=== PATIENT | male | born 1990 | race Caucasian/White ===

== ENCOUNTER 2020-12-26 14:46 | Emergency (ER) | payer BC, SELFPAY ==
[2020-12-26 14:47] VITALS: BP 151/92; PULSE 90; RESP 18; TEMP 36.8; O2SAT 100; BMI 34.8
[2020-12-26 15:12] VITALS: BP 151/92; PULSE 90; RESP 18; TEMP 36.8; O2SAT 100
--- NOTE | 2020-12-26 15:24 | EX.ED.DYSGE1 ---
HPI History of Present Illness Chief Complaint: Wound Informant: patient Narrative Narrative: Patient is a 30-year-old previously healthy male who presents to the emergency department for cellulitis of his foot. Patient states that initially noticed this hurting on Saturday. He was out of town and went to an outside emergency department who prescribed him Keflex. He has been taking this and it has helped with swelling but he states that there is significant redness, tenderness still present. He did try to cut open the foot initially on his own and got out about a dime size amount of purulent drainage. He has had cellulitis of his left leg before in the past but never at this location on his toes. He feels like his toes keep rubbing together which makes it worse. He denies any fevers or chills. No abdominal pain or nausea/vomiting. He denies rashes elsewhere. PFSH PFSH Home Medications sulfamethoxazole-trimethoprim [Bactrim DS] 2 tab PO BID 7 Days #28 tab 12/26/20 [Rx Last Taken Unknown] Allergy/AdvReac Type Severity Reaction Status Date / Time No Known Allergies Allergy Verified 12/26/20 14:51 Social History Smoking Status: Current every day smoker tobacco type: cigarettes ROS ROS ED Constitutional Constitutional ED: Denies chills or fever(s) ENT ENT ED: Denies rhinorrhea Cardiovascular Cardiovascular: Denies chest pain Respiratory/Chest Respiratory/Chest: Denies cough or dyspnea Gastrointestinal Gastrointestinal: Denies abdominal pain, nausea or vomiting Musculoskeletal Musculoskeletal: Denies neck pain Integumentary Reports other Details: cellulitis Neurologic Neurologic: Denies headache(s) or weakness EXAM Physical Exam Const Vital Signs: 12/26/20 14:47 12/26/20 15:12 Temperature 98.2 F 98.2 F Temperature Source Temporal Temporal Pulse Rate 90 90 Respiratory Rate 18 18 Blood Pressure 151/92 H 151/92 H Blood Pressure Mean 111 111 Pulse Ox 100 100 Oxygen Delivery Method Room Air Room Air Positive well nourished and well developed General Appearance ED: well developed and NAD HEENT Reports normocephalic and head/scalp atraumatic Eyes PERRL and EOMs intact bilaterally Neck supple Chest Wall inspection of chest normal Resp normal respiratory effort and clear to auscultation bilaterally Auscultation: Negative for rales, rhonchi or wheezes Cardio regular rate, regular rhythm and no murmurs GI normal to inspection, nondistended, normoactive bowel sounds and non-tender Palpation: soft; Negative for guarding or rebound tenderness present Extremity General Extremety ED: Negative for edema General Extremity: Negative for edema Neuro no sensory deficits noted Sensorium / Orientation: alert Motor Exam: strength 5/5 throughout Psych mental status grossly normal Skin Skin Narrative: Cellulitis extending between the third and fourth toe up the dorsal aspect of the foot. This is erythematous and tender to touch. There is mild swelling present. There is a small ulceration between the toes with some granulation tissue/purulence. No fluctuating abscess appreciated. Bedside ultrasound did not show any fluid collections. There is cobblestoning present. He otherwise is neurovascular intact with full range of motion of all joints of foot. MDM MDM MDM Narrative Medical decision making narrative: Patient presents to the emerge department for cellulitis of the foot. He has been on Keflex since Saturday. He feels like he has not gotten significant improvement except for the swelling has gone down. On arrival to the ED vital signs within normal limits. No fluid collection that requires drainage on my examination. With a history of cellulitis in the past we will add Bactrim to the Keflex to continue to take. Otherwise this time do not feel any imaging/work-up is required. He is given a referral for a PCP at his request. He states he does have an appointment with his infectious disease doctor but this is not for another 9 days. Return precautions are reviewed with him including any streaking up the leg, difficulty moving joints of the foot, systemic symptoms. He understands and is agreeable this plan. Discharged home in stable condition. All questions were answered. Discharge Plan Triage Chief Complaint: Wound ED Provider: Pankaj Golden Dx/Rx/DC Orders Clinical Impression: Cellulitis of foot Instructions: ED Cellulitis Prescriptions: New sulfamethoxazole-trimethoprim [Bactrim DS] 800-160 mg tablet 2 tab PO BID 7 Days Qty: 28 RF: 0 Primary Care Provider: NOT,DEFINED Referrals: Desire Andrews MD [STAFF PHYSICIAN] - 3-5 Days NOT,DEFINED [Primary Care Provider] - Disposition Disposition: Home, Self Care
[2020-12-26 15:36] VITALS: RESP 16
== END 2020-12-26 15:36 | disposition home or self-care (01) ==
LOC: ED 15:33
PROVIDERS: Emergency Provider Emergency Medicine
DX: L03.039 Cellulitis of unspecified toe (principal); F17.210 Nicotine dependence, cigarettes, uncomplicated
CPT/HCPCS: 99282

== ENCOUNTER 2021-02-03 08:57 | Emergency (ER) | payer BC, SELFPAY ==
[2021-02-03 08:59] VITALS: BP 145/93; PULSE 88; RESP 14; TEMP 36.7; O2SAT 99; BMI 35.6
--- NOTE | 2021-02-03 09:48 | ED.VIS.DENTA ---
HPI History of Present Illness Chief Complaint: Dental Informant: patient Narrative Narrative: Patient is a 30-year-old male that denies any past medical history presenting with dental pain. Patient states 2 days ago he started having pain in his right lower jaw. He is concerned he has an abscess. This morning when he woke up his right face was more swollen so he came to the emergency room. He notes he had problem with the molar in that area but his dentist did not feel comfortable extracting the tooth and referred him to oral surgeon. Patient states is painful to swallow but he has no difficulty swallowing. He denies any shortness of breath. He denies any other complaints to me. He notes his currently is at home and has Covid. PFSH PFSH Medical History no medical history Home Medications ibuprofen 600 mg PO Q6H PRN PRN #20 tab 02/03/21 [Rx Last Taken Unknown] penicillin V potassium 500 mg PO 4X/DAY #40 tab 02/03/21 [Rx Last Taken Unknown] Allergy/AdvReac Type Severity Reaction Status Date / Time No Known Allergies Allergy Verified 02/03/21 08:58 Social History Smoking Status: Current every day smoker tobacco type: cigarettes ROS ROS ED Constitutional Constitutional ED: Denies chills, fever(s) or malaise Eyes Eyes: Denies blurry vision or loss of vision ENT ENT ED: Reports other Details: dental pain, jaw swelling ; Denies rhinorrhea or sore throat Cardiovascular Cardiovascular: Denies chest pain or dizziness Respiratory/Chest Respiratory/Chest: Denies cough or dyspnea Gastrointestinal Gastrointestinal: Denies nausea or vomiting Genitourinary Genitourinary ED: Denies dysuria or hematuria Musculoskeletal Musculoskeletal: Denies arthralgias or myalgias Integumentary Denies rash or wounds Neurologic Neurologic: Denies focal weakness or headache(s) Psychiatric Psychiatric: Denies anxiety or behavioral changes EXAM Physical Exam Const Vital Signs: 02/03/21 08:59 Temperature 98.1 F Temperature Source Temporal Pulse Rate 88 Respiratory Rate 14 Blood Pressure 145/93 H Blood Pressure Mean 110 Pulse Ox 99 Oxygen Delivery Method Room Air Positive well nourished and well developed General Appearance ED: well developed HEENT Reports normocephalic, TM's clear, TM's normal bilaterally and dry mucous membranes Nose: external nose normal Tympanic Membrane ED: Yes TM's clear Mouth ED: Yes dry mucous membranes, No muffled voice and No trismus Mouth: dry mucous membranes, No muffled voice and No trismus Teeth and Gingiva: gingiva abnormal Positive for gingival edema (right posterior mandibular ) and diffuse gingival erythema; Negative for purulent d/c from gingiva, poor dentition and teeth discoloration Throat: posterior oropharynx normal, uvula midline and other Other Details: Sublingual mucosa is soft . Normal phonation Eyes PERRL and EOMs intact bilaterally Neck no lymphadenopathy, supple and no JVD Neck Narrative: Swelling of the right submandibular area General: submandibular swelling Resp normal respiratory effort and clear to auscultation bilaterally Cardio regular rate, regular rhythm and no murmurs Neuro oriented x3 Sensorium / Orientation: alert Motor Exam: Negative for general weakness Psych mental status grossly normal Skin no rashes or lesions noted Image ED - URI/Dental Diagram: 1. area of pain MDM MDM MDM Narrative Medical decision making narrative: Patient evaluated for 2 days worsening dental pain with no associated facial swelling. Is otherwise well-appearing. No findings concerning for Lissa's angina. No obvious abscess amenable to I&D noted. Patient is offered a dental block for comfort but he declines. Is started on Motrin and penicillin in the ER. Will follow up with his dentist and has an appointment next Saturday. Counseled on return precautions. Patient verbalizes agreement understanding this plan. Discharged home in stable condition. Discharge Plan Triage Chief Complaint: Dental ED Provider: Lyn Lr Dx/Rx/DC Orders Clinical Impression: Infected dental caries, Mandibular swelling Instructions: ED Dental Abscess Prescriptions: New ibuprofen 600 mg tablet 600 mg PO Q6H PRN PRN (Reason: fever or pain) Qty: 20 RF: 0 penicillin V potassium 500 mg tablet 500 mg PO 4X/DAY Qty: 40 RF: 0 Primary Care Provider: Care Physician,No Primary Referrals: Care Physician,No Primary [Primary Care Provider] - Activity Restrictions/Additional Instructions: Please follow-up with your dentist as scheduled. Disposition Disposition: Home, Self Care
[2021-02-03] MEDS: Penicillin Vk 250 MG Tablet 500 MG PO (10:08)
[2021-02-03] MEDS: Ibuprofen 600 MG Tablet PO (10:08)
== END 2021-02-03 10:09 | disposition home or self-care (01) ==
PROVIDERS: Emergency Provider Emergency Medicine
DX: K04.7 Periapical abscess without sinus (principal); K02.9 Dental caries, unspecified; M26.69 Other specified disorders of temporomandibular joint; Z20.822 Contact with and (suspected) exposure to COVID-19; F17.210 Nicotine dependence, cigarettes, uncomplicated
CPT/HCPCS: 99283

== ENCOUNTER 2021-02-07 23:24 | Emergency (ER) | payer BC, SELFPAY ==
[2021-02-07 23:24] VITALS: BP 161/100; PULSE 91; RESP 18; TEMP 36.8; O2SAT 99; BMI 34.8
--- NOTE | 2021-02-07 23:54 | ED.VIS.DENTA ---
HPI History of Present Illness Chief Complaint: Dental Informant: patient Narrative Narrative: Patient presents with right-sided dental pain. He states is not getting better. He thinks it might be worsening but he is not sure. He is still eating and drinking. He is able to swallow although it slightly sore. No fevers. He states he has a problem with infections. He has had cellulitis off and on for 4 years of his left leg so he does not think he deals with infection as well. He is not having the symptoms now. He has no documented immunologic diseases. He was placed on penicillin here Saturday. On Saturday/yes he saw the dentist and was changed to cephalexin. He states they have not helped. He has an appointment on Saturday to actually have the tooth pulled. Nothing specifically makes symptoms better or worse. No change in voice. PFSH PFSH Home Medications clindamycin HCl [Cleocin HCl] 300 mg PO Q6H #40 cap 02/08/21 [Rx Last Taken Unknown] hydrocodone-acetaminophen 1 tab PO Q6H PRN 3 Days #10 tab 02/08/21 [Rx Last Taken Unknown] Allergy/AdvReac Type Severity Reaction Status Date / Time No Known Allergies Allergy Verified 02/07/21 23:27 Social History Smoking Status: Current every day smoker tobacco type: cigarettes ROS ROS ED Constitutional Constitutional ED: Denies chills or fever(s) Eyes Eyes: Denies blurry vision or change in vision ENT ENT ED: Reports other Details: See history of present illness. ; Denies ear pain or rhinorrhea Cardiovascular Cardiovascular: Denies chest pain Respiratory/Chest Respiratory/Chest: Denies cough, dyspnea or sputum Gastrointestinal Gastrointestinal: Denies nausea or vomiting Musculoskeletal Musculoskeletal: Reports neck pain Integumentary Denies rash Neurologic Neurologic: Denies headache(s) Endocrine Endocrinology: Denies polydipsia or polyuria Hematologic/Lymphatic Hematologic/Lymphatic: Denies easy bruising Allergic/Immunologic Allergic/Immunologic ED: Reports mouth swelling; Denies tongue swelling or urticaria EXAM Physical Exam Const Vital Signs: 02/07/21 23:24 02/08/21 00:05 Temperature 98.3 F Temperature Source Temporal Pulse Rate 91 Respiratory Rate 18 14 Blood Pressure 161/100 H Blood Pressure Mean 120 Pulse Ox 99 Oxygen Delivery Method Room Air Positive well nourished and well developed Constitutional Narrative: Patient is laying back calmly in bed. He carries on a normal conversation and has a normal voice. General Appearance ED: well developed and NAD HEENT HEENT Narrative: He does have some tenderness on the right lower molar. There is some swelling in the external aspect of the jaw almost lateral and just inferior to the mandible on the right. However I see no internal abscess. Posterior pharyngeal tissues do not look displaced or abnormal. Tongue is not displaced. He handles secretions well and has a normal voice. Eyes General Eye ED: Negative for pale conjunctiva or scleral icterus Neck no lymphadenopathy and supple Neck Narrative: Mild submandibular swelling. Lymph Lymphatic: no lymphadenopathy noted Chest Wall inspection of chest normal Resp normal respiratory effort Cardio regular rate and regular rhythm GI normal to inspection, nondistended, normoactive bowel sounds and non-tender Palpation: soft Extremity normal to inspection Extremity Narrative: No sign of cellulitis on extremities at this time. Neuro oriented x3 Sensorium / Orientation: alert Psych mental status grossly normal Skin no rashes or lesions noted MDM MDM MDM Narrative Medical decision making narrative: Patient's blood work did show an elevated white count. He states normally when he has cellulitis his white count is about 30,000. Electrolytes were unremarkable. Glucose was normal. CT scan showed some lymphadenopathy inflammation and edema but no drainable fluid collection or abscess. I will add clindamycin to this patient. I will give him a few pills for pain. His last and only narcotic prescription was 2 years ago. This was for a small number of hydrocodone. He will follow-up for extraction Saturday as scheduled. Lab Data Attestation: I reviewed the patient's lab results. Labs: Laboratory Results - last 24 hr 02/08/21 02/08/21 00:02 00:02 WBC 16.2 H RBC 5.47 Hgb 15.4 Hct 46.0 MCV 84.1 MCH 28.2 MCHC 33.5 RDW Std Deviation 39.5 RDW Coeff of [place] 12.8 Plt Count 310 MPV 10.3 Immature Gran % (Auto) 0.400 Neut % (Auto) 74.9 H Lymph % (Auto) 13.1 L [place] % (Auto) 10.1 H Eos % (Auto) 1.1 Baso % (Auto) 0.4 Absolute Neuts (auto) 12.2 H Absolute Lymphs (auto) 2.12 Nucleated RBC % 0 Differential Comment SCANNED Diff Path Review May foll Sodium 140 Potassium 3.6 Chloride 104 Carbon Dioxide 27.0 Anion Gap 9 BUN 14 Creatinine 0.97 Estim Creat Clear Calc 119.68 Est GFR (MDRD) Af Amer 118 Est GFR (MDRD) Non-Af 97 BUN/Creatinine Ratio 14.5 Glucose 105 Calcium 9.3 Radiography Diagnostic Testing: Radiology Impression Soft Tissue Neck CT 02/08/21 23:52 IMPRESSION: Cellulitis with inflammation and edema in the right submandibular gland as well as the soft tissues of the posterior right mandible. No drainable fluid collection or abscess. Reactive lymphadenopathy is noted. Electronically Signed: Lebron Pyle DO at 0:53 EDT Tel , Service support , Discharge Plan Triage Chief Complaint: Dental ED Provider: Luis Guajardo Dx/Rx/DC Orders Clinical Impression: Infected dental caries, Mandibular swelling Instructions: ED Dental Abscess Facial Cellulitis Prescriptions: New clindamycin HCl [Cleocin HCl] 300 MG capsule 300 mg PO Q6H Qty: 40 RF: 0 hydrocodone-acetaminophen 5-325 mg tablet 1 tab PO Q6H PRN (Reason: pain) 3 Days Qty: 10 RF: 0 Primary Care Provider: Care Physician,No Primary Referrals: Care Physician,No Primary [Primary Care Provider] - Activity Restrictions/Additional Instructions: Follow-up with your dentist on Saturday as scheduled for extraction of tooth. Disposition Disposition: Home, Self Care
[2021-02-08] MEDS: Morphine 4 MG/ML Syringe IV (00:04)
[2021-02-08 00:05] VITALS: RESP 14
[2021-02-08 00:08] LABS: Absolute Lymphocyte Count 2.12 X10^3/uL (0.83-4.51); Absolute Neutrophil Count 12.2 X10^3/uL (2.0-7.7); Basophil# 0.07 X10^3/uL; Basophil% 0.4 % (0-1); Eosinophil# 0.18 X10^3/uL; Eosinophils% 1.1 % (0-5); Hemoglobin 15.4 g/dL (13.0-16.5); Lymphocyte # 2.12 X10^3/ul (0.83-4.51); Lymphocyte % 13.1 % (19-41); Mean Corp Hgb Conc 33.5 g/dL (32-36); Mean Corpuscular Hgb 28.2 pg (27.0-32.0); Mean Corpuscular Volume 84.1 fL (80-94); Mean Platelet Vol. 10.3 fl (6.2-12.0); Monocyte# 1.63 X10^3/uL; Monocyte% 10.1 % (0-10); NRBC Flagged by Analyzer 0 % (0-5); Neutrophil # 12.15 X10^3/uL (2.7-7.7); Neutrophil % 74.9 % (47-70); POSITIVE DIFFERENTIAL YES; Platelet Count 310 K/mm3 (150-450); RBC Distribution Width CV 12.8 % (11.6-14.6); RBC Distribution Width SD 39.5 fl (35.1-43.9); Red Blood Count 5.47 M/mm3 (4.6-6.2); White Blood Count 16.2 K/mm3 (4.4-11.0)
[2021-02-08 00:24] LABS: Anion Gap 9 (5-15); BUN 14 mg/dL (7-18); BUN/Creat Ratio 14.5 RATIO (10-20); Calcium,Total 9.3 mg/dL (8.5-10.1); Chloride 104 mmol/L (98-107); Creatinine, Serum 0.97 mg/dL (0.70-1.30); EST Glomerular Filtration Rate 97 mL/min (>60); Est Glom Filt Rate - Afr Amer 118 mL/min (>60); Estimated Creatinine Clearance 119.68 ml/min; Glucose 105 mg/dL (74-106); Potassium 3.6 mmol/L (3.5-5.1); Sodium Level 140 mmol/L (136-145)
[2021-02-08 00:29] LABS: Differential Indicated SCAN CRITERIA MET
[2021-02-08 00:48] LABS: Differential Comment SCANNED
[2021-02-08 13:39] LABS: Pathologist Review Reviewed
--- NOTE | 2021-02-08 23:52 | CT_ITS ---
STUDY: CT SOFT TISSUE NECK WITH CONTRAST REASON FOR EXAM: Male, 30 years old. ? abscess RADIATION DOSAGE (If Supplied By Facility): CTDIvol = ( 16.94 ) mGy, DLP = ( 482.57 ) mGycm TECHNIQUE: The patient was scanned in a multi-detector CT scanner. High resolution transaxial imaging was performed following intravenous administration of IV 100mL Isovue-370. Sagittal and coronal images were reconstructed. Individualized dose optimization techniques were used for this CT. COMPARISON: None. FINDINGS: Significant inflammation or edema without discrete abscess noted in the region of the posterior right mandible adjacent to the inner and outer table. Prominent subjacent reactive lymphadenopathy. Great vessels appear within normal limits. No evidence of osseous involvement. No drainable fluid collection. There appears to be enlargement of the right submandibular gland. CT/Soft Tissue Neck WITH Contrast IMPRESSION: Cellulitis with inflammation and edema in the right submandibular gland as well as the soft tissues of the posterior right mandible. No drainable fluid collection or abscess. Reactive lymphadenopathy is noted. Electronically Signed: Lebron Pyle DO at 0:53 EDT Tel , Service support ,
== END 2021-02-08 01:52 | disposition home or self-care (01) ==
PROVIDERS: Emergency Provider Emergency Medicine
DX: K04.7 Periapical abscess without sinus (principal); K02.9 Dental caries, unspecified; R22.0 Localized swelling, mass and lump, head; R59.1 Generalized enlarged lymph nodes; F17.210 Nicotine dependence, cigarettes, uncomplicated
CPT/HCPCS: 70491; 80048; 85025; 96361; 96365; 96375; 99284; J7030; Q9967; A4216; J0295

== ENCOUNTER 2021-02-10 21:20 | Inpatient (IN) | payer BC, SELFPAY ==
[2021-02-10 21:20] VITALS: BP 138/86; PULSE 100; RESP 15; TEMP 37.6; O2SAT 97; BMI 34.8
--- NOTE | 2021-02-10 21:51 | EDS_ITS ---
HPI History of Present Illness Chief Complaint: Dental Informant: patient Onset/Context/Timing Onset: Days Context: Gradual Onset Timing: Continuous Current Severity: Moderate Maximum Severity: Moderate Associated Symptoms Assocated Symptom - Dental: jaw swelling, face swelling, cold sensitivity and hot sensitivity; Negative for fever Narrative Narrative: 22-year-old male states that for the last week he has had pain in his right lower jaw. He was seen by [facility] on Saturday. He was started on clindamycin which she is to begin taking on Saturday she is now been on it for days. She has been taken antibiotic and is progressively getting worse. There is no trouble moving his jaw. Prior similar symptoms: No Recent Illness/Hospitalization: No [facility] Medical History (Updated 02/10/21 @ 23:[address] Carlos Johnson MD) Cellulitis Dental abscess Home Medications clindamycin HCl [Cleocin HCl] 300 mg PO Q6H #40 cap 02/08/21 [Rx Last Taken Unknown] hydrocodone-acetaminophen 1 tab PO Q6H PRN 3 Days #10 tab 02/08/21 [Rx Last Taken Unknown] Allergy/AdvReac Type Severity Reaction Status Date / Time No Known Allergies Allergy Verified 02/10/21 21:20 Social History Smoking Status: Current every day smoker tobacco type: cigarettes ROS ROS ED ROS Narrative Denies. Review of Systems ROS Unobtainable: Denies due to encephalopathy Constitutional Constitutional ED: Denies fever(s) Eyes Eyes: Denies change in vision ENT ENT ED: Denies ear pain or sore throat Cardiovascular Cardiovascular: Denies chest pain Respiratory/Chest Respiratory/Chest: Denies dyspnea Gastrointestinal Gastrointestinal: Denies abdominal pain, diarrhea, nausea or vomiting Genitourinary Genitourinary ED: Denies dysuria Musculoskeletal Musculoskeletal: Denies myalgias Integumentary Denies rash Neurologic Neurologic: Denies headache(s) Psychiatric Psychiatric: Denies depression Endocrine Endocrinology: Denies polyuria Hematologic/Lymphatic Hematologic/Lymphatic: Denies easy bruising Allergic/Immunologic Allergic/Immunologic ED: Denies urticaria EXAM Physical Exam Narrative Exam Narrative: 30-year-old male no acute distress. Vital signs stable. Temperature 9.7. Does not look septic or toxic. HEENT exam is right-sided facial swelling beginning in the zygomatic arch primarily over the right lower jaw and the submental region on the right. He felt lymphadenopathy in his neck. Trachea midline. He does have trismus. He cannot completely open his mouth due to discomfort. He has moist mucous membranes. Currently he is having no trouble breathing or swallowing. No drooling. Lungs are clear. Heart regular rhythm rate about 95 no murmur. Otherwise exam unremarkable. Const Vital Signs: 02/10/21 21:20 Temperature 99.7 F H Temperature Source Temporal Pulse Rate 100 Respiratory Rate 15 Blood Pressure 138/86 H Blood Pressure Mean 103 Pulse Ox 97 Oxygen Delivery Method Room Air Positive well nourished and well developed; Negative for cachectic, contractures or unkempt General Appearance ED: well developed and NAD; Negative for unkempt, cachectic or contractures Nutritional Appearance: Negative for cachectic HEENT tenderness; Negative for trauma Mouth ED: Yes lips normal and Yes tongue normal Mouth: lips normal and tongue normal Teeth and Gingiva: abnormal tooth and associated gingiva, gingiva abnormal and poor dentition Eyes PERRL and EOMs intact bilaterally Neck no lymphadenopathy, supple and no JVD General: normal visual inspection, tenderness and submandibular swelling Lymph Lymphatic: lymphadenopathy; Negative for no lymphadenopathy noted Chest Wall inspection of chest normal and palpation of chest normal Resp normal respiratory effort, no retractions and clear to auscultation bilaterally Cardio regular rate, regular rhythm, S1 normal heart sound, S2 normal heart sound and no murmurs GI normal to inspection, nondistended, normoactive bowel sounds, non-tender, non- distended and no masses Palpation: soft Back/Spine no CVA tenderness Extremity normal to inspection Neuro oriented x3 and moves all extremities Sensorium / Orientation: alert, oriented to person, oriented to place and oriented to time; Negative for orientation impaired Psych mental status grossly normal Appearance: Negative for unkempt Skin no rashes or lesions noted MDM MDM MDM Narrative Medical decision making narrative: Patient with right-sided facial and jaw swelling most likely secondary to dental infection and possible dental abscess., CAT scan labs being obtained. Currently is failing outpatient therapy has been on clindamycin for 4 days and is getting worse. We started on IV Unasyn. Patient treated with morphine and Zofran for pain. On repeat exam no significant change. Patient is doing well. Awaiting admission. Of already spoken to the hospitalist. Patient is resting comfortably. There is no signs of Urban's angina. Currently there is no drainable abscess. There is no compromise of his airway and no trouble swallowing or breathing. Lab Data Attestation: I reviewed the patient's lab results. Lab results narrative: CBC shows a white count of 16.7. Hemoglobin 14. Electrolytes unremarkable gap 7 normal creatinine of 1. Glucose 111. CAT scans consistent with a dental infection. Labs: Laboratory Results - last 24 hr 02/10/21 02/10/21 21:55 21:55 WBC 16.7 H RBC 5.27 Hgb 14.5 Hct 43.7 MCV 82.9 MCH 27.5 MCHC 33.2 RDW Std Deviation 38.5 RDW Coeff of [place] 12.7 Plt Count 364 MPV 10.0 Immature Gran % (Auto) 0.400 Neut % (Auto) 79.2 H Lymph % (Auto) 10.0 L [place] % (Auto) 9.5 Eos % (Auto) 0.5 Baso % (Auto) 0.4 Absolute Neuts (auto) 13.2 H Absolute Lymphs (auto) 1.66 Nucleated RBC % 0 Sodium 137 Potassium 3.7 Chloride 103 Carbon Dioxide 27.0 Anion Gap 7 BUN 16 Creatinine 1.01 Estim Creat Clear Calc 114.94 Est GFR (MDRD) Af Amer 112 Est GFR (MDRD) Non-Af 92 BUN/Creatinine Ratio 15.8 Glucose 111 H Calcium 9.0 Radiography Diagnostic Testing: Radiology Impression Facial/Sinus 02/10/21 22:11 IMPRESSION: Tiny right mandibular molar abscess with cortical breakthrough. Soft tissue swelling detailed above with involvement of the right submandibular gland, platysma, and masseter muscle. No drainable fluid collection or finding of bone involvement. Electronically Signed: Olivier Campbell MD at 22:52 EDT Tel , Service support , Discharge Plan Dx/Rx/DC Orders Clinical Impression: Mandibular swelling, Abscess, dental Disposition Disposition: [facility]
[2021-02-10 22:09] LABS: Absolute Lymphocyte Count 1.66 X10^3/uL (0.83-4.51); Absolute Neutrophil Count 13.2 X10^3/uL (2.0-7.7); Basophil# 0.07 X10^3/uL; Basophil% 0.4 % (0-1); Eosinophil# 0.08 X10^3/uL; Eosinophils% 0.5 % (0-5); Hematocrit 43.7 % (40-54); Hemoglobin 14.5 g/dL (13.0-16.5); Lymphocyte # 1.66 X10^3/ul (0.83-4.51); Mean Corp Hgb Conc 33.2 g/dL (32-36); Mean Corpuscular Hgb 27.5 pg (27.0-32.0); Mean Corpuscular Volume 82.9 fL (80-94); Monocyte# 1.59 X10^3/uL; Monocyte% 9.5 % (0-10); NRBC Flagged by Analyzer 0 % (0-5); Neutrophil # 13.19 X10^3/uL (2.7-7.7); Neutrophil % 79.2 % (47-70); POSITIVE DIFFERENTIAL YES; Platelet Count 364 K/mm3 (150-450); RBC Distribution Width CV 12.7 % (11.6-14.6); RBC Distribution Width SD 38.5 fl (35.1-43.9); Red Blood Count 5.27 M/mm3 (4.6-6.2); White Blood Count 16.7 K/mm3 (4.4-11.0)
--- NOTE | 2021-02-10 22:11 | CT_ITS ---
STUDY: CT FACIAL BONES WITHOUT CONTRAST REASON FOR EXAM: Male, 30 years old. Right sided dental abscess RADIATION DOSAGE (If Supplied By Facility): CTDIvol = ( 29.38 ) mGy, DLP = ( 767.84 ) mGycm TECHNIQUE: The patient was scanned in a multi detector CT scanner. Sagittal and coronal images were reconstructed. Individualized dose optimization techniques were used for this CT. COMPARISON: 02/08/2021 CT of the neck FINDINGS: There is a tiny periapical lucency of the remaining right mandibular molar with cortical breakthrough. Moderate overlying soft tissue swelling with thickened platysma and enlarged submandibular gland, masseter muscle, and cervical lymph nodes, increased compared to 02/08/2021. This causes mass effect on the oropharynx and hypopharynx. No drainable fluid collection. No cortical erosion or periosteal reaction to suggest bony involvement. Normal orbital chaves and orbital contents. Normal nasal bones and anterior nasal spine. Normal facial bones. There is no demonstrated fracture. Normal visualized paranasal sinuses. CT/Sinus/Facial Bone IMPRESSION: Tiny right mandibular molar abscess with cortical breakthrough. Soft tissue swelling detailed above with involvement of the right submandibular gland, platysma, and masseter muscle. No drainable fluid collection or finding of bone involvement. Electronically Signed: Olivier Campbell MD at 22:52 EDT Tel , Service support ,
[2021-02-10 22:30] LABS: Anion Gap 7 (5-15); BUN 16 mg/dL (7-18); BUN/Creat Ratio 15.8 RATIO (10-20); Chloride 103 mmol/L (98-107); Creatinine, Serum 1.01 mg/dL (0.70-1.30); EST Glomerular Filtration Rate 92 mL/min (>60); Est Glom Filt Rate - Afr Amer 112 mL/min (>60); Estimated Creatinine Clearance 114.94 ml/min; Glucose 111 mg/dL (74-106); Potassium 3.7 mmol/L (3.5-5.1); Sodium Level 137 mmol/L (136-145)
[2021-02-10 22:34] LABS: Differential Indicated SCAN CRITERIA MET
--- NOTE | 2021-02-10 23:11 | PCM.HP.STD ---
HPI - General General Date of Admission: 02/10/21 HPI Narrative TERRELL SCHAEFER, is a 30 M with a significant history of wisdom teeth extraction who presents to the emergency department with 1 week history of progressively worsening swelling of his right cheek. Associated for symptom is pain at the right cheek. He went to his dentist and was told that because his tooth is infected it cannot be extracted. He was given antibiotics. Despite being on clindamycin Augmentin his swelling increased. He was told that he would need an oral surgeon. Patient came to emergency department for further evaluation and treatment. Patient is unable to eat because he cannot even open his mouth. Last time he ate was about 3 days ago very at mashed potatoes and broth. [facility] Medical History Cellulitis Dental abscess Home Medications clindamycin HCl [Cleocin HCl] 300 mg PO Q6H #40 cap 02/08/21 [Rx Last Taken Unknown] hydrocodone-acetaminophen 1 tab PO Q6H PRN 3 Days #10 tab 02/08/21 [Rx Last Taken Unknown] Allergy/AdvReac Type Severity Reaction Status Date / Time No Known Allergies Allergy Verified 02/10/21 21:20 Family History Other Hypertension Surgical History H/O wisdom tooth extraction Social History Smoking Status: Current every day smoker tobacco type: cigarettes ROS ROS Narrative Constitutional: Denies fever, chills, fatigue, anorexia and change in weight Eyes: Denies blurry vision, change in eye color, change in vision, discharge from eye(s), double vision, erythema, eye pain, loss of vision or other HEENT: Denies abnormal hearing, dysphagia, ear pain, epistaxis, headache(s), hearing loss, nasal congestion, nasal discharge, post nasal drip, sinus pressure, sore throat or other Cardiovascular: Denies chest pain or palpitations. Denies dyspnea on exertion, orthopnea and paroxysmal nocturnal dyspnea Respiratory/Chest: Denies cough, excessive phlegm production, shortness of breath with exertion and wheezing Gastrointestinal: Denies abdominal pain, coffee ground emesis, constipation, diarrhea, dyspepsia, hematemesis, hematochezia, loose stools, melena, nausea, vomiting or other Genitourinary: Denies burning urination, difficulty urinating, dysuria, hematuria, nocturia, urinary frequency, urinary hesitancy, urinary incontinence, urinary urgency or other Musculoskeletal: Denies arthralgias, back pain, joint pain, joint stiffness, joint swelling, myalgias, neck pain or other Neurologic: Denies abnormal gait, abnormal speech, confusion, disequilibrium, dizziness, focal weakness, headache(s), numbness, paresthesias, seizure-like activity, seizures, syncope, tingling, tremor(s) or other Psychiatric: Denies anxiety, depression, homicidal ideation, suicidal ideation or other Endocrinology: Denies change in body appearance, cold intolerance, excessive sweating, heat intolerance, polydipsia, polyuria or other Hematologic/Lymphatic: Denies anemia, easy bleeding, easy bruising, lymphadenopathy or other Integumentary: Denies rashes Allergic/Immunologic: Denies rhinitis, hives, eczema, asthma or other Vital Signs Vital Signs Vital Signs: 02/10/21 21:20 Temperature 99.7 F H Temperature Source Temporal Pulse Rate 100 Respiratory Rate 15 Blood Pressure 138/86 H Blood Pressure Mean 103 Pulse Ox 97 Oxygen Delivery Method Room Air Weight Weight: 113.398 kg Body Mass Index (BMI) 34.8 Physical Exam Narrative Physical exam: General: Well-nourished, well-developed. Head: Normocephalic, atraumatic, no tenderness Eyes: PERRLA, EOMI ENT: Patient with swelling of right jaw and necrotic tooth. Neck: Nontender, full range of motion, no spinal tenderness, deformities, step-off CVS: Regular rate and rhythm. S1-S2 present. No murmur, gallop or rub. Respiratory : clear to auscultation bilaterally, chest wall nontender, no wheezing Abdomen: Soft, nontender, nondistended, normal bowel sounds, no masses : Deferred Back: Nontender, no CVA tenderness, no midline spinal tenderness, deformities, step-offs Extremities: Nontender full range of motion, no trauma Skin: Normal color, no trauma, abrasions Neuro: Alert, oriented, cranial nerves II through XII grossly intact. Psychiatry: Normal mood. Normal affect. Not depressed. Not anxious. Results Lab / Micro Data Result Diagrams: 02/10/21 21:55 02/10/21 21:55 Labs: Laboratory Results - last 24 hr 02/10/21 21:55: WBC 16.7 H, RBC 5.27, Hgb 14.5, Hct 43.7, MCV 82.9, MCH 27.5, MCHC 33.2, RDW Std Deviation 38.5, RDW Coeff of [place] 12.7, Plt Count 364, MPV 10.0, Immature Gran % (Auto) 0.400, Neut % (Auto) 79.2 H, Lymph % (Auto) 10.0 L, [place] % (Auto) 9.5, Eos % (Auto) 0.5, Baso % (Auto) 0.4, Absolute Neuts (auto) 13.2 H, Absolute Lymphs (auto) 1.66, Nucleated RBC % 0 02/10/21 21:55: Sodium 137, Potassium 3.7, Chloride 103, Carbon Dioxide 27.0, Anion Gap 7, BUN 16, Creatinine 1.01, Estim Creat Clear Calc 114.94, Est GFR (MDRD) Af Amer 112, Est GFR (MDRD) Non-Af 92, BUN/Creatinine Ratio 15.8, Glucose 111 H, Calcium 9.0 Radiology Impression Facial/Sinus 02/10/21 22:11 IMPRESSION: Tiny right mandibular molar abscess with cortical breakthrough. Soft tissue swelling detailed above with involvement of the right submandibular gland, platysma, and masseter muscle. No drainable fluid collection or finding of bone involvement. Electronically Signed: Olivier Campbell MD at 22:52 EDT Tel , Service support , Assessment & Plan Assessment/Plan (1) Abscess, dental: PLAN: Dental abscess Radiologist impression of CT Sinus/Facial Bone is as above. Actual CT image was independently visualized. Soft tissue swelling noted. Radiologist impression of soft tissue neck CT on 02/07/2021: Cellulitis with inflammation and edema in the right submandibular gland as well as the soft tissues of the posterior right mandible. No drainable fluid collection or abscess. Reactive lymphadenopathy is noted. Actual CT image was independently visualized. Swelling of soft tissue of posterior right mandible noted. Started on Unasyn at the emergency department and continued. Would add vancomycin. We will keep patient n.p.o. IV fluids while n.p.o. Consult orofacial surgeon. Review of labs showed a white count of 16.7 with neutrophilic predominance and with lymphopenia. Trend CBC and BMP. Tobacco abuse Counseled Declined nicotine patch. DVT prophylaxis: SCD ordered. Charges/Coding Visit Charges Inpatient E&M: 68014 Init Hosp L3
[2021-02-10] MEDS: Ondansetron 4 MG/2 ML Vial IV (23:13)
[2021-02-10] MEDS: morphine 8 MG/ML Syringe IV (23:13)
[2021-02-10 23:18] LABS: Differential Comment SCANNED
[2021-02-10 23:20] VITALS: BP 127/69; PULSE 86; RESP 16; TEMP 37.7; O2SAT 96
[2021-02-10 23:46] VITALS: BMI 34.1
[2021-02-10 23:50] VITALS: BP 149/80; PULSE 79; RESP 18; TEMP 37.7; O2SAT 98
[2021-02-11 00:13] VITALS: O2SAT 98
[2021-02-11] MEDS: Dextrose 5%/0.9% NaCl 1,000 ML 75 ML IV ×2 (00:19→17:12)
[2021-02-11] MEDS: 0.9% Saline Lock 10 ML Syringe IV ×4 (00:19→10:23)
--- NOTE | 2021-02-11 00:47 | PCM.RX.CS ---
Consult Pharmacy has been consulted to manage selected antiobiotic: Vancomycin Type of Consult: New start Suspected Infection: Skin/Soft tissue Prior Doses of Antibiotics Received/Current Regimen: Medications Vancomycin HCl 1,500 mg/ (Sodium Chloride) 530 mls @ 250 mls/hr IV Q8H JADE Vancomycin HCl 1,750 mg/ (Sodium Chloride) 535 mls @ 250 mls/hr IV X1 ONE Stop: 02/11/21 01:38 Last Admin: 02/11/21 00:20 Dose: 250 mls/hr Labs: Sodium 137 mmol/L (136-145) 02/10/21 21:55 Potassium 3.7 mmol/L (3.5-5.1) 02/10/21 21:55 Chloride 103 mmol/L (98-107) 02/10/21 21:55 Carbon Dioxide 27.0 mmol/L (21.0-32.0) 02/10/21 21:55 Anion Gap 7 (5-15) 02/10/21 21:55 BUN 16 mg/dL (7-18) 02/10/21 21:55 Creatinine 1.01 mg/dL (0.70-1.30) 02/10/21 21:55 Est GFR (MDRD) Af Amer 112 mL/min (>60) 02/10/21 21:55 Est GFR (MDRD) Non-Af 92 mL/min (>60) 02/10/21 21:55 BUN/Creatinine Ratio 15.8 RATIO (10-20) 02/10/21 21:55 Glucose 111 mg/dL (74-106) H 02/10/21 21:55 Weight used for dosin.4 kg Estimated Creatinine Clearance: 115 Goal Trough: 15-20 mcg/mL Pharmacy Plan for Drug Dosing: Pharmacy Service will continue to monitor and adjust dosing as required. Follow-Up Labs: Trough Vancomycin Labs to be done on [date and time ordered]: 02/12/21 @0000
--- NOTE | 2021-02-11 00:54 | PCS.PANDOC ---
PANDEMIC DOCUMENTATION INITIATED: Date: 12/26/2020 Time: 190
[2021-02-11] MEDS: Morphine 4 MG/ML Syringe IV ×4 (02:13→19:57)
[2021-02-11 04:36] VITALS: BP 140/65; PULSE 80; RESP 18; TEMP 37.1; O2SAT 97
[2021-02-11 06:33] LABS: Absolute Lymphocyte Count 1.98 X10^3/uL (0.83-4.51); Absolute Neutrophil Count 14.5 X10^3/uL (2.0-7.7); Basophil# 0.09 X10^3/uL; Basophil% 0.5 % (0-1); Eosinophil# 0.06 X10^3/uL; Eosinophils% 0.3 % (0-5); Hemoglobin 13.7 g/dL (13.0-16.5); Lymphocyte # 1.98 X10^3/ul (0.83-4.51); Lymphocyte % 10.4 % (19-41); Mean Corp Hgb Conc 32.6 g/dL (32-36); Mean Corpuscular Hgb 27.8 pg (27.0-32.0); Mean Corpuscular Volume 85.2 fL (80-94); Mean Platelet Vol. 10.1 fl (6.2-12.0); Monocyte# 2.31 X10^3/uL; Monocyte% 12.1 % (0-10); NRBC Flagged by Analyzer 0 % (0-5); Neutrophil # 14.53 X10^3/uL (2.7-7.7); Neutrophil % 76.2 % (47-70); POSITIVE DIFFERENTIAL YES; Platelet Count 354 K/mm3 (150-450); RBC Distribution Width CV 12.8 % (11.6-14.6); RBC Distribution Width SD 39.8 fl (35.1-43.9); Red Blood Count 4.93 M/mm3 (4.6-6.2); White Blood Count 19.1 K/mm3 (4.4-11.0)
[2021-02-11 06:39] LABS: Differential Indicated SCAN CRITERIA MET
[2021-02-11 06:56] LABS: Differential Comment SCANNED
[2021-02-11 07:02] LABS: Anion Gap 8 (5-15); BUN 16 mg/dL (7-18); BUN/Creat Ratio 17.3 RATIO (10-20); Calcium,Total 8.8 mg/dL (8.5-10.1); Chloride 101 mmol/L (98-107); Creatinine, Serum 0.93 mg/dL (0.70-1.30); EST Glomerular Filtration Rate 102 mL/min (>60); Est Glom Filt Rate - Afr Amer 123 mL/min (>60); Estimated Creatinine Clearance 124.83 ml/min; Glucose 99 mg/dL (74-106); Potassium 3.7 mmol/L (3.5-5.1); Sodium Level 136 mmol/L (136-145)
[2021-02-11 08:55] VITALS: BP 144/89; PULSE 88; RESP 20; TEMP 37.7; O2SAT 92
--- NOTE | 2021-02-11 12:15 | CASEMGMT ---
ANKIT PAGE DOG BOARDER CM to room to meet with patient for initial transition planning/care coordination assessment. ANKIT PAGE introduced self and role at [facility]. Pt voices understanding and consents to assessment at this time. Pt resting in bed in no distress at this time. Pt is A/O at this time and answers all questions appropriately. Care providers, pharmacy, and demographics verified/updated at this time. PCP: No PCP. Pt provided w/list of local PCP's. Specialists: Dentist @ [facility] in [place]. ID: Mahdavi Arellano NP, @ [facility] Preferred Pharmacy: [facility] Insurance: [place] Prescription Benefit: Pt states, I believe so. Living Will/HPOA: Pt does not currently have LW/HCPOA and declines info at this time. Pt made aware that he can contact as an out-pt and make appt in the future if he decides he would like to talk with someone about this or would like to utilize [facility] social work for advanced directive completion. LNOK: , Jennifer. Living Arrangements: Lives w/ and 2 yr-old son in 3-story home. Independent. Works full-time. Transportation: Pt states drives self and states no transportation concerns at this time. also drives. DME: Denies using any DME and denies needs. HHC/SNF: No hx of either. No needs identified. Pt wishes to return home and states has no concerns with going home at time of discharge. CM to follow for home oxygen needs and any discharge planning/needs. Pt voices no concerns/needs at this time. Advised pt to ask for CM if any questions/concerns/needs arise. Voices understanding. PLAN: Home w/spousal support and discharge plans in place. Brian BROOKS RN, CM
--- NOTE | 2021-02-11 12:24 | PCM.PN.HOSP ---
Subjective Subjective Doing well, swelling is improved. Still has difficulty opening his mouth but would like to try to eat something. Objective Data Objective Data Vital Signs: Vital Signs Temp Pulse Resp BP Pulse Ox 99.9 F H 88 20 H 144/89 H 92 02/11/21 08:55 02/11/21 08:55 02/11/21 08:55 02/11/21 08:55 02/11/21 08:55 Oxygen Delivery Method Room Air Weight: 244 lb 11.41 oz Body Mass Index (BMI) 34.1 Intake & Output: Intake and Output for Last 24 Hours 02/10/21 02/11/21 02/12/21 03:59 03:59 03:59 Intake Total 414.5 / 414.5 767 / 767 Balance 414.5 / 414.5 767 / 767 Lab / Micro Data Result Diagrams: 02/11/21 06:22 02/11/21 06:22 Labs: Laboratory Results - last 24 hr 02/10/21 21:55: WBC 16.7 H, RBC 5.27, Hgb 14.5, Hct 43.7, MCV 82.9, MCH 27.5, MCHC 33.2, RDW Std Deviation 38.5, RDW Coeff of [place] 12.7, Plt Count 364, MPV 10.0, Immature Gran % (Auto) 0.400, Neut % (Auto) 79.2 H, Lymph % (Auto) 10.0 L, [place] % (Auto) 9.5, Eos % (Auto) 0.5, Baso % (Auto) 0.4, Absolute Neuts (auto) 13.2 H, Absolute Lymphs (auto) 1.66, Nucleated RBC % 0, Differential Comment SCANNED, Diff Path Review September02/10/21 21:55: Sodium 137, Potassium 3.7, Chloride 103, Carbon Dioxide 27.0, Anion Gap 7, BUN 16, Creatinine 1.01, Estim Creat Clear Calc 114.94, Est GFR (MDRD) Af Amer 112, Est GFR (MDRD) Non-Af 92, BUN/Creatinine Ratio 15.8, Glucose 111 H, Calcium 9.0 02/11/21 06:22: WBC 19.1 H, RBC 4.93, Hgb 13.7, Hct 42.0, MCV 85.2, MCH 27.8, MCHC 32.6, RDW Std Deviation 39.8, RDW Coeff of [place] 12.8, Plt Count 354, MPV 10.1, Immature Gran % (Auto) 0.500, Neut % (Auto) 76.2 H, Lymph % (Auto) 10.4 L, [place] % (Auto) 12.1 H, Eos % (Auto) 0.3, Baso % (Auto) 0.5, Absolute Neuts (auto) 14.5 H, Absolute Lymphs (auto) 1.98, Nucleated RBC % 0, Differential Comment SCANNED, Diff Path Review September02/11/21 06:22: Sodium 136, Potassium 3.7, Chloride 101, Carbon Dioxide 27.0, Anion Gap 8, BUN 16, Creatinine 0.93, Estim Creat Clear Calc 124.83, Est GFR (MDRD) Af Amer 123, Est GFR (MDRD) Non-Af 102, BUN/Creatinine Ratio 17.3, Glucose 99, Calcium 8.8 Radiography Diagnostic Testing: Radiology Impression Facial/Sinus 02/10/21 22:11 IMPRESSION: Tiny right mandibular molar abscess with cortical breakthrough. Soft tissue swelling detailed above with involvement of the right submandibular gland, platysma, and masseter muscle. No drainable fluid collection or finding of bone involvement. Electronically Signed: Olivier Campbell MD at 22:52 EDT Tel , Service support , Physical Exam Const alert, oriented x3 and no apparent distress General Appearance: cooperative HEENT normocephalic and moist oral mucous membranes Face and Sinus: facial edema Eyes PERRL, EOMs intact bilaterally and conjunctivae normal Neck supple and no JVD Resp normal respiratory effort, no retractions, no use of accessory muscles and clear to auscultation bilaterally Auscultation: Negative for crackles, rales, rhonchi or wheezes Cardio regular rate, regular rhythm, S1 normal heart sound, S2 normal heart sound and no murmurs GI soft to palpation, non-tender and non-distended; Negative for hepatosplenomegaly Extremity no clubbing, cyanosis or edema Skin no rashes or lesions noted Neuro no focal motor deficits and no sensory deficits noted Psych affect normal Appearance: appropriate Assessment & Plan Assessment/Plan (1) Abscess, dental: PLAN: 1. Tiny dental abscess on the right per CT of the face. -Significant swelling with difficulty opening his mouth -Was taking clindamycin p.o. however swelling worsened and p.o. intake declined -We will continue with IV antibiotics, if he still here on Saturday can see OMFS -Continue to monitor leukocytosis -He can have a diet secondary to no immediate plans for OR 2. Tobacco abuse ?Counseled ?Declined nicotine patch. DVT: SCDs Charges/Coding Visit Charges Inpatient E&M: 60342 Subs Hosp L2
[2021-02-11 14:36] VITALS: BP 140/88; PULSE 80; RESP 16; TEMP 37; O2SAT 97
[2021-02-11 19:37] VITALS: BP 140/82; PULSE 82; RESP 18; TEMP 37.4; O2SAT 97
[2021-02-11] MEDS: Senna/Docusate Sodium 1 Tablet 2 TABLET PO (19:57)
[2021-02-12 00:55] LABS: Vancomycin, Trough Level 12.3 ug/mL (5.0-15.0)
[2021-02-12] MEDS: Morphine 4 MG/ML Syringe IV (01:37)
--- NOTE | 2021-02-12 02:06 | PCM.RX.CS ---
Consult Pharmacy has been consulted to manage selected antiobiotic: Vancomycin Type of Consult: Follow-up Suspected Infection: Skin/Soft tissue Prior Doses of Antibiotics Received/Current Regimen: Medications Vancomycin HCl 1,750 mg/ (Sodium Chloride) 535 mls @ 250 mls/hr IV Q8H JADE Vancomycin HCl 1,500 mg/ (Sodium Chloride) 530 mls @ 250 mls/hr IV Q8H JADE Stop: 02/12/21 04:00 Last Admin: 02/12/21 01:38 Dose: 250 mls/hr Labs: Sodium 136 mmol/L (136-145) 02/11/21 06:22 Potassium 3.7 mmol/L (3.5-5.1) 02/11/21 06:22 Chloride 101 mmol/L (98-107) 02/11/21 06:22 Carbon Dioxide 27.0 mmol/L (21.0-32.0) 02/11/21 06:22 Anion Gap 8 (5-15) 02/11/21 06:22 BUN 16 mg/dL (7-18) 02/11/21 06:22 Creatinine 0.93 mg/dL (0.70-1.30) 02/11/21 06:22 Est GFR (MDRD) Af Amer 123 mL/min (>60) 02/11/21 06:22 Est GFR (MDRD) Non-Af 102 mL/min (>60) 02/11/21 06:22 BUN/Creatinine Ratio 17.3 RATIO (10-20) 02/11/21 06:22 Glucose 99 mg/dL (74-106) 02/11/21 06:22 Vancomycin Trough 12.3 ug/mL (5.0-15.0) 02/11/21 23:45 Weight used for dosin kg Estimated Creatinine Clearance: 125 Goal Trough: 15-20 mcg/mL Pharmacy Plan for Drug Dosing: Vancomycin trough level of 12.3 was below the target range of 15-20. Will increase dose to 1750mg q8h and re-draw a trough prior to 4th dose of new regimen. Pharmacy Service will continue to monitor and adjust dosing as required. Follow-Up Labs: Trough Vancomycin Labs to be done on [date and time ordered]: 02/13/21 @0900
[2021-02-12 02:26] VITALS: BP 131/76; PULSE 82; RESP 16; TEMP 36.9; O2SAT 98
[2021-02-12 07:33] LABS: Absolute Lymphocyte Count 2.82 X10^3/uL (0.83-4.51); Absolute Neutrophil Count 11.1 X10^3/uL (2.0-7.7); Basophil# 0.09 X10^3/uL; Basophil% 0.6 % (0-1); Eosinophil# 0.13 X10^3/uL; Eosinophils% 0.8 % (0-5); Hematocrit 39.7 % (40-54); Hemoglobin 13.1 g/dL (13.0-16.5); Lymphocyte # 2.82 X10^3/ul (0.83-4.51); Lymphocyte % 17.3 % (19-41); Mean Corpuscular Hgb 27.9 pg (27.0-32.0); Mean Corpuscular Volume 84.6 fL (80-94); Mean Platelet Vol. 10.2 fl (6.2-12.0); Monocyte# 2.03 X10^3/uL; Monocyte% 12.5 % (0-10); NRBC Flagged by Analyzer 0 % (0-5); Neutrophil # 11.14 X10^3/uL (2.7-7.7); Neutrophil % 68.4 % (47-70); POSITIVE DIFFERENTIAL YES; Platelet Count 346 K/mm3 (150-450); RBC Distribution Width CV 12.8 % (11.6-14.6); Red Blood Count 4.69 M/mm3 (4.6-6.2); White Blood Count 16.3 K/mm3 (4.4-11.0)
[2021-02-12 07:44] LABS: Differential Indicated SCAN CRITERIA MET
[2021-02-12 07:53] LABS: Anion Gap 6 (5-15); BUN 13 mg/dL (7-18); BUN/Creat Ratio 13.8 RATIO (10-20); Calcium,Total 8.8 mg/dL (8.5-10.1); Chloride 102 mmol/L (98-107); Creatinine, Serum 0.94 mg/dL (0.70-1.30); EST Glomerular Filtration Rate 100 mL/min (>60); Est Glom Filt Rate - Afr Amer 122 mL/min (>60); Glucose 90 mg/dL (74-106); Potassium 3.3 mmol/L (3.5-5.1); Sodium Level 137 mmol/L (136-145)
[2021-02-12 08:57] VITALS: BP 138/89; PULSE 83; RESP 14; TEMP 37.1; O2SAT 97
[2021-02-12 08:58] LABS: Differential Comment SCANNED
--- NOTE | 2021-02-12 08:59 | PCM.PN.HOSP ---
Subjective Subjective Feels that the swelling in his throat is a little bit improved and thinks that the swelling in his jaw is stable. No shortness of breath. No difficulty swallowing. Objective Data Objective Data Vital Signs: Vital Signs Temp Pulse Resp BP Pulse Ox 98.7 F 83 14 138/89 H 97 02/12/21 08:57 02/12/21 08:57 02/12/21 08:57 02/12/21 08:57 02/12/21 08:57 Oxygen Delivery Method Room Air Weight: 244 lb 11.41 oz Body Mass Index (BMI) 34.1 Intake & Output: Intake and Output for Last 24 Hours 02/11/21 02/12/21 02/13/21 03:59 03:59 03:59 Intake Total 414.5 / 414.5 4611.75 / 4611.75 942 / 942 Balance 414.5 / 414.5 4611.75 / 4611.75 942 / 942 Medical Nutrition Assessment Dietitian: Malnutrition Criteria Met Start: 02/11/21 15:46 Freq: Status: Active Protocol: Document 02/11/21 15:46 RMA (Rec: 02/11/21 15:46 RMA [id number]) Nutrition Malnutrition Evidence of Malnutrition Exists Yes Malnutrition (severe): Acute Illness/Injury Evidenced By Suboptimal Energy Intake ( Severe),Weight Loss (Severe) Clinical Problem Acute Disease or Injury Related Malnutrition Etiology Severe protein/calorie malnutrition in the context of acute illness related to dental abscess/infection and difficulty chewing Signs/Symptoms as evidenced by ~2% wt loss x past 1-2 weeks which is significant for malnutrition especially given PO meeting less than 50% estimated needs and inability to chew effectively x past 7 days. Status Active Problem Recommendation Dietitian Recommendations/Changes Continue regular diet with [id number] food as tolerated . Will add hope milkshake w/ 1 scoop bene-protein TID with meals. Adjust ONS as needed to optimize intake and prevent further wt loss. Lab / Micro Data Result Diagrams: 02/12/21 05:52 02/12/21 05:52 Labs: Laboratory Results - last 24 hr 02/11/21 23:45: Vancomycin Trough 12.3 02/12/21 05:52: WBC 16.3 H, RBC 4.69, Hgb 13.1, Hct 39.7 L, MCV 84.6, MCH 27.9, MCHC 33.0, RDW Std Deviation 39.0, RDW Coeff of [place] 12.8, Plt Count 346, MPV 10.2, Immature Gran % (Auto) 0.400, Neut % (Auto) 68.4, Lymph % (Auto) 17.3 L, [place] % (Auto) 12.5 H, Eos % (Auto) 0.8, Baso % (Auto) 0.6, Absolute Neuts (auto) 11.1 H, Absolute Lymphs (auto) 2.82, Nucleated RBC % 0, Differential Comment SCANNED, Diff Path Review September02/12/21 05:52: Sodium 137, Potassium 3.3 L, Chloride 102, Carbon Dioxide 29.0, Anion Gap 6, BUN 13, Creatinine 0.94, Estim Creat Clear Calc 123.50, Est GFR (MDRD) Af Amer 122, Est GFR (MDRD) Non-Af 100, BUN/Creatinine Ratio 13.8, Glucose 90, Calcium 8.8 Physical Exam Narrative Const alert, oriented x3 and no apparent distress General Appearance: cooperative HEENT normocephalic and moist oral mucous membranes HEENT Narrative: Left jaw swelling Eyes PERRL, EOMs intact bilaterally and conjunctivae normal Neck supple and no JVD Resp normal respiratory effort, no retractions, no use of accessory muscles and clear to auscultation bilaterally Auscultation: Negative for crackles, rales, rhonchi or wheezes Cardio regular rate, regular rhythm, S1 normal heart sound, S2 normal heart sound and no murmurs GI soft to palpation, non-tender and non-distended; Negative for hepatosplenomegaly Extremity no clubbing, cyanosis or edema Skin no rashes or lesions noted Neuro no focal motor deficits and no sensory deficits noted Psych affect normal Appearance: appropriate Assessment & Plan Assessment/Plan (1) Abscess, dental: PLAN: 1. Tiny dental abscess on the right per CT of the face. -Significant swelling with difficulty opening his mouth -Was taking clindamycin p.o. however swelling worsened and p.o. intake declined -We will continue with IV antibiotics, if he still here on Saturday can see OMFS -Continue to monitor leukocytosis, improving -He can have a diet secondary to no immediate plans for OR 2. Tobacco abuse ?Counseled ?Declined nicotine patch. DVT: SCDs Charges/Coding Visit Charges Inpatient E&M: 48770 Subs Hosp L2
[2021-02-12] MEDS: 0.9% Saline Lock 10 ML Syringe IV ×3 (09:00→17:58)
[2021-02-12 14:42] VITALS: BP 131/73; PULSE 99; RESP 16; TEMP 37.2; O2SAT 97
[2021-02-12] MEDS: Potassium Chloride Oral Tablet 20 MEQ 40 MEQ PO (14:43)
[2021-02-12 20:40] VITALS: BP 127/78; PULSE 76; RESP 16; TEMP 36.9; O2SAT 99
[2021-02-13] MEDS: 0.9% Saline Lock 10 ML Syringe IV ×4 (00:31→13:01)
[2021-02-13 02:40] VITALS: BP 138/65; PULSE 83; RESP 16; TEMP 36.9; O2SAT 99
[2021-02-13 04:40] VITALS: BP 155/85; PULSE 81; RESP 16; TEMP 36.9; O2SAT 96
[2021-02-13] MEDS: Morphine 4 MG/ML Syringe IV (04:51)
[2021-02-13 08:42] LABS: Absolute Lymphocyte Count 2.54 X10^3/uL (0.83-4.51); Basophil# 0.08 X10^3/uL; Basophil% 0.6 % (0-1); Eosinophil# 0.27 X10^3/uL; Eosinophils% 1.9 % (0-5); Hematocrit 40.7 % (40-54); Hemoglobin 13.8 g/dL (13.0-16.5); Lymphocyte # 2.54 X10^3/ul (0.83-4.51); Lymphocyte % 17.8 % (19-41); Mean Corp Hgb Conc 33.9 g/dL (32-36); Mean Corpuscular Hgb 28.2 pg (27.0-32.0); Mean Corpuscular Volume 83.2 fL (80-94); Mean Platelet Vol. 9.7 fl (6.2-12.0); Monocyte% 9.1 % (0-10); NRBC Flagged by Analyzer 0 % (0-5); Neutrophil # 9.99 X10^3/uL (2.7-7.7); Neutrophil % 70.1 % (47-70); Platelet Count 365 K/mm3 (150-450); RBC Distribution Width CV 12.7 % (11.6-14.6); RBC Distribution Width SD 38.7 fl (35.1-43.9); Red Blood Count 4.89 M/mm3 (4.6-6.2); White Blood Count 14.3 K/mm3 (4.4-11.0)
[2021-02-13 09:20] LABS: Vancomycin, Trough Level 20.7 ug/mL (5.0-15.0)
[2021-02-13 10:31] VITALS: BP 119/79; PULSE 61; RESP 14; TEMP 36.6; O2SAT 100
[2021-02-13 10:33] VITALS: BP 119/79; PULSE 61; RESP 14; TEMP 36.6; O2SAT 100
--- NOTE | 2021-02-13 10:33 | PCM.RX.CS ---
Consult Pharmacy has been consulted to manage selected antiobiotic: Vancomycin Type of Consult: Follow-up Suspected Infection: Skin/Soft tissue, Other - DENTAL ABSCESS Labs: Sodium 137 mmol/L (136-145) 02/12/21 05:52 Potassium 3.3 mmol/L (3.5-5.1) L 02/12/21 05:52 Chloride 102 mmol/L (98-107) 02/12/21 05:52 Carbon Dioxide 29.0 mmol/L (21.0-32.0) 02/12/21 05:52 Anion Gap 6 (5-15) 02/12/21 05:52 BUN 13 mg/dL (7-18) 02/12/21 05:52 Creatinine 0.94 mg/dL (0.70-1.30) 02/12/21 05:52 Est GFR (MDRD) Af Amer 122 mL/min (>60) 02/12/21 05:52 Est GFR (MDRD) Non-Af 100 mL/min (>60) 02/12/21 05:52 BUN/Creatinine Ratio 13.8 RATIO (10-20) 02/12/21 05:52 Glucose 90 mg/dL (74-106) 02/12/21 05:52 Vancomycin Trough 20.7 ug/mL (5.0-15.0) H 02/13/21 08:30 Goal Trough: 15-20 mcg/mL Pharmacy Plan for Drug Dosing: VANCOMYCIN LEVEL RECEIVED Current Vancomycin Dose: 1750MG Q8H Number of Doses Received: 6 Vancomycin Level: 20.7 MG/DL Hours Since Last Dose: 6.5 HOURS Renal Function: SCR 0.94, CRCL 123 ML/MIN Renal Function Trend: STABLE Lab/Micro: NONE Vancomycin Plan/Comments: 6.5 HOUR TROUGH IS SLIGHTLY ABOVE RANGE OF 15-20MG/DL AT 20.7 MG/DL. HOWEVER, A TROUGH OF 7.5 HOURS WOULD BE MORE APPROPRIATE AND THE TROUGH WOULD LIKELY BE WITHIN THERAPEUTIC RANGE AT THAT TIME. RENAL FUNCTION IS STABLE. WILL CONTINUE CURRENT DOSING SINCE LEVEL WAS DRAWN AT 6.5 HOURS FOR Q8H DOSING. WILL REPEAT A LEVEL IN 24 HOURS TO MAKE SURE IT IS NOT FURTHER ABOVE THERAPEUTIC RANGE. Pending Level: 02/14/21 @ 0900 Pharmacy Service will continue to monitor and adjust dosing as required.
[2021-02-13 14:11] VITALS: BP 119/82; PULSE 61; RESP 14; TEMP 36.7; O2SAT 100
--- NOTE | 2021-02-13 14:14 | PN.HOSP_ITS ---
Subjective Subjective Patient seen and examined. He still complains of right jaw swelling and pain. He says he is able to swallow and drink fluids. Review of systems is otherwise negative. Objective Data Objective Data Vital Signs: Vital Signs Temp Pulse Resp BP Pulse Ox 98.1 F 61 14 119/82 H 100 02/13/21 14:11 02/13/21 14:11 02/13/21 14:11 02/13/21 14:11 02/13/21 14:11 Oxygen Delivery Method Room Air Weight: 244 lb 11.41 oz Body Mass Index (BMI) 34.1 Intake & Output: Intake and Output for Last 24 Hours 02/11/21 02/12/21 02/13/21 23:59 23:59 23:59 Intake Total 4122. / 4121.3827 / 4127 Balance 4121. / 3827 / 4127 Medical Nutrition Assessment Dietitian: Malnutrition Criteria Met Start: 02/11/21 15:46 Freq: Status: Active Protocol: Document 02/11/21 15:46 RMA (Rec: 02/11/21 15:46 RMA [id number]) Nutrition Malnutrition Evidence of Malnutrition Exists Yes Malnutrition (severe): Acute Illness/Injury Evidenced By Suboptimal Energy Intake ( Severe),Weight Loss (Severe) Clinical Problem Acute Disease or Injury Related Malnutrition Etiology Severe protein/calorie malnutrition in the context of acute illness related to dental abscess/infection and difficulty chewing Signs/Symptoms as evidenced by ~2% wt loss x past 1-2 weeks which is significant for malnutrition especially given PO meeting less than 50% estimated needs and inability to chew effectively x past 7 days. Status Active Problem Recommendation Dietitian Recommendations/Changes Continue regular diet with digd-hp-peya food as tolerated . Will add hope milkshake w/ 1 scoop bene-protein TID with meals. Adjust ONS as needed to optimize intake and prevent further wt loss. Lab / Micro Data Result Diagrams: 02/13/21 08:30 02/12/21 05:52 Labs: Laboratory Results - last 24 hr 02/13/21 08:30: Vancomycin Trough 20.7 H 02/13/21 08:30: WBC 14.3 H, RBC 4.89, Hgb 13.8, Hct 40.7, MCV 83.2, MCH 28.2, MCHC 33.9, RDW Std Deviation 38.7, RDW Coeff of [place] 12.7, Plt Count 365, MPV 9.7, Immature Gran % (Auto) 0.500, Neut % (Auto) 70.1 H, Lymph % (Auto) 17.8 L, [place] % (Auto) 9.1, Eos % (Auto) 1.9, Baso % (Auto) 0.6, Absolute Neuts (auto) 10.0 H, Absolute Lymphs (auto) 2.54, Nucleated RBC % 0 Physical Exam Const alert, oriented x3 and no apparent distress Exam Limitations: no limitations HEENT head/scalp atraumatic and moist oral mucous membranes HEENT Narrative: right jaw swollen, fluctuant, moderate tenderness, no erythema Head and Scalp: normocephalic Eyes PERRL, EOMs intact bilaterally and conjunctivae normal Resp normal respiratory effort, no retractions, no use of accessory muscles and clear to auscultation bilaterally Cardio regular rate, regular rhythm, S1 normal heart sound, S2 normal heart sound and no murmurs GI normal to inspection, nondistended, normoactive bowel sounds, soft to palpation, non-tender and non-distended Extremity normal to inspection, full ROM and no clubbing, cyanosis or edema Peripheral Pulses: Yes pulses 2+ throughout Skin no rashes or lesions noted Neuro oriented x3, CN's II-XII intact bilaterally and moves all extremities Sensorium / Orientation: awake and alert Psych affect normal Assessment & Plan Assessment/Plan (1) Mandibular swelling: (2) Abscess, dental: PLAN: #Right dental abscess * still has significant swelling and tenderness of right jaw * CT of the soft tissue neck showed a vidal right mandibular molar abscess with cortical breakthrough and involvement of the right submandibular gland, platysma and masseter muscle. * on IV unasyn and IV vancomycin * able to tolerate oral diet * Maxillofacial surgery consulted; will likely see tomorrow. Considering the extent of swelling, I do think it is reasonable to let patient be reviewed by maxillofacial surgery before he's discharged. * pain meds- IV morphine * #Nicotine dependence: counseled to quit. Declined nicotine patch DVT prophylaxis: lovenox Charges/Coding Visit Charges Inpatient E&M: 11767 Subs Hosp L2
[2021-02-13 14:47] LABS: Pathologist Review Reviewed
--- NOTE | 2021-02-13 14:51 | NURSING ---
This RN reviewed all SN charting and was with SN during all medication administration
[2021-02-13 14:52] LABS: Pathologist Review Reviewed
[2021-02-13 14:59] LABS: Pathologist Review Reviewed
--- NOTE | 2021-02-13 20:42 | CON.PCM_ITS ---
Assessment & Plan Assessment/Plan (1) Mandibular swelling: PLAN: Would advise placing patient on NPO and ready for surgical I and D tomorrow under general anesthesia in the OR. The presumed etiology is a tooth abscess. HPI Consult Data Date of Consult: 02/13/21 HPI Narrative HPI Narrative: TERRELL SCHAEFER, is a 30 M who presents several days ago with ongoing dental pain and swelling now admitted for facial cellulitis. [facility] Medical History Cellulitis Dental abscess Home Medications hydrocodone-acetaminophen 1 tab PO Q6H PRN 3 Days #10 tab 02/08/21 [Rx Last Taken Unknown] clindamycin HCl [Cleocin HCl] 300 mg PO Q6H 02/11/21 [History Last Taken Unknown] Allergy/AdvReac Type Severity Reaction Status Date / Time No Known Allergies Allergy Verified 02/10/21 21:20 Family History Other Hypertension Surgical History H/O wisdom tooth extraction Social History (Updated 02/11/21 @ 00:01 by Elena Lopez) household members: spouse housing: house service: No current occupational status: employed current occupational exposures/hazards: No Smoking Status: Current every day smoker tobacco type: cigarettes Physical Exam Const alert and oriented x3 General Appearance: cooperative HEENT normocephalic, head/scalp atraumatic and moist oral mucous membranes HEENT Narrative: Difficult to assess distal airway due to trismus from infection. Eyes PERRL Neck Neck Narrative: Significant right submandibular and cheek swelling. Unable to open his mouth greater than one finger breadth. Resp normal respiratory effort Neuro CN's II-XII intact bilaterally Psych affect normal Medical Records Data Medical Nutrition Assessment Dietitian: Malnutrition Criteria Met Start: 02/11/21 15:46 Freq: Status: Active Protocol: Document 02/11/21 15:46 RMA (Rec: 02/11/21 15:46 RMA [id number]) Nutrition Malnutrition Evidence of Malnutrition Exists Yes Malnutrition (severe): Acute Illness/Injury Evidenced By Suboptimal Energy Intake ( Severe),Weight Loss (Severe) Clinical Problem Acute Disease or Injury Related Malnutrition Etiology Severe protein/calorie malnutrition in the context of acute illness related to dental abscess/infection and difficulty chewing Signs/Symptoms as evidenced by ~2% wt loss x past 1-2 weeks which is significant for malnutrition especially given PO meeting less than 50% estimated needs and inability to chew effectively x past 7 days. Status Active Problem Recommendation Dietitian Recommendations/Changes Continue regular diet with fjpd-rh-fwnp food as tolerated . Will add hope milkshake w/ 1 scoop bene-protein TID with meals. Adjust ONS as needed to optimize intake and prevent further wt loss. Lab / Micro Data Result Diagrams: 02/13/21 08:30 02/12/21 05:52 Labs: Laboratory Results - last 24 hr 02/10/21 21:55: Diff Path Review Reviewed 02/11/21 06:22: Diff Path Review Reviewed 02/12/21 05:52: Diff Path Review Reviewed 02/13/21 08:30: Vancomycin Trough 20.7 H 02/13/21 08:30: WBC 14.3 H, RBC 4.89, Hgb 13.8, Hct 40.7, MCV 83.2, MCH 28.2, MCHC 33.9, RDW Std Deviation 38.7, RDW Coeff of [place] 12.7, Plt Count 365, MPV 9.7, Immature Gran % (Auto) 0.500, Neut % (Auto) 70.1 H, Lymph % (Auto) 17.8 L, [place] % (Auto) 9.1, Eos % (Auto) 1.9, Baso % (Auto) 0.6, Absolute Neuts (auto) 10.0 H, Absolute Lymphs (auto) 2.54, Nucleated RBC % 0
[2021-02-13 23:58] VITALS: BP 159/74; PULSE 64; RESP 16; TEMP 36.8; O2SAT 100
[2021-02-14] VITALS (13 sets, daily range): BP systolic 124–152; BP diastolic 71–99; PULSE 51–86; RESP 16–18; TEMP 36.3–37; O2SAT 96–100; BMI 34.1
[2021-02-14 07:07] LABS: Absolute Lymphocyte Count 2.31 X10^3/uL (0.83-4.51); Absolute Neutrophil Count 6.6 X10^3/uL (2.0-7.7); Eosinophil# 0.35 X10^3/uL; Eosinophils% 3.3 % (0-5); Hematocrit 40.6 % (40-54); Hemoglobin 13.4 g/dL (13.0-16.5); Lymphocyte # 2.31 X10^3/ul (0.83-4.51); Mean Corpuscular Hgb 27.7 pg (27.0-32.0); Mean Corpuscular Volume 83.9 fL (80-94); Mean Platelet Vol. 10.2 fl (6.2-12.0); Monocyte# 1.11 X10^3/uL; Monocyte% 10.6 % (0-10); NRBC Flagged by Analyzer 0 % (0-5); Neutrophil # 6.55 X10^3/uL (2.7-7.7); Neutrophil % 62.5 % (47-70); Platelet Count 405 K/mm3 (150-450); RBC Distribution Width CV 12.5 % (11.6-14.6); RBC Distribution Width SD 38.1 fl (35.1-43.9); Red Blood Count 4.84 M/mm3 (4.6-6.2); White Blood Count 10.5 K/mm3 (4.4-11.0)
[2021-02-14 07:54] LABS: Anion Gap 8 (5-15); BUN 13 mg/dL (7-18); BUN/Creat Ratio 14.4 RATIO (10-20); Calcium,Total 8.7 mg/dL (8.5-10.1); Chloride 106 mmol/L (98-107); EST Glomerular Filtration Rate 105 mL/min (>60); Est Glom Filt Rate - Afr Amer 127 mL/min (>60); Estimated Creatinine Clearance 128.99 ml/min; Glucose 115 mg/dL (74-106); Potassium 3.5 mmol/L (3.5-5.1); Sodium Level 141 mmol/L (136-145)
[2021-02-14 10:01] LABS: Vancomycin, Trough Level 19.3 ug/mL (5.0-15.0)
[2021-02-14] MEDS: 0.9% Saline Lock 10 ML Syringe IV (10:08)
--- NOTE | 2021-02-14 10:33 | PCM.RX.CS ---
Consult Pharmacy has been consulted to manage selected antiobiotic: Vancomycin Type of Consult: Follow-up Suspected Infection: Skin/Soft tissue, Other - DENTAL ABSCESS Prior Doses of Antibiotics Received/Current Regimen: currently on vanc 1750mg IV q8h Labs: Sodium 141 mmol/L (136-145) 02/14/21 06:15 Potassium 3.5 mmol/L (3.5-5.1) 02/14/21 06:15 Chloride 106 mmol/L (98-107) 02/14/21 06:15 Carbon Dioxide 27.0 mmol/L (21.0-32.0) 02/14/21 06:15 Anion Gap 8 (5-15) 02/14/21 06:15 BUN 13 mg/dL (7-18) 02/14/21 06:15 Creatinine 0.90 mg/dL (0.70-1.30) 02/14/21 06:15 Est GFR (MDRD) Af Amer 127 mL/min (>60) 02/14/21 06:15 Est GFR (MDRD) Non-Af 105 mL/min (>60) 02/14/21 06:15 BUN/Creatinine Ratio 14.4 RATIO (10-20) 02/14/21 06:15 Glucose 115 mg/dL (74-106) H 02/14/21 06:15 Vancomycin Trough 19.3 ug/mL (5.0-15.0) H 02/14/21 09:17 Microbiology: Microbiology 02/14/21 09:00 Nasal Secretion SARS-CoV-2 Antigen (Rapid) - Final Weight used for dosin kg Estimated Creatinine Clearance: 129ml/min Goal Trough: 15-20 mcg/mL Pharmacy Plan for Drug Dosing: The vanc trough level drawn at 09:17 today (drawn 8 hours after the previous dose) came back as 19.3. This is within goal range and drawn at an appropriate interval after the previous dose this time so will continue same dosing. However, due to the 8 hour dosing interval and since the trough is on the higher end of the range, will repeat another trough in 2 days to make sure it does not go above therapeutic range. Pharmacy Service will continue to monitor and adjust dosing as required. Follow-Up Labs: Trough Vancomycin Labs to be done on [date and time ordered]: 02/16/21 09:00
--- NOTE | 2021-02-14 11:30 | PN.HOSP_ITS ---
Subjective Subjective Patient seen and examined. He has no complaints. Pain is well controlled. Review of systems is otherwise negative. Maxillofacial surgery evaluated him yesterday and he is due for surgery today. Objective Data Objective Data Vital Signs: Vital Signs Temp Pulse Resp BP Pulse Ox 98 F 64 17 124/71 H 98 02/14/21 04:56 02/14/21 04:56 02/14/21 04:56 02/14/21 04:56 02/14/21 08:17 Oxygen Delivery Method Room Air Weight: 244 lb 11.41 oz Body Mass Index (BMI) 34.1 Intake & Output: Intake and Output for Last 24 Hours 02/12/21 02/13/21 02/14/21 23:59 23:59 23:59 Intake Total 3828 / 4128 2753 / 2753 1209 / 1209 Balance 3828 / 4128 2753 / 2753 1209 / 1209 Medical Nutrition Assessment Dietitian: Malnutrition Criteria Met Start: 02/11/21 15 :46 Freq: Status: Active Protocol: Document 02/11/21 15:46 RMA (Rec: 02/11/21 15:46 RMA [id number]) Nutrition Malnutrition Evidence of Malnutrition Exists Yes Malnutrition (severe): Acute Illness/Injury Evidenced By Suboptimal Energy Intake ( Severe),Weight Loss (Severe) Clinical Problem Acute Disease or Injury Related Malnutrition Etiology Severe protein/calorie malnutrition in the context of acute illness related to dental abscess/infection and difficulty chewing Signs/Symptoms as evidenced by ~2% wt loss x past 1-2 weeks which is significant for malnutrition especially given PO meeting less than 50% estimated needs and inability to chew effectively x past 7 days. Status Active Problem Recommendation Dietitian Recommendations/Changes Continue regular diet with qwfn-oz-msdo food as tolerated . Will add hope milkshake w/ 1 scoop bene-protein TID with meals. Adjust ONS as needed to optimize intake and prevent further wt loss. Lab / Micro Data Result Diagrams: 02/14/21 06:15 02/14/21 06:15 Labs: Laboratory Results - last 24 hr 02/10/21 21:55: Diff Path Review Reviewed 02/11/21 06:22: Diff Path Review Reviewed 02/12/21 05:52: Diff Path Review Reviewed 02/14/21 06:15: WBC 10.5, RBC 4.84, Hgb 13.4, Hct 40.6, MCV 83.9, MCH 27.7, MCHC 33.0, RDW Std Deviation 38.1, RDW Coeff of [place] 12.5, Plt Count 405, MPV 10.2, Immature Gran % (Auto) 0.600, Neut % (Auto) 62.5, Lymph % (Auto) 22.0, [place] % (Auto) 10.6 H, Eos % (Auto) 3.3, Baso % (Auto) 1.0, Absolute Neuts (auto) 6.6, Absolute Lymphs (auto) 2.31, Nucleated RBC % 0 02/14/21 06:15: Sodium 141, Potassium 3.5, Chloride 106, Carbon Dioxide 27.0, Anion Gap 8, BUN 13, Creatinine 0.90, Estim Creat Clear Calc 128.99, Est GFR (MDRD) Af Amer 127, Est GFR (MDRD) Non-Af 105, BUN/Creatinine Ratio 14.4, Glucose 115 H, Calcium 8.7 02/14/21 09:17: Vancomycin Trough 19.3 H Micro: Microbiology 02/14/21 09:00 Nasal Secretion SARS-CoV-2 Antigen (Rapid) - Final Physical Exam Const alert, oriented x3 and no apparent distress General Appearance: cooperative Exam Limitations: no limitations HEENT normocephalic, head/scalp atraumatic and moist oral mucous membranes Head and Scalp: normocephalic Eyes PERRL, EOMs intact bilaterally and conjunctivae normal Neck no lymphadenopathy, supple and no JVD Resp normal respiratory effort, no retractions, no use of accessory muscles and clear to auscultation bilaterally Auscultation: Negative for crackles, rales, rhonchi or wheezes Cardio regular rate, regular rhythm, S1 normal heart sound, S2 normal heart sound and no murmurs GI normal to inspection, nondistended, normoactive bowel sounds, soft to palpation, non-tender and non-distended; Negative for hepatosplenomegaly Extremity normal to inspection, full ROM and no clubbing, cyanosis or edema Peripheral Pulses: Yes pulses 2+ throughout Skin no rashes or lesions noted Neuro oriented x3, CN's II-XII intact bilaterally, moves all extremities, no focal motor deficits and no sensory deficits noted Sensorium / Orientation: awake and alert Psych affect normal Appearance: appropriate Assessment & Plan Assessment/Plan (1) Mandibular swelling: (2) Abscess, dental: PLAN: #Right dental abscess * still has significant swelling and tenderness of right jaw * CT of the soft tissue neck showed a vidal right mandibular molar abscess with cortical breakthrough and involvement of the right submandibular gland, platysma and masseter muscle. * on IV unasyn and IV vancomycin * able to tolerate oral diet * for I&D by maxillofacial surgery today * pain meds- IV morphine * #Nicotine dependence: counseled to quit. Declined nicotine patch DVT prophylaxis: lovenox Charges/Coding Visit Charges Inpatient E&M: 98599 Subs Hosp L2
[2021-02-14] MEDS: Lactated Ringers 1,000 ML 100 ML IV ×2 (13:52→15:30)
[2021-02-14] MEDS: Lidocaine 2% /Epi 1:100 (50ml) 50 ML Vial (15:30)
--- NOTE | 2021-02-14 16:04 | OP.PCM_ITS ---
Report of Operation Date of Procedure: 02/14/21 Pre-Operative Diagnosis: Right submandibular space abscess. Right sublingual sp sameer abscess. Post-Operative Diagnosis: Same Surgery/Procedure Performed:: Direction of tooth #31 intraoral incision and drainage right sublingual space and extraoral right submandibular space incision and drainage Description of Surgical Findings:: Serosanguineous drainage and disease tooth #31 Surgeon: Benjamin Type of Anesthesia: General Special Medications: None Specimen's removed: Cultures Drains: Right submandibular Estimated Blood Loss (mL): 25 cc Description of Procedure: Patient was identified in the preoperative holding room with his stepmother in the room. The risk and potential complications of the procedure were explained in detail and this included pain, infection, possible need for further surgeries, possible injury to neurovascular structures resulting in inability to move parts of the face and paresthesia of divisions of the right inferior alveolar nerve. Patient agreed and consent was obtained. Patient taken to the operating room and placed into the supine position on the operating room table. The anesthesia team then delivered anesthesia and intubated via the oral endotracheal route. It was noted to be difficult since the patient has severe trismus and the inability to open his mouth more than approximately 15 mm. At this time the patient was then prepped and draped in the usual fashion for oral and maxillofacial procedures. Going intraorally for inspection was very difficult because the trismus even after relaxation the paralytic agents the patient's oral opening was very minimal. At this time inspection of the throat revealed an adequate airway there was swelling in both the lingual and buccal of the lower right jaw. This time local anesthesia was administered into the right submandibular region and intraorally for a inferior alveolar nerve blocks. Tooth 31 was then removed without complication. Intraoral incisions were made to degloved the lateral aspect of the right mandible and dissection to the inferior border of the mandible was performed. At this time the right submandibular region was approached with a 15 blade an incision through skin and submucosal tissues was made and then a combination of blunt and sharp dissection to the inferior border of the mandible was continued. At this time cultures were then obtained. Was irrigated and Carter drains were then placed. Patient was then suctioned free of all oral debris and the patient was awakened and extubated in the operating room in stable condition breathing spontaneously. Patient tolerated the anesthetic procedure well. Complications None Admit VTE Documentation VTE Present on Admission: Yes VTE Mechan Device Prophylaxis: SCD's
[2021-02-14] MEDS: Morphine 4 MG/ML Syringe IV ×2 (20:29→23:36)
[2021-02-15] VITALS (7 sets, daily range): BP systolic 118–149; BP diastolic 68–92; PULSE 60–72; RESP 16; TEMP 36.6–37.4; O2SAT 96–100
[2021-02-15] MEDS: Morphine 4 MG/ML Syringe IV ×6 (03:11→22:43)
[2021-02-15] MEDS: Lactated Ringers 1,000 ML 75 ML IV ×2 (03:31→22:45)
[2021-02-15] MEDS: Acetaminophen 325 MG Tablet 650 MG PO (06:21)
[2021-02-15 07:47] LABS: Absolute Lymphocyte Count 1.81 X10^3/uL (0.83-4.51); Absolute Neutrophil Count 10.3 X10^3/uL (2.0-7.7); Basophil# 0.09 X10^3/uL; Basophil% 0.7 % (0-1); Eosinophil# 0.21 X10^3/uL; Eosinophils% 1.5 % (0-5); Hematocrit 40.3 % (40-54); Hemoglobin 13.3 g/dL (13.0-16.5); Lymphocyte # 1.81 X10^3/ul (0.83-4.51); Lymphocyte % 13.2 % (19-41); Mean Corpuscular Hgb 27.6 pg (27.0-32.0); Mean Corpuscular Volume 83.6 fL (80-94); Monocyte# 1.27 X10^3/uL; Monocyte% 9.3 % (0-10); NRBC Flagged by Analyzer 0 % (0-5); Neutrophil # 10.28 X10^3/uL (2.7-7.7); Neutrophil % 74.9 % (47-70); Platelet Count 437 K/mm3 (150-450); RBC Distribution Width CV 12.6 % (11.6-14.6); RBC Distribution Width SD 38.4 fl (35.1-43.9); Red Blood Count 4.82 M/mm3 (4.6-6.2); White Blood Count 13.7 K/mm3 (4.4-11.0)
[2021-02-15 08:29] LABS: Anion Gap 9 (5-15); BUN 10 mg/dL (7-18); BUN/Creat Ratio 10.5 RATIO (10-20); Calcium,Total 8.9 mg/dL (8.5-10.1); Chloride 100 mmol/L (98-107); Creatinine, Serum 0.96 mg/dL (0.70-1.30); EST Glomerular Filtration Rate 99 mL/min (>60); Est Glom Filt Rate - Afr Amer 119 mL/min (>60); Estimated Creatinine Clearance 120.92 ml/min; Glucose 97 mg/dL (74-106); Potassium 3.7 mmol/L (3.5-5.1); Sodium Level 136 mmol/L (136-145)
--- NOTE | 2021-02-15 14:03 | CHAPLAIN ---
Type of Pastoral Visit _x__ Initial Visit ___ Follow-up Visit ___ On-call Visit ___ General Patient Visit ___ Spiritual Assessment ___ Family Conference ___ Bereavement ___ Rapid Response ___ Code Blue ___ Other (describe below) Pastoral Care Referral From _x__ Patient ___ Family ___ Nurse ___ Physician ___ Clinical Statistics Manager ___ Construction Safety Consultant ___ Other (describe below) Sacrament/Intervention _x__ Active listening ___ Anointing ___ Moravian ___ Bereavement ___ Communion ___ [place] exploration ___ ___ Life review ___ Prayer ___ Reconciliation ___ Sacrament of Sick ___ Supportive presence ___ Wedding ___ Other (describe below) Pastoral Comments patient is now post surgery and explains that this is not new as I've been dealing with it for four years; pt has had some frustration over fdc condition but hopes that this will be resolved now that they understand more about it; pt says he is not in need of anything and that he has support
--- NOTE | 2021-02-15 14:43 | PN.HOSP_ITS ---
Subjective Subjective Patient seen and examined. He had no complaints this morning. Pain was well controlled. He had I&D of the right jaw abscess yesterday. Review of symptoms otherwise negative. He has remained hemodynamically stable. Objective Data Objective Data Vital Signs: Vital Signs Temp Pulse Resp BP Pulse Ox 98.3 F 61 16 118/77 100 02/15/21 13:18 02/15/21 13:18 02/15/21 13:18 02/15/21 13:18 02/15/21 13:18 Oxygen Delivery Method Room Air Weight: 244 lb 11.41 oz Body Mass Index (BMI) 34.1 Intake & Output: Intake and Output for Last 24 Hours 02/13/21 02/14/21 02/15/21 23:59 23:59 23:59 Intake Total 2753 / 2753 3503 / 3803 3894.75 / 3894.75 Output Total 350 / 350 Balance 2753 / 2753 3153 / 3453 3894.75 / 3894.75 Medical Nutrition Assessment Dietitian: Malnutrition Criteria Met Start: 02/11/21 15:46 Freq: Status: Active Protocol: Document 02/14/21 16:32 RMA (Rec: 02/14/21 16:32 RMA [id number]) Nutrition Malnutrition Evidence of Malnutrition Exists Yes Malnutrition (severe): Acute Illness/Injury Evidenced By Suboptimal Energy Intake ( Severe),Weight Loss (Severe) Clinical Problem Acute Disease or Injury Related Malnutrition Etiology Severe protein/calorie malnutrition in the context of acute illness related to dental abscess/infection and difficulty chewing Signs/Symptoms as evidenced by ~2% wt loss x past 1-2 weeks which is significant for malnutrition especially given PO meeting less than 50% estimated needs and inability to chew effectively x past 7 days. Status Active Problem Recommendation Dietitian Recommendations/Changes Re advance to regular diet with qdzz-lv-[id number] food as tolerated post-op. Continue hope milkshake w/ 1 scoop bene-protein TID with meals as diet advanced post-op . Adjust ONS as needed to optimize intake and prevent further wt loss. Will add ensure clear TID w/ clear liquid diet. Lab / Micro Data Result Diagrams: 02/15/21 07:08 02/15/21 07:08 Labs: Laboratory Results - last 24 hr 02/15/21 07:08: WBC 13.7 H, RBC 4.82, Hgb 13.3, Hct 40.3, MCV 83.6, MCH 27.6, MCHC 33.0, RDW Std Deviation 38.4, RDW Coeff of [place] 12.6, Plt Count 437, MPV 10.0, Immature Gran % (Auto) 0.400, Neut % (Auto) 74.9 H, Lymph % (Auto) 13.2 L, [place] % (Auto) 9.3, Eos % (Auto) 1.5, Baso % (Auto) 0.7, Absolute Neuts (auto) 10.3 H, Absolute Lymphs (auto) 1.81, Nucleated RBC % 0 02/15/21 07:08: Sodium 136, Potassium 3.7, Chloride 100, Carbon Dioxide 27.0, Anion Gap 9, BUN 10, Creatinine 0.96, Estim Creat Clear Calc 120.92, Est GFR (MDRD) Af Amer 119, Est GFR (MDRD) Non-Af 99, BUN/Creatinine Ratio 10.5, Glucose 97, Calcium 8.9 Micro: Microbiology 02/14/21 Unknown Sub-Mandibular Mass Gram Stain - Final 02/14/21 Unknown Sub-Mandibular Mass Wound Culture - Preliminary Alpha hemolytic organism 02/14/21 09:00 Nasal Secretion SARS-CoV-2 Antigen (Rapid) - Final Physical Exam Narrative Const alert, oriented x3 and no apparent distress General Appearance: cooperative Exam Limitations: no limitations HEENT normocephalic, head/scalp atraumatic and moist oral mucous membranes Head and Scalp: normocephalic Eyes PERRL, EOMs intact bilaterally and conjunctivae normal Neck no lymphadenopathy, supple and no JVD Resp normal respiratory effort, no retractions, no use of accessory muscles and clear to auscultation bilaterally Auscultation: Negative for crackles, rales, rhonchi or wheezes Cardio regular rate, regular rhythm, S1 normal heart sound, S2 normal heart sound and no murmurs GI normal to inspection, nondistended, normoactive bowel sounds, soft to palpation, non-tender and non-distended; Negative for hepatosplenomegaly Extremity normal to inspection, full ROM and no clubbing, cyanosis or edema Peripheral Pulses: Yes pulses 2+ throughout Skin no rashes or lesions noted Neuro oriented x3, CN's II-XII intact bilaterally, moves all extremities, no focal motor deficits and no sensory deficits noted Sensorium / Orientation: awake and alert Psych affect normal Appearance: appropriate Assessment & Plan Assessment/Plan (1) Mandibular swelling: (2) Abscess, dental: PLAN: #Right submandibular and sublingual space abscess * s/p I&D by maxillofacial surgery * today is POD 1. has drain in place * CT of the soft tissue neck showed a tiny right mandibular molar abscess with cortical breakthrough and involvement of the right submandibular gland, platysma and masseter muscle. * on IV unasyn and IV vancomycin * on oral diet * pain meds- IV morphine * #Nicotine dependence: counseled to quit. Declined nicotine patch DVT prophylaxis: lovenox Disposition: anticipate discharge home tomorrow Charges/Coding Visit Charges Inpatient E&M: 00892 Subs Hosp L2
--- NOTE | 2021-02-15 15:28 | PCM.PN.BLA ---
Progress Note Patient seen resting comfortably in bed. States that he feels pretty good and he would like to start eating food. Swelling is still remarkable and this is not concerning since surgery was less than 24 hours ago. He is actually opening his mouth a little better today he is swallowing well there is no airway embarrassment. The neck drain is putting out minimal amount of purulent exudate therefore we will keep the drain in place. I would continue on IV antibiotics and reevaluate tomorrow.
[2021-02-16 02:45] VITALS: BP 124/65; PULSE 59; RESP 16; TEMP 37; O2SAT 98
[2021-02-16] MEDS: Morphine 4 MG/ML Syringe IV ×2 (02:51→05:49)
[2021-02-16 09:30] LABS: Absolute Lymphocyte Count 2.37 X10^3/uL (0.83-4.51); Absolute Neutrophil Count 6.4 X10^3/uL (2.0-7.7); Basophil# 0.11 X10^3/uL; Basophil% 1.1 % (0-1); Eosinophil# 0.35 X10^3/uL; Eosinophils% 3.4 % (0-5); Hematocrit 38.6 % (40-54); Hemoglobin 13.1 g/dL (13.0-16.5); Lymphocyte # 2.37 X10^3/ul (0.83-4.51); Lymphocyte % 22.9 % (19-41); Mean Corp Hgb Conc 33.9 g/dL (32-36); Mean Corpuscular Hgb 27.9 pg (27.0-32.0); Mean Corpuscular Volume 82.3 fL (80-94); Mean Platelet Vol. 9.9 fl (6.2-12.0); Monocyte# 1.11 X10^3/uL; Monocyte% 10.7 % (0-10); NRBC Flagged by Analyzer 0 % (0-5); Neutrophil # 6.38 X10^3/uL (2.7-7.7); Neutrophil % 61.4 % (47-70); Platelet Count 391 K/mm3 (150-450); RBC Distribution Width CV 12.6 % (11.6-14.6); RBC Distribution Width SD 37.9 fl (35.1-43.9); Red Blood Count 4.69 M/mm3 (4.6-6.2); White Blood Count 10.4 K/mm3 (4.4-11.0)
[2021-02-16 09:33] VITALS: BP 138/73; PULSE 66; RESP 14; TEMP 36.4; O2SAT 99
[2021-02-16 10:28] LABS: Anion Gap 8 (5-15); BUN 9 mg/dL (7-18); BUN/Creat Ratio 9.6 RATIO (10-20); Calcium,Total 8.9 mg/dL (8.5-10.1); Chloride 105 mmol/L (98-107); Creatinine, Serum 0.93 mg/dL (0.70-1.30); EST Glomerular Filtration Rate 101 mL/min (>60); Est Glom Filt Rate - Afr Amer 122 mL/min (>60); Estimated Creatinine Clearance 124.83 ml/min; Glucose 133 mg/dL (74-106); Potassium 3.3 mmol/L (3.5-5.1); Sodium Level 140 mmol/L (136-145)
[2021-02-16 10:31] LABS: Vancomycin, Trough Level 19.5 ug/mL (5.0-15.0)
--- NOTE | 2021-02-16 11:25 | PCM.RX.CS ---
Consult Pharmacy has been consulted to manage selected antiobiotic: Vancomycin Type of Consult: Follow-up Suspected Infection: Skin/Soft tissue Prior Doses of Antibiotics Received/Current Regimen: Prior doses: 02/16/21 0044, 0937 Labs: Sodium 140 mmol/L (136-145) 02/16/21 09:10 Potassium 3.3 mmol/L (3.5-5.1) L 02/16/21 09:10 Chloride 105 mmol/L (98-107) 02/16/21 09:10 Carbon Dioxide 27.0 mmol/L (21.0-32.0) 02/16/21 09:10 Anion Gap 8 (5-15) 02/16/21 09:10 BUN 9 mg/dL (7-18) 02/16/21 09:10 Creatinine 0.93 mg/dL (0.70-1.30) 02/16/21 09:10 Est GFR (MDRD) Af Amer 122 mL/min (>60) 02/16/21 09:10 Est GFR (MDRD) Non-Af 101 mL/min (>60) 02/16/21 09:10 BUN/Creatinine Ratio 9.6 RATIO (10-20) L 02/16/21 09:10 Glucose 133 mg/dL (74-106) H 02/16/21 09:10 Vancomycin Trough 19.5 ug/mL (5.0-15.0) H 02/16/21 09:10 Microbiology: Microbiology 02/14/21 Unknown Sub-Mandibular Mass Gram Stain - Final 02/14/21 Unknown Sub-Mandibular Mass Wound Culture - Preliminary Alpha hemolytic organism Presumptive C albicans 02/14/21 09:00 Nasal Secretion SARS-CoV-2 Antigen (Rapid) - Final Weight used for dosin.4 kg Estimated Creatinine Clearance: 124 Goal Trough: 15-20 mcg/mL Pharmacy Plan for Drug Dosing: keep current dose of 1750mg q8h. next trough is scheduled for 02/17/21 @ 0900 Pharmacy Service will continue to monitor and adjust dosing as required. Follow-Up Labs: Trough Vancomycin Labs to be done on [date and time ordered]: 02/17/2021 @ 0900
[2021-02-16 14:44] VITALS: BP 131/84; PULSE 67; RESP 14; TEMP 36.6; O2SAT 98
--- NOTE | 2021-02-16 15:04 | DS.PCM_ITS ---
Providers Date of Admission: 02/10/21 Primary Care Physician: Ni Primary Care Phys Consultations 02/10/21 23:45 Consult: Oral Surgeon Routine Consulting Provider: Abelardo Alexander Reason for Consult: Right mandibular abscess EMERGENT Consult: No MD Notified: Yes Date Notified: 02/11/21 Time Notified: 08:13 Method of Notification: Verbal Reason For Visit: DENTAL ABSCESS Diagnosis Discharge Diagnosis (1) Mandibular swelling: Status: Acute Code(s): R22.0 - Localized swelling, mass and lump, head (2) Abscess, dental: Status: Acute Code(s): K04.7 - Periapical abscess without sinus Medications at Discharge Home Medications hydrocodone-acetaminophen 1 tab PO Q6H PRN 3 Days #10 tab 02/08/21 clindamycin HCl 600 mg PO TID 7 Days #42 cap 02/16/21 Hospital Course Operations - Procedures None Summary of Care Provided Minutes Spent on Discharge: 45 Hospital Course: Patient is a 30 year old male with a [facility] as outliend who was admitted via the ED on 02/10/2021 with a complaint of progressively worsening right cheek swelling. and associated worsening pain. He had gone to his dentist and was told his tooth was infected and was given antibiotics. Despite being on clindamycin and augmentin, his swelling worsened so he came to the ED. He said he couldnt even eat without difficulty. Soft tissue CT of the face showed cellulitis with inflammation and edema in the right submandibular gland as well as the soft tissues of the posterior right mandible and no drainable fluid collection or abscess seen with reactive lymphadenopathy visualized. Patient was started on IV Unasyn and vancomycin. Maxillofacial surgery was consulted. Patient had incision and drainage of the right submandibular and right sublingual space abscess. Wound cultures grew alphahemolytic strep and presumptive Trista albicans. Patient remained stable and pain control improved. Drain was removed by maxillofacial surgery on 02/16/2021. Patient remained stable and was discharged home on 02/16/2021. He was discharged on p.o. clindamycin x 7 days and is to follow-up with his primary care doctor and maxillofacial surgery in 1 to 2 weeks. OF note, he was also noted to have severe malnutrition due to decreased intake from abscess and was advised to increase his intake of chocolate milkshake and protein supplements. Patient was seen and examined prior to discharge. He had no complaints and felt well. Review of systems otherwise negative. Labs and vitals reviewed. Home medication reviewed and reconciled. Physical Exam Narrative Const alert, oriented x3 and no apparent distress General Appearance: cooperative Exam Limitations: no limitations HEENT normocephalic, head/scalp atraumatic and moist oral mucous membranes HEENT Narrative: right jaw swelling has improved, dressing over surgical site. Eyes PERRL, EOMs intact bilaterally and conjunctivae normal Neck no lymphadenopathy, supple and no JVD Resp normal respiratory effort, no retractions, no use of accessory muscles and clear to auscultation bilaterally Auscultation: Negative for crackles, rales, rhonchi or wheezes Cardio regular rate, regular rhythm, S1 normal heart sound, S2 normal heart sound and no murmurs GI normal to inspection, nondistended, normoactive bowel sounds, soft to palpation, non-tender and non-distended; Negative for hepatosplenomegaly Extremity normal to inspection, full ROM and no clubbing, cyanosis or edema Skin no rashes or lesions noted Neuro oriented x3, CN's II-XII intact bilaterally, moves all extremities, no focal motor deficits and no sensory deficits noted Sensorium / Orientation: awake and alert Psych affect normal Appearance: appropriate Medical Records Data Medical Nutrition Assessment Dietitian: Malnutrition Criteria Met Start: 02/11/21 15:46 Freq: Status: Active Protocol: Document 02/14/21 16:32 RMA (Rec: 02/14/21 16:32 RMA [id number]) Nutrition Malnutrition Evidence of Malnutrition Exists Yes Malnutrition (severe): Acute Illness/Injury Evidenced By Suboptimal Energy Intake ( Severe),Weight Loss (Severe) Clinical Problem Acute Disease or Injury Related Malnutrition Etiology Severe protein/calorie malnutrition in the context of acute illness related to dental abscess/infection and difficulty chewing Signs/Symptoms as evidenced by ~2% wt loss x past 1-2 weeks which is significant for malnutrition especially given PO meeting less than 50% estimated needs and inability to chew effectively x past 7 days. Status Active Problem Recommendation Dietitian Recommendations/Changes Re advance to regular diet with [id number] food as tolerated post-op. Continue hope milkshake w/ 1 scoop bene-protein TID with meals as diet advanced post-op . Adjust ONS as needed to optimize intake and prevent further wt loss. Will add ensure clear TID w/ clear liquid diet. Weight / BMI Weight Weight: 244 lb 11.41 oz Body Mass Index (BMI) 34.1 ABG / Lab / Microbiology Data Result Diagrams: 02/16/21 09:10 02/16/21 09:10 Laboratory: Laboratory Results - last 24 hr 02/16/21 09:10: WBC 10.4, RBC 4.69, Hgb 13.1, Hct 38.6 L, MCV 82.3, MCH 27.9, MCHC 33.9, RDW Std Deviation 37.9, RDW Coeff of [place] 12.6, Plt Count 391, MPV 9.9, Immature Gran % (Auto) 0.500, Neut % (Auto) 61.4, Lymph % (Auto) 22.9, [place] % (Auto) 10.7 H, Eos % (Auto) 3.4, Baso % (Auto) 1.1 H, Absolute Neuts (auto) 6.4, Absolute Lymphs (auto) 2.37, Nucleated RBC % 0 02/16/21 09:10: Sodium 140, Potassium 3.3 L, Chloride 105, Carbon Dioxide 27.0, Anion Gap 8, BUN 9, Creatinine 0.93, Estim Creat Clear Calc 124.83, Est GFR (MDRD) Af Amer 122, Est GFR (MDRD) Non-Af 101, BUN/Creatinine Ratio 9.6 L, Glucose 133 H, Calcium 8.9 02/16/21 09:10: Vancomycin Trough 19.5 H Microbiology: Microbiology 02/14/21 Unknown Sub-Mandibular Mass Gram Stain - Final 02/14/21 Unknown Sub-Mandibular Mass Wound Culture - Preliminary Alpha Hemolytic Streptococcus Presumptive C albicans 02/14/21 09:00 Nasal Secretion SARS-CoV-2 Antigen (Rapid) - Final D/C Instructions Discharge Diet: Soft diet (advance slowly as tolerated) Discharge Activity: Return to Normal Activity Weight Bearing Status: Weight bearing as tolerated Call your doctor if you observe: Fever of 101 or Higher and Uncontrolled pain Meaningful Use Info Meaningful Use Diagnoses (Choose all that apply): None applicable Discharge Plan Admission Admit Date/Time: 02/10/21 22:59 Primary Reason for Your Visit: submandibular abscess and sublingual abscess Attending Provider: Marcelina Paris Primary Care Provider: Care Physician,No Primary Consulting Providers: Fiorita,Vincent Discharge Orders/Prescriptions Prescriptions: New clindamycin HCl 300 mg capsule 600 mg PO TID 7 Days Qty: 42 RF: 0 Continued hydrocodone-acetaminophen 5-325 mg tablet 1 tab PO Q6H PRN (Reason: pain) 3 Days Qty: 10 RF: 0 Discontinued clindamycin HCl [Cleocin HCl] 300 MG capsule 300 mg PO Q6H RF: 0 Referrals / Follow Up: Flynn Pelletier MD [STAFF PHYSICIAN] - Within 2 Weeks (call office to establish PCp care) Abelardo Alexander DDS [STAFF PHYSICIAN] - Within 2 Weeks Care Physician,No Primary [Primary Care Provider] - Disposition Disposition (needs filled in before D/C Order can be placed): Home, Self Care Charges/Coding Visit Charges Inpatient E&M: 50747 Disch Hosp
--- NOTE | 2021-02-16 16:07 | PCM.PN.BLA ---
Progress Note Patient seen in room resting comfortably. He is tentatively scheduled for discharge pending my evaluation. Patient states he is feeling very well he has been afebrile his white count is now in a normal range. His mouth opening is slightly improved from yesterday he is tolerating p.o. intake well there is no difficulties in swallowing. Today I remove the right submandibular and sublingual drains. There is a little mucopurulent exudate still present. Patient has been given instructions on wound care and he will follow up with me in the next 1 to 2 weeks. I feel that he is stable for discharge to home with follow-up to my office in 7 to 10 days.
--- NOTE | 2021-02-17 10:18 | CASEMGMT ---
ANKIT PAGE Discharge Follow Up Phone Call: SHAYNE: Giselle Strata:3 Call Date: 02/17/21 Discharge Date: 02/16/21 Time of Call: 1015 Duration:<1 min Admitting Dx:dental abscess ANKIT PAGE attempted to complete follow up phone call after recent hospitalization, phone forwarded to an unidentified voicemail. No message left.
== END 2021-02-16 16:35 | disposition home or self-care (01) | DRG 157 ==
LOC: ED 23:01 → PCU 23:30 → MS3 02-15 02:39
PROVIDERS: Dentist Oral and Maxillofacial Surgery; Family Medicine; Admitting Provider Hospitalist; Emergency Provider Emergency Medicine; Visit Provider Student in an Organized Health Care Education/Training Program
PROC: 0CDXXZ0 Extraction of Lower Tooth, Single, External Approach (ICD-10-PCS; principal; 2021-02-14 14:20)
DX: K04.7 Periapical abscess without sinus (principal); E43 Unspecified severe protein-calorie malnutrition; K12.2 Cellulitis and abscess of mouth; Z20.822 Contact with and (suspected) exposure to COVID-19; F17.210 Nicotine dependence, cigarettes, uncomplicated; Z68.34 Body mass index [BMI] 34.0-34.9, adult
CPT/HCPCS: 36415; 70486; 80048; 80202; 85025; 87070; 87075; 87077; 87186; 87205; 87426; 97802; 99284; 99406; J7040; J7050; J7120; A4216; J0295; J2405

== ENCOUNTER 2022-07-14 17:19 | Emergency (ER) | payer BC, SELFPAY ==
[2022-07-14 17:20] VITALS: BP 160/108; PULSE 131; RESP 26; TEMP 38.5; O2SAT 98; BMI 39.6
[2022-07-14 17:40] VITALS: TEMP 37.4
--- NOTE | 2022-07-14 17:46 | EX.ED.DYSGE1 ---
HPI History of Present Illness Chief Complaint: Cellulitis Detail of Chief Complaint: Left leg cellulitis. Prior history. Informant: patient and spouse/S.O. Onset/Context/Timing Onset: Today Context: Gradual Onset Timing: Continuous Current Severity: Mild Maximum Severity: Mild Narrative Narrative: 32-year-old male prior history of cellulitis in his leg and other areas. They do not know the specific cause. Said last night around midnight he started getting discomfort in his left groin fever and chills. And then today noticed redness. He had this multiple times before. He denies any nausea or vomiting. No dysuria. No cough. Prior similar symptoms: Yes Recent Illness/Hospitalization: No PFSH PFSH Medical History Abscess, dental Cellulitis Colostomy in place Dental abscess Mandibular swelling Home Medications cephalexin 250 mg capsule 250 mg PO BID PRN symptoms of infection 07/14/22 [History Last Taken Unknown] cephalexin 500 mg capsule 500 mg PO Q6 10 days #40 CAPSULES 07/14/22 [Rx Last Taken Unknown] clindamycin HCl 300 mg capsule 600 mg PO TID PRN symptoms of infection 07/14/22 [History Last Taken Unknown] Allergy/AdvReac Type Severity Reaction Status Date / Time No Known Allergies Allergy Verified 07/14/22 17:20 Family History Other Hypertension Surgical History H/O wisdom tooth extraction Social History household members: spouse housing: house current occupational status: employed current occupational exposures/hazards: No Smoking Status: Current every day smoker tobacco type: cigarettes ROS ROS ED ROS Narrative Fever. Chills. Left leg redness. Review of Systems ROS Unobtainable: Denies due to encephalopathy Constitutional Constitutional ED: Reports chills and fever(s) ENT ENT ED: Denies ear pain Cardiovascular Cardiovascular: Denies chest pain Respiratory/Chest Respiratory/Chest: Denies cough or dyspnea Gastrointestinal Gastrointestinal: Denies abdominal pain, constipation, diarrhea, melena, nausea or vomiting Genitourinary Genitourinary ED: Denies dysuria or hematuria Musculoskeletal Musculoskeletal: Denies arthralgias Integumentary Denies abscess Neurologic Neurologic: Denies headache(s) Psychiatric Psychiatric: Denies anxiety Endocrine Endocrinology: Denies cold intolerance Hematologic/Lymphatic Hematologic/Lymphatic: Reports none Allergic/Immunologic Allergic/Immunologic ED: Denies mouth swelling or tongue swelling EXAM Physical Exam Narrative Exam Narrative: 32-year-old male no acute distress. Vital signs stable he does have a fever one 1.3. He does not look septic or toxic. H EENT exam unremarkable. Moist with membranes. Neck nontender no lymphadenopathy. Lungs clear to auscultation. Heart tachycardic rate about 130 no murmur. Chest wall nontender. Abdomen soft nontender. Moving all 4 extremities. Neurovascular intact. His left leg he does have mild redness on the proximal tibia area. Consistent with cellulitis. As well as mild tenderness of the left groin with mildly enlarged lymph nodes. No abscess. No necrotizing fasciitis. No subcu air or crepitance. No septic joints. Neurologically is awake and alert. Const Vital Signs: 07/14/22 17:20 07/14/22 17:34 07/14/22 17:40 Temperature 101.3 F H 99.3 F H Temperature Source Temporal Oral Pulse Rate 131 H Respiratory Rate 26 H Respiratory Effort Normal Non-Labored Respiratory Pattern Normal Blood Pressure 160/108 H Blood Pressure Mean 125 Pulse Ox 98 Oxygen Delivery Method Room Air 07/14/22 19:01 Temperature 99.3 F H Temperature Source Oral Pulse Rate 93 Respiratory Rate 18 Respiratory Effort Respiratory Pattern Blood Pressure 145/76 H Blood Pressure Mean 92 Pulse Ox 97 Oxygen Delivery Method Positive well nourished and well developed; Negative for cachectic, contractures or unkempt General Appearance ED: well developed and NAD; Negative for unkempt, cachectic, contractures, cyanotic, diaphoretic or pallor Nutritional Appearance: Negative for cachectic HEENT Reports moist mucous membranes; Denies dry mucous membranes Negative for trauma or tenderness Mouth ED: No dry mucous membranes Mouth: No dry mucous membranes Eyes PERRL and EOMs intact bilaterally General Eye ED: Negative for pale conjunctiva or scleral icterus Neck no lymphadenopathy, supple and no JVD General: Negative for tenderness Chest Wall inspection of chest normal and palpation of chest normal Chest: Negative for other Resp normal respiratory effort and clear to auscultation bilaterally Effort and Inspection: Negative for retractions Auscultation: Negative for rales, rhonchi or wheezes Cardio regular rhythm, S1 normal heart sound, S2 normal heart sound and no murmurs; Negative for regular rate Palpation: Negative for palpable S3 Rate: tachycardic; Negative for bradycardia Rhythm: Negative for abnormal rhythm GI normal to inspection, nondistended, normoactive bowel sounds, non-tender, non-distended and no masses Inspection: Negative for abdominal distention Auscultation: normoactive bowel sounds Palpation: soft; Negative for tender or guarding Back/Spine no CVA tenderness General Back: Negative for CVA tenderness Cervical Spine: Negative for cervical spine tenderness Thoracic Spine / Upper Back: Negative for thoracic spinal tenderness Lumbar Spine / Lower Back: Negative for lumbar spinal tenderness Extremity Negative for normal to inspection Extremity Narrative: Left inguinal lymphadenopathy mild. Cellulitis left lower leg. Neuro oriented x3 and CN's II-XII intact bilaterally Sensorium / Orientation: alert; Negative for orientation impaired, lethargic or stuporous Motor Exam: strength 5/5 throughout; Negative for general weakness Psych mental status grossly normal Appearance: Negative for unkempt Attitude: No agitated Mood & Affect: Negative for depressed, anxious or tearful Skin No no rashes or lesions noted and no wounds Skin Narrative: Cellulitis left lower leg. General Skin Exam: elasticity normal; Negative for jaundice or pallor Lesions: No lesion noted Rashes: rashes noted Trauma: Negative for abrasion Wounds: Negative for wounds noted MDM MDM MDM Narrative Medical decision making narrative: 32-year-old febrile male with left lower leg cellulitis. Treated with a dose of IV Unasyn. CBC and chemistry being obtained. Tylenol for his fever. Repeat exam patient is doing well at 7:20 PM. His repeat exam of his left leg the cellulitis is no worse. He and I discussed his test results. We did discuss inpatient admission for IV antibiotics. He much prefers to go home and try this at home. He said he has had it multiple times and has been able to treated at home the vast majority of times with oral antibiotics. He was given a dose of Unasyn here. To be placed on Keflex 5 mg 4 times a day for 10 days. He will be referred to a local primary care physician for follow-up. He and his significant other know he needs to return if he is worse. Alternate Tylenol and Motrin for fever. Lab Data Attestation: I reviewed the patient's lab results. Lab results narrative: CBC shows an elevated white count 18,200. H&H of 15 and 47. 78% segmented neutrophils. Electrolytes show sodium 135 gap of 7 normal BUN and creatinine. Glucose is 90. Labs: Laboratory Results - last 24 hr 07/14/22 07/14/22 18:10 18:10 WBC 18.2 H RBC 5.68 Hgb 15.9 Hct 47.6 MCV 83.8 MCH 28.0 MCHC 33.4 RDW Std Deviation 41.2 RDW Coeff of [place] 13.4 Plt Count 255 MPV 10.1 Immature Gran % (Auto) 0.500 Neut % (Auto) 78.8 H Lymph % (Auto) 11.0 L [place] % (Auto) 9.1 Eos % (Auto) 0.1 Baso % (Auto) 0.5 Absolute Neuts (auto) 14.4 H Absolute Lymphs (auto) 2.00 Nucleated RBC % 0 Differential Comment SCANNED Diff Path Review May foll Sodium 135 L Potassium 3.7 Chloride 103 Carbon Dioxide 25.0 Anion Gap 7 BUN 16 Creatinine 1.15 Estim Creat Clear Calc 99.13 Est GFR (MDRD) Af Amer 95 Est GFR (MDRD) Non-Af 79 BUN/Creatinine Ratio 13.9 Glucose 90 Calcium 9.1 Discharge Plan Triage Chief Complaint: Cellulitis ED Provider: Carlos Johnson Dx/Rx/DC Orders Clinical Impression: Cellulitis of left leg, Leukocytosis, Fever Instructions: ED Cellulitis Prescriptions: New cephalexin 500 mg capsule 500 mg PO Q6 10 Days Qty: 40 0RF No Action cephalexin 250 mg Capsule 250 mg PO BID PRN (Reason: symptoms of infection) clindamycin HCl 300 mg capsule 600 mg PO TID PRN (Reason: symptoms of infection) Primary Care Provider: Care Physician,No Primary Referrals: John Cano MD [Med Staff - [facility] [employer]] - 3-5 Days Care Physician,No Primary [Primary Care Provider] - Activity Restrictions/Additional Instructions: Alternate Tylenol and Motrin for fever. Plenty of fluids and rest. Keflex antibiotic 500 mg 4 times a day for the next 10 days. Take 1 tonight before you go to sleep. Follow-up with local primary care physician to ensure you are improving. Return to the emergency department if you are feeling worse of the leg looks a lot worse. Disposition Disposition: Home, Self Care
[2022-07-14] MEDS: Acetaminophen 325 MG Tablet 650 MG PO (18:11)
[2022-07-14 18:19] LABS: Absolute Neutrophil Count 14.4 X10^3/uL (2.0-7.7); Basophil% 0.5 % (0-1); Eosinophil# 0.01 X10^3/uL; Eosinophils% 0.1 % (0-5); Hematocrit 47.6 % (40-54); Hemoglobin 15.9 g/dL (13.0-16.5); Mean Corp Hgb Conc 33.4 g/dL (32-36); Mean Corpuscular Volume 83.8 fL (80-94); Mean Platelet Vol. 10.1 fl (6.2-12.0); Monocyte# 1.65 X10^3/uL; Monocyte% 9.1 % (0-10); NRBC Flagged by Analyzer 0 % (0-5); Neutrophil # 14.35 X10^3/uL (2.7-7.7); Neutrophil % 78.8 % (47-70); POSITIVE DIFFERENTIAL YES; Platelet Count 255 K/mm3 (150-450); RBC Distribution Width CV 13.4 % (11.6-14.6); RBC Distribution Width SD 41.2 fl (35.1-43.9); Red Blood Count 5.68 M/mm3 (4.6-6.2); White Blood Count 18.2 K/mm3 (4.4-11.0)
[2022-07-14 18:27] LABS: Differential Indicated SCAN CRITERIA MET
[2022-07-14 18:44] LABS: Differential Comment SCANNED
[2022-07-14 18:52] LABS: Anion Gap 7 (5-15); BUN 16 mg/dL (7-18); BUN/Creat Ratio 13.9 RATIO (10-20); Calcium,Total 9.1 mg/dL (8.5-10.1); Chloride 103 mmol/L (98-107); Creatinine, Serum 1.15 mg/dL (0.70-1.30); EST Glomerular Filtration Rate 79 mL/min (>60); Est Glom Filt Rate - Afr Amer 95 mL/min (>60); Estimated Creatinine Clearance 99.13 ml/min; Glucose 90 mg/dL (74-106); Potassium 3.7 mmol/L (3.5-5.1); Sodium Level 135 mmol/L (136-145)
[2022-07-14 19:01] VITALS: BP 145/76; PULSE 93; RESP 18; TEMP 37.4; O2SAT 97
[2022-07-14 19:17] VITALS: BP 143/70; O2SAT 97
[2022-07-16 13:03] LABS: Pathologist Review Reviewed
== END 2022-07-14 20:00 | disposition home or self-care (01) ==
PROVIDERS: Emergency Provider Emergency Medicine; Visit Provider Emergency Medicine
DX: L03.116 Cellulitis of left lower limb (principal); F17.210 Nicotine dependence, cigarettes, uncomplicated; R50.9 Fever, unspecified; D72.829 Elevated white blood cell count, unspecified
CPT/HCPCS: 80048; 85025; 96365; 99282; A4216; J0295

== ENCOUNTER 2022-09-03 16:33 | Emergency (ER) | payer BC, SELFPAY ==
[2022-09-03 16:34] VITALS: BP 157/98; PULSE 118; RESP 18; TEMP 36.9; O2SAT 98; BMI 40.9
--- NOTE | 2022-09-03 18:54 | EDS_ITS ---
HPI History of Present Illness Chief Complaint: Cellulitis Informant: patient Narrative Narrative: Patient presents with cellulitis of his left lower extremity. He states he has had this at least 20 times over the last 5 years. It is always in the same spot. This just started yesterday. It sounds like he saved some of his last antibiotics and just started those last evening. He states yesterday he felt sick and just did not feel well so he stayed home. But today he is actually feeling better and he actually went to work today. He came in because he feels he bit gets better when he gets a dose of IV antibiotics. He states he has been admitted for this but really does not want to be admitted. He states normally his white count is extremely high when this happens. He has no nausea vomiting now. He is not diabetic. He states he has had a lot of ultrasounds and has never shown a blood clot. His first episode was after he had an abrasion to the arenas. He had some of his pants fiber material kind of scraped into the leg but he said the abrasion was not bad. But he ended up getting a bad infection. Since then he gets a new infection every 1 to 3 months on average. [facility] Medical History Abscess, dental Cellulitis Colostomy in place Dental abscess Mandibular swelling Home Medications cephalexin 250 mg capsule 250 mg PO BID PRN symptoms of infection 07/14/22 [History Last Taken Unknown] cephalexin 500 mg capsule 500 mg PO Q6 10 days #40 CAPSULES 07/14/22 [Rx Last Taken Unknown] clindamycin HCl 300 mg capsule 600 mg PO TID PRN symptoms of infection 07/14/22 [History Last Taken Unknown] cephalexin 500 mg capsule 500 mg PO Q6 #40 CAPSULES 09/03/22 [Rx Last Taken Unknown] sulfamethoxazole 800 mg-trimethoprim 160 mg tablet (Bactrim DS) 1 tab PO BID #20 tabs 09/03/22 [Rx Last Taken Unknown] Allergy/AdvReac Type Severity Reaction Status Date / Time No Known Allergies Allergy Verified 09/03/22 16:34 Family History Other Hypertension Surgical History H/O wisdom tooth extraction Social History household members: spouse housing: house current occupational status: employed current occupational exposures/hazards: No Smoking Status: Current every day smoker tobacco type: cigarettes ROS ROS ED Constitutional Constitutional ED: Reports subjective ENT ENT ED: Denies rhinorrhea Cardiovascular Cardiovascular: Denies chest pain or palpitations Respiratory/Chest Respiratory/Chest: Denies cough or dyspnea Gastrointestinal Gastrointestinal: Denies abdominal pain, nausea or vomiting Genitourinary Genitourinary ED: Denies dysuria Musculoskeletal Musculoskeletal: Denies myalgias Integumentary Reports rash Neurologic Neurologic: Denies headache(s), paresthesias or weakness Endocrine Endocrinology: Denies polydipsia or polyuria Hematologic/Lymphatic Hematologic/Lymphatic: Denies easy bleeding or easy bruising Allergic/Immunologic Allergic/Immunologic ED: Denies urticaria EXAM Physical Exam Narrative Exam Narrative: CONSTITUTIONAL: Patient is nontoxic in appearance. The patient looks comfor table. He does not look toxic HEENT: No notable trauma. Mucous membranes moist. EYES: No conjunctival injection. No active CARDIOVASCULAR: Mildly tachycardic rate. Regular rhythm. No notable murmur. No JVD. RESPIRATORY: No respiratory distress. Breathing is unlabored. No wheezes. No rhonchi. No rales. No pain with a deep breath. GASTROINTESTINAL: Not distended. Bowel sounds are normal. No tenderness. No guarding. No rebound. No palpable mass. No bruit. GENITOURINARY: No tenderness over the bladder. No CVA tenderness. 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 There is nothing that can be drained. On his lower extremity disconnected from this is erythema and warmth. Most of this is in the anterior arenas and top of the foot. It is well demarcated edge. No distended veins. No tenderness along the deep venous system. This is clinically very consistent with cellulitis. NEUROLOGICAL: Patient is alert and appropriate. No focal deficit noted. SKIN: See above under extremities PSYCHIATRIC: Patient is calm. Mood is appropriate. Const Vital Signs: 09/03/22 16:34 Temperature 98.4 F Temperature Source Temporal Pulse Rate 118 H Respiratory Rate 18 Blood Pressure 157/98 H Blood Pressure Mean 117 Pulse Ox 98 Oxygen Delivery Method Room Air MDM MDM MDM Narrative Medical decision making narrative: CBC comes back with a 23.3 white count. Patient states he thought it was 21,000 white count. He states it is always up very high every time he gets this. Rest of the CBC is normal. Electrolytes show no marked abnormalities. I went back in to check the patient. He did not have vancomycin running. I checked the orders and it did not exist. I had recalled putting the medicine at 15 mg/kg which calculated to about 2000 mg on him. Something happened and did not go through. I apologize that I may have hit some button incorrectly but the intent was to order vancomycin initially. I explained what happened to the patient. We are getting this started now. He would still like to go home. He states he has had this many times. He really does not like coming in the hospital. Because this started after a small infected hair on his leg, I will add Bactrim to his cephalexin to cover MRSA. I will write for prescription for both because he only has half a bottle remaining. Lab Data Attestation: I reviewed the patient's lab results. Labs: Laboratory Results - last 24 hr 09/03/22 09/03/22 18:55 18:55 WBC 23.3 H RBC 5.83 Hgb 16.3 Hct 49.1 MCV 84.2 MCH 28.0 MCHC 33.2 RDW Std Deviation 41.3 RDW Coeff of [place] 13.4 Plt Count 251 MPV 10.3 Immature Gran % (Auto) 0.600 Neut % (Auto) 81.6 H Lymph % (Auto) 10.6 L [place] % (Auto) 6.4 Eos % (Auto) 0.3 Baso % (Auto) 0.5 Absolute Neuts (auto) 19.0 H Absolute Lymphs (auto) 2.47 Nucleated RBC % 0 Sodium 133 L Potassium 3.3 L Chloride 102 Carbon Dioxide 30.0 Anion Gap 1 L BUN 13 Creatinine 1.08 Estim Creat Clear Calc 105.55 Est GFR (MDRD) Af Amer 102 Est GFR (MDRD) Non-Af 85 BUN/Creatinine Ratio 12.0 Glucose 105 Calcium 9.4 Discharge Plan Triage Chief Complaint: Cellulitis ED Provider: Luis Guajardo Dx/Rx/DC Orders Clinical Impression: Cellulitis of leg, left, Leukocytosis Instructions: Cellulitis Dc Prescriptions: New cephalexin 500 mg capsule 500 mg PO Q6 Qty: 40 0RF sulfamethoxazole-trimethoprim [Bactrim DS] 800-160 mg tablet 1 tab PO BID Qty: 20 0RF No Action cephalexin 250 mg Capsule 250 mg PO BID PRN (Reason: symptoms of infection) clindamycin HCl 300 mg capsule 600 mg PO TID PRN (Reason: symptoms of infection) cephalexin 500 mg capsule 500 mg PO Q6 10 Days Qty: 40 0RF Primary Care Provider: Care Physician,No Primary Referrals: Fabiana Ann DO [Med Staff - Active Staff] - 3-5 Days if not improving Care Physician,No Primary [Primary Care Provider] - Disposition Disposition: Home, Self Care
[2022-09-03] MEDS: 0.9% Normal Saline 1,000 ML 1000 ML IV (18:56)
[2022-09-03 19:03] LABS: Absolute Lymphocyte Count 2.47 X10^3/uL (0.83-4.51); Basophil# 0.12 X10^3/uL; Basophil% 0.5 % (0-1); Eosinophil# 0.06 X10^3/uL; Eosinophils% 0.3 % (0-5); Hematocrit 49.1 % (40-54); Hemoglobin 16.3 g/dL (13.0-16.5); Lymphocyte # 2.47 X10^3/ul (0.83-4.51); Lymphocyte % 10.6 % (19-41); Mean Corp Hgb Conc 33.2 g/dL (32-36); Mean Corpuscular Volume 84.2 fL (80-94); Mean Platelet Vol. 10.3 fl (6.2-12.0); Monocyte# 1.49 X10^3/uL; Monocyte% 6.4 % (0-10); NRBC Flagged by Analyzer 0 % (0-5); Neutrophil # 18.99 X10^3/uL (2.7-7.7); Neutrophil % 81.6 % (47-70); Platelet Count 251 K/mm3 (150-450); RBC Distribution Width CV 13.4 % (11.6-14.6); RBC Distribution Width SD 41.3 fl (35.1-43.9); Red Blood Count 5.83 M/mm3 (4.6-6.2); White Blood Count 23.3 K/mm3 (4.4-11.0)
[2022-09-03 19:17] LABS: Anion Gap 1 (5-15); BUN 13 mg/dL (7-18); Calcium,Total 9.4 mg/dL (8.5-10.1); Chloride 102 mmol/L (98-107); Creatinine, Serum 1.08 mg/dL (0.70-1.30); EST Glomerular Filtration Rate 85 mL/min (>60); Est Glom Filt Rate - Afr Amer 102 mL/min (>60); Estimated Creatinine Clearance 105.55 ml/min; Glucose 105 mg/dL (74-106); Potassium 3.3 mmol/L (3.5-5.1); Sodium Level 133 mmol/L (136-145)
[2022-09-03 22:29] VITALS: BP 171/88; PULSE 89; RESP 16; O2SAT 100
== END 2022-09-04 01:29 | disposition home or self-care (01) ==
PROVIDERS: Emergency Provider Emergency Medicine; Visit Provider Emergency Medicine
DX: L03.116 Cellulitis of left lower limb (principal); D72.829 Elevated white blood cell count, unspecified; F17.210 Nicotine dependence, cigarettes, uncomplicated
CPT/HCPCS: 80048; 85025; 96361; 96365; 96366; 99283; J7030; J7040; A4216

== ENCOUNTER 2022-09-04 15:11 | Inpatient (IN) | payer BC, SELFPAY ==
[2022-09-04 15:12] VITALS: BP 120/92; PULSE 118; RESP 16; TEMP 36.3; O2SAT 99; BMI 39.5
--- NOTE | 2022-09-04 15:45 | EKG12_ITS ---
Test Reason : POSS SEPSIS Blood Pressure : / mmHG Vent. Rate : 093 BPM Atrial Rate : 093 BPM P-R Int : 148 ms QRS Dur : 094 ms QT Int : 350 ms P-R-T Axes : 046 045 033 degrees QTc Int : 435 ms Normal sinus rhythm Normal ECG Confirmed by NICHOLAS BLAS, KEE ([id number]), senior technical editor EBONY ACOSTA ([id number]) on 09/06/2022 9:09:55 AM Referred By: Confirmed By:KEE PETERSON MD
--- NOTE | 2022-09-04 15:47 | EDS_ITS ---
HPI History of Present Illness Chief Complaint: Cellulitis Informant: patient and spouse/S.O. Narrative Narrative: Has worsening cellulitis left leg past 2 days. Reported fevers. History of similar in the past requiring admission. He is not a diabetic. States symptoms started 5 years ago and had scratch to his proximal lower leg leading to significant infection. He states other infections had worsened his leg infection. He was admitted for dental abscess with a leg infection in the past per history. He states recent left upper thigh abscess spontaneous drain now notes his left leg red again. Patient initially did not disclose he was here yesterday for evaluation. Given dose IV antibiotics he is placed on Keflex and Bactrim. Prior similar symptoms: Yes PFSH PFSH Medical History Abscess, dental Cellulitis Colostomy in place Dental abscess Mandibular swelling Home Medications cephalexin 250 mg capsule 250 mg PO BID PRN symptoms of infection 07/14/22 [History Last Taken Unknown] cephalexin 500 mg capsule 500 mg PO Q6 10 days #40 CAPSULES 07/14/22 [Rx Last Taken Unknown] clindamycin HCl 300 mg capsule 600 mg PO TID PRN symptoms of infection 07/14/22 [History Last Taken Unknown] cephalexin 500 mg capsule 500 mg PO Q6 #40 CAPSULES 09/03/22 [Rx Last Taken Unknown] sulfamethoxazole 800 mg-trimethoprim 160 mg tablet (Bactrim DS) 1 tab PO BID #20 tabs 09/03/22 [Rx Last Taken Unknown] Allergy/AdvReac Type Severity Reaction Status Date / Time No Known Allergies Allergy Verified 09/04/22 15:15 Family History Other Hypertension Surgical History H/O wisdom tooth extraction Social History household members: spouse housing: house current occupational status: employed current occupational exposures/hazards: No Smoking Status: Current every day smoker tobacco type: cigarettes ROS ROS ED Constitutional Constitutional ED: Reports fever(s); Denies chills or sweats Eyes Eyes: Denies change in vision ENT ENT ED: Denies dysphagia or sore throat Cardiovascular Cardiovascular: Denies chest pain, leg edema, palpitations or racing heartbeat Respiratory/Chest Respiratory/Chest: Denies cough, dyspnea or dyspnea on exertion Gastrointestinal Gastrointestinal: Denies abdominal pain, diarrhea, nausea or vomiting Genitourinary Genitourinary ED: Denies dysuria, hematuria or urinary frequency Musculoskeletal Musculoskeletal: Denies back pain, extremity pain or neck pain Integumentary Reports rash and other Details: Left leg cellulitis ; Denies wounds Neurologic Neurologic: Denies headache(s), paresthesias or weakness EXAM Physical Exam Const Vital Signs: 09/04/22 15:12 09/04/22 17:23 Temperature 97.3 F L 98.3 F Temperature Source Temporal Oral Pulse Rate 118 H 86 Respiratory Rate 16 18 Blood Pressure 120/92 H 95/76 Blood Pressure Mean 101 82 Pulse Ox 99 97 Oxygen Delivery Method Room Air Room Air Positive well nourished and well developed General Appearance ED: well developed and NAD HEENT Reports moist mucous membranes normocephalic and atraumatic Eyes PERRL, EOMs intact bilaterally and conjunctivae normal General Eye ED: Yes normal appearance of both eyes Neck no lymphadenopathy and supple General: Negative for tenderness Chest Wall Chest: Negative for tenderness Resp normal respiratory effort and normal air movement Effort and Inspection: symmetric chest movement; Negative for respiratory distress Cardio regular rhythm and no murmurs Rate: tachycardic Peripheral Pulses: pulses 2+ throughout GI normal to inspection, nondistended, normoactive bowel sounds and non-tender Palpation: Negative for guarding or rebound tenderness present Back/Spine no CVA tenderness and no thoracic nor lumbar tenderness Extremity normal to inspection General Extremety ED: Negative for edema or tenderness General Extremity: Negative for edema Neuro oriented x3 and no sensory deficits noted Sensorium / Orientation: awake and alert Skin Skin Narrative: Left lower extremity: Upper thigh 2 cm area of erythema with scabbing induration however no fluctuance no drainage. Distal leg erythema distal to the knee down to his foot circumferential. There is no wounds. No crepitus. Sepsis Attestation Sepsis Alert: Yes Sepsis Attestation: Sepsis Ruled Out Possible Source of Sepsis: Skin/soft tissue Sepsis Organ Dysfunction Criteria Present: None MDM MDM MDM Narrative Medical decision making narrative: Interventions / MDM: Differential diagnosis: Cellulitis Diagnosis considered but do not suspect: Necrotizing fasciitis however no significant progression no purpura lesions no soft tissue gas on x-ray. My EKG interpretation: Sinus rate of 93, no ST changes with T wave version leads III nonspecific. Imaging independently reviewed and interpreted by myself: Left tib-fib: No soft tissue gas. External documents reviewed: N/A Test considered but not ordered:N/A ED course: Patient was seen yesterday White count 23, however since then increasing fever. Erythema is outlined. Sepsis labs were ordered. White count 17.5. Lactic acid normal. He was covered with Zosyn and vancomycin. X-ray no soft tissue gas, the crepitus exam, no purpura. Re-evaluation: stable, systolic blood 95, started on IV fluids. Nontoxic. However with his increasing clinical symptoms of fever since being seen yesterday do feel benefit from admission for monitoring and treatment. I spoke with Dr. Reyes for admission. Disposition discussed with patient/family/significant other: Patient Case discussed with consulting clinician: Hospitalist, Dr. Reyes Lab Data Attestation: I reviewed the patient's lab results. Labs: Laboratory Results - last 24 hr 09/04/22 09/04/22 09/04/22 15:50 15:50 15:50 WBC 17.5 H RBC 5.41 Hgb 15.4 Hct 46.3 MCV 85.6 MCH 28.5 MCHC 33.3 RDW Std Deviation 41.3 RDW Coeff of [place] 13.4 Plt Count 284 MPV 11.1 Immature Gran % (Auto) 0.500 Neut % (Auto) 77.5 H Lymph % (Auto) 11.6 L [place] % (Auto) 9.5 Eos % (Auto) 0.4 Baso % (Auto) 0.5 Absolute Neuts (auto) 13.5 H Absolute Lymphs (auto) 2.02 Nucleated RBC % 0 Differential Comment SEE COMMENT Diff Path Review May foll Platelet Estimate ADEQUATE RBC Morphology N CHROM Anisocytosis RARE ESR 28 H PT 14.5 INR 1.2 APTT 32.5 Sodium 133 L Potassium 3.4 L Chloride 106 Carbon Dioxide 24.0 Anion Gap 3 L BUN 11 Creatinine 1.03 Estim Creat Clear Calc 110.68 Est GFR (MDRD) Af Amer 108 Est GFR (MDRD) Non-Af 89 BUN/Creatinine Ratio 10.7 Glucose 131 H Lactic Acid Calcium 8.6 Total Bilirubin 0.70 AST 26 ALT 38 Alkaline Phosphatase 50 C-React Prot Ext Range 153.00 H Total Protein 7.3 Albumin 3.4 Globulin 3.9 Albumin/Globulin Ratio 0.9 09/04/22 15:50 WBC RBC Hgb Hct MCV MCH MCHC RDW Std Deviation RDW Coeff of [place] Plt Count MPV Immature Gran % (Auto) Neut % (Auto) Lymph % (Auto) [place] % (Auto) Eos % (Auto) Baso % (Auto) Absolute Neuts (auto) Absolute Lymphs (auto) Nucleated RBC % Differential Comment Diff Path Review Platelet Estimate RBC Morphology Anisocytosis ESR PT INR APTT Sodium Potassium Chloride Carbon Dioxide Anion Gap BUN Creatinine Estim Creat Clear Calc Est GFR (MDRD) Af Amer Est GFR (MDRD) Non-Af BUN/Creatinine Ratio Glucose Lactic Acid 0.8 Calcium Total Bilirubin AST ALT Alkaline Phosphatase C-React Prot Ext Range Total Protein Albumin Globulin Albumin/Globulin Ratio Radiography Diagnostic Testing: Clinical Impression(s) from Imaging Studies Tibia/Fibula X-Ray 09/04/22 16:07 IMPRESSION: Slightly loose body posterior aspect medial compartment 5 mm diameter. Fragmentation of tibial tubercle question [place]-Schlatter disease. Electronically Signed: Hayden Yeung MD, OSCAR at 16:18 EDT Reading Location ID and State: [facility] / [place] Tel , Service support , Discharge Plan Dx/Rx/DC Orders Clinical Impression: Cellulitis of leg, left, Cellulitis of foot, Leukocytosis Disposition Disposition: Acute Care Hospital [facility] Discharge Date/Time: 09/04/22 18:31
[2022-09-04] MEDS: 0.9% Normal Saline 1,000 ML 150 ML IV ×2 (16:06→20:55)
--- NOTE | 2022-09-04 16:07 | RAD_ITS ---
INDICATION: infection EXAMINATION/TECHNIQUE: X-RAY - LEFT XR Tibia/Fibula 2 Views 4 VIEWS COMPARISON: FINDINGS: SOFT TISSUES: No soft tissue swelling or gas. No radiopaque foreign body. BONES/JOINTS: Mild fragmentation of the tibial tubercle could represent [place]-Schlatter disease. There is a loose body in the posterior aspect of the medial compartment measuring 5 mm in diameter. No acute fracture or subluxation.. Normal alignment. Preservation of the joint space.. No sclerotic or destructive changes observed. RAD/Tibia & Fibula 2 Views IMPRESSION: Slightly loose body posterior aspect medial compartment 5 mm diameter. Fragmentation of tibial tubercle question [place]-Schlatter disease. Electronically Signed: Hayden Yeung MD, OSCAR at 16:18 EDT ,
[2022-09-04 16:17] LABS: Absolute Lymphocyte Count 2.02 X10^3/uL (0.83-4.51); Absolute Neutrophil Count 13.5 X10^3/uL (2.0-7.7); Basophil# 0.08 X10^3/uL; Basophil% 0.5 % (0-1); Eosinophil# 0.07 X10^3/uL; Eosinophils% 0.4 % (0-5); Hematocrit 46.3 % (40-54); Hemoglobin 15.4 g/dL (13.0-16.5); Lymphocyte # 2.02 X10^3/ul (0.83-4.51); Lymphocyte % 11.6 % (19-41); Mean Corp Hgb Conc 33.3 g/dL (32-36); Mean Corpuscular Hgb 28.5 pg (27.0-32.0); Mean Corpuscular Volume 85.6 fL (80-94); Mean Platelet Vol. 11.1 fl (6.2-12.0); Monocyte# 1.66 X10^3/uL; Monocyte% 9.5 % (0-10); NRBC Flagged by Analyzer 0 % (0-5); Neutrophil # 13.54 X10^3/uL (2.7-7.7); Neutrophil % 77.5 % (47-70); POSITIVE DIFFERENTIAL YES; Platelet Count 284 K/mm3 (150-450); RBC Distribution Width CV 13.4 % (11.6-14.6); RBC Distribution Width SD 41.3 fl (35.1-43.9); Red Blood Count 5.41 M/mm3 (4.6-6.2); White Blood Count 17.5 K/mm3 (4.4-11.0)
[2022-09-04 16:29] LABS: International Normalized Ratio 1.2; Prothrombin Time (Protime)PT. 14.5 SECONDS (11.7-14.9)
[2022-09-04 16:30] LABS: Partial Thromboplast Time 32.5 Seconds (24.1-36.2)
[2022-09-04 16:32] LABS: Differential Indicated SCAN CRITERIA MET
[2022-09-04 16:38] LABS: ALB/GLOB Ratio 0.9 RATIO (0.9-2.4); AST(SGOT) 26 U/L (15-37); Alanine Aminotransfer ALT/SGPT 38 U/L (16-61); Albumin, Serum 3.4 g/dL (3.2-5.0); Alkaline Phosphatase 50 U/L (45-117); Anion Gap 3 (5-15); BUN 11 mg/dL (7-18); BUN/Creat Ratio 10.7 RATIO (10-20); Calcium,Total 8.6 mg/dL (8.5-10.1); Chloride 106 mmol/L (98-107); Creatinine, Serum 1.03 mg/dL (0.70-1.30); EST Glomerular Filtration Rate 89 mL/min (>60); Est Glom Filt Rate - Afr Amer 108 mL/min (>60); Estimated Creatinine Clearance 110.68 ml/min; Globulin 3.9 g/dL (2.2-4.2); Glucose 131 mg/dL (74-106); Potassium 3.4 mmol/L (3.5-5.1); Protein, Total 7.3 g/dL (6.4-8.2); Sodium Level 133 mmol/L (136-145)
[2022-09-04 17:10] LABS: Anisocytosis RARE; Platelet Estimate ADEQUATE (ADEQ); Red Cell Morphology N CHROM NORMAL (NORM C&C)
[2022-09-04 17:11] LABS: Erythrocyte Sedimentation Rate 28 mm/hr (0-20)
[2022-09-04 17:14] LABS: Lactic Acid 0.8 mmol/L (0.4-1.9)
[2022-09-04 17:23] VITALS: BP 95/76; PULSE 86; RESP 18; TEMP 36.8; O2SAT 97
--- NOTE | 2022-09-04 18:11 | HP.PCM.HOS_ITS ---
HPI - General General Date of Admission: 09/04/22 Date of Service: 09/04/22 Chief Complaint: LLE cellulitis HPI Narrative TERRELL SCHAEFER, is a 32 M with a history of recurrent cellulitis primarily in his left lower extremity who presented to [facility] 09/04/2022 for worsening cellulitis after failing outpatient oral antibiotics. He reports that he has had cellulitis in his left lower extremity intermittently over the p ast 5 years and before has had it on his face and right lower extremity but primarily on the left. He reports on Saturday he got a ingrown hair on his upper left thigh and then he developed redness and swelling and warmth from upper arenas down to his ankle. He presented 09/03 and did not want to be admitted so he was given 1 dose of IV antibiotics and discharged on Keflex and Bactrim. Patient said that he was getting hot and cold at home and it feels like his redness and swelling have shifted down and moved somewhat down his left arenas but then onto his foot. Has pain primarily when standing on it but reports it is tender. Did take a bath earlier and got some drainage out of the spot on his left thigh but no purulence or drainage on his lower leg. In the ED his white count was 17.5 and yesterday it was 23.3, ESR 28, CRP 153, lactic acid 0.8. Blood pressure variable, afebrile, heart rate initially 118 but came down with fluids. Patient given Vanco and Zosyn as well as fluids and hospitalist consulted for admission. [facility] Medical History Abscess, dental Cellulitis Colostomy in place Dental abscess Mandibular swelling Home Medications cephalexin 250 mg capsule 250 mg PO BID PRN symptoms of infection 07/14/22 [History Last Taken Unknown] cephalexin 500 mg capsule 500 mg PO Q6 10 days #40 CAPSULES 07/14/22 [Rx Last Taken Unknown] clindamycin HCl 300 mg capsule 600 mg PO TID PRN symptoms of infection 07/14/22 [History Last Taken Unknown] cephalexin 500 mg capsule 500 mg PO Q6 #40 CAPSULES 09/03/22 [Rx Last Taken Unknown] sulfamethoxazole 800 mg-trimethoprim 160 mg tablet (Bactrim DS) 1 tab PO BID #20 tabs 09/03/22 [Rx Last Taken Unknown] Allergy/AdvReac Type Severity Reaction Status Date / Time No Known Allergies Allergy Verified 09/04/22 15:15 Family History Other Hypertension Surgical History H/O wisdom tooth extraction Social History household members: spouse housing: house current occupational status: employed current occupational exposures/hazards: No Smoking Status: Current every day smoker tobacco type: cigarettes ROS ROS Narrative General: Reports feeling hot and cold at home HENT: Has had a slight headache for the past 1 to 2 days, denies stuffy nose, denies sore throat EYES: Denies changes in vision Resp: Denies cough, denies shortness of breath Cardiac: Denies chest pain GI: Denies abdominal pain, denies changes in bowel, denies nausea/vomiting : Denies changes in urination Extremity: Denies swelling MSK: Denies weakness Neuro: Denies any numbness/tingling Heme: Denies any bleeding or bruising Skin: Has the small ingrown hair on upper left thigh as well as the erythema with some pain and swelling from upper left arenas down onto the foot, no drainage Psychiatric: No complaints voiced Vital Signs Vital Signs Vital Signs: 09/04/22 15:12 09/04/22 17:23 Temperature 97.3 F L 98.3 F Temperature Source Temporal Oral Pulse Rate 118 H 86 Respiratory Rate 16 18 Blood Pressure 120/92 H 95/76 Blood Pressure Mean 101 82 Pulse Ox 99 97 Oxygen Delivery Method Room Air Room Air Weight Weight: 128.593 kg Body Mass Index (BMI) 39.5 Physical Exam Narrative General: Alert, oriented, no apparent distress HEENT: Atraumatic, normocephalic Eyes: Anicteric, normal conjunctiva, extraocular movements grossly intact Neck: Supple Respiratory: Clear to auscultation bilaterally, normal respiratory effort Cardiovascular: Regular rate and rhythm GI: Soft, nontender, nondistended Extremities: Pulses strong in both lower extremities, feet with poor nail integrity and appears to have tinea pedis Musculoskeletal: Moving all extremities Neuro: No overt focal neurological deficits Skin: Has quarter size area of erythema on upper outer left thigh with a small scab in the center without fluctuance or streaking -Has erythema from mid upper arenas down onto the foot with preserved range of motion of foot, tender but able to palpate diffusely without significant discomfort, no drainage, no crepitus Psych: Cooperative Results Lab / Micro Data Result Diagrams: 09/04/22 15:50 09/04/22 15:50 Labs: Laboratory Results - last 24 hr 09/04/22 15:50: WBC 17.5 H, RBC 5.41, Hgb 15.4, Hct 46.3, MCV 85.6, MCH 28.5, MCHC 33.3, RDW Std Deviation 41.3, RDW Coeff of [place] 13.4, Plt Count 284, MPV 11.1, Immature Gran % (Auto) 0.500, Neut % (Auto) 77.5 H, Lymph % (Auto) 11.6 L, [place] % (Auto) 9.5, Eos % (Auto) 0.4, Baso % (Auto) 0.5, Absolute Neuts (auto) 13.5 H, Absolute Lymphs (auto) 2.02, Nucleated RBC % 0, Differential Comment SEE COMMENT, Diff Path Review September foll, Platelet Estimate ADEQUATE, RBC Morphology N CHROM, Anisocytosis RARE, ESR 28 H 09/04/22 15:50: PT 14.5, INR 1.2, APTT 32.5 09/04/22 15:50: Sodium 133 L, Potassium 3.4 L, Chloride 106, Carbon Dioxide 24.0, Anion Gap 3 L, BUN 11, Creatinine 1.03, Estim Creat Clear Calc 110.68, Est GFR (MDRD) Af Amer 108, Est GFR (MDRD) Non-Af 89, BUN/Creatinine Ratio 10.7, Glucose 131 H, Calcium 8.6, Total Bilirubin 0.70, AST 26, ALT 38, Alkaline Phosphatase 50, C-React Prot Ext Range 153.00 H, Total Protein 7.3, Albumin 3.4, Globulin 3.9, Albumin/Globulin Ratio 0.9 09/04/22 15:50: Lactic Acid 0.8 Radiology Impression Tibia/Fibula X-Ray 09/04/22 16:07 IMPRESSION: Slightly loose body posterior aspect medial compartment 5 mm diameter. Fragmentation of tibial tubercle question [place]-Schlatter disease. Electronically Signed: Hayden Yeung MD, OSCAR at 16:18 EDT , Assessment & Plan Assessment/Plan (1) Cellulitis of leg, left: PLAN: Plan #Recurrent cellulitis of left lower extremity -Failed outpatient oral antibiotics -We will admit and obtain cultures as well as placed on broad-spectrum antibiotics -We will give fluids -Trend CRP to verify it is improving -White blood cell count did improve from yesterday though still elevated but lactic acid within normal limits -Elevate extremity -erythema outlined m to assess progress -Left tib-fib x-ray with no gas #DVT ppx: Low risk, ambulatory Therese Reyes MD Charges/Coding Visit Charges Inpatient E&M: 72252 Init Hosp L2
[2022-09-04 18:15] VITALS: BP 135/84; PULSE 86; RESP 21; TEMP 36.8; O2SAT 95
[2022-09-04 18:28] VITALS: BP 138/84; PULSE 86; RESP 16; TEMP 37; O2SAT 95
[2022-09-04 18:42] VITALS: BMI 39.6
--- NOTE | 2022-09-04 19:07 | PCM.RX.CS ---
Consult Pharmacy has been consulted to manage selected antiobiotic: Vancomycin Type of Consult: New start Suspected Infection: Skin/Soft tissue Prior Doses of Antibiotics Received/Current Regimen: received vanc 2000mg IV x1 in E.D. starting at 17:21 tonight. Note that the patient also got 2000mg x1 in E.D. last night at 22:28. Labs: Sodium 133 mmol/L (136-145) L 09/04/22 15:50 Potassium 3.4 mmol/L (3.5-5.1) L 09/04/22 15:50 Chloride 106 mmol/L (98-107) 09/04/22 15:50 Carbon Dioxide 24.0 mmol/L (21.0-32.0) 09/04/22 15:50 Anion Gap 3 (5-15) L 09/04/22 15:50 BUN 11 mg/dL (7-18) 09/04/22 15:50 Creatinine 1.03 mg/dL (0.70-1.30) 09/04/22 15:50 Est GFR (MDRD) Af Amer 108 mL/min (>60) 09/04/22 15:50 Est GFR (MDRD) Non-Af 89 mL/min (>60) 09/04/22 15:50 BUN/Creatinine Ratio 10.7 RATIO (10-20) 09/04/22 15:50 Glucose 131 mg/dL (74-106) H 09/04/22 15:50 Weight used for dosin kg Estimated Creatinine Clearance: >100ml/min Goal Trough: 15-20 mcg/mL Pharmacy Plan for Drug Dosing: Starting approx 8 hours after the E.D. dose tonight, will continue with vanc 1500mg IV q8h per [facility] dosing protocol. Will check a trough before the 4th total dose tomorrow evening. Pharmacy Service will continue to monitor and adjust dosing as required. Follow-Up Labs: Trough Vancomycin Labs to be done on [date and time ordered]: 09/05/22 17:30
[2022-09-04] MEDS: Potassium Chloride Oral Tablet 20 MEQ 40 MEQ PO (19:10)
[2022-09-04 20:48] VITALS: BP 134/75; PULSE 96; RESP 18; TEMP 36.6; O2SAT 97
[2022-09-04] MEDS: Acetaminophen 325 MG Tablet 650 MG PO (20:58)
[2022-09-05 02:41] VITALS: BP 152/108; PULSE 79; RESP 18; TEMP 37.1; O2SAT 99
[2022-09-05] MEDS: oxyCODONE 5 MG Tablet PO (02:47)
[2022-09-05] MEDS: 0.9% Normal Saline 1,000 ML 150 ML IV ×3 (04:58→23:52)
[2022-09-05 06:10] LABS: Absolute Lymphocyte Count 1.98 X10^3/uL (0.83-4.51); Basophil# 0.07 X10^3/uL; Basophil% 0.5 % (0-1); Eosinophil# 0.25 X10^3/uL; Eosinophils% 1.9 % (0-5); Hematocrit 41.3 % (40-54); Hemoglobin 13.7 g/dL (13.0-16.5); Lymphocyte # 1.98 X10^3/ul (0.83-4.51); Lymphocyte % 14.9 % (19-41); Mean Corp Hgb Conc 33.2 g/dL (32-36); Mean Corpuscular Hgb 28.2 pg (27.0-32.0); Mean Corpuscular Volume 85.2 fL (80-94); Mean Platelet Vol. 10.7 fl (6.2-12.0); Monocyte# 1.92 X10^3/uL; Monocyte% 14.4 % (0-10); NRBC Flagged by Analyzer 0 % (0-5); Neutrophil # 9.03 X10^3/uL (2.7-7.7); Neutrophil % 67.7 % (47-70); POSITIVE DIFFERENTIAL YES; Platelet Count 236 K/mm3 (150-450); RBC Distribution Width CV 13.3 % (11.6-14.6); RBC Distribution Width SD 41.2 fl (35.1-43.9); Red Blood Count 4.85 M/mm3 (4.6-6.2); White Blood Count 13.3 K/mm3 (4.4-11.0)
[2022-09-05 06:22] LABS: Differential Indicated SCAN CRITERIA MET
[2022-09-05 06:37] LABS: Anion Gap 1 (5-15); BUN 11 mg/dL (7-18); BUN/Creat Ratio 11.4 RATIO (10-20); Calcium,Total 8.2 mg/dL (8.5-10.1); Chloride 111 mmol/L (98-107); Creatinine, Serum 0.97 mg/dL (0.70-1.30); EST Glomerular Filtration Rate 96 mL/min (>60); Est Glom Filt Rate - Afr Amer 116 mL/min (>60); Estimated Creatinine Clearance 117.52 ml/min; Glucose 110 mg/dL (74-106); Potassium 3.8 mmol/L (3.5-5.1); Sodium Level 137 mmol/L (136-145)
[2022-09-05 06:46] LABS: Differential Comment SCANNED
--- NOTE | 2022-09-05 07:00 | PN.HOSP_ITS ---
Reason for Visit Reason for Visit: Diagnoses Cellulitis of left lower limb (09/04/22) Subjective Subjective Still having some swelling and pain however it is certainly improving, had a headache earlier but took Tylenol and finally drink coffee and that went away but has had little bit of stiffness in his neck since he woke up from laying in these beds and would like to try muscle relaxer Objective Data Objective Data Vital Signs: Vital Signs Temp Pulse Resp BP Pulse Ox O2 Del Method 98.7 F 79 18 152/108 H 99 Room Air 09/05/22 02:41 09/05/22 02:41 09/05/22 02:41 09/05/22 02:41 09/05/22 02:41 09/05/22 02:41 Oxygen Delivery Method Room Air Weight: 129.002 kg Body Mass Index (BMI) 39.6 Intake & Output: Intake and Output for Last 24 Hours 09/03/22 09/04/22 09/05/22 23:59 23:59 23:59 Intake Total 832.5 / 832.5 1580 / 1580 Balance 832.5 / 832.5 1580 / 1580 Lab / Micro Data Result Diagrams: 09/05/22 05:33 09/05/22 05:33 Labs: Laboratory Results - last 24 hr 09/04/22 15:50: WBC 17.5 H, RBC 5.41, Hgb 15.4, Hct 46.3, MCV 85.6, MCH 28.5, MCHC 33.3, RDW Std Deviation 41.3, RDW Coeff of [place] 13.4, Plt Count 284, MPV 11. 1, Immature Gran % (Auto) 0.500, Neut % (Auto) 77.5 H, Lymph % (Auto) 11.6 L, [place] % (Auto) 9.5, Eos % (Auto) 0.4, Baso % (Auto) 0.5, Absolute Neuts (auto) 13.5 H, Absolute Lymphs (auto) 2.02, Nucleated RBC % 0, Differential Comment SEE COMMENT, Diff Path Review May , Platelet Estimate ADEQUATE, RBC Morphology N CHROM, Anisocytosis RARE, ESR 28 H 09/04/22 15:50: PT 14.5, INR 1.2, APTT 32.5 09/04/22 15:50: Sodium 133 L, Potassium 3.4 L, Chloride 106, Carbon Dioxide 24.0, Anion Gap 3 L, BUN 11, Creatinine 1.03, Estim Creat Clear Calc 110.68, Est GFR (MDRD) Af Amer 108, Est GFR (MDRD) Non-Af 89, BUN/Creatinine Ratio 10.7, Glucose 131 H, Calcium 8.6, Total Bilirubin 0.70, AST 26, ALT 38, Alkaline Phosphatase 50, C-React Prot Ext Range 153.00 H, Total Protein 7.3, Albumin 3.4, Globulin 3.9, Albumin/Globulin Ratio 0.9 09/04/22 15:50: Lactic Acid 0.8 09/05/22 05:33: WBC 13.3 H, RBC 4.85, Hgb 13.7, Hct 41.3, MCV 85.2, MCH 28.2, MCHC 33.2, RDW Std Deviation 41.2, RDW Coeff of [place] 13.3, Plt Count 236, MPV 10.7, Immature Gran % (Auto) 0.600, Neut % (Auto) 67.7, Lymph % (Auto) 14.9 L, Parker % (Auto) 14.4 H, Eos % (Auto) 1.9, Baso % (Auto) 0.5, Absolute Neuts (auto) 9.0 H, Absolute Lymphs (auto) 1.98, Nucleated RBC % 0, Differential Comment SCANNED, Diff Path Review September09/05/22 05:33: Sodium 137, Potassium 3.8, Chloride 111 H, Carbon Dioxide 25.0, Anion Gap 1 L, BUN 11, Creatinine 0.97, Estim Creat Clear Calc 117.52, Est GFR (MDRD) Af Amer 116, Est GFR (MDRD) Non-Af 96, BUN/Creatinine Ratio 11.4, Glucose 110 H, Calcium 8.2 L, C-React Prot Ext Range 102.00 H Radiography Diagnostic Testing: Radiology Impression Tibia/Fibula X-Ray 09/04/22 16:07 IMPRESSION: Slightly loose body posterior aspect medial compartment 5 mm diameter. Fragmentation of tibial tubercle question Kimball-Schlatter disease. Electronically Signed: Hayden Yeung MD, OSCAR at 16:18 EDT Reading Location ID and State: [facility] / [place] Tel , Service support , Physical Exam Narrative General: Alert, oriented, no apparent distress HEENT: Atraumatic, normocephalic Eyes: Anicteric, normal conjunctiva, extraocular movements grossly intact Neck: Supple Respiratory: Clear to auscultation bilaterally, normal respiratory effort Cardiovascular: Regular rate and rhythm GI: Soft, nontender, nondistended Extremities: Pulses strong in both lower extremities, feet with poor nail integrity and appears to have tinea pedis Musculoskeletal: Moving all extremities Neuro: No overt focal neurological deficits Skin: Has quarter size area of erythema on upper outer left thigh with a small scab in the center without fluctuance or streaking, erythema slightly receding and still no drainage. -Has erythema from mid upper arenas down onto the foot with preserved range of motion of foot, receding from previously marked line Psych: Cooperative Assessment & Plan Assessment/Plan (1) Cellulitis of leg, left: PLAN: Plan #Recurrent cellulitis of left lower extremity -Failed outpatient oral antibiotics -We will admit and obtain cultures as well as placed on broad-spectrum antibiotics -We will give fluids -Trend CRP to verify it is improving -White blood cell count did improve from yesterday though still elevated but lactic acid within normal limits -Elevate extremity -erythema outlined m to assess progress -Left tib-fib x-ray with no gas -09/05: Improving both clinically and white blood cell count improving, continue broad-spectrum antibiotics. There is nothing to culture on the leg but blood cultures pending, the likely will not be positive and may not be able to identify specific organism. At this time given continued significant cellulitis, though improving, still requires inpatient admission and IV antibiotics. #DVT ppx: Low risk, ambulatory Therese Reyes MD Charges/Coding Visit Charges Inpatient E&M: 16251 Subs Hosp L1
[2022-09-05] MEDS: Acetaminophen 325 MG Tablet 650 MG PO ×2 (08:15→13:54)
[2022-09-05 08:40] VITALS: BP 122/82; PULSE 85; RESP 18; TEMP 37; O2SAT 98
[2022-09-05 08:50] VITALS: PULSE 84
--- NOTE | 2022-09-05 11:34 | CASEMGMT ---
RN?CM?MEND WORKER?CM?to room to meet with patient for initial transition planning/care coordination?assessment.?RN?CM?introduced self and role at [facility].? Pt voices understanding and consents to?assessment?at this time.? Pt sitting up in chair in room in no distress at this time.? Pt is A/O at this time and answers all questions appropriately.?? Care providers, pharmacy, and demographics verified/updated at this time. PCP: Dr Pelletier Specialists:none Preferred Pharmacy: [facility] Retail Insurance: [employer] Prescription Benefit:?Pt states I think so Living Will/HPOA:?Pt does not currently have LW/HCPOA LNOK: , Jennifer Living Arrangements: Lives w/ and 4-yr-old son. Independent. 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 Denies using any DME HHC/SNF: No hx. No needs identified. Pt wishes to return home and states has no concerns with going home at time of discharge.? CM?to follow for any discharge planning/needs.? Pt voices no concerns/needs at this time.? Advised pt to ask for?CM?if any questions/concerns/needs arise.? Voices understanding. PLAN:??Home Brian RIVERAN?RN?CM
[2022-09-05 13:19] LABS: Pathologist Review Reviewed
[2022-09-05 13:35] LABS: Pathologist Review Reviewed
[2022-09-05] MEDS: tiZANidine HCl 2 MG Tablet 4 MG PO ×2 (13:54→22:33)
[2022-09-05 17:53] LABS: Vancomycin, Trough Level 11.6 ug/mL (5.0-15.0)
--- NOTE | 2022-09-05 18:39 | PCM.RX.CS ---
Consult Pharmacy has been consulted to manage selected antiobiotic: Vancomycin Type of Consult: Follow-up Labs: Sodium 137 mmol/L (136-145) 09/05/22 05:33 Potassium 3.8 mmol/L (3.5-5.1) 09/05/22 05:33 Chloride 111 mmol/L (98-107) H 09/05/22 05:33 Carbon Dioxide 25.0 mmol/L (21.0-32.0) 09/05/22 05:33 Anion Gap 1 (5-15) L 09/05/22 05:33 BUN 11 mg/dL (7-18) 09/05/22 05:33 Creatinine 0.97 mg/dL (0.70-1.30) 09/05/22 05:33 Est GFR (MDRD) Af Amer 116 mL/min (>60) 09/05/22 05:33 Est GFR (MDRD) Non-Af 96 mL/min (>60) 09/05/22 05:33 BUN/Creatinine Ratio 11.4 RATIO (10-20) 09/05/22 05:33 Glucose 110 mg/dL (74-106) H 09/05/22 05:33 Vancomycin Trough 11.6 ug/mL (5.0-15.0) 09/05/22 17:01 Goal Trough: 15-20 mcg/mL Pharmacy Plan for Drug Dosing: VANCOMYCIN LEVEL RECEIVED Current Vancomycin Dose: 1500MG IV Q8H Number of Doses Received: 3 Vancomycin Level: 11 Hours Since Last Dose: 7.25HR Renal Function: 0.97 Renal Function Trend: STABLE Lab/Micro: BCx pending Vancomycin Plan/Comments: Patient had a trough drawn which resulted in a value of 11 (goal 15-20). Although patient is not at target trough levels, per progress note, patient is improving. WBC also improving at this time. Since patient appears to be improving clinically, will continue the patient on the current dose. Hesitant to increase dose at this time since pt is getting a larger dose of vancomycin every 8 hours already. Will check a trough in 24hrs and evaluate dosing at that time. Continue vancomycin 1500mg IV Q8h for now. Pending Level: 09/06/22 @1730 Pharmacy Service will continue to monitor and adjust dosing as required.
[2022-09-05 20:00] VITALS: BP 139/90; PULSE 73; RESP 16; TEMP 36.7; O2SAT 100
[2022-09-05] MEDS: 0.9% Saline Lock 10 ML Syringe IV ×3 (22:18→22:30)
[2022-09-06 02:30] VITALS: BP 131/86; PULSE 91; RESP 18; TEMP 36.6; O2SAT 100
[2022-09-06 05:48] LABS: Absolute Lymphocyte Count 2.32 X10^3/uL (0.83-4.51); Absolute Neutrophil Count 5.6 X10^3/uL (2.0-7.7); Basophil# 0.07 X10^3/uL; Basophil% 0.7 % (0-1); Eosinophil# 0.38 X10^3/uL; Eosinophils% 3.9 % (0-5); Hematocrit 43.6 % (40-54); Hemoglobin 14.3 g/dL (13.0-16.5); Lymphocyte # 2.32 X10^3/ul (0.83-4.51); Lymphocyte % 23.7 % (19-41); Mean Corp Hgb Conc 32.8 g/dL (32-36); Mean Corpuscular Volume 85.5 fL (80-94); Mean Platelet Vol. 10.5 fl (6.2-12.0); Monocyte# 1.34 X10^3/uL; Monocyte% 13.7 % (0-10); NRBC Flagged by Analyzer 0 % (0-5); Neutrophil # 5.63 X10^3/uL (2.7-7.7); Neutrophil % 57.6 % (47-70); Platelet Count 305 K/mm3 (150-450); RBC Distribution Width CV 13.2 % (11.6-14.6); RBC Distribution Width SD 41.8 fl (35.1-43.9); White Blood Count 9.8 K/mm3 (4.4-11.0)
[2022-09-06 06:06] LABS: Anion Gap 3 (5-15); BUN 13 mg/dL (7-18); BUN/Creat Ratio 12.9 RATIO (10-20); Calcium,Total 8.5 mg/dL (8.5-10.1); Chloride 111 mmol/L (98-107); Creatinine, Serum 1.01 mg/dL (0.70-1.30); EST Glomerular Filtration Rate 91 mL/min (>60); Est Glom Filt Rate - Afr Amer 111 mL/min (>60); Estimated Creatinine Clearance 112.87 ml/min; Glucose 105 mg/dL (74-106); Potassium 3.9 mmol/L (3.5-5.1); Sodium Level 139 mmol/L (136-145)
[2022-09-06] MEDS: tiZANidine HCl 2 MG Tablet 4 MG PO (06:09)
[2022-09-06] MEDS: 0.9% Normal Saline 1,000 ML 150 ML IV (06:12)
[2022-09-06 08:00] VITALS: PULSE 66; O2SAT 99
[2022-09-06 08:27] VITALS: BP 142/89; PULSE 66; RESP 18; TEMP 36.6; O2SAT 99
--- NOTE | 2022-09-06 12:25 | PN.HOSP_ITS ---
Reason for Visit Reason for Visit: Diagnoses Cellulitis of left lower limb (09/04/22) Subjective Subjective Slowly improving, still some swelling but pain and erythema certainly better than previous Objective Data Objective Data Vital Signs: Vital Signs Temp Pulse Resp BP Pulse Ox O2 Del Method 98 F 66 18 142/89 H 99 Room Air 09/06/22 08:27 09/06/22 08:27 09/06/22 08:27 09/06/22 08:27 09/06/22 08:27 09/06/22 08:27 Oxygen Delivery Method Room Air Weight: 129.002 kg Body Mass Index (BMI) 39.6 Intake & Output: Intake and Output for Last 24 Hours 09/04/22 09/05/22 09/06/22 23:59 23:59 23:59 Intake Total 832.5 / 832.5 6331 / 6331 1580 / 1580 Balance 832.5 / 832.5 6331 / 6331 1580 / 1580 Lab / Micro Data Result Diagrams: 09/06/22 05:25 09/06/22 05:25 Labs: Laboratory Results - last 24 hr 09/04/22 15:50: Diff Path Review Reviewed 09/05/22 05:33: Diff Path Review Reviewed 09/05/22 17:01: Vancomycin Trough 11.6 09/06/22 05:25: WBC 9.8, RBC 5.10, Hgb 14.3, Hct 43.6, MCV 85.5, MCH 28.0, MCHC 32.8, RDW Std Deviation 41.8, RDW Coeff of [place] 13.2, Plt Count 305, MPV 10.5, Immature Gran % (Auto) 0.400, Neut % (Auto) 57.6, Lymph % (Auto) 23.7, [place] % (Auto) 13.7 H, Eos % (Auto) 3.9, Baso % (Auto) 0.7, Absolute Neuts (auto) 5.6, Absolute Lymphs (auto) 2.32, Nucleated RBC % 0 09/06/22 05:25: Sodium 139, Potassium 3.9, Chloride 111 H, Carbon Dioxide 25.0, Anion Gap 3 L, BUN 13, Creatinine 1.01, Estim Creat Clear Calc 112.87, Est GFR (MDRD) Af Amer 111, Est GFR (MDRD) Non-Af 91, BUN/Creatinine Ratio 12.9, Glucose 105, Calcium 8.5 Physical Exam Narrative General: Alert, oriented, no apparent distress HEENT: Atraumatic, normocephalic Eyes: Anicteric, normal conjunctiva, extraocular movements grossly intact Neck: Supple Respiratory: Clear to auscultation bilaterally, normal respiratory effort Cardiovascular: Regular rate and rhythm GI: Soft, nontender, nondistended Extremities: Pulses strong in both lower extremities, feet with poor nail integrity and appears to have tinea pedis Musculoskeletal: Moving all extremities Neuro: No overt focal neurological deficits Skin: Erythema continues to further regress from marked area Psych: Cooperative Assessment & Plan Assessment/Plan (1) Cellulitis of leg, left: PLAN: Plan #Recurrent cellulitis of left lower extremity -Failed outpatient oral antibiotics -We will admit and obtain cultures as well as placed on broad-spectrum antibiotics -We will give fluids -Trend CRP to verify it is improving -White blood cell count did improve from yesterday though still elevated but lactic acid within normal limits -Elevate extremity -erythema outlined m to assess progress -Left tib-fib x-ray with no gas -09/05: Improving both clinically and white blood cell count improving, continue broad-spectrum antibiotics. There is nothing to culture on the leg but blood cultures pending, the likely will not be positive and may not be able to identify specific organism. At this time given continued significant cellulitis, though improving, still requires inpatient admission and IV antibiotics. -09/06: Slowly improving but is certainly continuing to improve. Given slow improvement with continued erythema and swelling will keep inpatient and continue IV antibiotics at this time #DVT ppx: Low risk, ambulatory Therese Reyes MD Charges/Coding Visit Charges Inpatient E&M: 65504 Subs Hosp L1
[2022-09-06 14:30] VITALS: BP 149/84; PULSE 75; RESP 18; TEMP 36.6; O2SAT 99
[2022-09-06 18:28] LABS: Vancomycin, Trough Level 15.5 ug/mL (5.0-15.0)
--- NOTE | 2022-09-06 18:35 | PCM.RX.CS ---
Consult Pharmacy has been consulted to manage selected antiobiotic: Vancomycin Type of Consult: Follow-up Prior Doses of Antibiotics Received/Current Regimen: Medications Vancomycin HCl 1,500 mg/ (Sodium Chloride) 530 mls @ 250 mls/hr IV Q8H JADE Last Admin: 09/06/22 12:40 Dose: Infused Labs: Sodium 139 mmol/L (136-145) 09/06/22 05:25 Potassium 3.9 mmol/L (3.5-5.1) 09/06/22 05:25 Chloride 111 mmol/L (98-107) H 09/06/22 05:25 Carbon Dioxide 25.0 mmol/L (21.0-32.0) 09/06/22 05:25 Anion Gap 3 (5-15) L 09/06/22 05:25 BUN 13 mg/dL (7-18) 09/06/22 05:25 Creatinine 1.01 mg/dL (0.70-1.30) 09/06/22 05:25 Est GFR (MDRD) Af Amer 111 mL/min (>60) 09/06/22 05:25 Est GFR (MDRD) Non-Af 91 mL/min (>60) 09/06/22 05:25 BUN/Creatinine Ratio 12.9 RATIO (10-20) 09/06/22 05:25 Glucose 105 mg/dL (74-106) 09/06/22 05:25 Vancomycin Trough 15.5 ug/mL (5.0-15.0) H 09/06/22 17:13 Weight used for dosin kg Goal Trough: 15-20 mcg/mL Pharmacy Plan for Drug Dosin hour level in goal range. Recommend to continue current regimen and re-check again in 24 hours to ensure no accumulation. Pharmacy Service will continue to monitor and adjust dosing as required. Follow-Up Labs: Trough Vancomycin - 09/07 @ 1730
[2022-09-06 20:00] VITALS: BP 148/93; PULSE 68; RESP 14; TEMP 36.6; O2SAT 94
[2022-09-07 04:48] LABS: Absolute Lymphocyte Count 3.01 X10^3/uL (0.83-4.51); Absolute Neutrophil Count 5.3 X10^3/uL (2.0-7.7); Basophil# 0.11 X10^3/uL; Basophil% 1.1 % (0-1); Eosinophil# 0.43 X10^3/uL; Eosinophils% 4.2 % (0-5); Hematocrit 43.6 % (40-54); Hemoglobin 14.2 g/dL (13.0-16.5); Lymphocyte # 3.01 X10^3/ul (0.83-4.51); Lymphocyte % 29.5 % (19-41); Mean Corp Hgb Conc 32.6 g/dL (32-36); Mean Corpuscular Hgb 27.7 pg (27.0-32.0); Mean Platelet Vol. 10.5 fl (6.2-12.0); Monocyte# 1.23 X10^3/uL; NRBC Flagged by Analyzer 0 % (0-5); Neutrophil # 5.33 X10^3/uL (2.7-7.7); Neutrophil % 52.2 % (47-70); Platelet Count 322 K/mm3 (150-450); RBC Distribution Width CV 13.2 % (11.6-14.6); RBC Distribution Width SD 41.2 fl (35.1-43.9); Red Blood Count 5.13 M/mm3 (4.6-6.2); White Blood Count 10.2 K/mm3 (4.4-11.0)
[2022-09-07 05:49] VITALS: BP 129/72; PULSE 62; RESP 14; TEMP 36.6; O2SAT 100
[2022-09-07 05:50] LABS: Anion Gap 5 (5-15); BUN 18 mg/dL (7-18); BUN/Creat Ratio 17.6 RATIO (10-20); Calcium,Total 8.1 mg/dL (8.5-10.1); Chloride 109 mmol/L (98-107); Creatinine, Serum 1.02 mg/dL (0.70-1.30); EST Glomerular Filtration Rate 90 mL/min (>60); Est Glom Filt Rate - Afr Amer 109 mL/min (>60); Estimated Creatinine Clearance 111.76 ml/min; Glucose 107 mg/dL (74-106); Potassium 3.4 mmol/L (3.5-5.1); Sodium Level 138 mmol/L (136-145)
[2022-09-07] MEDS: Potassium Chloride Oral Tablet 20 MEQ 40 MEQ PO (07:01)
--- NOTE | 2022-09-07 07:47 | VDLE_ITS ---
Reason For Study: Swelling Procedure LEFT This is a venous duplex using B-mode, color GSV is normal. flow and spectral Doppler. CFV is compressible, spontaneous, phasic, Exam performed portable in patient room. competent, and demonstrates normal A preliminary report was called and/or faxed augmentation. to [facility]. FV is compressible, spontaneous, phasic, competent and demonstrates normal augmentation. POP V is compressible, spontaneous, phasic, competent and demonstrates normal augmentation. T/P Trunk is compressible. PTV is compressible. LT PerV is compressible. VL/Venous Duplex US, Unilateral Interpretation Summary There is no evidence of left lower extremity deep vein thrombosis. Left great s aphenous vein appears patent and compressible segmentally. Ordering Physician: Therese Reyes Referring Physician: Flynn Pelletier Performed By: La Nena Mosher RVT
--- NOTE | 2022-09-07 07:47 | PN.HOSP_ITS ---
Reason for Visit Reason for Visit: Diagnoses Cellulitis of left lower limb (09/04/22) Subjective Subjective Erythema continues to improve albeit slowly however swelling has persisted slightly disproportionately. Pain is improving. Otherwise no complaints Objective Data Objective Data Vital Signs: Vital Signs Temp Pulse Resp BP Pulse Ox O2 Del Method 97.8 F 62 14 129/72 H 100 Room Air 09/07/22 05:49 09/07/22 05:49 09/07/22 05:49 09/07/22 05:49 09/07/22 05:49 09/07/22 05:49 Oxygen Delivery Method Room Air Weight: 129.002 kg Body Mass Index (BMI) 39.6 Intake & Output: Intake and Output for Last 24 Hours 09/05/22 09/06/22 09/07/22 23:59 23:59 23:59 Intake Total 6331 / 6331 3690 / 3690 580 / 580 Balance 6331 / 6331 3690 / 3690 580 / 580 Lab / Micro Data Result Diagrams: 09/07/22 04:10 09/07/22 04:10 Labs: Laboratory Results - last 24 hr 09/06/22 17:13: Vancomycin Trough 15.5 H 09/07/22 04:10: WBC 10.2, RBC 5.13, Hgb 14.2, Hct 43.6, MCV 85.0, MCH 27.7, MCHC 32.6, RDW Std Deviation 41.2, RDW Coeff of [place] 13.2, Plt Count 322, MPV 10.5, Immature Gran % (Auto) 1.000 H, Neut % (Auto) 52.2, Lymph % (Auto) 29.5, [place] % (Auto) 12.0 H, Eos % (Auto) 4.2, Baso % (Auto) 1.1 H, Absolute Neuts (auto) 5.3, Absolute Lymphs (auto) 3.01, Nucleated RBC % 0 09/07/22 04:10: Sodium 138, Potassium 3.4 L, Chloride 109 H, Carbon Dioxide 24.0, Anion Gap 5, BUN 18, Creatinine 1.02, Estim Creat Clear Calc 111.76, Est GFR (MDRD) Af Amer 109, Est GFR (MDRD) Non-Af 90, BUN/Creatinine Ratio 17.6, Glucose 107 H, Calcium 8.1 L Physical Exam Narrative General: Alert, oriented, no apparent distress HEENT: Atraumatic, normocephalic Eyes: Anicteric, normal conjunctiva, extraocular movements grossly intact Neck: Supple Respiratory: Clear to auscultation bilaterally, normal respiratory effort Cardiovascular: Regular rate and rhythm GI: Soft, nontender, nondistended Extremities: Feet with poor nail integrity and appears to have tinea pedis Musculoskeletal: Moving all extremities Neuro: No overt focal neurological deficits Skin: Erythema continues to further regress, does proportionally have more swelling than anticipated given improvement in erythema however. Edema is improving but more slowly than erythema Psych: Cooperative Assessment & Plan Assessment/Plan (1) Cellulitis of leg, left: PLAN: Plan #Recurrent cellulitis of left lower extremity -Failed outpatient oral antibiotics -We will admit and obtain cultures as well as placed on broad-spectrum antibiotics -We will give fluids -Trend CRP to verify it is improving -White blood cell count did improve from yesterday though still elevated but lactic acid within normal limits -Elevate extremity -erythema outlined m to assess progress -Left tib-fib x-ray with no gas -09/05: Improving both clinically and white blood cell count improving, continue broad-spectrum antibiotics. There is nothing to culture on the leg but blood cultures pending, the likely will not be positive and may not be able to identify specific organism. At this time given continued significant cellulitis, though improving, still requires inpatient admission and IV antibiotics. -09/06: Slowly improving but is certainly continuing to improve. Given slow improvement with continued erythema and swelling will keep inpatient and continue IV antibiotics at this time -09/07: Erythema continues to slowly regress, still seems to have some swelling with trace pitting edema in left lower extremity out of proportion to the improvement in erythema. We will obtain lower extremity duplex. He reports in similar scenarios he has had multiple venous duplexes which have been negative however none have been recent and given discordance will test. We will also check MRSA swab. Given above in addition with very slow improvement discussed with patient and will keep inpatient for 1 further day of antibiotics. Cultures no growth to date #DVT ppx: Low risk, ambulatory Therese Reyes MD Charges/Coding Visit Charges Inpatient E&M: 69079 Subs Hosp L2
[2022-09-07 10:16] VITALS: BP 140/82; PULSE 64; RESP 18; TEMP 36.4; O2SAT 94
[2022-09-07] MEDS: 0.9% Saline Lock 10 ML Syringe IV (10:21)
[2022-09-07 11:09] LABS: M R Staph aureus DNA By PCR POSITIVE (Negative); Probe Check PASS
[2022-09-07 17:37] VITALS: BP 148/91; PULSE 73; RESP 19; TEMP 36.5; O2SAT 98
[2022-09-07 18:39] LABS: Vancomycin, Trough Level 14.3 ug/mL (5.0-15.0)
[2022-09-07 19:25] VITALS: BP 146/96; PULSE 71; RESP 14; TEMP 36.4; O2SAT 97
--- NOTE | 2022-09-07 20:01 | PCM.RX.CS ---
Consult Pharmacy has been consulted to manage selected antiobiotic: Vancomycin Type of Consult: Follow-up Prior Doses of Antibiotics Received/Current Regimen: Presently on 1500mg iv q8h. Labs: Sodium 138 mmol/L (136-145) 09/07/22 04:10 Potassium 3.4 mmol/L (3.5-5.1) L 09/07/22 04:10 Chloride 109 mmol/L (98-107) H 09/07/22 04:10 Carbon Dioxide 24.0 mmol/L (21.0-32.0) 09/07/22 04:10 Anion Gap 5 (5-15) 09/07/22 04:10 BUN 18 mg/dL (7-18) 09/07/22 04:10 Creatinine 1.02 mg/dL (0.70-1.30) 09/07/22 04:10 Est GFR (MDRD) Af Amer 109 mL/min (>60) 09/07/22 04:10 Est GFR (MDRD) Non-Af 90 mL/min (>60) 09/07/22 04:10 BUN/Creatinine Ratio 17.6 RATIO (10-20) 09/07/22 04:10 Glucose 107 mg/dL (74-106) H 09/07/22 04:10 Vancomycin Trough 14.3 ug/mL (5.0-15.0) 09/07/22 17:40 Microbiology: Microbiology 09/04/22 16:00 Blood Culture (Wb) - Anticubital Right Blood Culture - Preliminary No growth in 48 hours. 09/04/22 15:50 Blood Culture (Wb) - Anticubital Left Blood Culture - Preliminary No growth in 48 hours. Weight used for dosin kg Estimated Creatinine Clearance: >100 Goal Trough: 15-20 mcg/mL Pharmacy Plan for Drug Dosing: Trough today 14.3. Will continue same dose for now. New trough ordered for before another 4th dose. Pharmacy Service will continue to monitor and adjust dosing as required. Follow-Up Labs: Trough Vancomycin - 4.29.23 @1730 before 1800 dose
[2022-09-08 06:00] VITALS: BP 140/95; PULSE 60; RESP 14; TEMP 36.7; O2SAT 98
[2022-09-08 06:15] LABS: Absolute Lymphocyte Count 2.49 X10^3/uL (0.83-4.51); Absolute Neutrophil Count 7.2 X10^3/uL (2.0-7.7); Basophil# 0.11 X10^3/uL; Eosinophil# 0.47 X10^3/uL; Eosinophils% 4.2 % (0-5); Hematocrit 44.2 % (40-54); Hemoglobin 14.8 g/dL (13.0-16.5); Lymphocyte # 2.49 X10^3/ul (0.83-4.51); Mean Corp Hgb Conc 33.5 g/dL (32-36); Mean Corpuscular Hgb 28.1 pg (27.0-32.0); Mean Corpuscular Volume 83.9 fL (80-94); Monocyte# 0.86 X10^3/uL; Monocyte% 7.6 % (0-10); NRBC Flagged by Analyzer 0 % (0-5); Neutrophil # 7.22 X10^3/uL (2.7-7.7); Neutrophil % 63.8 % (47-70); Platelet Count 344 K/mm3 (150-450); RBC Distribution Width CV 13.3 % (11.6-14.6); RBC Distribution Width SD 41.1 fl (35.1-43.9); Red Blood Count 5.27 M/mm3 (4.6-6.2); White Blood Count 11.3 K/mm3 (4.4-11.0)
[2022-09-08 07:11] LABS: Anion Gap 3 (5-15); BUN 15 mg/dL (7-18); BUN/Creat Ratio 15.1 RATIO (10-20); Calcium,Total 8.7 mg/dL (8.5-10.1); Chloride 110 mmol/L (98-107); Creatinine, Serum 0.99 mg/dL (0.70-1.30); EST Glomerular Filtration Rate 93 mL/min (>60); Est Glom Filt Rate - Afr Amer 113 mL/min (>60); Estimated Creatinine Clearance 115.15 ml/min; Glucose 122 mg/dL (74-106); Potassium 3.5 mmol/L (3.5-5.1); Sodium Level 138 mmol/L (136-145)
--- NOTE | 2022-09-08 09:25 | DS.PCM_ITS ---
Providers Date of Admission: 09/04/22 Date of Discharge: 09/08/22 Primary Care Physician: Dr. Flynn Pelletier MD Reason For Visit: RECURRENT CELLULITIS-FAILED OUTPT TREATMENT Diagnosis Discharge Diagnosis (1) Cellulitis of leg, left: Status: Acute Code(s): L03.116 - Cellulitis of left lower limb Plan #Recurrent cellulitis of left lower extremity Medications at Discharge Home Medications amoxicillin 875 mg-potassium clavulanate 125 mg tablet 1 tab PO BID 10 days #21 tabs 09/08/22 doxycycline hyclate 100 mg capsule 100 mg PO BID 10 days #21 caps 09/08/22 Hospital Course Procedures - (LLE venous duplex) Summary of Care Provided Minutes Spent on Discharge: 31 Hospital Course: 32-year-old male with a history of recurrent left lower extremity cellulitis presented 09/04/2022 for worsening cellulitis after failing outpatient oral antibiotics. He had initially presented the day before and was given a dose of IV antibiotics and discharged on Keflex and Bactrim however it worsened and he began spiking temperatures at home so he re-presented to the ED and hospitalist consulted for admission. He was started on vancomycin and Zosyn and blood cultures obtained, no specific lesion culturable on the leg. He had very slow improvement albeit there was significant improvement since admission. Did still have some swelling to left lower extremity so lower extremity duplex ordered which was negative for DVT. Patient swabbed for MRSA to assess need for MRSA coverage and was positive. On day of discharge he was feeling significantly better and erythema present but significantly improved. Agreeable for DC on oral antibiotics and reports his called and got him in with the PCP. Jason lozadage instructions as followed: -You will be discharged on doxycycline 100 mg twice daily and Augmentin 875 mg twice daily for another 10 days, You will take your first dose of each tonight. -These have been sent to the [facility] retail pharmacy -Discontinue all other antibiotics -You indicated that you have made an appointment to see a primary care physician, will be important that you follow-up with them upon discharge -For any concerning signs or symptoms please call 911 or proceed to the nearest emergency department Physical Exam Narrative General: Alert, oriented, no apparent distress HEENT: Atraumatic, normocephalic Eyes: Anicteric, normal conjunctiva, extraocular movements grossly intact Neck: Supple Respiratory: Clear to auscultation bilaterally, normal respiratory effort Cardiovascular: Regular rate and rhythm GI: Soft, nontender, nondistended Extremities: Feet with poor nail integrity and appears to have tinea pedis Musculoskeletal: Moving all extremities Neuro: No overt focal neurological deficits Skin: Erythema continues to improve as the swelling Psych: Cooperative Weight / BMI Weight Weight: 129.002 kg Body Mass Index (BMI) 39.6 ABG / Lab / Microbiology Data Result Diagrams: 09/08/22 05:40 09/08/22 05:40 Laboratory: Laboratory Results - last 24 hr 09/07/22 07:00: MRSA (PCR) POSITIVE H 09/07/22 17:40: Vancomycin Trough 14.3 09/08/22 05:40: WBC 11.3 H, RBC 5.27, Hgb 14.8, Hct 44.2, MCV 83.9, MCH 28.1, MCHC 33.5, RDW Std Deviation 41.1, RDW Coeff of [place] 13.3, Plt Count 344, MPV 10.0, Immature Gran % (Auto) 1.400 H, Neut % (Auto) 63.8, Lymph % (Auto) 22.0, Forrest % (Auto) 7.6, Eos % (Auto) 4.2, Baso % (Auto) 1.0, Absolute Neuts (auto) 7.2, Absolute Lymphs (auto) 2.49, Nucleated RBC % 0 09/08/22 05:40: Sodium 138, Potassium 3.5, Chloride 110 H, Carbon Dioxide 25.0, Anion Gap 3 L, BUN 15, Creatinine 0.99, Estim Creat Clear Calc 115.15, Est GFR (MDRD) Af Amer 113, Est GFR (MDRD) Non-Af 93, BUN/Creatinine Ratio 15.1, Glucose 122 H, Calcium 8.7 Microbiology: Microbiology 09/04/22 16:00 Blood Culture (Wb) - Anticubital Right Blood Culture - Preliminary No growth in 48 hours. 09/04/22 15:50 Blood Culture (Wb) - Anticubital Left Blood Culture - Preliminary No growth in 48 hours. Radiography Diagnostic Testing: Radiology Impression Venous Doppler Study 09/07/22 07:47 Interpretation Summary There is no evidence of left lower extremity deep vein thrombosis. Left great saphenous vein appears patent and compressible segmentally. Ordering Physician: Therese Reyes Referring Physician: Flynn Pelletier Performed By: La Nena Mosher RVT D/C Instructions Discharge Diet: No restrictions Meaningful Use Info Meaningful Use Diagnoses (Choose all that apply): None applicable Discharge Plan Admission Admit Date/Time: 09/04/22 18:11 Primary Reason for Your Visit: Left leg cellulitis Attending Provider: Therese Reyes Primary Care Provider: Flynn Pelletier Instructions Patient Instructions: ED Cellulitis Additional Instructions / Restrictions: DISCHARGE INSTRUCTIONS PLEASE READ *Please take this with you to your next doctors appointment* -You will be discharged on doxycycline 100 mg twice daily and Augmentin 875 mg twice daily for another 10 days, You will take your first dose of each tonight. -These have been sent to the [facility] retail pharmacy -Discontinue all other antibiotics -You indicated that you have made an appointment to see a primary care ph ysician, will be important that you follow-up with them upon discharge -For any concerning signs or symptoms please call 911 or proceed to the nearest emergency department Discharge Orders/Prescriptions Prescriptions: New amoxicillin-pot clavulanate 875-125 mg tablet 1 tab PO BID 10 Days Qty: 21 0RF doxycycline hyclate 100 mg capsule 100 mg PO BID 10 Days Qty: 21 0RF Discontinued cephalexin 250 mg Capsule 250 mg PO BID PRN (Reason: symptoms of infection) clindamycin HCl 300 mg capsule 600 mg PO TID PRN (Reason: symptoms of infection) cephalexin 500 mg capsule 500 mg PO Q6 10 Days Qty: 40 0RF cephalexin 500 mg capsule 500 mg PO Q6 Qty: 40 0RF sulfamethoxazole-trimethoprim [Bactrim DS] 800-160 mg tablet 1 tab PO BID Qty: 20 0RF Referrals / Follow Up: Flynn Pelletier MD [Primary Care Provider] - Within 1 Week Care Physician,No Primary [Non-Staff] - Disposition Disposition (needs filled in before D/C Order can be placed): Home, Self Care Charges/Coding Visit Charges Inpatient E&M: 62296 Disch Hosp >30min
[2022-09-08 09:44] VITALS: BP 151/79; PULSE 67; RESP 18; TEMP 36.6; O2SAT 98
== END 2022-09-08 10:40 | disposition home or self-care (01) | DRG 603 ==
LOC: ED 17:50 → MS3 18:53
PROVIDERS: Admitting Provider Internal Medicine; Emergency Provider Emergency Medicine; PCP Internal Medicine; Visit Provider Internal Medicine
DX: L03.116 Cellulitis of left lower limb (principal); B95.62 Methicillin resistant Staphylococcus aureus infection as the cause of diseases classified elsewhere; L73.1 Pseudofolliculitis barbae; F17.210 Nicotine dependence, cigarettes, uncomplicated; M43.6 Torticollis; M79.89 Other specified soft tissue disorders
CPT/HCPCS: 36415; 73590; 80048; 80053; 80202; 83605; 85025; 85610; 85652; 85730; 86140; 87040; 87641; 93005; 93971; 99285; J7030; J7040; A4216

== ENCOUNTER → 2023-03-20 | Outpatient (CLI) | payer BC, SELFPAY ==
[2023-03-20 16:35] LABS: Absolute Lymphocyte Count 3.62 X10^3/uL (0.83-4.51); Absolute Neutrophil Count 6.7 X10^3/uL (2.0-7.7); Basophil# 0.13 X10^3/uL; Basophil% 1.1 % (0-1); Eosinophil# 0.26 X10^3/uL; Eosinophils% 2.1 % (0-5); Hematocrit 50.6 % (40-54); Hemoglobin 16.8 g/dL (13.0-16.5); Lymphocyte # 3.62 X10^3/ul (0.83-4.51); Lymphocyte % 29.8 % (19-41); Mean Corp Hgb Conc 33.2 g/dL (32-36); Mean Corpuscular Hgb 27.8 pg (27.0-32.0); Mean Corpuscular Volume 83.8 fL (80-94); Mean Platelet Vol. 10.5 fl (6.2-12.0); Monocyte# 1.35 X10^3/uL; Monocyte% 11.1 % (0-10); NRBC Flagged by Analyzer 0 % (0-5); Neutrophil # 6.73 X10^3/uL (2.7-7.7); Neutrophil % 55.4 % (47-70); Platelet Count 355 K/mm3 (150-450); RBC Distribution Width CV 13.3 % (11.6-14.6); RBC Distribution Width SD 41.1 fl (35.1-43.9); Red Blood Count 6.04 M/mm3 (4.6-6.2); White Blood Count 12.2 K/mm3 (4.4-11.0)
[2023-03-20 17:07] LABS: ALB/GLOB Ratio 0.9 RATIO (0.9-2.4); AST(SGOT) 29 U/L (15-37); Alanine Aminotransfer ALT/SGPT 53 U/L (16-61); Albumin, Serum 3.7 g/dL (3.2-5.0); Alkaline Phosphatase 51 U/L (45-117); Anion Gap 6 (5-15); BUN 17 mg/dL (7-18); BUN/Creat Ratio 15.6 RATIO (10-20); Chloride 106 mmol/L (98-107); Cholesterol 187 mg/dL (200); Creatinine, Serum 1.09 mg/dL (0.70-1.30); EST Glomerular Filtration Rate 83 mL/min (>60); Est Glom Filt Rate - Afr Amer 101 mL/min (>60); Globulin 4.1 g/dL (2.2-4.2); Glucose 77 mg/dL (74-106); High Density Lipoprotein 23 mg/dL; Potassium 3.6 mmol/L (3.5-5.1); Protein, Total 7.8 g/dL (6.4-8.2); Sodium Level 140 mmol/L (136-145); Triglycerides 575 mg/dL
== END | disposition home or self-care (01) ==
LOC: BIMLAB 15:54
PROVIDERS: PCP Internal Medicine; Referring Provider Internal Medicine; Visit Provider Internal Medicine
DX: I10 Essential (primary) hypertension (principal)
CPT/HCPCS: 36415; 80053; 80061; 85025

== ENCOUNTER → 2023-11-25 | Outpatient (CLI) | payer BC, SELFPAY ==
[2023-11-25 16:47] LABS: Absolute Neutrophil Count 6.2 X10^3/uL (2.0-7.7); Basophil# 0.05 X10^3/uL; Basophil% 0.5 % (0-1); Eosinophil# 0.19 X10^3/uL; Eosinophils% 1.9 % (0-5); Hematocrit 45.3 % (40-54); Hemoglobin 15.2 g/dL (13.0-16.5); Lymphocyte % 26.2 % (19-41); Mean Corp Hgb Conc 33.6 g/dL (32-36); Mean Corpuscular Hgb 27.4 pg (27.0-32.0); Mean Corpuscular Volume 81.8 fL (80-94); Mean Platelet Vol. 10.5 fl (6.2-12.0); Monocyte# 0.83 X10^3/uL; Monocyte% 8.4 % (0-10); NRBC Flagged by Analyzer 0 % (0-5); Neutrophil # 6.23 X10^3/uL (2.7-7.7); Neutrophil % 62.7 % (47-70); Platelet Count 360 K/mm3 (150-450); RBC Distribution Width CV 12.3 % (11.6-14.6); RBC Distribution Width SD 36.9 fl (35.1-43.9); Red Blood Count 5.54 M/mm3 (4.6-6.2); White Blood Count 9.9 K/mm3 (4.4-11.0)
[2023-11-25 17:36] LABS: ALB/GLOB Ratio 1.1 RATIO (0.9-2.4); AST(SGOT) 29 U/L (15-37); Alanine Aminotransfer ALT/SGPT 56 U/L (16-61); Alkaline Phosphatase 40 U/L (45-117); Anion Gap 7 (5-15); BUN 9 mg/dL (7-18); BUN/Creat Ratio 8.9 RATIO (10-20); Calcium,Total 9.1 mg/dL (8.5-10.1); Chloride 103 mmol/L (98-107); Creatinine, Serum 1.01 mg/dL (0.70-1.30); EST Glomerular Filtration Rate 91 mL/min (>60); Est Glom Filt Rate - Afr Amer 110 mL/min (>60); Globulin 3.5 g/dL (2.2-4.2); Glucose 89 mg/dL (74-106); Potassium 3.9 mmol/L (3.5-5.1); Protein, Total 7.5 g/dL (6.4-8.2); Sodium Level 136 mmol/L (136-145); T4 Free Direct 1.23 ng/dL (0.76-1.46); Thyroid Stim Hormone (TSH) 1.63 uIU/mL (0.358-3.74)
[2023-11-25 17:53] LABS: Vitamin B12 488 pg/mL (211-911)
== END | disposition home or self-care (01) ==
LOC: BIMLAB 14:44
PROVIDERS: PCP Internal Medicine; Referring Provider Internal Medicine; Visit Provider Internal Medicine
DX: F41.9 Anxiety disorder, unspecified (principal); F32.A Depression, unspecified
CPT/HCPCS: 36415; 80053; 82607; 84439; 84443; 85025

== ENCOUNTER 2023-12-26 17:07 | Emergency (ER) | payer BC, SELFPAY ==
[2023-12-26 17:08] VITALS: BP 153/87; PULSE 71; RESP 18; TEMP 36.6; O2SAT 97; BMI 36.5
--- NOTE | 2023-12-26 17:20 | RAD_ITS ---
STUDY: X-RAY - CERVICAL SPINE REASON FOR EXAM: Male, 33 years old. pain TECHNIQUE: 3 view(s) of the cervical spine were obtained. COMPARISON: None FINDINGS: Normal anterior atlantoaxial articulation. Normal odontoid process. Straightening of normal lordotic curvature and mild dextroscoliosis which may be on the basis of muscle spasm or positioning artifact Normal vertebral bodies and endplates. Normal disc space heights. On the open-mouth view there is widening of the space between the right lateral mass of C1 and the odontoid process which may be due to ligamentous injury however this also may be artifact due to patient rotation. The soft tissue structures are unremarkable. RAD/Cerv Spine 2 or 3 Views IMPRESSION: No definitive evidence for acute fracture or subluxation however there are findings which may be consistent with ligamentous injury although this may be position related artifact as described above. Repeat film with better positioning or CT would be useful for more definitive evaluation Electronically Signed: Miguel A Multani MD at 18:18 EDT ,
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
== END 2023-12-26 18:32 | disposition home or self-care (01) ==
PROVIDERS: Emergency Provider Emergency Medicine; PCP Internal Medicine; Visit Provider Emergency Medicine
DX: M54.12 Radiculopathy, cervical region (principal); Z93.3 Colostomy status; I10 Essential (primary) hypertension; M62.830 Muscle spasm of back; Z79.899 Other long term (current) drug therapy; F41.8 Other specified anxiety disorders; Z87.891 Personal history of nicotine dependence
CPT/HCPCS: 72040; 99282

== ENCOUNTER → 2024-03-10 | Outpatient (CLI) | payer BC, SELFPAY ==
[2024-03-10 15:49] LABS: Cholesterol 212 mg/dL (200); High Density Lipoprotein 33 mg/dL; Triglycerides 550 mg/dL
--- OUTSIDE RECORDS SUMMARY | 2024-03-10 18:53 | XMS RPT_ITS | CCD ---
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 drenching night sweats or unintentional weight loss. HEENT: No yellowing of the eyes, no vision changes, no hearing loss or ear pain, no nosebleeds or drainage, no sore throat. Neck: No complaints. Chest: No SOB or cough, no AN, no hemoptysis, no wheezing. Breast: No complaints. Heart: No chest pain, pressure or tightness. No racing heartbeat. Abdominal: No pain or difficulty with swallowing, no N/V, no early satiety, no abdominal pain or bloating, no diarrhea or constipation, no change in bowel habits. Genitourinary: No pain or burning with urination, no incontinence, no blood in the urine. Extremities: No pain or swelling. Neurological: No headaches, no numbness or tingling in the extremities, no double vision. Skin: No rashes or ulcerations, no change in pigmentation. Nodes: No enlargement per patient. Heme: No easy bruising or bleeding, no yellowing of the eyes or darkening of urine. Psychiatric: No anxiety or depression. Immunologic: + Recurrent LLE cellulitis. Endocrine: No hair or nail changes, no polyuria, polydipsia, or polyphagia. Appetite normal. 05/08/19 1457 BP: 130/72 Pulse: 89 Temp: 36.1 ?C (97 ?F) TempSrc: Temporal Artery SpO2: 98% Weight: 116.1 kg (256 lb) Height: 180.3 cm (5' 10.98 ) Body mass index is 35.72 kg/m?. Physical Exam: ECOG PS: 0 Pain Intensity: 0/10 General: Age-appropriate well developed. NAD HEENT: Normocephalic, no sclera icterus, external ears normal, oral cavity clear. Neck: Supple, no thyroid nodules, no JVD. Chest: Clear bilaterally, no wheezes, not labored. Heart: Normal S1 and S2, no abnormal sounds, peripheral pulses synchronized. Abdomen: Soft, nontender, nondistended, bowel sounds present, no organomegaly or mass, no rigidity. /Rectal: deferred Extremities: No calf tenderness or edema. Neurological: Cranial nerves II through XII are intact bilaterally, no focal deficits. Skin: Warm and dry with no rashes or ulcerations. Nodes: No palpable adenopathy in the cervical, supraclavicular, or axillary regions. Hematologic: No bruising or petechiae. Psychiatric: Alert and oriented x3. Emotional well-being assessment was performed. Pt denies depression, distress, and or problems with coping or adjustment. Labs WBC (thou/cmm) Date Value 04/17/2019 11.8 (H) RBC (mil/cmm) Date Value 04/17/2019 5.36 HGB (g/dL) Date Value 04/17/2019 15.1 Hematocrit (%) Date Value 04/17/2019 43.1 MCV (fl) Date Value 04/17/2019 80.4 (L) Platelet Count (thou/cmm) Date Value 04/17/2019 291 Glucose (mg/dL) Date Value 04/17/2019 92 BUN (mg/dL) Date Value 04/17/2019 14 Creatinine (mg/dL) Date Value 04/17/2019 0.92 Sodium (mEq/L) Date Value 04/17/2019 141 Potassium (mEq/L) Date Value 04/17/2019 3.7 Chloride (mEq/L) Date Value 04/17/2019 105 CO2 (mEq/L) Date Value 04/17/2019 29 Protein, Total (g/dL) Date Value 04/17/2019 7.5 Albumin (g/dL) Date Value 04/17/2019 4.1 Calcium (mg/dL) Date Value 04/17/2019 9.5 Alkaline Phosphatase (U/L) Date Value 04/17/2019 40 (L) Bilirubin, Total (mg/dL) Date Value 04/17/2019 0.3 AST (U/L) Date Value 04/17/2019 17 ALT (U/L) Date Value 04/17/2019 41 ASSESSMENT/PLAN: 1. Leukocytosis. - Leukocytosis is likely secondary to recurrent cellulitis and tobacco abuse. - Flow cytometry on 04/17/19 showed no evidence of lymphoproliferative disorder. 2. 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 - Negative MRSA. - Normal SPEP, SFL, LDH, REG, IgG, IgA, but with low IgM (38.9 mg/dL); negative HIV and acute hepatitis panel in 12/2018. Borderline low IgG subclass 2 on 04/17/19. - Unremarkable CT A/P in 08/2018. - Started prophylactic penicillin per ID Dr. Hines. - Refer to Immunology for evaluation of questionable IgM deficiency. 3. Renal insufficiency: resolved. - Likely secondary to antibiotics and dehydration. 4. Tobacco abuse. - Recommend smoking cessation. He is not ready to quit. Check CBC in 6 months. Call for questions or concerns. 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 Follow-up and Disposition History Recorded Prescriptions as of 05/08/2019 Sig: PENICILLIN V POTASSIUM 250 MG* Take 1 tablet by mouth twice * ACETAMINOPHEN 325 MG TABLET Take 3 tablets by mouth every* Problem List As Of Date 05/08/2019 Noted Resolved Obesity, Class II, BMI 35-39.9 [E66.9] 08/15/2018 Nicotine use disorder, F17.2 [F17.200] 08/15/2018 More... Sepsis due to cellulitis (HCC) [L03.90, A41.9] 08/15/2018 08/17/2018 More... Tinea pedis of both feet [B35.3] 08/15/2018 More... Hypokalemia [E87.6] 08/15/2018 08/17/2018 More... Acute pain of right knee [M25.561] 02/16/2019 Difficulty walking [R26.2] 02/16/2019 Knee stiffness, right [M25.661] 02/16/2019 Left leg cellulitis [L03.116] 2019 Encounter Status:Closed by DERRICK SANCHEZ MD on 05/08/19 [facility] PROGRESSon 05-08-2019 PROGRESS HNO ID: [id number] Author: Derrick Sanchez Service: ? Author Type: Physician Type: Progress Notes Filed: 05/08/2019 3:45 PM Note Text: Progress Note Woo Sheldon 1990 April [birth year], 2019 HPI: Woo Sheldon is a 29-year-old male who presents for evaluation of leukocytosis and frequent recurrent left lower extremity cellulitis. Per patient he has had left lower extremity cellulitis almost every month or every other month since 12/2017. It always started from a spot below left knee, then spread to thigh and lower leg, with fever and painful L inguinal lymph node. His last ED visit was on 04/08/19. He was given Doxycycline. 08/13/18 CT A/P: no acute process. No abdominal or pelvic lymphadenopathy. 10/11/18: WBC 25.57. 01/03/19: Normal SPEP, SFL, LDH, REG, IgG, IgA, low IgM (38.9 mg/dL); negative HIV and acute hepatitis panel. CRP 86.5, ESR 24; Cr 1.69. He denies unintentional weight loss. He smokes 1 PPD for 10 years. Interval History: Workup for leukocytosis on 04/24/19: WBC 11.8, normal Hgb and PLT, unremarkable CMP. Flow cytometry showed no evidence of lymphoproliferative disorder. IgG subclasses showed borderline low IgG subclass 2 (236.3 mg/dL). He saw Dr. Hines on 04/24/19. Started prophylactic penicillin. No signs of cellulitis in the past 3 weeks. PAST MEDICAL HISTORY Diagnosis Date - Cellulitis PAST SURGICAL HISTORY Procedure Laterality Date - COLOSTOMY HX As an infant. With reversal Current Outpatient Medications Medication Sig Dispense Refill - penicillin V potassium (V-CILLIN, VEETIDS) 250 mg tablet Take 1 tablet by mouth twice daily. 60 tablet 3 - acetaminophen (TYLENOL) 325 mg tablet Take 3 tablets by mouth every 6 hours as needed for Pain. 30 tablet 0 No current facility-administered medications for this visit. ALLERGIES No Known Allergies FAMILY HISTORY Problem Relation Age of Onset - other (lung cancer) Maternal Grandfather Social History Tobacco Use - Smoking status: Current Every Day Smoker Packs/day: 1.00 Years: 10.00 Pack years: 10.00 Types: Cigarettes - Smokeless tobacco: Never Used Substance Use Topics - Alcohol use: Yes Comment: rare - Drug use: No Review of Systems: Constitutional: No fevers, chills, drenching night sweats or unintentional weight loss. HEENT: No yellowing of the eyes, no vision changes, no hearing loss or ear pain, no nosebleeds or drainage, no sore throat. Neck: No complaints. Chest: No SOB or cough, no AN, no hemoptysis, no wheezing. Breast: No complaints. Heart: No chest pain, pressure or tightness. No racing heartbeat. Abdominal: No pain or difficulty with swallowing, no N/V, no early satiety, no abdominal pain or bloating, no diarrhea or constipation, no change in bowel habits. Genitourinary: No pain or burning with urination, no incontinence, no blood in the urine. Extremities: No pain or swelling. Neurological: No headaches, no numbness or tingling in the extremities, no double vision. Skin: No rashes or ulcerations, no change in pigmentation. Nodes: No enlargement per patient. Heme: No easy bruising or bleeding, no yellowing of the eyes or darkening of urine. Psychiatric: No anxiety or depression. Immunologic: + Recurrent LLE cellulitis. Endocrine: No hair or nail changes, no polyuria, polydipsia, or polyphagia. Appetite normal. 05/08/19 1457 BP: 130/72 Pulse: 89 Temp: 36.1 ?C (97 ?F) TempSrc: Temporal Artery SpO2: 98% Weight: 116.1 kg (256 lb) Height: 180.3 cm (5' 10.98 ) Body mass index is 35.72 kg/m?. Physical Exam: ECOG PS: 0 Pain Intensity: 0/10 General: Age-appropriate well developed. NAD HEENT: Normocephalic, no sclera icterus, external ears normal, oral cavity clear. Neck: Supple, no thyroid nodules, no JVD. Chest: Clear bilaterally, no wheezes, not labored. Heart: Normal S1 and S2, no abnormal sounds, peripheral pulses synchronized. Abdomen: Soft, nontender, nondistended, bowel sounds present, no organomegaly or mass, no rigidity. /Rectal: deferred Extremities: No calf tenderness or edema. Neurological: Cranial nerves II through XII are intact bilaterally, no focal deficits. Skin: Warm and dry with no rashes or ulcerations. Nodes: No palpable adenopathy in the cervical, supraclavicular, or axillary regions. Hematologic: No bruising or petechiae. Psychiatric: Alert and oriented x3. Emotional well-being assessment was performed. Pt denies depression, distress, and or problems with coping or adjustment. Labs WBC (thou/cmm) Date Value 04/17/2019 11.8 (H) RBC (mil/cmm) Date Value 04/17/2019 5.36 HGB (g/dL) Date Value 04/17/2019 15.1 Hematocrit (%) Date Value 04/17/2019 43.1 MCV (fl) Date Value 04/17/2019 80.4 (L) Platelet Count (thou/cmm) Date Value 04/17/2019 291 Glucose (mg/dL) Date Value 04/17/2019 92 BUN (mg/dL) Date Value 04/17/2019 14 Creatinine (mg/dL) Date Value 04/17/2019 0.92 Sodium (mEq/L) Date Value 04/17/2019 141 Potassium (mEq/L) Date Value 04/17/2019 3.7 Chloride (mEq/L) Date Value 04/17/2019 105 CO2 (mEq/L) Date Value 04/17/2019 29 Protein, Total (g/dL) Date Value 04/17/2019 7.5 Albumin (g/dL) Date Value 04/17/2019 4.1 Calcium (mg/dL) Date Value 04/17/2019 9.5 Alkaline Phosphatase (U/L) Date Value 04/17/2019 40 (L) Bilirubin, Total (mg/dL) Date Value 04/17/2019 0.3 AST (U/L) Date Value 04/17/2019 17 ALT (U/L) Date Value 04/17/2019 41 ASSESSMENT/PLAN: 1. Leukocytosis. - Leukocytosis is likely secondary to recurrent cellulitis and tobacco abuse. - Flow cytometry on 04/17/19 showed no evidence of lymphoproliferative disorder. 2. 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 - Negative MRSA. - Normal SPEP, SFL, LDH, REG, IgG, IgA, but with low IgM (38.9 mg/dL); negative HIV and acute hepatitis panel in 12/2018. Borderline low IgG subclass 2 on 04/17/19. - Unremarkable CT A/P in 08/2018. - Started prophylactic penicillin per ID Dr. Hines. - Refer to Immunology for evaluation of questionable IgM deficiency. 3. Renal insufficiency: resolved. - Likely secondary to antibiotics and dehydration. 4. Tobacco abuse. - Recommend smoking cessation. He is not ready to quit. Check CBC in 6 months. Call for questions or concerns. Derrick Sanchez MD Normal [facility] Flow Cytometry Leukemia/Lymp homaon 04-27-2019 Result See Below Normal [facility] Comment on above: Result Comment: Tess colby report to follow. Check for scanned report attached to this test. Performed By: #### F LOWX #### [place] [address] Flow Cytometry Leukemia/Lymp homaon 04-25-2019 Flow Cytometry Leuk/Lymp See Below Normal [facility] Comment on above: Result Comment: Flow Cytometry Leukemia/Lymphoma Blood Performed By: #### F LOWX #### [facility] [address] [place] [address] Lab Name/Address See below Normal [facility] Comment on above: Result Comment: Test ing performed at [facility] [address] [place] [address] Performed By: #### F LOWX #### [facility] [address] [place] [id number] MRSA/MSSA Screenon 9 MRSA/MSSA Screen Test performed at [facility] No Staph aureus or MRSA detected. Normal [facility] Comment on above: Performed By: #### P STSS #### [facility] [address] [place] [address] IgG Subclass/Totalon 019 IgG Subclass/Total SEE BELOW Normal [facility] Comment on above: Result Comment: IgG Subclass 1 595.7 382.4-928.6 mg/dL IgG Subclass 2 236.3 L 241.8-700.3 mg/dL IgG Subclass 3 103.1 21.8-176.1 mg/dL IgG Subclass 4 68.1 3.9-86.4 mg/dL IgG 9042 333-4287 mg/dL Performing Laboratory: [facility] [address] [place] [address] Performed By: #### I GGSX #### [facility] [address] [place] [address] CNOVSPon 04-17-2019 CNOVS Visit (SP) Office ([facility]) WOO SHELDON ([id number]) 1990 M Date Time Provider Department 04/17/19 2:15 PM DERRICK SANCHEZ HEMAMPARO During your visit today, we recorded the following information about you: Temperature Pulse Blood pressure Weight 97.9 degrees 79/minute 156/82 116.3 kg Height 1.803 m Derrick Sanchez MD 04/17/2019 4:54 PM Signed INITIAL CONSULT Woo Sheldon 1990 April 17, 2019 HPI: Woo Sheldon is a 28-year-old male who presents for evaluation of leukocytosis and frequent recurrent left lower extremity cellulitis. Per patient he has had left lower extremity cellulitis almost every month or every other month since 12/2017. It always started from a spot below left knee, then spread to thigh and lower leg, with fever and painful L inguinal lymph node. His last ED visit was on 04/08/19. He was given Doxycycline. 08/13/18 CT A/P: no acute process. No abdominal or pelvic lymphadenopathy. 10/11/18: WBC 25.57. 01/03/19: Normal SPEP, SFL, LDH, REG, IgG, IgA, low IgM (38.9 mg/dL); negative HIV and acute hepatitis panel. CRP 86.5, ESR 24; Cr 1.69. Peripheral blood smear: LEUKOCYTOSIS WITH MATURE NEUTROPHILIA, SUGGESTIVE OF AN INFECTIOUS PROCESS. NO BLASTS OR OVERTLY ABNORMAL CELLS ARE SEEN. He denies unintentional weight loss. He smokes 1 PPD for 10 years. PAST MEDICAL HISTORY Diagnosis Date - Cellulitis PAST SURGICAL HISTORY Procedure Laterality Date - COLOSTOMY HX As an infant. With reversal Current Outpatient Medications Medication Sig Dispense Refill - doxycycline monohydrate 100 mg tablet Take 1 tablet by mouth twice daily for 10 days. 20 tablet 0 - etodolac (LODINE) 400 mg tablet Take 1 tablet by mouth twice daily. 28 tablet 1 - acetaminophen (TYLENOL) 325 mg tablet Take 3 tablets by mouth every 6 hours as needed for Pain. 30 tablet 0 No current facility-administered medications for this visit. ALLERGIES No Known Allergies FAMILY HISTORY Problem Relation Age of Onset - other (lung cancer) Maternal Grandfather Social History Tobacco Use - Smoking status: Current Every Day Smoker Packs/day: 1.00 Years: 10.00 Pack years: 10.00 Types: Cigarettes - Smokeless tobacco: Never Used Substance Use Topics - Alcohol use: Yes Comment: rare - Drug use: No Review of Systems: Constitutional: No fevers, chills, drenching night sweats or unintentional weight loss. HEENT: No yellowing of the eyes, no vision changes, no hearing loss or ear pain, no nosebleeds or drainage, no sore throat. Neck: No complaints. Chest: No SOB or cough, no AN, no hemoptysis, no wheezing. Breast: No complaints. Heart: No chest pain, pressure or tightness. No racing heartbeat. Abdominal: No pain or difficulty with swallowing, no N/V, no early satiety, no abdominal pain or bloating, no diarrhea or constipation, no change in bowel habits. Genitourinary: No pain or burning with urination, no incontinence, no blood in the urine. Extremities: No pain or swelling. Neurological: No headaches, no numbness or tingling in the extremities, no double vision. Skin: No rashes or ulcerations, no change in pigmentation. Nodes: No enlargement per patient. Heme: No easy bruising or bleeding, no yellowing of the eyes or darkening of urine. Psychiatric: No anxiety or depression. Immunologic: + Recurrent LLE cellulitis. Endocrine: No hair or nail changes, no polyuria, polydipsia, or polyphagia. Appetite normal. 04/17/19 1417 BP: 156/82 Pulse: 79 Temp: 36.6 ?C (97.9 ?F) TempSrc: Tympanic SpO2: 98% Weight: 116.3 kg (256 lb 6.4 oz) Height: 180.3 cm (5' 11 ) Body mass index is 35.76 kg/m?. Physical Exam: ECOG PS: 0 Pain Intensity: 0/10 General: Age-appropriate well developed. NAD HEENT: Normocephalic, no sclera icterus, external ears normal, oral cavity clear. Neck: Supple, no thyroid nodules, no JVD. Chest: Clear bilaterally, no wheezes, not labored. Heart: Normal S1 and S2, no abnormal sounds, peripheral pulses synchronized. Abdomen: Soft, nontender, nondistended, bowel sounds present, no organomegaly or mass, no rigidity. /Rectal: deferred Extremities: No calf tenderness or edema. One small dent below left knee, coarse skin, no current infection. Neurological: Cranial nerves II through XII are intact bilaterally, no focal deficits. Skin: Warm and dry with no rashes or ulcerations. Nodes: No palpable adenopathy in the cervical, supraclavicular, or axillary regions. Hematologic: No bruising or petechiae. Psychiatric: Alert and oriented x3. Emotional well-being assessment was performed. Pt denies depression, distress, and or problems with coping or adjustment. Labs CBC: Recent Labs 04/17/19 1459 WBC 11.8* HB 15.1 HCT 43.1 PLT 291 MCV 80.4* ASSESSMENT/PLAN: 1. Leukocytosis. - Leukocytosis could be secondary to recurrent cellulitis and tobacco abuse. - CBC today showed leukocytosis with elevated monocytes and lymphocytes. Order flow cytometry for further evaluation. 2. 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 - Negative MRSA in the past. - Normal SPEP, SFL, LDH, REG, IgG, IgA, but with low IgM (38.9 mg/dL); negative HIV and acute hepatitis panel in 12/2018. - Unremarkable CT A/P in 08/2018. - Check IgG subclasses. Flow cytometry to evaluate lymphocytes. - Refer to ID service. 3. Renal insufficiency. - Negative SPEP and SFL in 12/2018. - Check CMP today. Follow up in 3 weeks. Call for questions or concerns. Derrick Sanchez MD Referring Provider: SELF [[id number]] Allergies As of Date: 04/17/2019 (No Known Allergies) Date Reviewed: 04/17/2019 Reviewed by: Luisana Graham) WILSON Mena - Fully Assessed Reason for Visit: Initial Consult [665] Cmt: recurrent cellulitis Primary Visit Diagnosis:Leukocytosis , unspecified type [D72.829] Other Visit Diagnoses:Recurrent cellulitis of lower extremity [L03.119] Renal insufficiency [N28.9] Lymphocytosis [D72.820] Order(s):COMP METABOLIC PANEL [SQCMP] Order #: [id number] FUTURE IGG SUBCLASSES BLD [SQIGGSUB] Order #: [id number] FUTURE CONSULT TO INFECTIOUS DISEASES [9016] Order #: [id number]: 1 PERIPHERAL BLOOD LOW GRADE LEUK MARKERS FC [SQPBLGLY] Order #: [id number] FUTURE Disposition: Return in about 3 weeks (around 05/08/2019). Follow-up and Disposition History Recorded Prescriptions as of 04/17/2019 Sig: DOXYCYCLINE MONOHYDRATE 100 M* Take 1 tablet by mouth twice * ETODOLAC 400 MG TABLET Take 1 tablet by mouth twice * ACETAMINOPHEN 325 MG TABLET Take 3 tablets by mouth every* Problem List As Of Date 04/17/2019 Noted Resolved Obesity, Class II, BMI 35-39.9 [E66.9] 08/15/2018 Nicotine use disorder, F17.2 [F17.200] 08/15/2018 More... Sepsis due to cellulitis (HCC) [L03.90, A41.9] 08/15/2018 08/17/2018 More... Tinea pedis of both feet [B35.3] 08/15/2018 More... Hypokalemia [E87.6] 08/15/2018 08/17/2018 More... Acute pain of right knee [M25.561] 02/16/2019 Difficulty walking [R26.2] 02/16/2019 Knee stiffness, right [M25.661] 02/16/2019 Encounter Status:Closed by DERRICK SANCHEZ MD on 04/17/19 Normal [facility] Comprehensive Panelon 2018 Creatinine [Mass/Vol] 0.92 mg/dL Normal 0.67-1.17 [facility] Comment on above: Performed By: #### P 14 #### [address] [address] ALP [Catalytic activity/Vol] 40 U/L Low 45-117 [facility] Comment on above: Performed By: #### P 14 #### [address] [address] Bilirubin [Mass/Vol] 0.3 mg/dL Normal 0.2-1.0 [facility] Comment on above: Performed By: #### P 14 #### [facility] [address] [place], [place] [address] Glucose [Mass/Vol] 92 mg/dL Normal 70-99 [facility] Comment on above: Performed By: #### P 14 #### [facility] [address] [place], [place] [address] Protein [Mass/Vol] 7.5 g/dL Normal 6.4-8.2 [facility] Comment on above: Performed By: #### P 14 #### [address] [address] ALT [Catalytic activity/Vol] 41 U/L Normal 12-78 [facility] Comment on above: Performed By: #### P 14 #### [facility] [address] [place], [place] [address] AST [Catalytic activity/Vol] 17 U/L Normal 15-37 [facility] Comment on above: Performed By: #### P 14 #### [facility] [address] [place], [place] [address] Albumin [Mass/Vol] 4.1 g/dL Normal 3.4-5.0 [facility] Comment on above: Performed By: #### P 14 #### [facility] [address] [place], [place] [address] Anion gap [Moles/Vol] 11 mmol/L Normal 8-16 [facility] Comment on above: Performed By: #### P 14 #### [facility] [address] [place], [place] [address] CO2 [Moles/Vol] 29 mmol/L Normal 21-32 [facility] Comment on above: Performed By: #### P 14 #### [facility] [address] [place], [place] [address] Calcium [Mass/Vol] 9.5 mg/dL Normal 8.5-10.1 [facility] Comment on above: Performed By: #### P 14 #### [facility] [address] [place], [place] [address] Urea nitrogen [Mass/Vol] 14 mg/dL Normal 7-18 [facility] Comment on above: Performed By: #### P 14 #### [facility] [address] [place], [place] [address] Chloride [Moles/Vol] 105 mmol/L Normal 98-107 [facility] Comment on above: Performed By: #### P 14 #### [facility] [address] [place], [place] [address] Potassium [Moles/Vol] 3.7 mmol/L Normal 3.5-5.1 [facility] Comment on above: Performed By: #### P 14 #### [facility] [address] [place], [place] [address] Sodium [Moles/Vol] 141 mmol/L Normal 136-145 [facility] Comment on above: Performed By: #### P 14 #### [place] [address] MDRD GFRon 04-17-2019 GFR/1.73 sq M predicted among non-blacks MDRD (S/P/Bld) [Vol rate/Area] mL/min/{1.73_m2} Normal >60mL/min/1.73 m2 [facility] Comment on above: Result Comment: If t he patient is , multiply the result by 1.210. Performed By: #### G FR #### [place] [address] Oncology Hemogram/Diffon Abs. Baso 0.07 thou/cmm Normal 0.00-0.08 [facility] Comment on above: Performed By: #### M OHEM #### [place] [address] Abs. [place] 0.98 thou/cmm High 0.19-0.80 [facility] Comment on above: Performed By: #### M OHEM #### [place] [address] Abs. Neut (ANC) 6.68 thou/cmm Normal 1.35-7.21 [facility] Comment on above: Performed By: #### M OHEM #### [place] [address] Basophils/100 WBC (Bld) 0.6 % Normal [facility] Comment on above: Performed By: #### M OHEM #### [place] [address] Eosinophils (Bld) [#/Vol] 0.25 thou/cmm Normal 0.00-0.36 [facility] Comment on above: Performed By: #### M OHEM #### [place] [address] Eosinophils/100 WBC (Bld) 2.1 % Normal [facility] Comment on above: Performed By: #### M OHEM #### [facility] [address] [place] [address] Erythrocyte distribution width (RBC) [Ratio] 13.3 % Normal 11.8-14.5 [facility] Comment on above: Performed By: #### M OHEM #### [facility] [address] [place] [address] Hematocrit (Bld) [Volume fraction] 43.1 % Normal 39.6-50.7 [facility] Comment on above: Performed By: #### M OHEM #### [facility] [address] [place] [address] Hemoglobin (Bld) [Mass/Vol] 15.1 g/dL Normal 13.2-17.4 [facility] Comment on above: Performed By: #### M OHEM #### [place] [address] Lymphocytes (Bld) [#/Vol] 3.79 thou/cmm High 0.68-2.93 [facility] Comment on above: Performed By: #### OHEM #### [facility] [address] [place] [address] Lymphocytes/100 WBC (Bld) 32.1 % Normal [facility] Comment on above: Performed By: #### M OHEM #### [facility] [address] [place] [address] MCH (RBC) [Entitic mass] 28.2 pg Normal 27.4-32.8 [facility] Comment on above: Performed By: #### M OHEM #### [facility] [address] [place] [address] MCHC (RBC) [Mass/Vol] 35.0 % Normal 31.9-35.6 [facility] Comment on above: Performed By: #### M OHEM #### [facility] [address] [place] [address] MCV (RBC) [Entitic vol] 80.4 fL Low 81.8-95.6 [facility] Comment on above: Performed By: #### M OHEM #### [facility] [address] [place], [place] [address] Monocytes/100 WBC (Bld) 8.3 % Normal [facility] Comment on above: Performed By: #### M OHEM #### [facility] [address] [place], [place] [address] Platelet mean volume (Bld) [Entitic vol] 9.9 fL Normal 8.8-12.1 [facility] Comment on above: Performed By: #### M OHEM #### [facility] [address] [place], [place] [address] Platelets (Bld) [#/Vol] 291 thou/cmm Normal 150-370 [facility] Comment on above: Performed By: #### M OHEM #### [facility] [address] [place], [place] [address] RBC (Bld) [#/Vol] 5.36 mil/cmm Normal 4.22-5.80 [facility] Comment on above: Performed By: #### M OHEM #### [facility] [address] [place] [address] Seg Neutrophil 56.9 % Normal [facility] Comment on above: Performed By: #### M OHEM #### [facility] [address] [place], [place] [address] WBC (Bld) [#/Vol] 11.8 thou/cmm High 4.4-9.7 [facility] Comment on above: Performed By: #### M OHEM #### [facility] [address] [place] [address] PROGRESSon 04-17-2019 PROGRESS HNO ID: [id number] Author: Derrick Sanchez Service: ? Author Type: Physician Type: Progress Notes Filed: 04/17/2019 4:54 PM Note Text: INITIAL CONSULT Woo Sheldon 1990 April 17, 2019 HPI: Woo Shledon is a 28-year-old male who presents for evaluation of leukocytosis and frequent recurrent left lower extremity cellulitis. Per patient he has had left lower extremity cellulitis almost every month or every other month since 12/2017. It always started from a spot below left knee, then spread to thigh and lower leg, with fever and painful L inguinal lymph node. His last ED visit was on 04/08/19. He was given Doxycycline. 08/13/18 CT A/P: no acute process. No abdominal or pelvic lymphadenopathy. 10/11/18: WBC 25.57. 01/03/19: Normal SPEP, SFL, LDH, REG, IgG, IgA, low IgM (38.9 mg/dL); negative HIV and acute hepatitis panel. CRP 86.5, ESR 24; Cr 1.69. Peripheral blood smear: LEUKOCYTOSIS WITH MATURE NEUTROPHILIA, SUGGESTIVE OF AN INFECTIOUS PROCESS. NO BLASTS OR OVERTLY ABNORMAL CELLS ARE SEEN. He denies unintentional weight loss. He smokes 1 PPD for 10 years. PAST MEDICAL HISTORY Diagnosis Date - Cellulitis PAST SURGICAL HISTORY Procedure Laterality Date - COLOSTOMY HX As an infant. With reversal Current Outpatient Medications Medication Sig Dispense Refill - doxycycline monohydrate 100 mg tablet Take 1 tablet by mouth twice daily for 10 days. 20 tablet 0 - etodolac (LODINE) 400 mg tablet Take 1 tablet by mouth twice daily. 28 tablet 1 - acetaminophen (TYLENOL) 325 mg tablet Take 3 tablets by mouth every 6 hours as needed for Pain. 30 tablet 0 No current facility-administered medications for this visit. ALLERGIES No Known Allergies FAMILY HISTORY Problem Relation Age of Onset - other (lung cancer) Maternal Grandfather Social History Tobacco Use - Smoking status: Current Every Day Smoker Packs/day: 1.00 Years: 10.00 Pack years: 10.00 Types: Cigarettes - Smokeless tobacco: Never Used Substance Use Topics - Alcohol use: Yes Comment: rare - Drug use: No Review of Systems: Constitutional: No fevers, chills, drenching night sweats or unintentional weight loss. HEENT: No yellowing of the eyes, no vision changes, no hearing loss or ear pain, no nosebleeds or drainage, no sore throat. Neck: No complaints. Chest: No SOB or cough, no AN, no hemoptysis, no wheezing. Breast: No complaints. Heart: No chest pain, pressure or tightness. No racing heartbeat. Abdominal: No pain or difficulty with swallowing, no N/V, no early satiety, no abdominal pain or bloating, no diarrhea or constipation, no change in bowel habits. Genitourinary: No pain or burning with urination, no incontinence, no blood in the urine. Extremities: No pain or swelling. Neurological: No headaches, no numbness or tingling in the extremities, no double vision. Skin: No rashes or ulcerations, no change in pigmentation. Nodes: No enlargement per patient. Heme: No easy bruising or bleeding, no yellowing of the eyes or darkening of urine. Psychiatric: No anxiety or depression. Immunologic: + Recurrent LLE cellulitis. Endocrine: No hair or nail changes, no polyuria, polydipsia, or polyphagia. Appetite normal. 04/17/19 1417 BP: 156/82 Pulse: 79 Temp: 36.6 ?C (97.9 ?F) TempSrc: Tympanic SpO2: 98% Weight: 116.3 kg (256 lb 6.4 oz) Height: 180.3 cm (5' 11 ) Body mass index is 35.76 kg/m?. Physical Exam: ECOG PS: 0 Pain Intensity: 0/10 General: Age-appropriate well developed. NAD HEENT: Normocephalic, no sclera icterus, external ears normal, oral cavity clear. Neck: Supple, no thyroid nodules, no JVD. Chest: Clear bilaterally, no wheezes, not labored. Heart: Normal S1 and S2, no abnormal sounds, peripheral pulses synchronized. Abdomen: Soft, nontender, nondistended, bowel sounds present, no organomegaly or mass, no rigidity. /Rectal: deferred Extremities: No calf tenderness or edema. One small dent below left knee, coarse skin, no current infection. Neurological: Cranial nerves II through XII are intact bilaterally, no focal deficits. Skin: Warm and dry with no rashes or ulcerations. Nodes: No palpable adenopathy in the cervical, supraclavicular, or axillary regions. Hematologic: No bruising or petechiae. Psychiatric: Alert and oriented x3. Emotional well-being assessment was performed. Pt denies depression, distress, and or problems with coping or adjustment. Labs CBC: Recent Labs 04/17/19 1459 WBC 11.8* HB 15.1 HCT 43.1 PLT 291 MCV 80.4* ASSESSMENT/PLAN: 1. Leukocytosis. - Leukocytosis could be secondary to recurrent cellulitis and tobacco abuse. - CBC today showed leukocytosis with elevated monocytes and lymphocytes. Order flow cytometry for further evaluation. 2. 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 - Negative MRSA in the past. - Normal SPEP, SFL, LDH, REG, IgG, IgA, but with low IgM (38.9 mg/dL); negative HIV and acute hepatitis panel in 12/2018. - Unremarkable CT A/P in 08/2018. - Check IgG subclasses. Flow cytometry to evaluate lymphocytes. - Refer to ID service. 3. Renal insufficiency. - Negative SPEP and SFL in 12/2018. - Check CMP today. Follow up in 3 weeks. Call for questions or concerns. Derrick Sanchez MD [facility] ED NOTEon 04-08-2019 ED NOTE HNO ID: [id number] Author: Patience FerrerRn) ANKIT Gutiérrez Service: Emergency Medicine Author Type: Registered Nurse Type: ED Notes Filed: 04/08/2019 11:39 AM Note Text: Patient presents with c/o groin pain and cellulitis to left leg. Patient is alert and oriented x3 and able to follow commands. Patients respirations are regular and unlabored. Normal [facility] ED PROV NOTEon 04-08-2019 ED PROV NOTE HNO ID: [id number] Author: Khari Silva MD Service: Emergency Medicine Author Type: Physician Type: ED Provider Notes Filed: 04/08/2019 12:27 PM Note Text: ED Provider Note Patient Name: Woo Sheldon SERVICE DATE: 04/08/19 History Patient presents with: Edema 28-year-old male with a past medical history of multiple episodes of cellulitis to his left lower extremity thinks that he has cellulitis starting again. Patient states that he started having some pain in his left groin and he believes that this is his prodrome to having cellulitis appear again. Currently the patient has no evidence of cellulitis including no red changes to the skin, no warmth to the skin, no rash starting. The patient also states that he was supposed to be referred to a clinical application specialist with [facility] but he hasn't been referred and he would like a referral. History provided by: Patient PAST MEDICAL HISTORY Diagnosis Date - Cellulitis - Cellulitis PAST SURGICAL HISTORY Procedure Laterality Date - COLOSTOMY HX with reversal No family history on file. Social History Tobacco Use - Smoking status: Current Every Day Smoker Packs/day: 1.00 Types: Cigarettes - Smokeless tobacco: Never Used Substance and Sexual Activity - Alcohol use: Yes Comment: rare - Drug use: No - Sexual activity: Not on file ALLERGIES No Known Allergies Review of Systems Constitutional: Negative for chills, diaphoresis and fever. HENT: Negative. Negative for congestion, facial swelling, rhinorrhea, sinus pressure, sneezing, sore throat, tinnitus and trouble swallowing. Eyes: Negative for photophobia, pain, discharge, redness and itching. Respiratory: Negative for cough, choking, chest tightness, shortness of breath, wheezing and stridor. Cardiovascular: Negative for chest pain, palpitations and leg swelling. Gastrointestinal: Negative for abdominal distention, abdominal pain, constipation, diarrhea, nausea and vomiting. Endocrine: Negative for polydipsia, polyphagia and polyuria. Genitourinary: Negative for difficulty urinating, dysuria, flank pain, frequency, hematuria and urgency. Musculoskeletal: Negative for arthralgias, back pain, gait problem, myalgias and neck pain. Skin: Negative for rash. Allergic/Immunologic: Negative for environmental allergies and food allergies. Neurological: Negative for dizziness, syncope, speech difficulty, weakness, light-headedness, numbness and headaches. Hematological: Negative for adenopathy. Psychiatric/Behavioral : Negative for agitation, confusion, decreased concentration, hallucinations, self-injury and suicidal ideas. The patient is not nervous/anxious. All other systems reviewed and are negative. Physical Exam BP 151/68 Pulse 122 Temp 99 Resp 18 Ht 5' 11 (1.80m) Wt 245 lb (111.1kg) SpO2 98% BMI 34.19 kg/(m2). O2 Therapy: Room Air Physical Exam Vitals signs and nursing note reviewed. Constitutional: Appearance: He is well-developed. HENT: Head: Normocephalic and atraumatic. Right Ear: External ear normal. Left Ear: External ear normal. Nose: Nose normal. Mouth/Throat: Pharynx: No oropharyngeal exudate. Eyes: Conjunctiva/sclera: Conjunctivae normal. Pupils: Pupils are equal, round, and reactive to light. Neck: Musculoskeletal: Normal range of motion. Thyroid: No thyromegaly. Trachea: No tracheal deviation. Cardiovascular: Rate and Rhythm: Normal rate and regular rhythm. Heart sounds: Normal heart sounds. No murmur. No friction rub. No gallop. Pulmonary: Effort: Pulmonary effort is normal. No respiratory distress. Breath sounds: Normal breath sounds. No stridor. No wheezing or rales. Abdominal: General: Bowel sounds are normal. There is no distension. Palpations: Abdomen is soft. There is no mass. Tenderness: There is no tenderness. There is no guarding or rebound. Musculoskeletal: Normal range of motion. General: No tenderness or deformity. Lymphadenopathy: Cervical: No cervical adenopathy. Skin: General: Skin is warm and dry. Coloration: Skin is not ashen, cyanotic, jaundiced, mottled, pale or sallow. Findings: No abrasion, abscess, acne, bruising, burn, ecchymosis, erythema, signs of injury, laceration, lesion, petechiae, rash or wound. Rash is not crusting, macular, nodular, papular, purpuric, pustular, scaling, urticarial or vesicular. Nails: There is no clubbing. Neurological: Mental Status: He is alert and oriented to person, place, and time. Cranial Nerves: No cranial nerve deficit. Motor: No abnormal muscle tone. Coordination: Coordination normal. Psychiatric: Thought Content: Thought content normal. Judgment: Judgment normal. Diagnostic Testing ED Labs Ordered and Reviewed - No data to display Procedures ED Course / Clinical Impression Clinical Impressions as of Apr 08 1224 Cellulitis of left lower extremity MDM / Disposition / Plan MDM The patient has no cellulitic changes on his left groin or left leg. No warmth, no redness, no swelling. The patient told me that if I did not send him home with any antibiotics that he guarantees he would be back tonight with cellulitis. For this reason I felt that I do not want him to have to come back in so I would put him on doxycycline and give him the hematology referral that he is requesting. The patient is now satisfied with this plan and will be discharged home. The patient was DISCHARGED: Counseled patient regarding suspected diagnosis AND need for follow-up. Discharged home with verbal and written instructions. They were instructed to return as needed for persistent or worsening symptoms or any new concerns. Condition at time of disposition: stable SIGNATURE: MD Khari Gomes MD 04/08/19 1227 Normal [facility] CNTHERAPYon 03-04-2019 CNTHERAPY OT/PT/Speech Visit (PTMCRM) WOO SHELDON ([id number]) 1990 M Date Time Provider Department 03/04/19 8:30 AM [facility] Date Time Provider Department Center 03/04/2019 8:30 AM [id number], JAY [facility] Reason for Visit: Physical Therapy [503] Primary Visit Diagnosis:Acute pain of right knee [M25.561] Other Visit Diagnoses:Difficulty walking [R26.2] Knee stiffness, right [M25.661] Allergies As of Date: 03/04/2019 (No Known Allergies) Date Reviewed: 02/09/2019 Reviewed by: Keshawn Forbes - Fully Assessed Prescriptions as of 03/04/2019 Sig: ETODOLAC 400 MG TABLET Take 1 tablet by mouth twice * ACETAMINOPHEN 325 MG TABLET Take 3 tablets by mouth every* Progress Notes: Bryant Tan, PT 03/04/2019 10:02 AM Signed Episode Visit Count: 6 Therapist That Will Oversee The Plan Of Care: bryant Tan Start of Care Date: 02/16/19 Onset Date: 02/07/19 Patient Identified by Name and Date of : Yes REHABILITATION AND SPORTS THERAPY PHYSICAL THERAPY TREATMENT NOTE ASSESSMENT: Woo Sheldon demonstrated difficulty with RIGHT lateral ankle calf pain since Saturday. The patient will continue to benefit from ongoing skilled physical therapy for increase strength with decrease pain PLAN FOR NEXT VISIT: progress with unilateral squat variations SUBJECTIVE: Patient Reason for Visit: pt states he felt a little better yesterday but today is inc soreness. Pain: Pain Pain Level: 3 OBJECTIVE MEASURES WITH LEVEL OF FUNCTION: ambulate level decrease assym due to knee pain decrease TREATMENT: Sagittal Plane Frontal Plane Transverse Plane X = neutral X = neutral X = neutral R = staggered right W = wide base E = external rotation L = staggered left N = narrow base I = internal rotation 1st letter = sagittal, 2nd letter = frontal, 3rd letter = transverse Examples: XXX = neutral, neutral, neutral RXE = right staggered, neutral width, toes out Therapeutic Exercise: 1: upright bike seat 4 x 10 mnin at level 3 at 60 rpm with cues for peddel position and mechanics for inc rom 2: amb 300 ft level 3: lunge pivots ant post r al l pl l al r pl r l lat rot r l rot l r x 10 ea with cues for intensity and direction and position and technique 4: amb 300 ft level after r l al pivots after lat pivots after rot pivots 7: agility walk ant post r l lat r l carioca x 50 ft <> x 3 8: amb 300 ft level Skilled Intervention: Patient was educated in proper exercise technique and purpose for exercises. Skilled judgment was provided in selection of appropriate interventions. Correct performance of therapeutic exercises was facilitated with verbal, visual and tactile cuing. See flow sheet for details on estim modality Billing: [place]: Therapeutic Exercise (37455): 1:1 time: 40 minutes (3 units: 38-52 mins) Modalities: E-Stim Unattended (44476): 1 unit(s) Total time: 65 minutes rByant Tan PT [facility] PROGRESSon 03-04-2019 PROGRESS HNO ID: [id number] Author: Bryant Tan Service: ? Author Type: Physical Therapist Type: Progress Notes Filed: 03/04/2019 10:02 AM Note Text: Episode Visit Count: 6 Therapist That Will Oversee The Plan Of Care: bryant Tan Start of Care Date: 02/16/19 Onset Date: 02/07/19 Patient Identified by Name and Date of : Yes REHABILITATION AND SPORTS THERAPY PHYSICAL THERAPY TREATMENT NOTE ASSESSMENT: Woo Sheldon demonstrated difficulty with RIGHT lateral ankle calf pain since Saturday. The patient will continue to benefit from ongoing skilled physical therapy for increase strength with decrease pain PLAN FOR NEXT VISIT: progress with unilateral squat variations SUBJECTIVE: Patient Reason for Visit: pt states he felt a little better yesterday but today is inc soreness. Pain: Pain Pain Level: 3 OBJECTIVE MEASURES WITH LEVEL OF FUNCTION: ambulate level decrease assym due to knee pain decrease TREATMENT: Sagittal Plane Frontal Plane Transverse Plane X = neutral X = neutral X = neutral R = staggered right W = wide base E = external rotation L = staggered left N = narrow base I = internal rotation 1st letter = sagittal, 2nd letter = frontal, 3rd letter = transverse Examples: XXX = neutral, neutral, neutral RXE = right staggered, neutral width, toes out Therapeutic Exercise: 1: upright bike seat 4 x 10 mnin at level 3 at 60 rpm with cues for peddel position and mechanics for inc rom 2: amb 300 ft level 3: lunge pivots ant post r al l pl l al r pl r l lat rot r l rot l r x 10 ea with cues for intensity and direction and position and technique 4: amb 300 ft level after r l al pivots after lat pivots after rot pivots 7: agility walk ant post r l lat r l carioca x 50 ft <> x 3 8: amb 300 ft level Skilled Intervention: Patient was educated in proper exercise technique and purpose for exercises. Skilled judgment was provided in selection of appropriate interventions. Correct performance of therapeutic exercises was facilitated with verbal, visual and tactile cuing. See flow sheet for details on estim modality Billing: [place]: Therapeutic Exercise (57690): 1:1 time: 40 minutes (3 units: 38-52 mins) Modalities: E-Stim Unattended (15326): 1 unit(s) Total time: 65 minutes Bryant Tan PT [facility] CNTHERAPYon 03-02-2019 CNTHERAPY OT/PT/Speech Visit (PTMCRM) WOO SHELDON ([id number]) 1990 M Date Time Provider Department 03/02/19 8:30 AM [facility] TAN [facility] Date Time Provider Department Center 03/02/2019 8:30 AM [id number], BRYANT [facility] Reason for Visit: Physical Therapy [503] Primary Visit Diagnosis:Acute pain of right knee [M25.561] Other Visit Diagnoses:Difficulty walking [R26.2] Knee stiffness, right [M25.661] Allergies As of Date: 03/02/2019 (No Known Allergies) Date Reviewed: 02/09/2019 Reviewed by: Keshawn Forbes - Fully Assessed Prescriptions as of 03/02/2019 Sig: ETODOLAC 400 MG TABLET Take 1 tablet by mouth twice * ACETAMINOPHEN 325 MG TABLET Take 3 tablets by mouth every* Progress Notes: Bryant Tan, PT 03/02/2019 9:41 AM Signed Episode Visit Count: 5 Therapist That Will Oversee The Plan Of Care: bryant Tan Start of Care Date: 02/16/19 Onset Date: 02/07/19 Patient Identified by Name and Date of : Yes REHABILITATION AND SPORTS THERAPY PHYSICAL THERAPY TREATMENT NOTE ASSESSMENT: Woo Sheldon demonstrated difficulty with increase soreness and tightness RIGHT knee The patient will continue to benefit from ongoing skilled physical therapy for increase strength and mobility in hip dominant activity to decrease stress at knee via increase balance hip and core loaded tri feliberto activity PLAN FOR NEXT VISIT: progress lunge pivots SUBJECTIVE: Patient Reason for Visit: pt states that he is having inc soreness Pain: Pain Pain Level: 5 OBJECTIVE MEASURES WITH LEVEL OF FUNCTION: ambulate level increase assym at onset of rx and decrease assym after rx TREATMENT: Sagittal Plane Frontal Plane Transverse Plane X = neutral X = neutral X = neutral R = staggered right W = wide base E = external rotation L = staggered left N = narrow base I = internal rotation 1st letter = sagittal, 2nd letter = frontal, 3rd letter = transverse Examples: XXX = neutral, neutral, neutral RXE = right staggered, neutral width, toes out Therapeutic Exercise: 1: upright bike seat 4 x 10 mnin at level 3 at 60 rpm with cues for peddel position and mechanics for inc rom 2: amb 300 ft level 3: btb r l bal opp foot kikc band knee ext flex ext abd add x 15 ea in ea directions 4: amb 300 ft level 5: btb b [facility] RXx LXx flex ext as lucio x 10 ea XWX XNX abd add overhead lat r l x 10 ea XXE XXI rot r l at shoulder x 15 ea in ea foot position face for and back flex ext face r and l with lat overhead and with rot 6: amb 300 ft level 7: agility walk ant post r l lat r l carioca x 50 ft <> x 3 Skilled Intervention: Patient was educated in proper exercise technique and purpose for exercises. Skilled judgment was provided in selection of appropriate interventions. Correct performance of therapeutic exercises was facilitated with verbal, visual and tactile cuing. Modalities: E-Stim Unattended Body Region Treated - E-Stim Unattended: r knee Patient Position: supine b le elevated Current: ifc Channels: 2 Intensity: 13 Minutes: 14 min with ice See flowsheet for details regarding treatment. Skilled Intervention: Proper administration and selection of modality based on clinical presentation, deficits, and needs. Patient response monitored throughout treatment. Billing: [place]: Therapeutic Exercise ([id number]): 1:1 time: 42 minutes (3 units: 38-52 mins) Modalities: E-Stim Unattended ([id number]): 1 unit(s) Total time: 65 minutes Bryant Tan PT [facility] PROGRESSon 03-02-2019 PROGRESS HNO ID: [id number] Author: Bryant Tan Service: ? Author Type: Physical Therapist Type: Progress Notes Filed: 03/02/2019 9:41 AM Note Text: Episode Visit Count: 5 Therapist That Will Oversee The Plan Of Care: bryant Tan Start of Care Date: 02/16/19 Onset Date: 02/07/19 Patient Identified by Name and Date of : Yes REHABILITATION AND SPORTS THERAPY PHYSICAL THERAPY TREATMENT NOTE ASSESSMENT: Woo Sheldon demonstrated difficulty with increase soreness and tightness RIGHT knee The patient will continue to benefit from ongoing skilled physical therapy for increase strength and mobility in hip dominant activity to decrease stress at knee via increase balance hip and core loaded tri feliberto activity PLAN FOR NEXT VISIT: progress lunge pivots SUBJECTIVE: Patient Reason for Visit: pt states that he is having inc soreness Pain: Pain Pain Level: 5 OBJECTIVE MEASURES WITH LEVEL OF FUNCTION: ambulate level increase assym at onset of rx and decrease assym after rx TREATMENT: Sagittal Plane Frontal Plane Transverse Plane X = neutral X = neutral X = neutral R = staggered right W = wide base E = external rotation L = staggered left N = narrow base I = internal rotation 1st letter = sagittal, 2nd letter = frontal, 3rd letter = transverse Examples: XXX = neutral, neutral, neutral RXE = right staggered, neutral width, toes out Therapeutic Exercise: 1: upright bike seat 4 x 10 mnin at level 3 at 60 rpm with cues for peddel position and mechanics for inc rom 2: amb 300 ft level 3: btb r l bal opp foot kikc band knee ext flex ext abd add x 15 ea in ea directions 4: amb 300 ft level 5: btb [facility] RXx LXx flex ext as lucio x 10 ea XWX XNX abd add overhead lat r l x 10 ea XXE XXI rot r l at shoulder x 15 ea in ea foot position face for and back flex ext face r and l with lat overhead and with rot 6: amb 300 ft level 7: agility walk ant post r l lat r l carioca x 50 ft <> x 3 Skilled Intervention: Patient was educated in proper exercise technique and purpose for exercises. Skilled judgment was provided in selection of appropriate interventions. Correct performance of therapeutic exercises was facilitated with verbal, visual and tactile cuing. Modalities: E-Stim Unattended Body Region Treated - E-Stim Unattended: r knee Patient Position: supine b le elevated Current: ifc Channels: 2 Intensity: 13 Minutes: 14 min with ice See flowsheet for details regarding treatment. Skilled Intervention: Proper administration and selection of modality based on clinical presentation, deficits, and needs. Patient response monitored throughout treatment. Billing: [place]: Therapeutic Exercise (92503): 1:1 time: 42 minutes (3 units: 38-52 mins) Modalities: E-Stim Unattended ([id number]): 1 unit(s) Total time: 65 minutes Bryant Tan PT [facility] CNTHERAPYon 02-25-2019 [facility]THERAPY [facility] WOO SHELDON ([id number]) 1990 M Date Time Provider Department 02/25/19 2:00 PM BRYANT TAN [facility] Date Time Provider Department Center 02/25/2019 2:00 PM [id number], JAY [facility] Reason for Visit: Physical Therapy [503] Primary Visit Diagnosis:Acute pain of right knee [M25.561] Other Visit Diagnoses:Difficulty walking [R26.2] Knee stiffness, right [M25.661] Allergies As of Date: 02/25/2019 (No Known Allergies) Date Reviewed: 02/09/2019 Reviewed by: Keshawn Forbes - Fully Assessed Prescriptions as of 02/25/2019 Sig: ETODOLAC 400 MG TABLET Take 1 tablet by mouth twice * ACETAMINOPHEN 325 MG TABLET Take 3 tablets by mouth every* Progress Notes: Bryant Tan PT 02/25/2019 2:52 PM Signed Episode Visit Count: 4 Therapist That Will Oversee The Plan Of Care: bryant Tan Start of Care Date: 02/16/19 Onset Date: 02/07/19 Patient Identified by Name and Date of : Yes REHABILITATION AND SPORTS THERAPY PHYSICAL THERAPY TREATMENT NOTE ASSESSMENT: Woo Sheldon demonstrated improvements in pain and gait mechanics The patient will continue to benefit from ongoing skilled physical therapy for increase flexibility and mobility PLAN FOR NEXT VISIT: progress with increase strength With Lift and carry as tolerated SUBJECTIVE: Patient Reason for Visit: pt states pain is less and rom is incing Pain: Pain Pain Level: 1 OBJECTIVE MEASURES WITH LEVEL OF FUNCTION: step up dn all planes no reported increase pain TREATMENT: Sagittal Plane Frontal Plane Transverse Plane X = neutral X = neutral X = neutral R = staggered right W = wide base E = external rotation L = staggered left N = narrow base I = internal rotation 1st letter = sagittal, 2nd letter = frontal, 3rd letter = transverse Examples: XXX = neutral, neutral, neutral RXE = right staggered, neutral width, toes out Therapeutic Exercise: 1: upright bike seat 4 x 7 mnin at level 3 at 60 rpm with cues for peddel position and mechanics for inc rom 2: amb 300 ft level 3: btb r l bal opp foot kikc band knee ext flex ext abd add x 15 ea in ea directions 4: amb 300 ft level 5: 8 step up dn lead r lead l ant same side lat same side rot x 15 ea in ea direction 6: amb 300 ft level between sets ea 7: agility walk ant post r l lat r l carioca x 50 ft <> x 3 Skilled Intervention: Patient was educated in proper exercise technique and purpose for exercises. Skilled judgment was provided in selection of appropriate interventions. Correct performance of therapeutic exercises was facilitated with verbal, visual and tactile cuing. Modality estim unattended see flow sheet for details Billing: [place]: Therapeutic Exercise ([id number]): 1:1 time: 40 minutes (3 units: 38-52 mins) Modalities: E-Stim Unattended ([id number]): 1 unit(s) Total time: 65 minutes Bryant Tan PT [facility] PROGRESSon 02-25-2019 PROGRESS HNO ID: [id number] Author: Bryant Tan Service: ? Author Type: Physical Therapist Type: Progress Notes Filed: 02/25/2019 2:52 PM Note Text: Episode Visit Count: 4 Therapist That Will Oversee The Plan Of Care: bryant Tan Start of Care Date: 02/16/19 Onset Date: 02/07/19 Patient Identified by Name and Date of : Yes REHABILITATION AND SPORTS THERAPY PHYSICAL THERAPY TREATMENT NOTE ASSESSMENT: Woo Sheldon demonstrated improvements in pain and gait mechanics The patient will continue to benefit from ongoing skilled physical therapy for increase flexibility and mobility PLAN FOR NEXT VISIT: progress with increase strength With Lift and carry as tolerated SUBJECTIVE: Patient Reason for Visit: pt states pain is less and rom is incing Pain: Pain Pain Level: 1 OBJECTIVE MEASURES WITH LEVEL OF FUNCTION: step up dn all planes no reported increase pain TREATMENT: Sagittal Plane Frontal Plane Transverse Plane X = neutral X = neutral X = neutral R = staggered right W = wide base E = external rotation L = staggered left N = narrow base I = internal rotation 1st letter = sagittal, 2nd letter = frontal, 3rd letter = transverse Examples: XXX = neutral, neutral, neutral RXE = right staggered, neutral width, toes out Therapeutic Exercise: 1: upright bike seat 4 x 7 mnin at level 3 at 60 rpm with cues for peddel position and mechanics for inc rom 2: amb 300 ft level 3: btb r l bal opp foot kikc band knee ext flex ext abd add x 15 ea in ea directions 4: amb 300 ft level 5: 8 step up dn lead r lead l ant same side lat same side rot x 15 ea in ea direction 6: amb 300 ft level between sets ea 7: agility walk ant post r l lat r l carioca x 50 ft <> x 3 Skilled Intervention: Patient was educated in proper exercise technique and purpose for exercises. Skilled judgment was provided in selection of appropriate interventions. Correct performance of therapeutic exercises was facilitated with verbal, visual and tactile cuing. Modality estim unattended see flow sheet for details Billing: [place]: Therapeutic Exercise ([id number]): 1:1 time: 40 minutes (3 units: 38-52 mins) Modalities: E-Stim Unattended (30422): 1 unit(s) Total time: 65 minutes Bryant Tan PT [facility] CNTHERAPYon 02-23-2019 CNTHERAPY OT/PT/Speech Visit (PT[facility]) WOO SHELDON ([id number]) 1990 M Date Time Provider Department 02/23/19 2:00 PM BRYANT TAN [facility] Date Time Provider Department Center 02/23/2019 2:00 PM [id number] [facility] Reason for Visit: Physical Therapy [503] Primary Visit Diagnosis:Acute pain of right knee [M25.561] Other Visit Diagnoses:Difficulty walking [R26.2] Knee stiffness, right [M25.661] Allergies As of Date: 02/23/2019 (No Known Allergies) Date Reviewed: 02/09/2019 Reviewed by: Keshawn Forbes - Fully Assessed Prescriptions as of 02/23/2019 Sig: ETODOLAC 400 MG TABLET Take 1 tablet by mouth twice * ACETAMINOPHEN 325 MG TABLET Take 3 tablets by mouth every* Progress Notes: Bryant Tan, PT 02/23/2019 2:34 PM Signed Episode Visit Count: 3 Therapist That Will Oversee The Plan Of Care: bryant Tan Start of Care Date: 02/16/19 Onset Date: 02/07/19 Patient Identified by Name and Date of : Yes REHABILITATION AND SPORTS THERAPY PHYSICAL THERAPY TREATMENT NOTE ASSESSMENT: Woo Sheldon demonstrated difficulty with stiffness andweakness and pain The patient will continue to benefit from ongoing skilled physical therapy for increase flexibility and mobility PLAN FOR NEXT VISIT: progress flexibility and mobility SUBJECTIVE: Patient Reason for Visit: pt states that he is doing a little worse and a little better. ache is up rom is up Pain: Pain Pain Level: 3 OBJECTIVE MEASURES WITH LEVEL OF FUNCTION: LE AROM R LE AROM: 136 flex -5 ext TREATMENT: Sagittal Plane Frontal Plane Transverse Plane X = neutral X = neutral X = neutral R = staggered right W = wide base E = external rotation L = staggered left N = narrow base I = internal rotation 1st letter = sagittal, 2nd letter = frontal, 3rd letter = transverse Examples: XXX = neutral, neutral, neutral RXE = right staggered, neutral width, toes out Therapeutic Exercise: 1: upright bike seat 4 x 7 mnin at level 3 at 60 rpm with cues for peddel position and mechanics for inc rom 2: supine heel slides with quad sest r knee x 10 5 sec ea 3: amb 300 ft level 6: alt r l lunge steps grid ant ant lat lat post lat post x 10 ea alt r l le 7: u squats r l x 10 ea x 3 sets alt r l sets 8: amb 300 ft level 9: u bal r l heel raises r l x 10 x 3 sets alt r l sets Skilled Intervention: Patient was educated in proper exercise technique and purpose for exercises. Skilled judgment was provided in selection of appropriate interventions. Correct performance of therapeutic exercises was facilitated with verbal, visual and tactile cuing. Billing: [place]: Therapeutic Exercise ([id number]): 1:1 time: 32 minutes (2 units: 23-37 mins) Modalities: E-Stim Unattended (78382): 1 unit(s) Total time: 50 minutes Bryant Tan PT [facility] PROGRESSon 02-23-2019 PROGRESS HNO ID: [id number] Author: Bryant Tan Service: ? Author Type: Physical Therapist Type: Progress Notes Filed: 02/23/2019 2:34 PM Note Text: Episode Visit Count: 3 Therapist That Will Oversee The Plan Of Care: bryant Tan Start of Care Date: 02/16/19 Onset Date: 02/07/19 Patient Identified by Name and Date of : Yes REHABILITATION AND SPORTS THERAPY PHYSICAL THERAPY TREATMENT NOTE ASSESSMENT: Woo Sheldon demonstrated difficulty with stiffness andweakness and pain The patient will continue to benefit from ongoing skilled physical therapy for increase flexibility and mobility PLAN FOR NEXT VISIT: progress flexibility and mobility SUBJECTIVE: Patient Reason for Visit: pt states that he is doing a little worse and a little better. ache is up rom is up Pain: Pain Pain Level: 3 OBJECTIVE MEASURES WITH LEVEL OF FUNCTION: LE AROM R LE AROM: 136 flex -5 ext TREATMENT: Sagittal Plane Frontal Plane Transverse Plane X = neutral X = neutral X = neutral R = staggered right W = wide base E = external rotation L = staggered left N = narrow base I = internal rotation 1st letter = sagittal, 2nd letter = frontal, 3rd letter = transverse Examples: XXX = neutral, neutral, neutral RXE = right staggered, neutral width, toes out Therapeutic Exercise: 1: upright bike seat 4 x 7 mnin at level 3 at 60 rpm with cues for peddel position and mechanics for inc rom 2: supine heel slides with quad sest r knee x 10 5 sec ea 3: amb 300 ft level 6: alt r l lunge steps grid ant ant lat lat post lat post x 10 ea alt r l le 7: u squats r l x 10 ea x 3 sets alt r l sets 8: amb 300 ft level 9: u bal r l heel raises r l x 10 x 3 sets alt r l sets Skilled Intervention: Patient was educated in proper exercise technique and purpose for exercises. Skilled judgment was provided in selection of appropriate interventions. Correct performance of therapeutic exercises was facilitated with verbal, visual and tactile cuing. Billing: [place]: Therapeutic Exercise ([id number]): 1:1 time: 32 minutes (2 units: 23-37 mins) Modalities: E-Stim Unattended ([id number]): 1 unit(s) Total time: 50 minutes Bryant Tan PT [facility] CNTHERAPYon 02-19-2019 CNTHERAPY OT/PT/Speech Visit (PTMCRM) WOO SHELDON ([id number]) 1990 M Date Time Provider Department 02/19/19 7:45 AM [facility]ANT TAN [facility] Date Time Provider Department Center 02/19/2019 7:45 AM [id number]: [facility] [503] Primary Visit Diagnosis:Acute pain of right knee [M25.561] Other Visit Diagnoses:Difficulty walking [R26.2] Knee stiffness, right [M25.661] Allergies As of Date: 02/19/2019 (No Known Allergies) Date Reviewed: 02/09/2019 Reviewed by: Keshawn Forbes - Fully Assessed Prescriptions as of 02/19/2019 Sig: ETODOLAC 400 MG TABLET Take 1 tablet by mouth twice * NAPROXEN 500 MG TABLET Take 1 tablet by mouth twice * NAPROXEN 500 MG TABLET Take 1 tablet by mouth twice * ACETAMINOPHEN 325 MG TABLET Take 3 tablets by mouth every* Progress Notes: Bryant Tan PT 02/19/2019 9:19 AM Signed Episode Visit Count: 2 Therapist That Will Oversee The Plan Of Care: bryant Tan Start of Care Date: 02/16/19 Onset Date: 02/07/19 Patient Identified by Name and Date of : Yes Late by 15 min Provided print out of the schedule with appointment times REHABILITATION AND SPORTS THERAPY PHYSICAL THERAPY TREATMENT NOTE ASSESSMENT: Woo Sheldon demonstrated improvements in range of motion and pain The patient will continue to benefit from ongoing skilled physical therapy for increase flexibility and functional mobility and strength in standing PLAN FOR NEXT VISIT: progress lunge steps as tolerated SUBJECTIVE: Patient Reason for Visit: pt states less pain and a little motre motion sice eval MRI sched for tues next week RIGHT knee Pain: Pain Pain Level: 3 OBJECTIVE MEASURES WITH LEVEL OF FUNCTION: arom RIGHT knee flexion 123 extension -10 increase pain at end range of motion all Bilateral squat RIGHT knee flexion 98 extension -12 TREATMENT: Therapeutic Exercise: 1: upright bike seat 4 x 7 mnin at level 3 at 60 rpm with cues for peddel position and mechanics for inc rom 2: supine heel slides with quad sest r knee x 10 5 sec ea 3: b squats b heel raises XXX RXX LXX XWX XNX XXE XXI x 5 ea 4: amb 100 ft between position change 5: amb 300 ft level Skilled Intervention: Patient was educated in proper exercise technique and purpose for exercises. Skilled judgment was provided in selection of appropriate interventions. Correct performance of therapeutic exercises was facilitated with verbal, visual and tactile cuing. Modality estim see flow sheet for details Billing: [place]: Therapeutic Exercise ([id number]): 1:1 time: 25 minutes (2 units: 23-37 mins) Modalities: E-Stim Unattended ([id number]): 1 unit(s) Total time: 50 minutes Bryant Tan PT [facility] PROGRESSon 02-19-2019 PROGRESS HNO ID: [id number] Author: Bryant Tan Service: ? Author Type: Physical Therapist Type: Progress Notes Filed: 02/19/2019 9:19 AM Note Text: Episode Visit Count: 2 Therapist That Will Oversee The Plan Of Care: bryant Tan Start of Care Date: 02/16/19 Onset Date: 02/07/19 Patient Identified by Name and Date of : Yes Late by 15 min Provided print out of the schedule with appointment times REHABILITATION AND SPORTS THERAPY PHYSICAL THERAPY TREATMENT NOTE ASSESSMENT: Woo Sheldon demonstrated improvements in range of motion and pain The patient will continue to benefit from ongoing skilled physical therapy for increase flexibility and functional mobility and strength in standing PLAN FOR NEXT VISIT: progress lunge steps as tolerated SUBJECTIVE: Patient Reason for Visit: pt states less pain and a little motre motion sice eval MRI sched for tues next week RIGHT knee Pain: Pain Pain Level: 3 OBJECTIVE MEASURES WITH LEVEL OF FUNCTION: arom RIGHT knee flexion 123 extension -10 increase pain at end range of motion all Bilateral squat RIGHT knee flexion 98 extension -12 TREATMENT: Therapeutic Exercise: 1: upright bike seat 4 x 7 mnin at level 3 at 60 rpm with cues for peddel position and mechanics for inc rom 2: supine heel slides with quad sest r knee x 10 5 sec ea 3: b squats b heel raises XXX RXX LXX XWX XNX XXE XXI x 5 ea 4: amb 100 ft between position change 5: amb 300 ft level Skilled Intervention: Patient was educated in proper exercise technique and purpose for exercises. Skilled judgment was provided in selection of appropriate interventions. Correct performance of therapeutic exercises was facilitated with verbal, visual and tactile cuing. Modality estim see flow sheet for details Billing: [place]: Therapeutic Exercise ([id number]): 1:1 time: 25 minutes (2 units: 23-37 mins) Modalities: E-Stim Unattended (42452): 1 unit(s) Total time: 50 minutes Bryant Tan PT [facility] CNTHERAPYon 02-16-2019 CNTHERAPY OT/PT/Speech Visit (PTMCRM) WOO SHELDON ([id number]) 1990 M Date Time Provider Department 02/16/19 9:15 AM DOMINICK, BRYANT [facility] Date Time Provider Department Center 02/16/2019 9:15 AM [id number], JAY [facility] Reason for Visit: PT Re-eval [891] Visit Diagnoses:Acute pain of right knee [M25.561] Difficulty walking [R26.2] Knee stiffness, right [M25.661] Allergies As of Date: 02/16/2019 (No Known Allergies) Date Reviewed: 02/09/2019 Reviewed by: Keshawn Forbes - Fully Assessed Prescriptions as of 02/16/2019 Sig: ETODOLAC 400 MG TABLET Take 1 tablet by mouth twice * NAPROXEN 500 MG TABLET Take 1 tablet by mouth twice * NAPROXEN 500 MG TABLET Take 1 tablet by mouth twice * ACETAMINOPHEN 325 MG TABLET Take 3 tablets by mouth every* Progress Notes: Bryant Tan, PT 02/16/2019 10:15 AM Signed Episode Visit Count: 1 Therapist That Will Oversee The Plan Of Care: bryant Tan Start of Care Date: 02/16/19 Onset Date: 02/07/19 Patient Identified by Name and Date of : Yes REHABILITATION AND SPORTS THERAPY PHYSICAL THERAPY EVALUATION PLAN OF CARE: Assessment: Woo Sheldon presents with the diagnosis of Locked knee, right [M23.91] . He presents with impairments of weakness stiffness pain and instability in wt bearing activity. He may benefit from skilled therapy services to improve arom functional range of motion and flexibility and mobility and strength . Prognosis: Fair Fair due to: clinical presentation;limited tolerance to activity Goals for Episode of Care: created on 02/16/19 through 03/18/19 Decrease pain by pt report 0-3/10 max RIGHT knee Ambulate with decrease assym decrease pain x 5 min level Ambulate 24 steps reciprocal no increase pain min assym Ambulate agility all planes no increase pain Ambulate uneven surface x 5 min no increase pain increase up dn hills and side hills Bilateral squat knee RIGHT flexion extension increase from eval Increase arom RIGHT knee flexion extension increase from eval Hip mobility RIGHT LEFT extension adduction internal rotation external rotation increase from eval in stand Squat to lift x 40# carry 300 ft level and up dn 24 steps reciprocal no pain Transfers bed bath car all with decrease pain increase ease rel to RIGHT knee [place] in home exercise program. Planned Interventions, Frequency, and Duration: Current Frequency: 2x/week Duration: 4 weeks Total Number of Visits Planned: 8 Planned Treatment Interventions: Therapeutic exercise;Therapeutic activities;Gait Training;Modalities;Fu nctional training Patient demonstrates good understanding of plan of care and treatment. The above goals and plan of care were discussed and agreed upon by patient/family. SUBJECTIVE: Woo Sheldon is a 28 year old male seen today for pt fell when roof he was on fell in Patient Goals: back to normal and wilmar=t rom and strength back Functional Limitations: sitting;rising from a chair;standing;walking ;walking in the house;walking in the community;bending;stai r negotiation;heavy exertion;lifting;physi sara activities;recreationa l activities;kneeling;ru nning;jumping;squattin g;working;sleeping;dri ving;twisting; pulling;pushing;carryi ng Prior Level of Function: Independent without limitations Intake Information: Prescription present Previous Treatment: None Falls Interview: No positive findings with falls interview Aquatic Screen: Yes Patient Weight: is 400 lbs or less Contra-indications to Aquatic Therapy: No noted contra-indications Ability to ascend /descend 5 stairs with assist of railing: Yes Pain: Pain Pain Level: 7 Pain Location: Knee - Right Description: Aching;Dull;Sharp;Shoo ting;Tightness Frequency: Continuous;Intermitten t OBJECTIVE MEASURES WITH LEVEL OF FUNCTION: Knee Observations R Knee Presents with: Swelling(1.0 cm or less r knee at joint line ) Sensation - Lower Extremity LE Light Touch Sensation: Grossly Intact LE AROM R LE AROM: flex 107 ext -16 L LE AROM: flex 138 ext 0 R Hip Extension: 20 Degrees R Hip Flexion: 85 Degrees R Hip ABduction: 40 Degrees R Hip ADduction: 15 Degrees R Hip Internal Rotation: 22 Degrees R Hip External Rotation: 35 Degrees L Hip Extension: 25 Degrees L Hip Flexion: 105 Degrees L Hip ABduction : 48 Degrees L Hip ADduction: 25 Degrees L Hip Internal Rotation: 37 Degrees L Hip External Rotation: 55 Degrees LE PROM R LE PROM: 110 flex -12 ext LE Strength Trunk Strength: hip mob ext r 3-4 l 6-5 add r 6-7 l 8-9 ir r 25-26 l 35-36 er r 35-36 l 44-45 R LE Strength: hip flex 3+/5 abd add 4-/5 knee flex ext 3+/5 ankle df pf 4-/5 L LE Strength: all 5/5 no pain hip flex abd add knee flex ext ankle df pf Functional Strength Functional Strength: b squat hip flex 95 knee flex 90 u bal r 10 sec l 10 sec u squat r hip flex 85 knee flex 78 inc pain l u squat hip flex 95 knee flex 94 no pain Gait Weight Bearing Status: WBAT Gait: Independent Gait Distance (feet): 200 Gait Device: None Gait Observation: sig assym due to inc pain weakness and instability Stairs: Independent Stairs Device: Rail Number of Stairs: 12 Stairs: sig assym due to inc pain r knee with wt bearing activity Education: Education Learning Preferences: Demonstration;Explanat ion Barriers: None Learning/educational needs: Plan of Care;Home exercise program;Changes in Plan of Care Education Provided: Yes, see treatment interventions for education provided Education Provided To: Patient Education Mode/Type: Demonstration;Explanat ion/Discussion Response to Education/Teach Back: Requires Review/Additional Education TREATMENT: Sagittal Plane Frontal Plane Transverse Plane X = neutral X = neutral X = neutral R = staggered right W = wide base E = external rotation L = staggered left N = narrow base I = internal rotation 1st letter = sagittal, 2nd letter = frontal, 3rd letter = transverse Examples: XXX = neutral, neutral, neutral RXE = right staggered, neutral width, toes out Evaluation Evaluation Therapeutic Exercise: 1: sit to stand to sit x 6 2: arom stretch r l le hip flkex ext abd add ir er knee flex ext john df pf x 3 3: hip mob r l ext add ir er in stand x 3 4: strength r l le against PT resistance hip flex abd add knee flex ext ankle df pf x 3 5: b squats x 3 6: u bal r l x 2 7: u squats r l x 3 8: amb level x 300 ft with no asst 9: amb 12 steps recip 1 hand rail with assym Skilled Intervention: Patient was educated in proper exercise technique and purpose for exercises. Skilled judgment was provided in selection of appropriate interventions. Correct performance of therapeutic exercises was facilitated with verbal, visual and tactile cuing. Billing: [place]: Evaluation - Low Complexity ([id number]) Therapeutic Exercise ([id number]): 1:1 time: 25 minutes (2 units: 23-37 mins) Total time: 45 minutes Bryant Tan PT [facility] PROGRESSon 02-16-2019 PROGRESS HNO ID: [id number] Author: Bryant Tan Service: ? Author Type: Physical Therapist Type: Progress Notes Filed: 02/16/2019 10:15 AM Note Text: Episode Visit Count: 1 Therapist That Will Oversee The Plan Of Care: bryant Tan Start of Care Date: 02/16/19 Onset Date: 02/07/19 Patient Identified by Name and Date of : Yes REHABILITATION AND SPORTS THERAPY PHYSICAL THERAPY EVALUATION PLAN OF CARE: Assessment: Woo Sheldon presents with the diagnosis of Locked knee, right [M23.91] . He presents with impairments of weakness stiffness pain and instability in wt bearing activity. He may benefit from skilled therapy services to improve arom functional range of motion and flexibility and mobility and strength . Prognosis: Fair Fair due to: clinical presentation;limited tolerance to activity Goals for Episode of Care: created on 02/16/19 through 03/18/19 Decrease pain by pt report 0-3 max RIGHT knee Ambulate with decrease assym decrease pain x 5 min level Ambulate 24 steps reciprocal no increase pain min assym Ambulate agility all planes no increase pain Ambulate uneven surface x 5 min no increase pain increase up dn hills and side hills Bilateral squat knee RIGHT flexion extension increase from eval Increase arom RIGHT knee flexion extension increase from eval Hip mobility RIGHT LEFT extension adduction internal rotation external rotation increase from eval in stand Squat to lift x 40# carry 300 ft level and up dn 24 steps reciprocal no pain Transfers bed bath car all with decrease pain increase ease rel to RIGHT knee [place] in home exercise program. Planned Interventions, Frequency, and Duration: Current Frequency: 2x/week Duration: 4 weeks Total Number of Visits Planned: 8 Planned Treatment Interventions: Therapeutic exercise;Therapeutic activities;Gait Training;Modalities;Fu nctional training Patient demonstrates good understanding of plan of care and treatment. The above goals and plan of care were discussed and agreed upon by patient/family. SUBJECTIVE: Woo Sheldon is a 28 year old male seen today for pt fell when roof he was on fell in Patient Goals: back to normal and wilmar=t rom and strength back Functional Limitations: sitting;rising from a chair;standing;walking ;walking in the house;walking in the community;bending;stai r negotiation;heavy exertion;lifting;physi sara activities;recreationa l activities;kneeling;ru nning;jumping;squattin g;working;sleeping;dri ving;twis ting;pulling;pushing;c arrying Prior Level of Function: Independent without limitations Intake Information: Prescription present Previous Treatment: None Falls Interview: No positive findings with falls interview Aquatic Screen: Yes Patient Weight: is 400 lbs or less Contra-indications to Aquatic Therapy: No noted contra-indications Ability to ascend /descend 5 stairs with assist of railing: Yes Pain: Pain Pain Level: 7 Pain Location: Knee - Right Description: Aching;Dull;Sharp;Shoo ting;Tightness Frequency: Continuous;Intermitten t OBJECTIVE MEASURES WITH LEVEL OF FUNCTION: Knee Observations R Knee Presents with: Swelling(1.0 cm or less r knee at joint line ) Sensation - Lower Extremity LE Light Touch Sensation: Grossly Intact LE AROM R LE AROM: flex 107 ext -16 L LE AROM: flex 138 ext 0 R Hip Extension: 20 Degrees R Hip Flexion: 85 Degrees R Hip ABduction: 40 Degrees R Hip ADduction: 15 Degrees R Hip Internal Rotation: 22 Degrees R Hip External Rotation: 35 Degrees L Hip Extension: 25 Degrees L Hip Flexion: 105 Degrees L Hip ABduction : 48 Degrees L Hip ADduction: 25 Degrees L Hip Internal Rotation: 37 Degrees L Hip External Rotation: 55 Degrees LE PROM R LE PROM: 110 flex -12 ext LE Strength Trunk Strength: hip mob ext r 3-4 l 6-5 add r 6-7 l 8-9 ir r 25-26 l 35-36 er r 35-36 l 44-45 R LE Strength: hip flex 3+/5 abd add 4-/5 knee flex ext 3+/5 ankle df pf 4-/5 L LE Strength: all 5/5 no pain hip flex abd add knee flex ext ankle df pf Functional Strength Functional Strength: b squat hip flex 95 knee flex 90 u bal r 10 sec l 10 sec u squat r hip flex 85 knee flex 78 inc pain l u squat hip flex 95 knee flex 94 no pain Gait Weight Bearing Status: WBAT Gait: Independent Gait Distance (feet): 200 Gait Device: None Gait Observation: sig assym due to inc pain weakness and instability Stairs: Independent Stairs Device: Rail Number of Stairs: 12 Stairs: sig assym due to inc pain r knee with wt bearing activity Education: Education Learning Preferences: Demonstration;Explanat ion Barriers: None Learning/educational needs: Plan of Care;Home exercise program;Changes in Plan of Care Education Provided: Yes, see treatment interventions for education provided Education Provided To: Patient Education Mode/Type: Demonstration;Explanat ion/Discussion Response to Education/Teach Back: Requires Review/Additional Education TREATMENT: Sagittal Plane Frontal Plane Transverse Plane X = neutral X = neutral X = neutral R = staggered right W = wide base E = external rotation L = staggered left N = narrow base I = internal rotation 1st letter = sagittal, 2nd letter = frontal, 3rd letter = transverse Examples: XXX = neutral, neutral, neutral RXE = right staggered, neutral width, toes out Evaluation Evaluation Therapeutic Exercise: 1: sit to stand to sit x 6 2: arom stretch r l le hip flkex ext abd add ir er knee flex ext john df pf x 3 3: hip mob r l ext add ir er in stand x 3 4: strength r l le against PT resistance hip flex abd add knee flex ext ankle df pf x 3 5: b squats x 3 6: u bal r l x 2 7: u squats r l x 3 8: amb level x 300 ft with no asst 9: amb 12 steps recip 1 hand rail with assym Skilled Intervention: Patient was educated in proper exercise technique and purpose for exercises. Skilled judgment was provided in selection of appropriate interventions. Correct performance of therapeutic exercises was facilitated with verbal, visual and tactile cuing. Billing: Aurelia: Evaluation - Low Complexity (10010) Therapeutic Exercise (05711): 1:1 time: 25 minutes (2 units: 23-37 mins) Total time: 45 minutes Bryant Tan PT [facility] ED NOTEon 02-08-2019 ED NOTE HNO ID: [id number] Author: Lyndsey (Rn) ANKIT Garrett Service: Nursing Author Type: Registered Nurse Type: ED Notes Filed: 02/07/2019 10:14 PM Note Text: Pt discharged from the facility at this time in satisfactory condition at this time. Pt educated on how to schedule follow up appt with PCP. This nurse reviewed entire discharge packet with Pt. Pt verbalized understanding. All signatures obtained for discharge. Pt has a ride home. Pt left with all personal belongings exiting the facility. Pt left with knee immobilizer and crutches. [facility] ED PROV NOTEon 02-08-2019 ED PROV NOTE HNO ID: [id number] Author: Fabiana Skinner MD Service: Emergency Medicine Author Type: Physician Type: ED Provider Notes Filed: 02/07/2019 10:16 PM Note Text: ED Provider Note Patient Name: Woo Sheldon SERVICE DATE: 02/07/19 History Patient presents with: Fall Knee Pain Patient presents for right knee pain. Patient fell approximately 5 feet while at work and landed straddling a radial. He landed on his right knee and is also complaining of right buttocks pain. Patient denies hitting his head, neck or injuring his back. Patient was seen at another emergency Department earlier and had an x-ray of the knee. He was given a knee brace and Tylenol for pain. He was told he an outpatient MRI of the knee. Patient presents requesting the outpatient MRI at this time. He has no new complaints other than continued pain.. PAST MEDICAL HISTORY Diagnosis Date - Cellulitis - Cellulitis PAST SURGICAL HISTORY Procedure Laterality Date - COLOSTOMY HX with reversal No family history on file. Social History Tobacco Use - Smoking status: Current Every Day Smoker Packs/day: 1.00 Types: Cigarettes - Smokeless tobacco: Never Used Substance and Sexual Activity - Alcohol use: Yes Comment: rare - Drug use: No - Sexual activity: Not on file ALLERGIES No Known Allergies Review of Systems Constitutional: Negative for fatigue and fever. All other systems negative except as documented in the HPI. HENT: Negative for congestion, rhinorrhea and sore throat. Eyes: Negative for pain and discharge. Respiratory: Negative for cough and shortness of breath. Cardiovascular: Negative for chest pain and palpitations. Gastrointestinal: Negative for abdominal pain, constipation, diarrhea, nausea and vomiting. Genitourinary: Negative for dysuria, frequency and urgency. Musculoskeletal: Positive for arthralgias and myalgias. Negative for back pain and neck pain. Skin: Negative for pallor and rash. Neurological: Negative for dizziness, weakness and headaches. All other systems reviewed and are negative. Physical Exam BP 137/71 Pulse 90 Temp (Src) 98 (Oral) Resp 16 Wt 246 lb 14.6 oz (112.0kg) SpO2 99% O2 Therapy: Room Air Physical Exam Constitutional: He is oriented to person, place, and time. He appears well-developed and well-nourished. No distress. HENT: Head: Normocephalic and atraumatic. Eyes: Pupils are equal, round, and reactive to light. EOM are normal. Neck: Normal range of motion. Neck supple. Cardiovascular: Normal rate, regular rhythm and intact distal pulses. Pulmonary/Chest: Effort normal. No respiratory distress. Musculoskeletal: Normal range of motion. He exhibits tenderness. He exhibits no deformity. Right knee: He exhibits bony tenderness. He exhibits normal range of motion, no swelling and no erythema. Tenderness found. Medial joint line tenderness noted. Legs: Neurological: He is alert and oriented to person, place, and time. No sensory deficit. Nursing note and vitals reviewed. Diagnostic Testing ED Labs Ordered and Reviewed - No data to display Procedures ED Course / Clinical Impression Clinical Impressions as of Feb 08 2216 Right knee injury, subsequent encounter MDM / Disposition / Plan Patient's knee x-ray was reviewed, and there was questionable osteochondral damage to the medial femoral condyle that correlates to patient's area of point tenderness. Patient was discussed with Dr. Wheeler, and was placed in a knee immobilizer, given crutches, and made nonweightbearing. He is to follow-up with Dr. Wheeler outpatient for further evaluation. Patient is to use [id number] pain medications and ice for pain and was given a prescription for [place] for severe pain. A Maykel he has a work note for Saturday. He was discharged home. He declined any pain medication while in the emergency department. SIGNATURE: MD Fabiana Eden MD 02/07/19 2216 [facility] ED NOTEon 02-07-2019 ED NOTE HNO ID: [id number] Author: Geno (Rn) ANKIT Galvan Service: Emergency Medicine Author Type: Registered Nurse Type: ED Notes Filed: 02/07/2019 9:06 PM Note Text: Pt presents from that [facility] [address] with c/o right knee pain. Pt states he fell approx 4 feet from a ladder and landed straddled on the hand rail of a porch deck. Pt states he had xrays of his back already done, but he came to this ED to get an MRI of the knee [facility] K/L Qnt Free Light Chains wi th Ratioon 01-07-2019 K/L Free Light Chain Ratio 1.23 Normal 0.26-1.65 [facility] [facility] Comment on above: Result Comment: Perf ormed by [employer], [address] [place] [id number] [email or web address] ? IO, Nikunj Pope MD - Lab. Director Performed By: #### H EMDF, LACT3, LDH3, URIC3, CMP3, CRP2, IGQNT, ESR ####[facility] [address] [place] [address]#### HEPAN, HIV4, REG ####[employer] [id number] [place] [address]#### SPRTE ####[facility] [address] [place], [place] [address] [address]#### KLFQO ####The performing lab is in the report. [place] Free Light Chains 1.25 mg/dL Normal 0.33-1.94 [facility] Comment on above: Performed By: #### H EMDF, LACT3, LDH3, URIC3, CMP3, CRP2, IGQNT, ESR ####[employer] [address] [place] [address]#### HEPAN, HIV4, REG ####[address] [address]#### SPRTE ####[place] [address]#### KLFQO ####The performing lab is in the report. [place] Free Light Chains 1.02 mg/dL Normal 0.57-2.63 [facility] Comment on above: Performed By: #### H EMDF, LACT3, LDH3, URIC3, CMP3, CRP2, IGQNT, ESR ####[address] [address]#### HEPAN, HIV4, REG ####[address] [address]#### SPRTE ####[place] [address]#### KLFQO ####The performing lab is in the report. Anti-Nuclear Antibodyon 12-12 REG Titer < 1 : 40 Normal <1:40 [facility] Comment on above: Performed By: #### H EMDF, LACT3, LDH3, URIC3, CMP3, CRP2, IGQNT, ESR ####[address] [address]#### HEPAN, HIV4, REG ####[place] [address]#### SPRTE ####[place] [address]#### KLFQO ####The performing lab is in the report. Comp Metabolic Panelon 01-05 ALT [Catalytic activity/Vol] 49 U/L Normal 13-69 [facility] Comment on above: Performed By: #### C MP3 ####[address] [address] Calcium [Mass/Vol] 9.4 mg/dL Normal 8.4-10.4 [facility] Comment on above: Performed By: #### C MP3 ####[place] [address] [place] [address] Glucose [Mass/Vol] 94 mg/dL Normal 70-100 [facility] Comment on above: Performed By: #### C MP3 ####[place] [address] [place] [address] ALP [Catalytic activity/Vol] 45 U/L Normal 38-126 [facility] Comment on above: Performed By: #### C MP3 ####[place] [address] [place] [address] Anion gap [Moles/Vol] 7 Normal [facility] Comment on above: Performed By: #### C MP3 ####[place] [address] [place] [address] AST [Catalytic activity/Vol] 36 U/L Normal 15-46 [facility] Comment on above: Performed By: #### C MP3 ####[place] [address] [place] [address] Bilirubin [Mass/Vol] 0.6 mg/dL Normal 0.2-1.3 [facility] Comment on above: Performed By: #### C MP3 ####[place] [address] [place] [address] CO2 [Moles/Vol] 26 mmol/L Normal 22-30 [facility] Comment on above: Performed By: #### C MP3 ####[place] [address] [place] [address] Creatinine [Mass/Vol] 1.69 mg/dL High 0.52-1.25 [facility] Comment on above: Performed By: #### C MP3 ####[place] [address] [place] [address] GFR/1.73 sq M predicted among blacks MDRD (S/P/Bld) [Vol rate/Area] 59.0 mL/min/{1.73_m2} Normal >60 [facility] Comment on above: Performed By: #### C MP3 ####[place] [address] [place] [address] GFR/1.73 sq M predicted among non-blacks MDRD (S/P/Bld) [Vol rate/Area] 48.7 mL/min/{1.73_m2} Normal >60 [facility] Comment on above: Result Comment: Sour ce- MDRD equation with creatinine calibration to IDMS(NKDEP) eGFR not recommended for drug dose adjustment Performed By: #### C MP3 ####[place] [address] [place] [address] Protein [Mass/Vol] 7.1 g/dL Normal 6.3-8.2 [facility] Comment on above: Performed By: #### C MP3 ####[address] [place] [address] Urea nitrogen [Mass/Vol] 14 mg/dL Normal 7-20 [facility] Comment on above: Performed By: #### C MP3 ####[address] [place] [address] Potassium [Moles/Vol] 3.8 mmol/L Normal 3.5-5.1 [facility] Comment on above: Performed By: #### C MP3 ####[address] [place] [address] Albumin [Mass/Vol] 3.9 g/dL Normal 3.5-5.0 [facility] Comment on above: Performed By: #### C MP3 ####[address] [place] [address] Chloride [Moles/Vol] 103 mmol/L Normal 98-107 [facility] Comment on above: Performed By: #### C MP3 ####[address] [place] [address] Sodium [Moles/Vol] 136 mmol/L Normal 135-145 [facility] Comment on above: Performed By: #### C MP3 ####[address] [place] [address] Comprehensive Metabolic Pane ankit 01-05-2019 Albumin [Mass/Vol] 3.9 g/dL 3.5 - 5 g/dL [facility], [place] ALP [Catalytic activity/Vol] 45 U/L 38 - 126 U/L [place], [place] ALT [Catalytic activity/Vol] 49 U/L 13 - 69 U/L [place] Anion gap [Moles/Vol] 7 mmol/L [place], [place] AST [Catalytic activity/Vol] 36 U/L 15 - 46 U/L [place] Bilirubin Ql (U) 0.6 mg/dL 0.2 - 1.3 mg/dL [place] Calcium [Mass/Vol] 9.4 mg/dL 8.4 - 10. 4 mg/dL [place] Chloride [Moles/Vol] 103 mmol/L 98 - 10 7 mmol/L [place] CO2 [Moles/Vol] 26 mmol/L 22 - 30 mmol/L [place] Creatinine [Mass/Vol] 1.69 mg/dL High 0.52 - 1.25 mg/dL [place] EGFR IF NonAfrican Dominican 48.7 mL/min >60 [place] Comment on above: Source- MDRD equatio n with creatinine calibration to IDMS(NKDEP) eGFR not recommended for drug dose adjustment GFR/1.73 sq M predicted among blacks MDRD (S/P/Bld) [Vol rate/Area] 59.0 mL/min/{1.73_m2} >60 [place], [place] Glucose [Mass/Vol] 94 mg/dL 70 - 100 mg/dL [place], [place] Interpretation and review of laboratory results Abnormal [place] Potassium [Moles/Vol] 3.8 mmol/L 3.5 - 5.1 mmol/L [place] Protein [Mass/Vol] 7.1 g/dL 6.3 - 8.2 g/dL [place], [place] Sodium [Moles/Vol] 136 mmol/L 135 - 145 mmol/L [place] Urea nitrogen [Mass/Vol] 14 mg/dL 7 - 20 mg/dL [place] Test Performed by [facility], [address], [place], [place] [id number] [place] [address] Culture Blood #1on 9 Blood Culture, Routine Staphylococcus epidermidis Abnormal [place], [place] Blood Culture, Routine Staphylococcus warneri Abnormal [place] Blood Culture, Routine Staphylococcus species (probable Coagulase negative Staph) DETECTED mecA (methicillin resistance gene) NOT DETECTED Presumptive identification performed using [employer] PCR methodology; confirmatory identification to follow. The following targets were NOT DETECTED unless otherwise stated above in report: Staphylococcus aureus, Staphylococcus species, Enterococcus species, Streptococcus species, Streptococcus agalactiae (Group B), Streptococcus pneumoniae, Streptococcus pyogenes (Group A), Listeria monocytogenes, Acinetobacter baumannii, Enterobacteriaceae, Enterobacter cloacae complex, E. coli, Klebsiella oxytoca, Klebsiella pneumoniae, Proteus species, Serratia marcescens, Pseudomonas aeruginosa, Haemophilus influenzae, Neisseria meningitidis, Trista albicans, Trista glabrata, Trista krusei, Trista parapsilosis, Trista tropicalis. The following antibiotic resistance targets were NOT DETECTED unless otherwise stated above in report: mecA (methicillin resistance gene) and van A/B (vancomycin resistance gene). Abnormal [place], [place] Interpretation and review of laboratory results Abnormal [place] Test Performed by [facility], [address] [place] [id number] Specimen Source Comment:Blood [place], [place] Otheron 01-05-2019 Blood Culture, Routine Isolated: Contamination likely unless additional blood culture sets are found to be positive with the same organism. [place], [place] Serum Protein Electrophoresi son 01-05-2019 Released By: see below Normal [facility] Comment on above: Result Comment: Jose Roberto Olguin M.D. Performed By: #### H EMDF, LACT3, LDH3, URIC3, CMP3, CRP2, IGQNT, ESR ####[facility] [place] [address]#### HEPAN, HIV4, REG ####[facility] [place] [address]#### SPRTE ####[facility] [place], [place] [address] [address] [place] [address]#### KLFQO ####The performing lab is in the report. Reviewed By: Karolina Welch,PhD Normal [facility] Comment on above: Performed By: #### H EMDF, LACT3, LDH3, URIC3, CMP3, CRP2, IGQNT, ESR ####[place] [address] [place] [address]#### HEPAN, HIV4, REG ####[place] [address] [place] [address]#### SPRTE ####[place] [address] [place], [place] [address] [place] [address]#### KLFQO ####The performing lab is in the report. SPE Interpretation Normal Pattern Normal [facility] Comment on above: Performed By: #### H EMDF, LACT3, LDH3, URIC3, CMP3, CRP2, IGQNT, ESR ####[address] [place] [address]#### HEPAN, HIV4, REG ####[address] [address]#### SPRTE ####[address] [place], [place] [address] [place] [address]#### KLFQO ####The performing lab is in the report. CBCon 01-04-2019 Erythrocyte distribution width (RBC) [Ratio] 14.0 % 11.5 - 14.5 % [place] Hematocrit (Bld) [Volume fraction] 39.3 % Low 40 - 52 % [place] Hemoglobin (Bld) [Mass/Vol] 13.6 g/dL 13 - 18 g/dL [place] Interpretation and review of laboratory results Abnormal [place] MCH (RBC) [Entitic mass] 28.8 pg 26 - 34 pg [place] MCHC (RBC) [Mass/Vol] 34.6 % 32 - 36 % [place], [place] MCV (RBC) [Entitic vol] 83.2 fL 80 - 98 fL [place] Platelet mean volume (Bld) [Entitic vol] 9.1 fL 7.4 - 10.4 fL [place] Platelets (Bld) [#/Vol] 205 10*3/uL 140 - 440 10*3/uL [place] RBC (Bld) [#/Vol] 4.73 10*6/uL 4.4 - 5.9 10*6/uL [place] WBC (Bld) [#/Vol] 8.9 10*3/uL 3.6 - 10.7 10*3/uL [place] Test Performed by [facility], [address] [place], [place] [address] [place] [address] Comp Metabolic Panelon 01-04 Calcium [Mass/Vol] 8.9 mg/dL Normal 8.4-10.4 [facility] Comment on above: Order Comment: Moder ate Hemolysis. Performed By: #### H ENRIQUE CMP3 ####[facility] [address] [place] [address]#### PCAL ####[place] [address] [place], [place] ALP [Catalytic activity/Vol] 45 U/L Normal 38-126 [facility] Comment on above: Order Comment: Moder ate Hemolysis. Performed By: #### Luli NUNEZ CMP3 ####[facility] [address] [place] [address]#### PCAL ####[place] [address] [place] [address] ALT [Catalytic activity/Vol] 32 U/L Normal 13-69 [facility] Comment on above: Order Comment: Moder ate Hemolysis. Performed By: #### H ENRIQUE CMP3 ####[facility] [address] [place] [address]#### PCAL ####[place] [address] [place] [address] Anion gap [Moles/Vol] 10 Normal [facility] Comment on above: Order Comment: Moder ate Hemolysis. Performed By: #### H EMOG, CMP3 ####[place] [address] [place] [address]#### PCAL ####[place] [address] [place], [place] AST [Catalytic activity/Vol] 73 U/L High 15-46 [facility] Comment on above: Order Comment: Moder ate Hemolysis. Performed By: #### H EMOTammie, CMP3 ####[place] [address] [place] [address]#### PCAL ####[place] [address] [place] [place], [place] Bilirubin [Mass/Vol] 1.0 mg/dL Normal 0.2-1.3 [facility] Comment on above: Order Comment: Moder ate Hemolysis. Performed By: #### H EMOTammie, CMP3 ####[address] [place] [address]#### PCAL ####[address] CO2 [Moles/Vol] 25 mmol/L Normal 22-30 [facility] Comment on above: Order Comment: Moder ate Hemolysis. Performed By: #### H ENRIQUE CMP3 ####[address] [place] [address]#### PCAL ####[address] Creatinine [Mass/Vol] 0.91 mg/dL Normal 0.52-1.25 [facility] Comment on above: Order Comment: Moder ate Hemolysis. Performed By: #### H EMOG, CMP3 ####[address] [place] [address]#### PCAL ####[place] [address] [place], [place] GFR/1.73 sq M predicted among blacks MDRD (S/P/Bld) [Vol rate/Area] mL/min/{1.73_m2} Normal >60 [facility] Comment on above: Order Comment: Moder ate Hemolysis. Performed By: #### H EMOG, CMP3 ####[facility] [address] [place] [address]#### PCAL ####[address] GFR/1.73 sq M predicted among non-blacks MDRD (S/P/Bld) [Vol rate/Area] mL/min/{1.73_m2} Normal >60 [facility] Comment on above: Order Comment: Moder ate Hemolysis. Result Comment: Sour ce- MDRD equation with creatinine calibration to IDMS(NKDEP) eGFR not recommended for drug dose adjustment Performed By: #### H JAROD NUNEZ3 ####[facility] [address] [place] [address]#### PCAL ####[address] Glucose [Mass/Vol] 118 mg/dL High 70-100 [facility] Comment on above: Order Comment: Moder ate Hemolysis. Performed By: #### H JAROD NUNEZ3 ####[facility] [address] [place] [address]#### PCAL ####[place] [address] [place], [place] Protein [Mass/Vol] 7.2 g/dL Normal 6.3-8.2 [facility] Comment on above: Order Comment: Moder ate Hemolysis. Performed By: #### Luli NUNEZ CMP3 ####[facility] [address] [place] [address]#### PCAL ####[address] Urea nitrogen [Mass/Vol] 9 mg/dL Normal 7-20 [facility] Comment on above: Order Comment: Moder ate Hemolysis. Performed By: #### H JAROD NUNEZ3 ####[facility] [address] [place] [address]#### PCAL ####[place] [address] [place], [place] Potassium [Moles/Vol] 4.4 mmol/L Normal 3.5-5.1 [facility] Comment on above: Order Comment: Moder ate Hemolysis. Performed By: #### H EMOG, CMP3 ####[place] [address] [place] [address]#### PCAL ####[place] [address] [place] [address] Albumin [Mass/Vol] 3.9 g/dL Normal 3.5-5.0 [facility] Comment on above: Order Comment: Moder ate Hemolysis. Performed By: #### H EMOG, CMP3 ####[place] [address] [place] [address]#### PCAL ####[place] [place] [address] Chloride [Moles/Vol] 105 mmol/L Normal 98-107 [facility] Comment on above: Order Comment: Moder ate Hemolysis. Performed By: #### H EMOG, CMP3 ####[place] [address] [place] [address]#### PCAL ####[place] [place] [address] Sodium [Moles/Vol] 140 mmol/L Normal 135-145 [facility] Comment on above: Order Comment: Moder ate Hemolysis. Performed By: #### H EMOG, CMP3 ####[place] [address] [place] [address]#### PCAL ####[place] [address] [place] [address] Comprehensive Metabolic Pane ankit 01-04-2019 Albumin [Mass/Vol] 3.9 g/dL 3.5 - 5 g/dL [place], [place] ALP [Catalytic activity/Vol] 45 U/L 38 - 126 U/L [place] ALT [Catalytic activity/Vol] 32 U/L 13 - 69 U/L [place] Anion gap [Moles/Vol] 10 mmol/L [place], [place] AST [Catalytic activity/Vol] 73 U/L High 15 - 46 U/L [place] Bilirubin Ql (U) 1.0 mg/dL 0.2 - 1.3 mg/dL [place] Calcium [Mass/Vol] 8.9 mg/dL 8.4 - 10. 4 mg/dL [place] Chloride [Moles/Vol] 105 mmol/L 98 - 10 7 mmol/L [place] CO2 [Moles/Vol] 25 mmol/L 22 - 30 mmol/L [place] Creatinine [Mass/Vol] 0.91 mg/dL 0.52 - 1.25 mg/dL [place] EGFR IF NonAfrican Dominican >60.0 >60 mL/min [place] Comment on above: Source- MDRD equatio n with creatinine calibration to IDMS(NKDEP) eGFR not recommended for drug dose adjustment GFR/1.73 sq M predicted among blacks MDRD (S/P/Bld) [Vol rate/Area] mL/min/{1.73_m2} >60 mL/min [place] Glucose [Mass/Vol] 118 mg/dL High 70 - 100 mg/dL [place] Interpretation and review of laboratory results Abnormal [place] Potassium [Moles/Vol] 4.4 mmol/L 3.5 - 5.1 mmol/L [place] Protein [Mass/Vol] 7.2 g/dL 6.3 - 8.2 g/dL [place], [place] Sodium [Moles/Vol] 140 mmol/L 135 - 145 mmol/L [place] Urea nitrogen [Mass/Vol] 9 mg/dL 7 - 20 mg/dL [place] Test Performed by [facility], [employer] [address] [place], [place] [address] Moderate Hemolysis. [place] GASTROINTESTINAL PCR PANELon 01-04-2019 GASTROINTESTINAL PCR PANEL GASTROINTESTINAL PCR PANEL --> Status: F POSITIVE: Clostridium difficile toxin A/B DETECTED. Clinical judgment must be used when interpreting results. Positive results may reflect colonization. Indeterminate results suggest a new specimen be submitted. The [employer] Gastrointestinal PCR Panel detects the following targets: Campylobacter Plesiomonas shigelloides Salmonella Vibrio species Vibrio cholerae Yersinia enterocolitica Shiga-like toxin-producing E. coli (STEC), including E. coli O157 Enterotoxigenic E. coli (ETEC) lt/st Shigella/Enteroinvasiv e E. coli (EIEC) Clostridium difficile toxin A/B Cryptosporidium Cyclospora cayetanensis Entamoeba histolytica Giardia lamblia Adenovirus F 40/41 Astrovirus Norovirus GI/GII Rotavirus A Sapovirus Clinical judgment must be used when interpreting results. Positive results may reflect colonization. Indeterminate results suggest a new specimen be submitted. The [employer] Gastrointestinal PCR Panel detects the following targets: Campylobacter Plesiomonas shigelloides Salmonella Vibrio species Vibrio cholerae Yersinia enterocolitica Shiga-like toxin-producing E. coli (STEC), including E. coli O157 Enterotoxigenic E. coli (ETEC) lt/st Shigella/Enteroinvasiv e E. coli (EIEC) Clostridium difficile toxin A/B Cryptosporidium Cyclospora cayetanensis Entamoeba histolytica Giardia lamblia Adenovirus F 40/41 Astrovirus Norovirus GI/GII Rotavirus A Sapovirus Abnormal [facility] Comment on above: Order Comment: Speci men Source Comment:Stool Performed By: #### G IPCR ####[facility] [id number] [place] [address] Gastrointestinal Panel by JENNIFER Aodorothy 01-04-2019 Gastrointestinal PCR Panel POSITIVE: Clostridium difficile toxin A/B DETECTED. Clinical judgment must be used when interpreting results. Positive results may reflect colonization. Indeterminate results suggest a new specimen be submitted. The [facility] Gastrointestinal PCR Panel detects the following targets: Campylobacter Plesiomonas shigelloides Salmonella Vibrio species Vibrio cholerae Yersinia enterocolitica Shiga-like toxin-producing E. coli (STEC), including E. coli O157 Enterotoxigenic E. coli (ETEC) lt/st Shigella/Enteroinvasiv e E. coli (EIEC) Clostridium difficile toxin A/B Cryptosporidium Cyclospora cayetanensis Entamoeba histolytica Giardia lamblia Adenovirus F 40/41 Astrovirus Norovirus GI/GII Rotavirus A Sapovirus Abnormal [place] Interpretation and review of laboratory results Abnormal [place] Test Performed by [facility], [address] [place] [address] Specimen Source Comment:Stool [place], [place] Hemogramon 01-04-2019 Erythrocyte distribution width (RBC) [Ratio] 14.0 % Normal 11.5-14.5 [facility] Comment on above: Performed By: #### H ENRIQUE CMP3 ####[address] [place] [address]#### PCAL ####[place] [address] [place], [place] Hematocrit (Bld) [Volume fraction] 39.3 % Low 40.0-52.0 [facility] Comment on above: Performed By: #### H EMOTammie, CMP3 ####[address] [place] [address]#### PCAL ####[address] Hemoglobin (Bld) [Mass/Vol] 13.6 g/dL Normal 13.0-18.0 [facility] Comment on above: Performed By: #### Luli NUNEZ CMP3 ####[address] [place] [address]#### PCAL ####[address] MCH (RBC) [Entitic mass] 28.8 pg Normal 26.0-34.0 [facility] Comment on above: Performed By: #### H ENRIQUE CMP3 ####[address] [place] [address]#### PCAL ####[place] [place], [place] MCHC (RBC) [Mass/Vol] 34.6 % Normal 32.0-36.0 [facility] Comment on above: Performed By: #### H EMOTammie, CMP3 ####[address] [place] [address]#### PCAL ####[address] MCV (RBC) [Entitic vol] 83.2 fL Normal 80.0-98.0 [facility] Comment on above: Performed By: #### H EMOTammie CMP3 ####[address] [address]#### PCAL ####[place] [address] [facility] [facility] [place] Platelet mean volume (Bld) [Entitic vol] 9.1 fL Normal 7.4-10.4 [facility] Comment on above: Performed By: #### H EMOG, CMP3 ####[address] [address]#### PCAL ####[place] [address] [address] [facility] [place] Platelets (Bld) [#/Vol] 205 10*3/uL Normal 140-440 [facility] Comment on above: Performed By: #### H EMOG, CMP3 ####[address] [address]#### PCAL ####[address] RBC (Bld) [#/Vol] 4.73 10*6/uL Normal 4.40-5.90 [facility] Comment on above: Performed By: #### H EMOG, CMP3 ####[address] [place] [address]#### PCAL ####[place] [address] [place], [place] WBC (Bld) [#/Vol] 8.9 10*3/uL Normal 3.6-10.7 [facility] Comment on above: Performed By: #### H EMOG, CMP3 ####[address] [place] [address]#### PCAL ####[place] [address] [facility] [place] Procalcitoninon 01-04-2019 Procalcitonin 0.44 ng/mL Abnormal <0.10 [facility] Comment on above: Performed By: #### H EMOG, CMP3 ####[address] [place] [address]#### PCAL ####[address] Interpretation and review of laboratory results Abnormal [place] Procalcitonin 0.44 ng/mL Abnormal <0.10 [place] Sodium [Moles/Vol] See Below [place], [place] Comment on above: PCT <0.50 = Low risk of severe sepsis and/or septic shock. PCT >2.00 = High risk of severe sepsis and/or septic shock. Test Performed by [id number] [place] [address] Serum Protein Electrophoresi son 01-04-2019 Albumin [Mass/Vol] 3.7 g/dL Normal 3.1-5.2 [facility] Comment on above: Performed By: #### H EMDF, LACT3, LDH3, URIC3, CMP3, CRP2, IGQNT, ESR ####[address] [address]#### HEPAN, HIV4, REG ####[address] #### SPRTE ####[place] [address]#### KLFQO ####The performing lab is in the report. Alpha-1 0.4 g/dL Normal 0.2-0.4 [facility] Comment on above: Performed By: #### H EMDF, LACT3, LDH3, URIC3, CMP3, CRP2, IGQNT, ESR ####[address] [address]#### HEPAN, HIV4, REG ####[address] #### SPRTE ####[address] [address]#### KLFQO ####The performing lab is in the report. Alpha-2 0.7 g/dL Normal 0.5-1.0 [facility] Comment on above: Performed By: #### H EMDF, LACT3, LDH3, URIC3, CMP3, CRP2, IGQNT, ESR ####[address] [place] [address]#### HEPAN, HIV4, REG ####[address] [address]#### SPRTE ####[address] [address]#### KLFQO ####The performing lab is in the report. Beta 0.6 g/dL Normal 0.6-1.0 [facility] Comment on above: Performed By: #### H EMDF, LACT3, LDH3, URIC3, CMP3, CRP2, IGQNT, ESR ####[address] [place] [address]#### HEPAN, HIV4, REG ####[address] #### SPRTE ####[address] [address]#### KLFQO ####The performing lab is in the report. Gamma 0.7 g/dL Normal 0.4-1.4 [facility] Comment on above: Performed By: #### H EMDF, LACT3, LDH3, URIC3, CMP3, CRP2, IGQNT, ESR ####[address] [place] [address]#### HEPAN, HIV4, REG ####[address] [address]#### SPRTE ####[address] [address]#### KLFQO ####The performing lab is in the report. Acute Hepatitis Panelon 08- Hep C Antibody NOT DETECTED Normal Not-Detected [facility] Comment on above: Result Comment: Kaitlyn ents with DETECTED Hepatitis C Ab results should have a new specimen submitted for supplemental testing with a Hepatitis C Quantitative RNA assay (viral load), if clinically indicated. Performed By: #### H EMDF, LACT3, LDH3, URIC3, CMP3, CRP2, IGQNT, ESR ####[address] [place] [address]#### HEPAN, HIV4, REG ####[address] [address]#### SPRTE ####[place] [address]#### KLFQO ####The performing lab is in the report. Hep B Core IgM NOT DETECTED Normal Not-Detected [facility] Comment on above: Performed By: #### H EMDF, LACT3, LDH3, URIC3, CMP3, CRP2, IGQNT, ESR ####[address] [address]#### HEPAN, HIV4, REG ####[address] #### SPRTE ####[address] [address]#### KLFQO ####The performing lab is in the report. Hep A Virus Ab,IgM NOT DETECTED Normal Not-Detected [facility] Comment on above: Performed By: #### H EMDF, LACT3, LDH3, URIC3, CMP3, CRP2, IGQNT, ESR ####[address] [place] [address]#### HEPAN, HIV4, REG ####[address] [address]#### SPRTE ####[address] [place], [place] [address] [address]#### KLFQO ####The performing lab is in the report. Hep B Surface Ag NOT DETECTED Normal Not-Detected [facility] Comment on above: Performed By: #### H EMDF, LACT3, LDH3, URIC3, CMP3, CRP2, IGQNT, ESR ####[facility] [place] [address]#### HEPAN, HIV4, REG ####[place] [address] [place] [address]#### SPRTE ####[place] [address] [place], [place] [address] [place] [address]#### KLFQO ####The performing lab is in the report. C-Reactive Proteinon 019 CRP [Mass/Vol] 86.5 mg/L High 0.0-6.0 [facility] Comment on above: Result Comment: . Performed By: #### H EMDF, LACT3, LDH3, URIC3, CMP3, CRP2, IGQNT, ESR #### [facility] [address] [place] [address] #### HEPAN, HIV4, REG #### [address] [address] #### SPRTE #### [facility] [address] [place], [place] [address] [place] [address] #### KLFQO #### The performing lab is in the report. CRP [Mass/Vol] 86.5 mg/L High 0 - 6 mg/L [place] Comment on above: . Interpretation and review of laboratory results Abnormal [place] Test Performed by [place] [address] [place], [place] [address] [place] [address] CBC auto differentialon 12-12 Absolute Baso # 0.1 10*3/uL 0 - 0.2 10*3/uL [place] Absolute Neut # 9.2 10*3/uL High 1.8 - 7 10*3/uL [place] Basophils/100 WBC (Bld) 0.6 % 0 - 2 % [place] Eosinophils (Bld) [#/Vol] 0.2 10*3/uL 0 - 0.5 10*3/uL [place] Eosinophils/100 WBC (Bld) 1.7 % 1 - 6 % [place] Erythrocyte distribution width (RBC) [Ratio] 14.0 % 11.5 - 14.5 % [place] Granulocytes/100 WBC (Bld) 67.6 % 40 - 80 % [place] Hematocrit (Bld) [Volume fraction] 39.5 % Low 40 - 52 % [place] Hemoglobin (Bld) [Mass/Vol] 13.7 g/dL 13 - 18 g/dL [place] Interpretation and review of laboratory results Abnormal [place] Lymphocytes (Bld) [#/Vol] 2.9 10*3/uL 1 - 4.3 10*3/uL [place] Lymphocytes/100 WBC (Bld) 21.2 % 20 - 40 % [place] MCH (RBC) [Entitic mass] 28.6 pg 26 - 34 pg [place] MCHC (RBC) [Mass/Vol] 34.6 % 32 - 36 % [place] MCV (RBC) [Entitic vol] 82.5 fL 80 - 98 fL [place] Monocytes (Bld) [#/Vol] 1.2 10*3/uL High 0 - 0.8 10*3/uL [place], [place] Monocytes/100 WBC (Bld) 8.9 % 2 - 10 % [place] Platelet mean volume (Bld) [Entitic vol] 8.7 fL 7.4 - 10.4 fL [place] Platelets (Bld) [#/Vol] 188 10*3/uL 140 - 440 10*3/uL [place] RBC (Bld) [#/Vol] 4.79 10*6/uL 4.4 - 5.9 10*6/uL [place] WBC (Bld) [#/Vol] 13.6 10*3/uL High 3.6 - 10.7 10*3/uL [place] Test Performed by [facility], [address] [place], [place], [place] [address] [place], [place] Abdomen Pelvis W Contrast on 01-03-2019 Patient Name: WOO DE LA CRUZ ---CT--- Exam Date/Time 01/03/2019 12:01:[address] Abdomen/Pelvis w/ IV Contrast (IV Onl Ordering Physician AFIA ROSARIO Accession Number [id number] CPT4 Codes 76647 (CT Abdomen/Pelvis w/ IV Contrast (IV Onl), Q9967 (CT ISOVUE 370MG/[id number] L&1), Q9966 (CT OMNIPAQUE 240 PER [id number]&[id number]) Reason For Exam abscess intestine Report CT scan of the abdomen: 01/03/2019. CT scan of the pelvis: 01/03/2019. Clinical Information: Inguinal abscess on the left, lower extremity swelling. CT scans of the abdomen: CT scans of the abdomen were performed at 3 mm slice thickness following the administration of oral and intravenous contrast. No prior studies for comparison. Limited slices through the lower lung mcguire reveal no pleural or parenchymal abnormalities in the lung bases. The liver is diffusely low in density consistent with diffuse fatty infiltration. The liver is normal in size and configuration. No mass lesions identified within the liver. There is no evidence of intrahepatic biliary dilatation. The spleen is not enlarged. The pancreas and kidneys are within normal limits. No peripancreatic fluid collections or hydronephrosis are identified. No free peritoneal fluid or air is seen. No retroperitoneal lymphadenopathy is identified. CT scans of the pelvis: CT scans of the pelvis were performed at 3 mm slice thickness with oral and intravenous contrast enhancement from the abdominal portion of the study. No abnormal loops of bowel are identified. No inflammatory changes in the mesentery are seen. On the last several slice of the series, there are several abnormal lymph nodes in the left inguinal region. No abnormal fluid collections are identified. No pelvic mass lesions, fluid collections or lymphadenopathy is seen. Impression: Fatty infiltration of the liver. Partial visualization of left inguinal lymphadenopathy. Report Dictated on --- Final --- Dictating Physician: MD FRANCIS RISA Signed Date and Time: 01/03/2019 12:16 pm Signed by: MD FRANCIS RISA Transcribed Date and Time: 01/03/2019 12:17 [facility] [place] Incoming Radiology Results From [facility] - 01/03/2019 12:17 PM EDT Patient Name: WOO SHELDON ---CT--- Exam Date/Time 01/03/2019 12:01:[address] Abdomen/Pelvis w/ IV Contrast (IV Onl Ordering Physician AFIA ROSARIO Accession Number [id number] CPT4 Codes 36819 (CT Abdomen/Pelvis w/ IV Contrast (IV Onl), Q9967 (CT ISOVUE 370MG/[id number] L&1), Q9966 (CT OMNIPAQUE 240 PER [id number]&[id number]) Reason For Exam abscess intestine Report CT scan of the abdomen: 01/03/2019. CT scan of the pelvis: 01/03/2019. Clinical Information: Inguinal abscess on the left, lower extremity swelling. CT scans of the abdomen: CT scans of the abdomen were performed at 3 mm slice thickness following the administration of oral and intravenous contrast. No prior studies for comparison. Limited slices through the lower lung mcguire reveal no pleural or parenchymal abnormalities in the lung bases. The liver is diffusely low in density consistent with diffuse fatty infiltration. The liver is normal in size and configuration. No mass lesions identified within the liver. There is no evidence of intrahepatic biliary dilatation. The spleen is not enlarged. The pancreas and kidneys are within normal limits. No peripancreatic fluid collections or hydronephrosis are identified. No free peritoneal fluid or air is seen. No retroperitoneal lymphadenopathy is identified. CT scans of the pelvis: CT scans of the pelvis were performed at 3 mm slice thickness with oral and intravenous contrast enhancement from the abdominal portion of the study. No abnormal loops of bowel are identified. No inflammatory changes in the mesentery are seen. On the last several slice of the series, there are several abnormal lymph nodes in the left inguinal region. No abnormal fluid collections are identified. No pelvic mass lesions, fluid collections or lymphadenopathy is seen. Impression: Fatty infiltration of the liver. Partial visualization of left inguinal lymphadenopathy. Report Dictated on --- Final --- Dictating Physician: MD FRANCIS RISA Signed Date and Time: 01/03/2019 12:16 pm Signed by: MD FRANCIS RISA Transcribed Date and Time: 01/03/2019 12:17 [place] Abdomen/Pelvis w/ Contras ton 01-03-2019 CT Abdomen/Pelvis w/ Contrast Patient Name: WOO SHELDON CT Exam Date/Time 01/03/2019 12:01:[address] Abdomen/Pelvis w/ IV Contrast (IV Onl Ordering Physician AFIA ROSARIO Accession Number [id number] CPT4 Codes 04595 (CT Abdomen/Pelvis w/ IV Contrast (IV Onl), Q9967 (CT ISOVUE 370MG/[id number] andMLand1), Q9966 (CT OMNIPAQUE 240 PER [id number]) Reason For Exam abscess intestine Report CT scan of the abdomen: 01/03/2019. CT scan of the pelvis: 01/03/2019. Clinical Information: Inguinal abscess on the left, lower extremity swelling. CT scans of the abdomen: CT scans of the abdomen were performed at 3 mm slice thickness following the administration of oral and intravenous contrast. No prior studies for comparison. Limited slices through the lower lung mcguire reveal no pleural or parenchymal abnormalities in the lung bases. The liver is diffusely low in density consistent with diffuse fatty infiltration. The liver is normal in size and configuration. No mass lesions identified within the liver. There is no evidence of intrahepatic biliary dilatation. The spleen is not enlarged. The pancreas and kidneys are within normal limits. No peripancreatic fluid collections or hydronephrosis are identified. No free peritoneal fluid or air is seen. No retroperitoneal lymphadenopathy is identified. CT scans of the pelvis: CT scans of the pelvis were performed at 3 mm slice thickness with oral and intravenous contrast enhancement from the abdominal portion of the study. No abnormal loops of bowel are identified. No inflammatory changes in the mesentery are seen. On the last several slice of the series, there are several abnormal lymph nodes in the left inguinal region. No abnormal fluid collections are identified. No pelvic mass lesions, fluid collections or lymphadenopathy is seen. Impression: Fatty infiltration of the liver. Partial visualization of left inguinal lymphadenopathy. Report Dictated on Final Dictating Physician: MD FRANCIS RISA Signed Date and Time: 01/03/2019 12:16 pm Signed by: MD FRANCIS RISA Transcribed Date and Time: 01/03/2019 12:17 Normal [facility] Comp Metabolic Panelon 01-03 Calcium [Mass/Vol] 8.5 mg/dL Normal 8.4-10.4 [facility] Comment on above: Performed By: #### H EMDF, LACT3, LDH3, URIC3, CMP3, CRP2, IGQNT, ESR #### [facility] [address] [place] [address] #### HEPAN, HIV4, REG #### [address] [address] #### SPRTE #### [address] [place] [address] #### KLFQO #### The performing lab is in the report. ALP [Catalytic activity/Vol] 42 U/L Normal 38-126 [facility] Comment on above: Performed By: #### H EMDF, LACT3, LDH3, URIC3, CMP3, CRP2, IGQNT, ESR #### [facility] [address] [place] [address] #### HEPAN, HIV4, REG #### [address] [address] #### SPRTE #### [facility] [address] [place] [address] [facility] [address] [place] [address] #### KLFQO #### The performing lab is in the report. ALT [Catalytic activity/Vol] 39 U/L Normal 13-69 [facility] Comment on above: Performed By: #### H EMDF, LACT3, LDH3, URIC3, CMP3, CRP2, IGQNT, ESR #### [facility] [address] [address] #### HEPAN, HIV4, REG #### [address] [address] #### SPRTE #### [facility] [address] [place], [place] [address] [place] [address] #### KLFQO #### The performing lab is in the report. Anion gap [Moles/Vol] 4 Normal [facility] Comment on above: Performed By: #### H EMDF, LACT3, LDH3, URIC3, CMP3, CRP2, IGQNT, ESR #### [place] [address] [place] [address] #### HEPAN, HIV4, REG #### [address] #### SPRTE #### [place] [address] [facility], [place] [address] [place] [address] #### KLFQO #### The performing lab is in the report. AST [Catalytic activity/Vol] 30 U/L Normal 15-46 [facility] Comment on above: Performed By: #### H EMDF, LACT3, LDH3, URIC3, CMP3, CRP2, IGQNT, ESR #### [facility] [address] [place] [address] #### HEPAN, HIV4, REG #### [address] [address] #### SPRTE #### [place] [address] [facility] [place] [address] [place] [address], [place] [address] #### KLFQO #### The performing lab is in the report. Bilirubin [Mass/Vol] 0.5 mg/dL Normal 0.2-1.3 [facility] Comment on above: Performed By: #### H EMDF, LACT3, LDH3, URIC3, CMP3, CRP2, IGQNT, ESR #### [place] [address] [place] [address] #### HEPAN, HIV4, REG #### [address] #### SPRTE #### [address] [place], [place] [address] [place] [address] #### KLFQO #### The performing lab is in the report. CO2 [Moles/Vol] 26 mmol/L Normal 22-30 [facility] Comment on above: Performed By: #### H EMDF, LACT3, LDH3, URIC3, CMP3, CRP2, IGQNT, ESR #### [address] [place] [address] #### HEPAN, HIV4, REG #### [address] #### SPRTE #### [address] [place], [place] [address] [place] [address] #### KLFQO #### The performing lab is in the report. Glucose [Mass/Vol] 144 mg/dL High 70-100 [facility] Comment on above: Performed By: #### H EMDF, LACT3, LDH3, URIC3, CMP3, CRP2, IGQNT, ESR #### [address] [facility] [place] [address] #### HEPAN, HIV4, REG #### [address] #### SPRTE #### [address] [place], [place] [address] [address] #### KLFQO #### The performing lab is in the report. Protein [Mass/Vol] 6.7 g/dL Normal 6.3-8.2 [facility] Comment on above: Performed By: #### H EMDF, LACT3, LDH3, URIC3, CMP3, CRP2, IGQNT, ESR #### [address] [place] [address] #### HEPAN, HIV4, REG #### [address] #### SPRTE #### [address] [place], [place] [address] [place] [address] #### KLFQO #### The performing lab is in the report. Urea nitrogen [Mass/Vol] 13 mg/dL Normal 7-20 [facility] Comment on above: Performed By: #### H EMDF, LACT3, LDH3, URIC3, CMP3, CRP2, IGQNT, ESR #### [address] [place] [address] #### HEPAN, HIV4, REG #### [address] #### SPRTE #### [address] [place] [address] [address] #### KLFQO #### The performing lab is in the report. Creatinine [Mass/Vol] 0.92 mg/dL Normal 0.52-1.25 [facility] Comment on above: Performed By: #### H EMDF, LACT3, LDH3, URIC3, CMP3, CRP2, IGQNT, ESR #### [address] [place] [address] #### HEPAN, HIV4, REG #### [address] #### SPRTE #### [place] [address] [place], [place] [address] [place] [address] #### KLFQO #### The performing lab is in the report. GFR/1.73 sq M predicted among blacks MDRD (S/P/Bld) [Vol rate/Area] mL/min/{1.73_m2} Normal >60 [facility] Comment on above: Performed By: #### H EMDF, LACT3, LDH3, URIC3, CMP3, CRP2, IGQNT, ESR #### [address] [place] [address] #### HEPAN, HIV4, REG #### [address] #### SPRTE #### [address] [place], [place] [address] [place] [address] #### KLFQO #### The performing lab is in the report. GFR/1.73 sq M predicted among non-blacks MDRD (S/P/Bld) [Vol rate/Area] mL/min/{1.73_m2} Normal >60 [facility] Comment on above: Result Comment: Sour ce- MDRD equation with creatinine calibration to IDMS(NKDEP) eGFR not recommended for drug dose adjustment Performed By: #### H EMDF, LACT3, LDH3, URIC3, CMP3, CRP2, IGQNT, ESR #### [address] [place] [address] #### HEPAN, HIV4, REG #### [address] #### SPRTE #### [place] [address] [place], [place] [address] [place] [address] #### KLFQO #### The performing lab is in the report. Potassium [Moles/Vol] 3.8 mmol/L Normal 3.5-5.1 [facility] Comment on above: Performed By: #### H EMDF, LACT3, LDH3, URIC3, CMP3, CRP2, IGQNT, ESR #### [place] [address] [place] [address] #### HEPAN, HIV4, REG #### [address] [address] #### SPRTE #### [place] [address] [place], [place] [address] [place] [address] #### KLFQO #### The performing lab is in the report. Albumin [Mass/Vol] 3.7 g/dL Normal 3.5-5.0 [facility] Comment on above: Performed By: #### H EMDF, LACT3, LDH3, URIC3, CMP3, CRP2, IGQNT, ESR #### [address] [place] [address] #### HEPAN, HIV4, REG #### [address] #### SPRTE #### [address] [facility], [place] [address] [place] [address] #### KLFQO #### The performing lab is in the report. Sodium [Moles/Vol] 135 mmol/L Normal 135-145 [facility] Comment on above: Performed By: #### H EMDF, LACT3, LDH3, URIC3, CMP3, CRP2, IGQNT, ESR #### [address] [place] [address] #### HEPAN, HIV4, REG #### [address] #### SPRTE #### [place] [address] [facility] [address] [address] #### KLFQO #### The performing lab is in the report. Chloride [Moles/Vol] 105 mmol/L Normal 98-107 [facility] Comment on above: Performed By: #### H EMDF, LACT3, LDH3, URIC3, CMP3, CRP2, IGQNT, ESR #### [facility] [address] [place] [address] #### HEPAN, HIV4, REG #### [facility] [address] [place] [address] #### SPRTE #### [facility] [address] [place] [address] [facility] [address] [place] [address] #### KLFQO #### The performing lab is in the report. Comprehensive Metabolic Pane ankit 01-03-2019 Albumin [Mass/Vol] 3.7 g/dL 3.5 - 5 g/dL [place], [place] ALP [Catalytic activity/Vol] 42 U/L 38 - 126 U/L [place] ALT [Catalytic activity/Vol] 39 U/L 13 - 69 U/L [place] Anion gap [Moles/Vol] 4 mmol/L [place], [place] AST [Catalytic activity/Vol] 30 U/L 15 - 46 U/L [place] Bilirubin Ql (U) 0.5 mg/dL 0.2 - 1.3 mg/dL [place] Calcium [Mass/Vol] 8.5 mg/dL 8.4 - 10. 4 mg/dL [place] Chloride [Moles/Vol] 105 mmol/L 98 - 10 7 mmol/L [place] CO2 [Moles/Vol] 26 mmol/L 22 - 30 mmol/L [place] Creatinine [Mass/Vol] 0.92 mg/dL 0.52 - 1.25 mg/dL [place] EGFR IF NonAfrican Dominican >60.0 >60 mL/min [place] Comment on above: Source- MDRD equatio n with creatinine calibration to IDMS(NKDEP) eGFR not recommended for drug dose adjustment GFR/1.73 sq M predicted among blacks MDRD (S/P/Bld) [Vol rate/Area] mL/min/{1.73_m2} >60 mL/min [place] Glucose [Mass/Vol] 144 mg/dL High 70 - 100 mg/dL [place], [place] Interpretation and review of laboratory results Abnormal [place] Potassium [Moles/Vol] 3.8 mmol/L 3.5 - 5.1 mmol/L [place] Protein [Mass/Vol] 6.7 g/dL 6.3 - 8.2 g/dL [place], [place] Sodium [Moles/Vol] 135 mmol/L 135 - 145 mmol/L [place] Urea nitrogen [Mass/Vol] 13 mg/dL 7 - 20 mg/dL [place] HIV 1,2 Ab; p24 Agon 019 HIV 1,2 Ab; p24 Ag NONREACTIVE Normal Nonreactive [facility] Comment on above: Result Comment: Resu lts obtained using the FDA cleared 4th generation HIV test. This test detects antibodies to HIV1, HIV2, HIV Group O, and the presence of the HIV-1 p24 antigen. A Non-Reactive re- sult indicates the patient is negative for both HIV antibody and HIV p24 antigen. All reactive results will undergo reflex confirmation testing at an additional charge. Performed By: #### H EMDF, LACT3, LDH3, URIC3, CMP3, CRP2, IGQNT, ESR ####[facility] [address] [place] [address]#### HEPAN, HIV4, REG ####[facility] [address] [place] [address]#### SPRTE ####[facility] [address] [place], [place] [address]Pfinx[facility] [place] [address]#### KLFQO ####The performing lab is in the report. HIV Screenon 01-03-2019 HIV 1+2 AB+[id number] AG, EIA NONREACTIVE Nonreactive [place] Comment on above: Results obtained usi ng the FDA cleared 4th generation HIV test. This test detects antibodies to HIV1, HIV2, HIV Group O, and the presence of the HIV-1 p24 antigen. A Non-Reactive re- sult indicates the patient is negative for both HIV antibody and HIV p24 antigen. All reactive results will undergo reflex confirmation testing at an additional charge. Hemogram w/ Autodiffon 01-03 Abs Baso Cnt 0.1 10*3/uL Normal 0.0-0.2 [facility] Comment on above: Performed By: #### H EMDF, LACT3, LDH3, URIC3, CMP3, CRP2, IGQNT, ESR #### [address] [place] [address] #### HEPAN, HIV4, REG #### [place] [address] #### SPRTE #### [address] [place] [address] #### KLFQO #### The performing lab is in the report. Abs Neutrophile Cnt 9.2 10*3/uL High 1.8-7.0 [facility] Comment on above: Performed By: #### H EMDF, LACT3, LDH3, URIC3, CMP3, CRP2, IGQNT, ESR #### [address] [place] [address] #### HEPAN, HIV4, REG #### [place] [address] #### SPRTE #### [address] [place] [address] #### KLFQO #### The performing lab is in the report. Basophils/100 WBC (Bld) 0.6 % Normal 0.0-2.0 [facility] Comment on above: Performed By: #### H EMDF, LACT3, LDH3, URIC3, CMP3, CRP2, IGQNT, ESR #### [address] [place] [address] #### HEPAN, HIV4, REG #### [address] [address] #### SPRTE #### [facility] [address] [place], [place] [address] [place] [address] #### KLFQO #### The performing lab is in the report. Eosinophils (Bld) [#/Vol] 0.2 10*3/uL Normal 0.0-0.5 [facility] Comment on above: Performed By: #### H EMDF, LACT3, LDH3, URIC3, CMP3, CRP2, IGQNT, ESR #### [address] [facility] [place] #### HEPAN, HIV4, REG #### [address] [address] #### SPRTE #### [address] [place], [place] [address] [place] [address] #### KLFQO #### The performing lab is in the report. Eosinophils/100 WBC (Bld) 1.7 % Normal 1.0-6.0 [facility] Comment on above: Performed By: #### H EMDF, LACT3, LDH3, URIC3, CMP3, CRP2, IGQNT, ESR #### [address] [place] #### HEPAN, HIV4, REG #### [address] [address] #### SPRTE #### [address] [place], [place] [address] [place] [address] #### KLFQO #### The performing lab is in the report. Erythrocyte distribution width (RBC) [Ratio] 14.0 % Normal 11.5-14.5 [facility] Comment on above: Performed By: #### H EMDF, LACT3, LDH3, URIC3, CMP3, CRP2, IGQNT, ESR #### [address] [place] [address] #### HEPAN, HIV4, REG #### [address] #### SPRTE #### [address] [place] [address] [address] #### KLFQO #### The performing lab is in the report. Granulocytes/100 WBC (Bld) 67.6 % Normal 40.0-80.0 [facility] Comment on above: Performed By: #### H EMDF, LACT3, LDH3, URIC3, CMP3, CRP2, IGQNT, ESR #### [address] [place] [address] #### HEPAN, HIV4, REG #### [address] #### SPRTE #### [address] [place], [place] [address] [place] [address] #### KLFQO #### The performing lab is in the report. Hematocrit (Bld) [Volume fraction] 39.5 % Low 40.0-52.0 [facility] Comment on above: Performed By: #### H EMDF, LACT3, LDH3, URIC3, CMP3, CRP2, IGQNT, ESR #### [address] [place] [address] #### HEPAN, HIV4, REG #### [address] #### SPRTE #### [address] [place], [place] [address] [place] [address] #### KLFQO #### The performing lab is in the report. Hemoglobin (Bld) [Mass/Vol] 13.7 g/dL Normal 13.0-18.0 [facility] Comment on above: Performed By: #### H EMDF, LACT3, LDH3, URIC3, CMP3, CRP2, IGQNT, ESR #### [facility] [address] [place] [address] #### HEPAN, HIV4, REG #### [address] [address] #### SPRTE #### [facility] [address] [place], [place] [address] [place] [address] #### KLFQO #### The performing lab is in the report. Lymphocytes (Bld) [#/Vol] 2.9 10*3/uL Normal 1.0-4.3 [facility] Comment on above: Performed By: #### H EMDF, LACT3, LDH3, URIC3, CMP3, CRP2, IGQNT, ESR #### [address] [place] [address] #### HEPAN, HIV4, REG #### [address] #### SPRTE #### [address] [place], [place] [address] [place] [address] #### KLFQO #### The performing lab is in the report. Lymphocytes/100 WBC (Bld) 21.2 % Normal 20.0-40.0 [facility] Comment on above: Performed By: #### H EMDF, LACT3, LDH3, URIC3, CMP3, CRP2, IGQNT, ESR #### [facility] [address] [place] [address] #### HEPAN, HIV4, REG #### [address] [address] #### SPRTE #### [address] [facility], [place] [address] [place] [address] #### KLFQO #### The performing lab is in the report. MCH (RBC) [Entitic mass] 28.6 pg Normal 26.0-34.0 [facility] Comment on above: Performed By: #### H EMDF, LACT3, LDH3, URIC3, CMP3, CRP2, IGQNT, ESR #### [facility] [address] [place] [address] #### HEPAN, HIV4, REG #### [address] #### SPRTE #### [address] [place], [place] [address] [place] [address] #### KLFQO #### The performing lab is in the report. MCHC (RBC) [Mass/Vol] 34.6 % Normal 32.0-36.0 [facility] Comment on above: Performed By: #### H EMDF, LACT3, LDH3, URIC3, CMP3, CRP2, IGQNT, ESR #### [address] [place] [address] #### HEPAN, HIV4, REG #### [address] #### SPRTE #### [address] [place], [place] [address] [place] [address] #### KLFQO #### The performing lab is in the report. MCV (RBC) [Entitic vol] 82.5 fL Normal 80.0-98.0 [facility] Comment on above: Performed By: #### H EMDF, LACT3, LDH3, URIC3, CMP3, CRP2, IGQNT, ESR #### [place] [address] [place] [address] #### HEPAN, HIV4, REG #### [address] #### SPRTE #### [address] [place], [place] [address] [place] [address] #### KLFQO #### The performing lab is in the report. Monocytes (Bld) [#/Vol] 1.2 10*3/uL High 0.0-0.8 [facility] Comment on above: Performed By: #### H EMDF, LACT3, LDH3, URIC3, CMP3, CRP2, IGQNT, ESR #### [address] [place] [address] #### HEPAN, HIV4, REG #### [address] [address] #### SPRTE #### [address] [place] [address] #### KLFQO #### The performing lab is in the report. Monocytes/100 WBC (Bld) 8.9 % Normal 2.0-10.0 [facility] Comment on above: Performed By: #### H EMDF, LACT3, LDH3, URIC3, CMP3, CRP2, IGQNT, ESR #### [address] [place] [address] #### HEPAN, HIV4, REG #### [address] [address] #### SPRTE #### [address] [place], [place] [address] [place] [address] #### KLFQO #### The performing lab is in the report. Platelet mean volume (Bld) [Entitic vol] 8.7 fL Normal 7.4-10.4 [facility] Comment on above: Performed By: #### H EMDF, LACT3, LDH3, URIC3, CMP3, CRP2, IGQNT, ESR #### [address] [place] [address] #### HEPAN, HIV4, REG #### [address] #### SPRTE #### [address] [place], [place] [address] [place] [address] #### KLFQO #### The performing lab is in the report. Platelets (Bld) [#/Vol] 188 10*3/uL Normal 140-440 [facility] Comment on above: Performed By: #### H EMDF, LACT3, LDH3, URIC3, CMP3, CRP2, IGQNT, ESR #### [address] [place] [address] #### HEPAN, HIV4, REG #### [address] #### SPRTE #### [address] [place] [address] #### KLFQO #### The performing lab is in the report. RBC (Bld) [#/Vol] 4.79 10*6/uL Normal 4.40-5.90 [facility] Comment on above: Performed By: #### H EMDF, LACT3, LDH3, URIC3, CMP3, CRP2, IGQNT, ESR #### [address] [place] [address] #### HEPAN, HIV4, REG #### [address] #### SPRTE #### [address] [place], [place] [address] [place] [address] #### KLFQO #### The performing lab is in the report. WBC (Bld) [#/Vol] 13.6 10*3/uL High 3.6-10.7 [facility] Comment on above: Performed By: #### H EMDF, LACT3, LDH3, URIC3, CMP3, CRP2, IGQNT, ESR #### [facility] [address] [place] [address] #### HEPAN, HIV4, REG #### [facility] [address] [place] [address] #### SPRTE #### [facility] [address] [place] [address] [address] #### KLFQO #### The performing lab is in the report. Hepatitis Panel, Acuteon HAV IgM IA Qn (S) NOT DETECTED Not-Detect ed [place], [place] Hep B Core Ab, IgM NOT DETECTED Not-Detec reagan [place], [place] Hepatitis B Surface Ag NOT DETECTED Not-Detected [place] Hepatitis C Ab NOT DETECTED Not-Detected [place] Comment on above: Patients with DETECT ED Hepatitis C Ab results should have a new specimen submitted for supplemental testing with a Hepatitis C Quantitative RNA assay (viral load), if clinically indicated. Ig Concentration Bloodon IgA,Blood 131.9 mg/dL Normal 70.0-400.0 [facility] Comment on above: Performed By: #### H EMDF, LACT3, LDH3, URIC3, CMP3, CRP2, IGQNT, ESR ####[address] [place] [address]#### HEPAN, HIV4, REG ####[facility] [place] [address]#### SPRTE ####[facility] [place], [place] [address] [address]#### KLFQO ####The performing lab is in the report. IgM Blood 38.9 mg/dL Low 40.0-230.0 [facility] Comment on above: Performed By: #### H EMDF, LACT3, LDH3, URIC3, CMP3, CRP2, IGQNT, ESR ####[facility] [place] [address]#### HEPAN, HIV4, REG ####[place] [place] [address]#### SPRTE ####[facility] [place], [place] [address] [place] [address]#### KLFQO ####The performing lab is in the report. IgG,Blood 825.1 mg/dL Normal 700.0-1600.0 [facility] Comment on above: Performed By: #### H EMDF, LACT3, LDH3, URIC3, CMP3, CRP2, IGQNT, ESR ####[facility] [address] [place] [address]#### HEPAN, HIV4, REG ####[address] [address]#### SPRTE ####[address] [address]#### KLFQO ####The performing lab is in the report. IgG, IgA, IgMon 01-03-2019 IgA [Mass/Vol] 131.9 mg/dL 70 - 400 mg/dL [place] IgG [Mass/Vol] 825.1 mg/dL 700 - 1600 mg/dL [place] IgM [Mass/Vol] 38.9 mg/dL Low 40 - 230 mg/dL [place] Interpretation and review of laboratory results Abnormal [place] Test Performed by [address] [place], [place] [address] [place] [address] LDHon 01-03-2019 LDH 169 U/L Normal 65-175 [facility] Comment on above: Performed By: #### H EMDF, LACT3, LDH3, URIC3, CMP3, CRP2, IGQNT, ESR #### [facility] [address] [place] [address] #### HEPAN, HIV4, REG #### [facility] [address] [place] [address] #### SPRTE #### [facility] [address] [place], [place] [address] [place] [address] #### KLFQO #### The performing lab is in the report. Lactate Dehydrogenaseon 12-12 LD 169 U/L 65 - 175 U/L [place] Lactic Acidon 01-03-2019 Lactate [Moles/Vol] 1.2 mmol/L Normal 0.7-2.0 [facility] Comment on above: Performed By: #### H EMDF, LACT3, LDH3, URIC3, CMP3, CRP2, IGQNT, ESR #### [facility] [address] [place] [address] #### HEPAN, HIV4, REG #### [place] [address] #### SPRTE #### [facility] [address] [place], [place] [address] [place] [address] #### KLFQO #### The performing lab is in the report. Lactic Acid, Plasmaon 2018 Lactate [Moles/Vol] 1.2 mmol/L 0.7 - 2 mmol/L [place], [place] Test Performed by [facility], [employer] [address] Otheron 01-03-2019 Test Performed by [facility], [address] [place] [address] Test Performed by [facility], [address] Procalcitoninon 01-03-2019 Interpretation See Below Normal [facility] Comment on above: Result Comment: PCT <0.50 = Low risk of severe sepsis and/or septic shock. PCT >2.00 = High risk of severe sepsis and/or septic shock. Performed By: #### H EMOG, CMP3 ####[place] [address] [place] [address]#### PCAL ####[place] [place] [address] Sed Rateon 01-03-2019 Sed Rate 24 mm/h High 0-10 [facility] Comment on above: Performed By: #### H EMDF, LACT3, LDH3, URIC3, CMP3, CRP2, IGQNT, ESR ####[facility] [address] [place] [address]#### HEPAN, HIV4, REG ####[place] [address] [place] [address]#### SPRTE ####[facility] [address] [place], [place] [address] [address]#### KLFQO ####The performing lab is in the report. Sedimentation Rateon 019 Interpretation and review of laboratory results Abnormal [place], [place] Sed Rate 24 mm/h High 0 - 10 mm/h [place] Test Performed by [facility], [address] [place] [address] Str[address] [place], [place] [address] [place] [address] Serum Protein Electrophoresi son 01-03-2019 Protein [Mass/Vol] 6.1 g/dL Low 6.3-8.2 [facility] Comment on above: Performed By: #### H EMDF, LACT3, LDH3, URIC3, CMP3, CRP2, IGQNT, ESR ####[facility] [address] [place] [address]#### HEPAN, HIV4, REG ####[facility] [address] [place] [address]#### SPRTE ####[facility] [address] [place], [place] [address] [address]#### KLFQO ####The performing lab is in the report. Uric Acidon 01-03-2019 Urate [Mass/Vol] 6.4 mg/dL Normal 2.5-8.5 [facility] Comment on above: Performed By: #### H EMDF, LACT3, LDH3, URIC3, CMP3, CRP2, IGQNT, ESR #### [facility] [address] [place] [address] #### HEPAN, HIV4, REG #### [facility] [address] [place] [address] #### SPRTE #### [facility] [address] [place] [address] [facility] [address] [place] [address] #### KLFQO #### The performing lab is in the report. Urate [Mass/Vol] 6.4 mg/dL 2.5 - 8.5 mg/dL [place] Vancomycin Troughon 01-04-20 19 Vancomycin Trough 14.1 ug/mL Low 15.0-20.0 [facility] Comment on above: Result Comment: . Performed By: #### V ANCT ####[facility] [place] [address] Vancomycin, Troughon 019 Interpretation and review of laboratory results Abnormal [place] Vancomycin Tr 14.1 ug/mL Low 15 - 20 ug/mL [place] Comment on above: . Test Performed by [facility], [address] [place], [place] [address] [place], [place] C-Reactive Proteinon 019 CRP [Mass/Vol] 34.2 mg/L High 0.0-6.0 [facility] Comment on above: Result Comment: . Performed By: #### C RP2 #### [facility] [address] [place] [address] CRP [Mass/Vol] 34.2 mg/L High 0 - 6 mg/L [place] Comment on above: . Interpretation and review of laboratory results Abnormal [place] Test Performed by [facility], [address] [place] [address] [place], [place] CR Chest Portableon 01-03-20 19 CR Chest Portable Patient Name: WOO DE LA CRUZ RAY Diagnostic Radiology Exam Date/Time 01/01/2019 23:06:51 EDT Exam CR Chest Portable Ordering Physician [id number] DANK MCLEAN Accession Number [id number] CPT4 Codes 77428 () Reason For Exam fever Report PORTABLE CHEST CLINICAL INDICATION: Fever and chills. COMPARISON: None. TECHNIQUE: Portable AP chest. FINDINGS: The heart, lungs, mediastinum, pulmonary vasculature and tyrell are unremarkable. No bony thoracic abnormality. IMPRESSION: No acute cardiopulmonary abnormality. Report Dictated on Final Dictated: 01/01/2019 11:24 pm Dictating Physician: FARRAH MCFADDEN DO, I Signed Date and Time: 01/01/2019 11:24 pm Signed by: FARRAH MCFADDEN DO, I Transcribed Date and Time: 01/01/2019 11:24 Normal [facility] Comp Metabolic Panelon 01-02 ALP [Catalytic activity/Vol] 45 U/L Normal 38-126 [facility] Comment on above: Performed By: #### C MP3, LACT3, HEMDF, MDIFF #### [address] [address] ALT [Catalytic activity/Vol] 46 U/L Normal 13-69 [facility] Comment on above: Performed By: #### C MP3, LACT3, HEMDF, MDIFF #### [address] [address] AST [Catalytic activity/Vol] 39 U/L Normal 15-46 [facility] Comment on above: Performed By: #### C MP3, LACT3, HEMDF, MDIFF #### [address] [address] Calcium [Mass/Vol] 9.3 mg/dL Normal 8.4-10.4 [facility] Comment on above: Performed By: #### C MP3, LACT3, HEMDF, MDIFF #### [address] [address] Glucose [Mass/Vol] 99 mg/dL Normal 70-100 [facility] Comment on above: Performed By: #### C MP3, LACT3, HEMDF, MDIFF #### [address] [address] Protein [Mass/Vol] 7.5 g/dL Normal 6.3-8.2 [facility] Comment on above: Performed By: #### C MP3, LACT3, HEMDF, MDIFF #### [address] [address] Urea nitrogen [Mass/Vol] 17 mg/dL Normal 7-20 [facility] Comment on above: Performed By: #### C MP3, LACT3, HEMDF, MDIFF #### [address] [address] Anion gap [Moles/Vol] 11 Normal [facility] Comment on above: Performed By: #### C MP3, LACT3, HEMDF, MDIFF #### [address] [address] Bilirubin [Mass/Vol] 0.6 mg/dL Normal 0.2-1.3 [facility] Comment on above: Performed By: #### C MP3, LACT3, HEMDF, MDIFF #### [address] [address] CO2 [Moles/Vol] 26 mmol/L Normal 22-30 [facility] Comment on above: Performed By: #### C MP3, LACT3, HEMDF, MDIFF #### [address] [address] Creatinine [Mass/Vol] 1.05 mg/dL Normal 0.52-1.25 [facility] Comment on above: Performed By: #### C MP3, LACT3, HEMDF, MDIFF #### [address] [address] GFR/1.73 sq M predicted among blacks MDRD (S/P/Bld) [Vol rate/Area] mL/min/{1.73_m2} Normal >60 [facility] Comment on above: Performed By: #### C MP3, LACT3, HEMDF, MDIFF #### [address] [address] GFR/1.73 sq M predicted among non-blacks MDRD (S/P/Bld) [Vol rate/Area] mL/min/{1.73_m2} Normal >60 [facility] Comment on above: Result Comment: Sour ce- MDRD equation with creatinine calibration to IDMS(NKDEP) eGFR not recommended for drug dose adjustment Performed By: #### C MP3, LACT3, HEMKENDRA, MDIFF #### [address] [address] Albumin [Mass/Vol] 4.5 g/dL Normal 3.5-5.0 [facility] Comment on above: Performed By: #### C MP3, LACT3, HEMKENDRA, MDIFF #### [address] [address] Chloride [Moles/Vol] 100 mmol/L Normal 98-107 [facility] Comment on above: Performed By: #### C MP3, LACT3, HEMKENDRA, IFF #### [address] [address] Potassium [Moles/Vol] 3.8 mmol/L Normal 3.5-5.1 [facility] Comment on above: Performed By: #### C MP3, LACT3, HEMKENDRA, IFF #### [address] [address] Sodium [Moles/Vol] 137 mmol/L Normal 135-145 [facility] Comment on above: Performed By: #### C MP3, LACT3, HEMDF, IFF #### [address] [address] Complete Urinalysison 2018 Appearance (U) Clear Normal [facility] Comment on above: Result Comment: Refe rence Range: Clear Performed By: #### C UA2 #### [address] [address] Bacteria LM.HPF (Urine sed) [#/Area] Few (1-5) Normal [facility] Comment on above: Result Comment: Refe rence Range: Negative Performed By: #### C UA2 #### [address] [address] Bilirubin,Urine Negative Normal [facility] Comment on above: Result Comment: Refe rence Range: Negative Performed By: #### C UA2 #### [facility] [address] [place] [address] Color (U) Yellow Normal [facility] Comment on above: Result Comment: Refe rence Range: Lt. Yellow Performed By: #### C UA2 #### [facility] [address] [place] [address] Glucose Ql (U) NEG (Normal) Normal [facility] Comment on above: Result Comment: Refe rence Range: Normal (<70) Performed By: #### C UA2 #### [facility] [address] [place] [address] Ketone,Urine Negative Normal [facility] Comment on above: Result Comment: Refe rence Range: Negative Performed By: #### C UA2 #### [facility] [address] [place] [address] Leukocytes,Urine Negative Normal [facility] Comment on above: Result Comment: Refe rence Range: Negative Performed By: #### C UA2 #### [facility] [address] [place] [address] Nitrites,Urine Negative Normal [facility] Comment on above: Result Comment: Refe rence Range: Negative Performed By: #### C UA2 #### [facility] [address] [place] [address] Occult Blood,Urine 2+(50) Normal [facility] Comment on above: Result Comment: Refe rence Range: Negative Performed By: #### C UA2 #### [facility] [address] [place] [address] pH (U) 8.0 Normal 5.0-8.0 [facility] Comment on above: Performed By: #### C UA2 #### [facility] [address] [place] [address] Protein (U) [Mass/Vol] Negative Normal [facility] Comment on above: Result Comment: Refe rence Range: Negative Performed By: #### C UA2 #### [facility] [address] [place] [address] RBC LM.HPF (Urine sed) [#/Area] 6 - 10 Normal [facility] Comment on above: Result Comment: Refe rence Range: 0-2 Performed By: #### C UA2 #### [address] [address] Specific [place],Urine 1.010 Normal 1.005-1.030 [facility] Comment on above: Performed By: #### C UA2 #### [address] [address] Squamous Epithelial 0 - 2 Normal [facility] Comment on above: Result Comment: Refe rence Range: 3-5 Performed By: #### C UA2 #### [address] [address] Urobilinogen,Urine Normal (0.2) Normal [facility] Comment on above: Result Comment: Refe rence Range: Normal (0-1) Performed By: #### C UA2 #### [address] [address] WBC LM.HPF (Urine sed) [#/Area] 0 - 2 Normal [facility] Comment on above: Result Comment: Refe rence Range: 0-5 Performed By: #### C UA2 #### [address] [address] Hemogram w/ Autodiffon 01-02 Erythrocyte distribution width (RBC) [Ratio] 12.6 % Normal 11.5-14.5 [facility] Comment on above: Performed By: #### C MP3, LACT3, HEMDF, MDIFF #### [address] [address] Hematocrit (Bld) [Volume fraction] 45.1 % Normal 40.0-52.0 [facility] Comment on above: Performed By: #### C MP3, LACT3, HEMDF, MDIFF #### [address] [address] Hemoglobin (Bld) [Mass/Vol] 14.9 g/dL Normal 13.0-18.0 [facility] Comment on above: Performed By: #### C MP3, LACT3, HEMDF, MDIFF #### [address] [place] [address] MCH (RBC) [Entitic mass] 27.4 pg Normal 26.0-34.0 [facility] Comment on above: Performed By: #### C MP3, LACT3, HEMDF, MDIFF #### [address] [place] [address] MCHC (RBC) [Mass/Vol] 33.0 % Normal 32.0-36.0 [facility] Comment on above: Performed By: #### C MP3, LACT3, HEMDF, MDIFF #### [address] [place] [address] MCV (RBC) [Entitic vol] 83.0 fL Normal 80.0-98.0 [facility] Comment on above: Performed By: #### C MP3, LACT3, HEMDF, MDIFF #### [address] [place] [address] Platelet mean volume (Bld) [Entitic vol] 9.5 fL Normal 7.4-10.4 [facility] Comment on above: Performed By: #### C MP3, LACT3, HEMDF, MDIFF #### [address] [address] Platelets (Bld) [#/Vol] 223 10*3/uL Normal 140-440 [facility] Comment on above: Performed By: #### C MP3, LACT3, HEMDF, MDIFF #### [address] [place] [address] RBC (Bld) [#/Vol] 5.43 10*6/uL Normal 4.40-5.90 [facility] Comment on above: Performed By: #### C MP3, LACT3, HEMDF, MDIFF #### [address] [place] [address] WBC (Bld) [#/Vol] 31.4 10*3/uL Critically high 3.6-10.7 [facility] Comment on above: Performed By: #### C MP3, LACT3, HEMDF, MDIFF #### [address] [place] [address] Lactic Acidon 01-02-2019 Lactate [Moles/Vol] 1.5 mmol/L Normal 0.7-2.0 [facility] Comment on above: Performed By: #### C MP3, LACT3, MADELEINE GOMEZ #### [facility] [address] [place] [address] MRI Low Ext Non Joint w/+w/o Contrast Lefton 01-02-2019 MRI Low Ext Non Joint w/+w/o Contrast Left Patient Name: WOO SHELDON MRI Exam Date/Time 01/02/2019 12:03:06 EDT Exam MRI Low Ext Non Joint w/+w/o Contrast Le Ordering Physician PRATEEK GALLAGHER Accession Number [id number] CPT4 Codes 05792 () Reason For Exam proximal tibia on left, concentrating on medial side Report CLINICAL INFORMATION: Medial proximal left leg pain, redness and swelling. Cellulitis. MRI left leg without and with intravenous contrast: Contrast: MultiHance, 20 mL. Axial, coronal and sagittal images were obtained using T1 and turbo spin- echo T2-weighted pulse sequences including fat suppression techniques prior to gadolinium administration. Axial, coronal and sagittal fat-suppressed T1-weighted images were obtained following intravenous gadolinium administration. A skin marker was placed proximal to the area of clinical concern. There is mild focal enhancing edema in the skin and subcutaneous fat anterior medial to the proximal tibia diaphysis and metaphysis caudal to the location of the skin marker compatible with reactive edema or cellulitis. No focal mass or fluid collection is seen to suggest an abscess at this time. There is no underlying or other bone marrow edema. No focal mass, fluid collection or other significant signal abnormality is seen in the superficial or deep soft tissues or skeletal muscles. There are no areas of abnormal contrast enhancement or other enhancing lesions. Although this examination was not obtained for assessment for internal derangement of the knee, the anterior and posterior cruciate and medial and lateral collateral ligaments appear to be intact. There is no evidence to suggest tear of the medial or lateral meniscus on limited evaluation. There is focal thickening thickening, irregularity and and irregularity and hyperintensity of the distal patellar tendon at the insertion site on the tibial tuberosity nonspecific but suggestive of sequela of Vito-Schlatter's disease and distal patellar tendinitis/tendinopath y. Incidental observation is made of an ovoid 0.8 x 0.6 cm hypointense structure surrounded by fluid posterolateral to the medial tibial plateau suggestive of a small intracapsular body. IMPRESSION: 1. Focal enhancing edema in the skin and subcutaneous fat anteromedial to the proximal tibia diaphysis and metaphysis compatible reactive edema or cellulitis. No evidence of focal fluid collection to suggest abscess. 2. No evidence of bone marrow edema to suggest bone bruise or occult fracture. 3. No other focal fluid collection or area of abnormal soft tissue signal intensity. 4. Incidental observation of small intracapsular body posterolateral to the medial tibial plateau. 5. Focal thickening, irregularity and hyperintensity in the distal patellar tendon at the insertion site of the tibial tuberosity nonspecific but suggestive of sequela of Mcclellan-Schlatter's disease and distal patellar tendinitis/tendinopath y. Correlate with clinical parameters. Report Dictated on Workstation: [id number] Final Dictating Physician: MD MORALES HARLAN Signed Date and Time: 01/02/2019 2:23 pm Signed by: MD MORALES HARLAN Transcribed Date and Time: 01/02/2019 2:25 Normal [facility] MRI Lower Extremity Left WO JT W WO Contraston 01-02-2019 [place], [facility] Incoming Radiology Results From [facility] - 01/02/2019 2:25 PM EDT Patient Name: WOO SHELDON ---MRI--- Exam Date/Time 01/02/2019 12:03:06 EDT Exam MRI Low Ext Non Joint w/+w/o Contrast Le Ordering Physician PRATEEK GLALAGHER Accession Number [id number] CPT4 Codes 88207 () Reason For Exam proximal tibia on left, concentrating on medial side Report CLINICAL INFORMATION: Medial proximal left leg pain, redness and swelling. Cellulitis. MRI left leg without and with intravenous contrast: Contrast: MultiHance, 20 mL. Axial, coronal and sagittal images were obtained using T1 and turbo spin- echo T2-weighted pulse sequences including fat suppression techniques prior to gadolinium administration. Axial, coronal and sagittal fat-suppressed T1-weighted images were obtained following intravenous gadolinium administration. A skin marker was placed proximal to the area of clinical concern. There is mild focal enhancing edema in the skin and subcutaneous fat anterior medial to the proximal tibia diaphysis and metaphysis caudal to the location of the skin marker compatible with reactive edema or cellulitis. No focal mass or fluid collection is seen to suggest an abscess at this time. There is no underlying or other bone marrow edema. No focal mass, fluid collection or other significant signal abnormality is seen in the superficial or deep soft tissues or skeletal muscles. There are no areas of abnormal contrast enhancement or other enhancing lesions. Although this examination was not obtained for assessment for internal derangement of the knee, the anterior and posterior cruciate and medial and lateral collateral ligaments appear to be intact. There is no evidence to suggest tear of the medial or lateral meniscus on limited evaluation. There is focal thickening thickening, irregularity and and irregularity and hyperintensity of the distal patellar tendon at the insertion site on the tibial tuberosity nonspecific but suggestive of sequela of Vito-Schlatter's disease and distal patellar tendinitis/tendinopath y. Incidental observation is made of an ovoid 0.8 x 0.6 cm hypointense structure surrounded by fluid posterolateral to the medial tibial plateau suggestive of a small intracapsular body. IMPRESSION: 1. Focal enhancing edema in the skin and subcutaneous fat anteromedial to the proximal tibia diaphysis and metaphysis compatible reactive edema or cellulitis. No evidence of focal fluid collection to suggest abscess. 2. No evidence of bone marrow edema to suggest bone bruise or occult fracture. 3. No other focal fluid collection or area of abnormal soft tissue signal intensity. 4. Incidental observation of small intracapsular body posterolateral to the medial tibial plateau. 5. Focal thickening, irregularity and hyperintensity in the distal patellar tendon at the insertion site of the tibial tuberosity nonspecific but suggestive of sequela of Vito-Schlatter's disease and distal patellar tendinitis/tendinopath y. Correlate with clinical parameters. Report Dictated on Workstation: [id number] --- Final --- Dictating Physician: MD MORALES HARLAN Signed Date and Time: 01/02/2019 2:23 pm Signed by: MD MORALES HARLAN Transcribed Date and Time: 01/02/2019 2:25 [place], [place] Patient Name: WOO DE LA CRUZ ---MRI--- Exam Date/Time 01/02/2019 12:03:06 EDT Exam MRI Low Ext Non Joint w/+w/o Contrast Le Ordering Physician PRATEEK GALLAGHER Accession Number [id number] CPT4 Codes 83041 () Reason For Exam proximal tibia on left, concentrating on medial side Report CLINICAL INFORMATION: Medial proximal left leg pain, redness and swelling. Cellulitis. MRI left leg without and with intravenous contrast: Contrast: MultiHance, 20 mL. Axial, coronal and sagittal images were obtained using T1 and turbo spin- echo T2-weighted pulse sequences including fat suppression techniques prior to gadolinium administration. Axial, coronal and sagittal fat-suppressed T1-weighted images were obtained following intravenous gadolinium administration. A skin marker was placed proximal to the area of clinical concern. There is mild focal enhancing edema in the skin and subcutaneous fat anterior medial to the proximal tibia diaphysis and metaphysis caudal to the location of the skin marker compatible with reactive edema or cellulitis. No focal mass or fluid collection is seen to suggest an abscess at this time. There is no underlying or other bone marrow edema. No focal mass, fluid collection or other significant signal abnormality is seen in the superficial or deep soft tissues or skeletal muscles. There are no areas of abnormal contrast enhancement or other enhancing lesions. Although this examination was not obtained for assessment for internal derangement of the knee, the anterior and posterior cruciate and medial and lateral collateral ligaments appear to be intact. There is no evidence to suggest tear of the medial or lateral meniscus on limited evaluation. There is focal thickening thickening, irregularity and and irregularity and hyperintensity of the distal patellar tendon at the insertion site on the tibial tuberosity nonspecific but suggestive of sequela of Vito-Schlatter's disease and distal patellar tendinitis/tendinopath y. Incidental observation is made of an ovoid 0.8 x 0.6 cm hypointense structure surrounded by fluid posterolateral to the medial tibial plateau suggestive of a small intracapsular body. IMPRESSION: 1. Focal enhancing edema in the skin and subcutaneous fat anteromedial to the proximal tibia diaphysis and metaphysis compatible reactive edema or cellulitis. No evidence of focal fluid collection to suggest abscess. 2. No evidence of bone marrow edema to suggest bone bruise or occult fracture. 3. No other focal fluid collection or area of abnormal soft tissue signal intensity. 4. Incidental observation of small intracapsular body posterolateral to the medial tibial plateau. 5. Focal thickening, irregularity and hyperintensity in the distal patellar tendon at the insertion site of the tibial tuberosity nonspecific but suggestive of sequela of Vito-Schlatter's disease and distal patellar tendinitis/tendinopath y. Correlate with clinical parameters. Report Dictated on Workstation: [id number] --- Final --- Dictating Physician: MD MORALES HARLAN Signed Date and Time: 01/02/2019 2:23 pm Signed by: MD MORALES HARLAN Transcribed Date and Time: 01/02/2019 2:25 [facility] [place] Manual Diffon 01-02-2019 Abs Monocyte Cnt 1.6 10*3/uL High 0.2-1.1 [facility] Comment on above: Result Comment: ALVINA ECTED RESULT...Previous above value was 0.0, verified on 01/01/19 at 23:51 by AAB . Performed By: #### C MP3, LACT3, HEMDF, MDIFF #### [address] [address] Abs Neutrophile Cnt 28.6 10*3/uL High 2.2-8.2 [facility] Comment on above: Performed By: #### C MP3, LACT3, HEMDF, MDIFF #### [address] [address] Atypical Lymphocytes 4 % Abnormal <1 [facility] Comment on above: Performed By: #### C MP3, LACT3, HEMDF, MDIFF #### [address] [address] Bands 3 % Normal 0-3 [facility] Comment on above: Result Comment: ALVINA ECTED RESULT...Previous above value was 0, verified on 01/01/19 at 23:51 by AAB . Performed By: #### C MP3, LACT3, HEMDF, MDIFF #### [address] [address] Basophils 0 % Normal 0-2 [facility] Comment on above: Performed By: #### C MP3, LACT3, HEMDF, MDIFF #### [address] [address] Large Platelets PRESENT Normal [facility] Comment on above: Performed By: #### C MP3, LACT3, HEMDF, MDIFF #### [address] [address] Monocytes 5 % Normal 2-10 [facility] Comment on above: Result Comment: ALVINA ECTED RESULT...Previous above value was 0, verified on 01/01/19 at 23:51 by AAB . Performed By: #### C MP3, LACT3, HEMDF, MDIFF #### [address] [address] Path Review see below Normal [facility] Comment on above: Result Comment: Slid e sent to pathologist for review. Performed By: #### C MP3, LACT3, HEMDF, MDIFF #### [address] [address] RBC morphology finding Nom (Bld) Normal Normal [facility] Comment on above: Performed By: #### C MP3, LACT3, HEMDF, MDIFF #### [address] [address] Seg Neutrophils 88 % High 40-80 [facility] Comment on above: Performed By: #### C MP3, LACT3, HEMDF, MDIFF #### [address] [address] Smudge Cells Present Normal [facility] Comment on above: Performed By: #### C MP3, LACT3, HEMDF, MDIFF #### [address] [address] Toxic Granulation Moderate Normal [facility] Comment on above: Performed By: #### C MP3, LACT3, HEMDF, MDIFF #### [address] [address] Abs Baso Cnt 0.0 10*3/uL Normal 0.0-0.2 [facility] Comment on above: Performed By: #### C MP3, LACT3, HEMDF, MDIFF #### [address] [place] [address] Abs Eosin Cnt 0.0 10*3/uL Normal 0.0-0.5 [facility] Comment on above: Performed By: #### C MP3, LACT3, HEMDF, MDIFF #### [address] [address] Abs Lymph Cnt 0.0 10*3/uL Low 1.1-4.5 [facility] Comment on above: Performed By: #### C MP3, LACT3, HEMDF, MDIFF #### [address] [address] Cells counted 100 Normal [facility] Comment on above: Performed By: #### C MP3, LACT3, HEMDF, MDIFF #### [address] [address] Eosinophils 0 % Low 1-6 [facility] Comment on above: Performed By: #### C MP3, LACT3, HEMDF, MDIFF #### [address] [address] Lymphocytes 0 % Low 20-40 [facility] Comment on above: Performed By: #### C MP3, LACT3, HEMDF, MDIFF #### [address] [address] Manual Differentialon 2018 Absolute Baso # 0.0 10*3/uL 0 - 0.2 10*3/uL [place], [place] Absolute Eos # 0.0 10*3/uL 0 - 0.5 10*3/uL [place] Absolute Lymph # 0.0 10*3/uL Low 1.1 - 4.5 10*3/uL [place] Absolute [place] # 1.6 10*3/uL High 0.2 - 1.1 10*3/uL [place] Comment on above: CORRECTED RESULT...P revious above value was 0.0, verified on 01/01/19 at 23:51 by AAB . Absolute Neut # 28.6 10*3/uL High 2.2 - 8.2 10*3/uL [place] Atypical Lymphocytes 4 % Abnormal <1 [place], [place] Bands 3 % 0 - 3 % [place] Comment on above: CORRECTED RESULT...P revious above value was 0, verified on 01/01/19 at 23:51 by AAB . Basophils 0 % 0 - 2 % [place] Eosinophils 0 % Low 1 - 6 % [place] Interpretation and review of laboratory results Abnormal [place] Lymphocytes 0 % Low 20 - 40 % [place] Monocytes 5 % 2 - 10 % [place] Comment on above: CORRECTED RESULT...P revious above value was 0, verified on 01/01/19 at 23:51 by AAB . Path Review see below [place], [place] Comment on above: Slide sent to pathrajani oliver for review. PLATELETS, LARGE PRESENT [place], [place] RBC morphology finding Nom (Bld) Normal [place], [place] Seg Neutrophils 88 % High 40 - 80 % [place] Smudge Cells Present [place] TOTAL CELLS COUNTED 100 [place] Toxic Granulation Moderate [place] Test [facility] by [facility], [address] [place] [id number] [place], [place] Procalcitoninon 01-02-2019 Procalcitonin 1.40 ng/mL Abnormal <0.10 [facility] Comment on above: Performed By: #### P SARA #### [facility] [address] [address] Interpretation and review of laboratory results Abnormal [place] Procalcitonin 1.4 ng/mL Abnormal <0.10 [place] Sodium [Moles/Vol] See Below [place], [place] Comment on above: PCT <0.50 = Low risk of severe sepsis and/or septic shock. PCT >2.00 = High risk of severe sepsis and/or septic shock. Test Performed by [facility], [address] [place] [id number] [place], [place] Interpretation See Below Normal [facility] Comment on above: Result Comment: PCT <0.50 = Low risk of severe sepsis and/or septic shock. PCT >2.00 = High risk of severe sepsis and/or septic shock. Performed By: #### P SARA #### [facility] [address] [facility] [address] Surgical Pathologyon 019 Sodium [Moles/Vol] SEE BELOW [facility], [place] 1 [id number] [facility] DEPARTMENT OF [facility] PATHOLOGY AND LABORATORY MEDICINE [address] [place], [place] [id number] FINAL PERIPHERAL BLOOD REPORT NAME: WOO SHELDON : 1990 28 [address]AK NO.: [id number] LOCATION: [id number] PROCEDURE 01/01/2019 DATE: SURGEON: DANK THORPE MD RECEIVED DATE: 01/02/2019 ATTENDING PRATEEK CEBALLOS MD REPORT DATE: 01/02/2019 : COPIES TO: DIAGNOSIS: LEUKOCYTOSIS WITH MATURE NEUTROPHILIA, SUGGESTIVE OF AN INFECTIOUS PROCESS. NO BLASTS OR OVERTLY ABNORMAL CELLS ARE SEEN. DIRECTOR MUSEUM OR ZOO/DIRECTOR MUSEUM OR ZOO Signature> ROSENDO OLGUIN M.D. CLINICAL INFORMATION: Peripheral Smear SPECIMEN: PERIPHERAL BLOOD SMEAR GROSS DESCRIPTION: Peripheral smear slide prepared for evaluation. DIRECTOR MUSEUM OR ZOO/SARA Disclaimer: The following statement applies to all immunohistochemistry, in situ hybridization, molecular studies, and immunofluorescence testing. The use of one or more reagents in the above tests is regulated as an analyte specific reagent (ASR). These tests were developed and their performance characteristics determined by the clinical laboratories of [facility]. They have not been cleared by the US Food and Drug Administration (FDA). The FDA has determined that such clearance or approval is not necessary. All the above immunostains were performed on paraffin embedded tissue. Appropriate positive and negative controls (where applicable) were run in parallel with the patient's specimen; these controls showed expected staining pattern, with acceptable intensity of staining. Immunohistochemical assays have not been validated on decalcified tissues. Results should be interpreted with caution given the raised possibility of false negativity on decalcified specimens. DEPARTMENT OF PATHOLOGY AND LABORATORY MEDICINE [place], [place] [address] [place], [place] Surgical Pathology [id number] [facility] PATHOLOGY AND LABORATORY MEDICINE [address] [place] [id number] FINAL PERIPHERAL BLOOD REPORT NAME: PITO WOOChristy GARCIA : 1990 28 Y Ronda PATHAK NO.: [id number] LOCATION: [id number] PROCEDURE 01/01/2019 DATE: SURGEON: DANK THORPE MD RECEIVED DATE: 01/02/2019 ATTENDING PRATEEK CEBALLOS MD REPORT DATE: 01/02/2019 : COPIES TO: DIAGNOSIS: LEUKOCYTOSIS WITH MATURE NEUTROPHILIA, SUGGESTIVE OF AN INFECTIOUS PROCESS. NO BLASTS OR OVERTLY ABNORMAL CELLS ARE SEEN. DIRECTOR MUSEUM OR ZOO/DIRECTOR MUSEUM OR ZOO Signature> ROSENDO OLGUIN M.D. CLINICAL INFORMATION: Peripheral Smear SPECIMEN: PERIPHERAL BLOOD SMEAR GROSS DESCRIPTION: Peripheral smear slide prepared for evaluation. DIRECTOR MUSEUM OR ZOO/SARA Disclaimer: The following statement applies to all immunohistochemistry, in situ hybridization, molecular studies, and immunofluorescence testing. The use of one or more reagents in the above tests is regulated as an analyte specific reagent (ASR). These tests were developed and their performance characteristics determined by the clinical laboratories of [facility]. They have not been cleared by the US Food and Drug Administration (FDA). The FDA has determined that such clearance or approval is not necessary. All the above immunostains were performed on paraffin embedded tissue. Appropriate positive and negative controls (where applicable) were run in parallel with the patient's specimen; these controls showed expected staining pattern, with acceptable intensity of staining. Immunohistochemical assays have not been validated on decalcified tissues. Results should be interpreted with caution given the raised possibility of false negativity on decalcified specimens. DEPARTMENT OF PATHOLOGY AND LABORATORY MEDICINE [place], [place] [address] Normal [facility] Comprehensive Metabolic Pane ankit 01-01-2019 Albumin [Mass/Vol] 4.5 g/dL 3.5 - 5 g/dL [facility], [place] ALP [Catalytic activity/Vol] 45 U/L 38 - 126 U/L [place], [place] ALT [Catalytic activity/Vol] 46 U/L 13 - 69 U/L [place] Anion gap [Moles/Vol] 11 mmol/L [place], [place] AST [Catalytic activity/Vol] 39 U/L 15 - 46 U/L [place] Bilirubin Ql (U) 0.6 mg/dL 0.2 - 1.3 mg/dL [place] Calcium [Mass/Vol] 9.3 mg/dL 8.4 - 10. 4 mg/dL [place] Chloride [Moles/Vol] 100 mmol/L 98 - 10 7 mmol/L [place] CO2 [Moles/Vol] 26 mmol/L 22 - 30 mmol/L [place] Creatinine [Mass/Vol] 1.05 mg/dL 0.52 - 1.25 mg/dL [place] EGFR IF NonAfrican Dominican >60.0 >60 mL/min [place] Comment on above: Source- MDRD equatio n with creatinine calibration to IDMS(NKDEP) eGFR not recommended for drug dose adjustment GFR/1.73 sq M predicted among blacks MDRD (S/P/Bld) [Vol rate/Area] mL/min/{1.73_m2} >60 mL/min [place] Glucose [Mass/Vol] 99 mg/dL 70 - 100 mg/dL [place], [place] Potassium [Moles/Vol] 3.8 mmol/L 3.5 - 5.1 mmol/L [place] Protein [Mass/Vol] 7.5 g/dL 6.3 - 8.2 g/dL [place], [place] Sodium [Moles/Vol] 137 mmol/L 135 - 145 mmol/L [place] Urea nitrogen [Mass/Vol] 17 mg/dL 7 - 20 mg/dL [place] Hemogram (CBC) w/Auto Diffon 01-01-2019 Erythrocyte distribution width (RBC) [Ratio] 12.6 % 11.5 - 14.5 % [place] Hematocrit (Bld) [Volume fraction] 45.1 % 40 - 52 % [place] Hemoglobin (Bld) [Mass/Vol] 14.9 g/dL 13 - 18 g/dL [place] Interpretation and review of laboratory results Abnormal [place] MCH (RBC) [Entitic mass] 27.4 pg 26 - 34 pg [place] MCHC (RBC) [Mass/Vol] 33.0 % 32 - 36 % [place] MCV (RBC) [Entitic vol] 83.0 fL 80 - 98 fL [place] Platelet mean volume (Bld) [Entitic vol] 9.5 fL 7.4 - 10.4 fL [place] Platelets (Bld) [#/Vol] 223 10*3/uL 140 - 440 10*3/uL [place] RBC (Bld) [#/Vol] 5.43 10*6/uL 4.4 - 5.9 10*6/uL [place] WBC (Bld) [#/Vol] 31.4 10*3/uL Critically high 3.6 - 1 0.7 10*3/uL [place] Test Performed by [facility], [address] [place] [address] Lactic Acid, Plasmaon 2018 Lactate [Moles/Vol] 1.5 mmol/L 0.7 - 2 mmol/L [place], [place] Otheron 01-01-2019 Test Performed by [facility], [address] [place] [address] Urinalysison 01-01-2019 Appearance (U) Clear [place], [place] Comment on above: Reference Range: Baljeet ar Bacteria, UA Few (1-5) /[HPF] [place] Comment on above: Reference Range: Neg ative Bilirubin Urine Negative mg/dL [place] Comment on above: Reference Range: Neg ative Color (U) Yellow [place], [place] Comment on above: Reference Range: Lt. Yellow Glucose, Ur NEG (Normal) mg/dL [place] Comment on above: Reference Range: Nor mal (<70) Ketones Ql (U) Negative mg/dL [place] Comment on above: Reference Range: Neg ative LEUKOCYTES, UA Negative Vale/uL [place] Comment on above: Reference Range: Neg ative Nitrite, Urine Negative [place] Comment on above: Reference Range: Neg ative Occult Blood,Urine 2+(50) mg/dL [place] Comment on above: Reference Range: Neg ative pH (U) 8.0 [pH] [place] Protein (U) [Mass/Vol] Negative mg/dL [place] Comment on above: Reference Range: Neg ative RBC (U) [#/Vol] 6-10 /[HPF] [place] Comment on above: Reference Range: 0-2 Specific [place], Urine 1.010 [place], [place] Squam Epithel, UA 0-2 /[HPF] [place] Comment on above: Reference Range: 3-5 Urobilinogen, Urine Normal (0.2) mg/dL [place] Comment on above: Reference Range: Nor mal (0-1) WBC, UA 0-2 /[HPF] [place], [place] Comment on above: Reference Range: 0-5 Test Performed by [facility], [address] [place] [address] XR CHEST PORTABLEon 01-02-20 19 [facility] Incoming Radiology Results From [facility] - 01/01/2019 11:26 PM EDT Patient Name: WOO SHELDON ---Diagnostic Radiology--- Exam Date/Time 01/01/2019 23:06:51 EDT Exam CR Chest Portable Ordering Physician [id number] ANDERSON Accession Number [id number] CPT4 Codes 96021 () Reason For Exam fever Report PORTABLE CHEST CLINICAL INDICATION: Fever and chills. COMPARISON: None. TECHNIQUE: Portable AP chest. FINDINGS: The heart, lungs, mediastinum, pulmonary vasculature and tyrell are unremarkable. No bony thoracic abnormality. IMPRESSION: No acute cardiopulmonary abnormality. Report Dictated on --- Final --- Dictated: 01/01/2019 11:24 pm Dictating Physician: FARRAH MCFADDEN DO, I Signed Date and Time: 01/01/2019 11:24 pm Signed by: FARRAH MCFADDEN DO, I Transcribed Date and Time: 01/01/2019 11:24 [place], [place] Patient Name: WOO DE LA CRUZ ---Diagnostic Radiology--- Exam Date/Time 01/01/2019 23:06:51 EDT Exam CR Chest Portable Ordering Physician [id number] DANK MCLEAN Accession Number [id number] CPT4 Codes 32564 () Reason For Exam fever Report PORTABLE CHEST CLINICAL INDICATION: Fever and chills. COMPARISON: None. TECHNIQUE: Portable AP chest. FINDINGS: The heart, lungs, mediastinum, pulmonary vasculature and tyrell are unremarkable. No bony thoracic abnormality. IMPRESSION: No acute cardiopulmonary abnormality. Report Dictated on --- Final --- Dictated: 01/01/2019 11:24 pm Dictating Physician: FARRAH MCFADDEN DO, I Signed Date and Time: 01/01/2019 11:24 pm Signed by: FARRAH MCFADDEN DO, I Transcribed Date and Time: 01/01/2019 11:24 [place], [place] MISCELLANEOUS CULT./SM.BACT. on 03-18-2018 MISCELLANEOUS CULT./SM.BACT. PATIENT: WOO SHELDON LOCATION: [facility] BILL#: [id number] : [birth year] AGE: SEX: M ORDERED BY: CARI GOLDEN SOURCE: WOUND/ABSCESS COLLECTED: 03/18/18 16:23 ANTIBIOTICS AT YAYA.: RECEIVED : 03/19/18 10:15 SITE: R E S U L T S GRAM STAIN FINAL 03/19/18 12:41 1+ GRANULOCYTES. NO ORGANISMS SEEN. MISCELLANEOUS CULT./SM.BACT. FINAL 03/22/18 13:11 ISOLATE1 : Staphylococcus aureus COLONIES - 8 METHICILLIN(OXACILLIN) SUSCEPTIBLE STAPHYLOCOCCI ARE SUSCEPTIBLE TO SEMI-SYNTHETIC PENICILLINS (OXACILLIN,NAFCILLIN, ETC),BETA-LACTAM/BETA- LACTAMASE INHIBITOR COMBINATIONS(INCLUDING AMPICILLIN/SULBACTAM, AMOXICILLIN/CLAVULANAT E AND PIPERACILLIN/TAZOBACTA M), CARBAPENEMS AND CEPHALOSPORINS APPROVED FOR USE BY THE FDA FOR STAPHYLOCOCCAL INFECTIONS. Organism S aureus Antibiotic BP INTRP Ampicillin R Clindamycin S Ciprofloxacin S Erythromycin S Gentamicin S Levofloxacin S Oxacillin S Penicillin R Trimeth/Sulfa S Tetracycline S Vancomycin S S=SUSCEPTIBLE I=INTERMEDIATE R=RESISTANT SDD=SUSCEPTIBLE DOSE DEPENDENT NS=NONSUSCEPTIBLE X=REPORTED IN ERROR Normal [facility] Comment on above: Performed By: #### M [facility] #### [facility] [id number] [place] [address] Vital Signs Date Time Vital Sign Value Performing Clinician Susy mar 01-30-2024 08:29-0400 Body mass index (BMI) [Ratio] 37.51 kg/m2 Janeen Smith APRN.CNP Work Phone: [facility] 01-30-2024 08:29-0400 Body temperature 97.81 [degF] Janeen Smith APRN.CNP Work Phone: [facility] 01-30-2024 08:29-0400 Body weight 122 kg Janeen Luis CHEMICAL RADIATION TECHNICIAN.MEDICAL CHARGE ENTRY SPECIALIST Work Phone: [facility] 01-30-2024 08:29-0400 Diastolic blood pressure 87 mm[Hg] Janeen Luis CHEMICAL RADIATION TECHNICIAN.MEDICAL CHARGE ENTRY SPECIALIST Work Phone: [facility] 01-30-2024 08:29-0400 Heart rate 77 /min Janeen Luis CHEMICAL RADIATION TECHNICIAN.MEDICAL CHARGE ENTRY SPECIALIST Work Phone: [facility] 01-30-2024 08:29-0400 Respiratory rate 18 /min Janeen Luis CHEMICAL RADIATION TECHNICIAN.MEDICAL CHARGE ENTRY SPECIALIST Work Phone: [facility] 01-30-2024 08:29-0400 SaO2% (BldA) [Mass fraction] 99 % Janeen Luis CHEMICAL RADIATION TECHNICIAN.MEDICAL CHARGE ENTRY SPECIALIST Work Phone: [facility] 01-30-2024 08:29-0400 Systolic blood pressure 128 mm[Hg] Janeen Luis CHEMICAL RADIATION TECHNICIAN.MEDICAL CHARGE ENTRY SPECIALIST Work Phone: [facility] 05-09-2022 11:25-0500 Body temperature 97 [degF] Janeen Luis CHEMICAL RADIATION TECHNICIAN.MEDICAL CHARGE ENTRY SPECIALIST Work Phone: [facility] 05-09-2022 11:25-0500 Body weight 126.19 kg Janeen Luis CHEMICAL RADIATION TECHNICIAN.MEDICAL CHARGE ENTRY SPECIALIST Work Phone: [facility] 05-09-2022 11:25-0500 Diastolic blood pressure 84 mm[Hg] Janeen Luis CHEMICAL RADIATION TECHNICIAN.MEDICAL CHARGE ENTRY SPECIALIST Work Phone: [facility] 05-09-2022 11:25-0500 Heart rate 71 /min Janeen Luis CHEMICAL RADIATION TECHNICIAN.MEDICAL CHARGE ENTRY SPECIALIST Work Phone: [facility] 05-09-2022 11:25-0500 Respiratory rate 16 /min Janeen Luis CHEMICAL RADIATION TECHNICIAN.MEDICAL CHARGE ENTRY SPECIALIST Work Phone: [facility] 05-09-2022 11:25-0500 SaO2% (BldA) [Mass fraction] 98 % Janeen Luis CHEMICAL RADIATION TECHNICIAN.MEDICAL CHARGE ENTRY SPECIALIST Work Phone: [facility] 05-09-2022 11:25-0500 Systolic blood pressure 138 mm[Hg] Janeen mSith CHEMICAL RADIATION TECHNICIAN.MEDICAL CHARGE ENTRY SPECIALIST Work Phone: [facility] 01-04-2022 17:37-0400 Body temperature 98.2 [degF] [facility] CHEMICAL RADIATION TECHNICIAN.MEDICAL CHARGE ENTRY SPECIALIST Work Phone: [facility] 01-04-2022 17:37-0400 Body weight 123.47 kg [facility] CHEMICAL RADIATION TECHNICIAN.MEDICAL CHARGE ENTRY SPECIALIST Work Phone: [facility] 01-04-2022 17:37-0400 Diastolic blood pressure 74 mm[Hg] [facility] CHEMICAL RADIATION TECHNICIAN.MEDICAL CHARGE ENTRY SPECIALIST Work Phone: [facility] 01-04-2022 17:37-0400 Heart rate 92 /min Miguel A Orozcobalwinder CHEMICAL RADIATION TECHNICIAN.MEDICAL CHARGE ENTRY SPECIALIST Work Phone: [facility] 01-04-2022 17:37-0400 Respiratory rate 18 /min [facility] CHEMICAL RADIATION TECHNICIAN.MEDICAL CHARGE ENTRY SPECIALIST Work Phone: [facility] 01-04-2022 17:37-0400 SaO2% (BldA) [Mass fraction] 97 % [facility] CHEMICAL RADIATION TECHNICIAN.MEDICAL CHARGE ENTRY SPECIALIST Work Phone: [facility] 01-04-2022 17:37-0400 Systolic blood pressure 126 mm[Hg] [facility] CHEMICAL RADIATION TECHNICIAN.MEDICAL CHARGE ENTRY SPECIALIST Work Phone: [facility] 01-06-2019 12:31-0400 BMI (Body Mass Index) 35.32 kg/m2 Cari Golden MPChu [facility] Work Phone: 01-06-2019 12:31-0400 Body Temperature 98.8 [degF] Cari Golden MPChu [facility] Work Phone: 01-06-2019 12:31-0400 Body weight 115.67 kg Cari Golden MPChu [facility] Work Phone: 01-06-2019 12:31-0400 BP Diastolic 66 mm[Hg] Cari Golden MPJenifferChu [facility] Work Phone: 01-06-2019 12:31-0400 BP Systolic 110 mm[Hg] Cari Golden MPJenifferChu [facility] Work Phone: 01-06-2019 12:31-0400 BSA (Body Surface Area) 2.34 m2 Cari Golden MPChu [facility] Work Phone: 01-06-2019 12:31-0400 Pulse (Heart Rate) 80 /min Cari Centeno [facility] Work Phone: 01-04-2019 20:43-0400 Body Temperature 99.3 [degF] [place] 01-04-2019 20:43-0400 BP Diastolic 78 mm[Hg] [facility] [place] 01-04-2019 20:43-0400 BP Systolic 142 mm[Hg] [facility] 01-04-2019 20:43-0400 Pulse (Heart Rate) 86 /min Dank [place]Web[place] 01-04-2019 20:43-0400 Pulse Oximetry 100 % [facility] [place] 01-04-2019 20:43-0400 Respiratory Rate 14 /min Dank MaurilioClimateminderLAS [place] 01-01-2019 21:29-0400 BMI (Body Mass Index) 36.26 kg/m2 [place]ank [place] 01-01-2019 21:29-0400 Body weight 117.94 kg [facility] [place] 01-01-2019 21:29-0400 Height 180.3 [place] Encounters Encounter Date Encounter Type Care Provider Facility Start: 01-30-2024 End: 01-30-2024 ambulatory ELIZABETH PELLETIER Facility:[facility] Start: 01-30-2024 End: 09-19-2024 Patient encounter procedure Janeen Smith APRN.MEDICAL CHARGE ENTRY SPECIALIST Work Phone: [facility] Comment on above: Rhus dermatitis (Lisa lauren Dx) Start: 05-09-2022 End: 05-09-2022 Patient encounter procedure Janeen Smith SAQIB.MEDICAL CHARGE ENTRY SPECIALIST Work Phone: [facility] Comment on above: Acute otitis media, right (Primary Dx) Start: 01-04-2022 End: 01-04-2022 Patient encounter procedure Miguel A John APRN.[facility] Work Phone: [facility] Comment on above: Pharyngitis, unspeci fied etiology (Primary Dx) Start: 01-06-2019 Patient encounter procedure Cari Golden [facility] Work Phone: Start: 01-01-2019 End: 01-05-2019 Evaluation and management of inpatient Dank Thorpe Work Phone: [facility] Comment on above: Cellulitis of left l ower extremity (Primary Dx); Inguinal abscess; Leukocytosis, unspecified type; MYRNA (acute kidney injury) ([facility]) Start: 04-17-2018 Patient encounter procedure Cari Golden [facility] Work Phone: Start: 03-20-2018 Patient encounter procedure Cari Golden [facility] Work Phone: Start: 03-18-2018 Patient encounter procedure Cari Golden [facility] Work Phone: Procedures Date Procedure Procedure Detail Performing Clinician Start: 01-04-2022 STREP A MOLECULAR (POC) Miguel A John APRN.MEDICAL CHARGE ENTRY SPECIALIST Work Phone: Start: 04-08-2019 Adult depression scr eening assessment Miguel A John APRN.MEDICAL CHARGE ENTRY SPECIALIST Work Phone: Start: 01-07-2019 Follow-up visit Start: 01-07-2019 Microscopic examinat ion of blood, culture Comment on above: Order Comment: Speci men Source Comment:Blood Performed By: #### C /BLT ####[facility] [id number] [place] [address] Start: 01-05-2019 Microscopic examinat ion of blood, culture Comment on above: Order Comment: Speci men Source Comment:Blood Performed By: #### C /BLD #### [employer] [facility] [address] [facility] [place] [address] Start: 01-05-2019 Comprehensive metabo lic panel Bonita Audie Work Phone: Start: 01-04-2019 Blood count complete automated Afia Mancusoamish Work Phone: Start: 01-04-2019 Comprehensive metabo lic panel Bonita Audie Work Phone: Start: 01-04-2019 Procalcitonin (pct) Corona Lópezarlenalexandra Work Phone: Start: 01-04-2019 Iadna-dna/rna gi pth gn multiplex probe tq 05-06 Prateek Ceballos Work Phone: Start: 01-03-2019 CT ABDOMEN PELVIS W CONTRAST Afia Rosario Work Phone: Start: 01-03-2019 Drug screen quantita tive vancomycin Prateek Ceballos Work Phone: Start: 01-03-2019 Acute hepatitis panel A ksenia Medina Work Phone: Start: 01-03-2019 Antibody hiv-1&hiv-2 single result Manolo Medina Work Phone: Start: 01-03-2019 Assay of blood/uric acid Manolo Medina Work Phone: Start: 01-03-2019 Assay of gammaglobul in iga igd igg igm each Manolo Medina Work Phone: Start: 01-03-2019 Assay of lactate Bonita Bronson Work Phone: Start: 01-03-2019 Blood count complete auto&auto difrntl wbc Prateek Ceballos Work Phone: Start: 01-03-2019 C-reactive protein Andr rocio Medina Work Phone: Start: 01-03-2019 Comprehensive metabo lic panel Bonita Bronson Work Phone: Start: 01-03-2019 Lactate dehydrogenase ldh Manolo Medina Work Phone: Start: 01-03-2019 Sedimentation rate r bc automated Manolo Medina Work Phone: Start: 01-02-2019 Mri lower extrem oth /thn jt w/o & w/contr matr Prateek Ceballos Work Phone: Start: 01-02-2019 Procalcitonin (pct) Nacho ieasia Ceballos Work Phone: Start: 01-02-2019 C-reactive protein Rupert el Isidra Ceballos Work Phone: Start: 01-01-2019 Level iv surg pathol ogy gross&microscopic exam Dank Thorpe Work Phone: Start: 01-01-2019 Assay of lactate Eriberto Thorpe Work Phone: Start: 01-01-2019 Blood count complete auto&auto difrntl wbc Dank Thorpe Work Phone: Start: 01-01-2019 Comprehensive metabo lic panel Dank Thorpe Work Phone: Start: 01-01-2019 Culture bacterial bl ood aerobic w/id isolates Dank Thorpe Work Phone: Start: 01-01-2019 MANUAL DIFFERENTIAL Gre carrie Thorpe Work Phone: Start: 01-01-2019 Urnls dip stick/tabl et rgnt auto w/o microscopy Dank Thorpe Work Phone: Start: 01-01-2019 Radiologic exam ches t single view Dank Thorpe Work Phone: Start: 04-18-2018 Follow-up visit Start: 03-20-2018 Follow-up visit Start: 03-18-2018 Follow-up visit Colostomy Cari López is Plan of Treatment Date Care Activity Detail Author Start: 03-20-2028 Urine microalbumin profile [facility] Start: 01-12-2024 Covid-19 Vaccine ( season) Covid-19 Vaccine ( season) [facility] Start: 01-12-2024 Influenza vaccination Influenza Vacc ine (#1) [facility] Start: 01-11-2022 Influenza vaccination INFLUENZA (#1) [facility] Start: 05-13-2021 DEPRESSION ASSESSMENT DEPRESSION ASS ESSMENT [facility] Start: 04-08-2020 Adult depression screening assessment DEPRESSION SCREENING [facility] Start: 01-12-2019 End: 01-06-2020 Basic metabolic 2000 panel Basic Metabolic Panel Lab Routine MYRNA (acute kidney injury) (HCC) Expected: 01/12/2019, Expires: 01/06/2020 [place] Comment on above: Expected: 01/12/2019 , Expires: 01/06/2020 Start: 01-11-2019 Influenza vaccination Flu vaccine (# 1) [place], [place] Start: 2010 Hepatitis B Vaccine (1 of 3 - 19+ 3-dose series) Hepatitis B Vaccine (1 of 3 - 19+ 3-dose series) [facility] Start: 2009 Anxiety Screening Anxiety Screening [facility] Start: 2009 [facility]: 2009 HEPATITIS C SCREENING HEPATITIS C [facility] Start: 2009 Hepatitis C screening Hepatitis C [facility] Start: 2009 HIV SCREENING HIV SCREENING [facility] Start: 2009 HIV screening HIV Screening [facility] Start: 1997 PNEUMOCOCCAL (1 - PCV) PNEUMOCOCCAL (1 - PCV) [facility] Start: 1997 Pneumococcal vaccination Pneum ococcal Vaccine (1 of 2 - PCV) [facility] Start: 1991 COVID-19 VACCINE (#1) COVID-19 VACCI NE (#1) [facility] Start: 1991 HEPATITIS B (1 of 3 - 3-dose series) HEPATITIS B (1 of 3 - 3-dose series) [facility] End: 01-03-2019 Assay of nephelometry each analyte tiana Free [employer] Chains Plus Ratio Lab Routine Tomorrow AM for 1 Occurrences starting 01/03/2019 until 01/03/2019 [place], [place] Comment on above: Tomorrow AM for 1 Oc currences starting 01/03/2019 until 01/03/2019 Assay of nephelometr y each analyte tiana Free K&[employer] Light Chains Plus Ratio Lab Routine 01/03/2019 2:24 AM EDT [place] Comprehensive metabo lic 2000 panel Comprehensive Metabolic Panel Lab Routine Daily until discontinued starting 01/03/2019, 3 completed [place] Comment on above: Daily until disconti nued starting 01/03/2019, 3 completed Culture Blood #2 Culture Blood # 2 Microbiology STAT 01/02/2019 5:49 AM EDT [place] Electrophoresis Prot ein, Serum without Reflex to Immunofixation Electrophoresis Protein, Serum without Reflex to Immunofixation Lab Routine 01/03/2019 2:24 AM EDT [place] Initiate Oxygen Ther apy Protocol Initiate Oxygen Therapy Protocol Respiratory Care Routine Daily until discontinued starting 01/02/2019 [place] Comment on above: Daily until disconti nued starting 01/02/2019 End: 01-03-2019 Nuclear Ab IF (S) [Titer] REG Lab Routine Tomorrow AM for 1 Occurrences starting 01/03/2019 until 01/03/2019 [place] Comment on above: Tomorrow AM for 1 Oc currences starting 01/03/2019 until 01/03/2019 Nuclear Ab IF (S) [Titer] REG La b Routine 01/03/2019 2:24 AM EDT [place] Immunizations Immunization Date Immunization Notes Care Provider Fa isabel 03-20-2018 tetanus toxoid, redu keron diphtheria toxoid, and acellular pertussis vaccine, adsorbed; Translations: [Tdap (Boostrix)] Cari Golden [facility] 12-28-1992 diphtheria, tetanus toxoids and acellular pertussis vaccine, unspecified formulation Miguel A John CHEMICAL RADIATION TECHNICIAN.MEDICAL CHARGE ENTRY SPECIALIST Work Phone: [facility] Payers Date Payer Category Payer Unknown JONATHAN SIMMONS SS PPO [id number] 2022-Present [phone] [address] [place] [address] PPO [id number] 2022 Unknown [id number] Social History Date Type Detail Facility Start: 01-02-2019 End: 01-30-2024 Tobacco smoking status NHIS Current every day smoker [facility] Work Phone: History of tobacco use Cigarette Smoker [place], [place] Start: 01-02-2019 End: 06-05-2022 Cigarettes smoked current (pack per day) - Reported [facility] Start: 01-02-2019 End: 06-05-2022 Alcohol intake Yes [facility] Start: 1990 Sex Assigned At Not on file [place] Start: 01-06-2021 End: 01-30-2024 Tobacco use and exposure Smokeless tobacco non-user [facility] Work Phone: Start: 01-04-2022 End: 01-30-2024 Alcohol intake Lifetime non-drinker (finding) [facility] Start: 03-22-2020 History SDOH Alcohol Frequency 1 [facility] Start: 07-01-2018 History SDOH Alcohol Comment rare [facility] Start: 01-06-2021 End: 05-09-2022 Tobacco Comment 01/06/21 - pack/day. [facility] Start: 12-25-2021 End: 01-04-2022 Exposure to SARS-CoV-2 (event) Not sure [facility] How often to you hav e a drink containing alcohol? Never [facility] Average Number of Drinks Not on file [facility] NEGATED[facility] Work Phone: Functional Status Date Assessment Result Facility NEGATED: Highlighted row Functional performance Functional status health issues are not documented [facility]: Mental Status Date Assessment Result Facility NEGATED: Highlighted row Cognitive function [Interpretation] Cognitive status health issues are not documented Disease [facility] Work Phone: Progress note 01-30-2024 Note Date & Type Note Facility 01-30-2024 Note HNO ID: [id number] Author: JANEEN SMITH APRN.MEDICAL CHARGE ENTRY SPECIALIST Service: ? Author Type: Nurse Practitioner Type: Progress Notes Filed: 01/30/2024 08:41 Note Text: Subjective HPI HPI Woo Sheldon is a 33 year old male who presents today for CC of itchy rash. This started 2 days ago. Has tried otc medication for relief. Symptoms are worsened by nothing. 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 .Patient presents with: Rash: Arms and face, itchy x 2 days PAST MEDICAL HISTORY Diagnosis Date Cellulitis PAST SURGICAL HISTORY Procedure Laterality Date COLOSTOMY HX As an infant. With reversal ALLERGIES Patient has no known allergies. MEDICATIONS amLODIPine (NORVASC) 5 mg tablet Take 1 tablet by mouth every afternoon. cyclobenzaprine (FLEXERIL) 10 mg tablet Take 10 mg by mouth three times a day as needed for muscle spasm. sertraline (ZOLOFT) 100 mg tablet Take 1 tablet by mouth every afternoon. fluticasone (FLONASE) 50 mcg/actuation nasal spray Use 2 Sprays in each nostril once daily. Rinse mouth after use. (Patient not taking: Reported on 01/30/2024) acetaminophen (TYLENOL) 325 mg tablet Take 3 tablets by mouth every 6 hours as needed for Pain. (Patient not taking: Reported on 01/30/2024) FAMILY HISTORY Problem Relation Age of Onset other (lung cancer) Maternal Grandfather Hypertension Mother Diabetes Father Social History Tobacco Use Smoking status: Every Day Current packs/day: 0.50 Average packs/day: 0.5 packs/day for 10.0 years (5.0 ttl pk-yrs) Types: Cigarettes Smokeless tobacco: Never Tobacco comments: 01/06/21 - pack/day. Vaping Use Vaping status: Former Substance Use Topics Alcohol use: Never Comment: rare Drug use: No Review of Systems Constitutional: Negative for chills and fever. Skin: Positive for itching and rash (Positive for clear, watery drainage. Denies warmth and purulent drainage. ). Objective Blood pressure 128/87, pulse 77, temperature 36.6 ?C (97.8 ?F), resp. rate 18, weight 122 kg (268 lb 15.4 oz), SpO2 99%. Physical Exam Constitutional: General: He is not in acute distress. Appearance: He is not toxic-appearing or diaphoretic. HENT: Head: Normocephalic and atraumatic. Skin: General: Skin is warm, dry and intact. Findings: Rash present. Rash is vesicular (distribution linear ). Neurological: Mental Status: He is alert and oriented to person, place, and time. ASSESSMENT/PLAN: 1. Rhus dermatitis - ICD9: 692.6, ICD10: L25.5 - Oral Steriod tx -Prednisone taper - Topical steriod tx with Rx for steriod cream/ointment- see orders - discussed skin care of rash - follow up if symptoms persist or worsen. - PREDNISONE 10 MG TABLET - TRIAMCINOLONE ACETONIDE 0.1 % TOPICAL CREAM Janeen Smith APRN.TAMELA [facility] History of Present illness Narrative 01-30-2024 Janeen Smith APRN.TAMELA - 01/30/2024 8:32 AM EDT Note Date & Type Note Facility 01-30-2024 History of Presen t illness Narrative Images from the original note were not included. Subjective HPI HPI Woo Sheldon is a 33 year old male who presents today for CC of itchy rash. This started 2 days ago. Has tried otc medication for relief. Symptoms are worsened by nothing. 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 .Patient presents with: Rash: Arms and face, itchy x 2 days PAST MEDICAL HISTORY Diagnosis Date Cellulitis PAST SURGICAL HISTORY Procedure Laterality Date COLOSTOMY HX As an infant. With reversal ALLERGIES Patient has no known allergies. MEDICATIONS amLODIPine (NORVASC) 5 mg tablet Take 1 tablet by mouth every afternoon. cyclobenzaprine (FLEXERIL) 10 mg tablet Take 10 mg by mouth three times a day as needed for muscle spasm. sertraline (ZOLOFT) 100 mg tablet Take 1 tablet by mouth every afternoon. fluticasone (FLONASE) 50 mcg/actuation nasal spray Use 2 Sprays in each nostril once daily. Rinse mouth after use. (Patient not taking: Reported on 01/30/2024) acetaminophen (TYLENOL) 325 mg tablet Take 3 tablets by mouth every 6 hours as needed for Pain. (Patient not taking: Reported on 01/30/2024) FAMILY HISTORY Problem Relation Age of Onset other (lung cancer) Maternal Grandfather Hypertension Mother Diabetes Father Social History Tobacco Use Smoking status: Every Day Current packs/day: 0.50 Average packs/day: 0.5 packs/day for 10.0 years (5.0 ttl pk-yrs) Types: Cigarettes Smokeless tobacco: Never Tobacco comments: 01/06/21 - pack/day. Vaping Use Vaping status: Former Substance Use Topics Alcohol use: Never Comment: rare Drug use: No Review of Systems Constitutional: Negative for chills and fever. Skin: Positive for itching and rash (Positive for clear, watery drainage. Denies warmth and purulent drainage. ). Objective Blood pressure 128/87, pulse 77, temperature 36.6 C (97.8 F), resp. rate 18, weight 122 kg (268 lb 15.4 oz), SpO2 99%. Physical Exam Constitutional: General: He is not in acute distress. Appearance: He is not toxic-appearing or diaphoretic. HENT: Head: Normocephalic and atraumatic. Skin: General: Skin is warm, dry and intact. Findings: Rash present. Rash is vesicular (distribution linear ). Neurological: Mental Status: He is alert and oriented to person, place, and time. ASSESSMENT/PLAN: 1. Rhus dermatitis - ICD9: 692.6, ICD10: L25.5 - Oral Steriod tx -Prednisone taper - Topical steriod tx with Rx for steriod cream/ointment- see orders - discussed skin care of rash - follow up if symptoms persist or worsen. - PREDNISONE 10 MG TABLET - TRIAMCINOLONE ACETONIDE 0.1 % TOPICAL CREAM Janeen Smith APRN.TAMELA documented in this encounter [facility] History of Present illness Narrative 05-09-2022 Janeen Smith APRN.TAMELA - 05/09/2022 11:43 AM EST Note Date & Type Note Facility 05-09-2022 History of Presen t illness Narrative Subjective HPI HPI Woo Sheldon is a 32 year old male who presents today for CC of right ear pain. This started few days ago/worsening. Has tried otc medication for relief. Symptoms are worsened by nothing. Risk factors sick exposures at home, uri symptoms for past few days. smoker. .Patient presents with: Ear Pain: Right ear pain x 1 day PAST MEDICAL HISTORY Diagnosis Date Cellulitis PAST SURGICAL HISTORY Procedure Laterality Date COLOSTOMY HX As an infant. With reversal ALLERGIES Patient has no known allergies. MEDICATIONS acetaminophen (TYLENOL) 325 mg tablet Take 3 tablets by mouth every 6 hours as needed for Pain. amoxicillin-clavulanic acid (AUGMENTIN) 875-125 mg per tablet Take 1 tablet by mouth twice daily for 7 days. fluticasone (FLONASE) 50 mcg/actuation nasal spray Use 2 Sprays in each nostril once daily. Rinse mouth after use. FAMILY HISTORY Problem Relation Age of Onset other (lung cancer) Maternal Grandfather Hypertension Mother Diabetes Father Social History Tobacco Use Smoking status: Every Day Packs/day: 0.50 Years: 10.00 Pack years: 5.00 Types: Cigarettes Smokeless tobacco: Never Tobacco comments: 01/06/21 - pack/day. Vaping Use Vaping Use: Former Substance Use Topics Alcohol use: Never Comment: rare Drug use: No Review of Systems Constitutional: Negative for fever. HENT: Positive for congestion and ear pain. Negative for ear discharge, nosebleeds and sore throat. Respiratory: Negative for cough, shortness of breath and wheezing. Cardiovascular: Negative for chest pain. Musculoskeletal: Negative for neck pain. Objective Blood pressure 138/84, pulse 71, temperature 36.1 C (97 F), temperature source Tympanic, resp. rate 16, weight 126.2 kg (278 lb 3.2 oz), SpO2 98 %. Physical Exam Constitutional: General: He is not in acute distress. Appearance: He is not toxic-appearing or diaphoretic. HENT: Head: Normocephalic and atraumatic. Right Ear: Hearing, ear canal and external ear normal. Tympanic membrane is erythematous and bulging. Tympanic membrane is not perforated. Left Ear: Hearing, tympanic membrane, ear canal and external ear normal. Pulmonary: Effort: Pulmonary effort is normal. No accessory muscle usage or respiratory distress. Lymphadenopathy: Cervical: No cervical adenopathy. Right cervical: No superficial cervical adenopathy. Left cervical: No superficial cervical adenopathy. Neurological: Mental Status: He is alert and oriented to person, place, and time. ASSESSMENT/PLAN: 1. Acute otitis media, right - ICD9: 382.9, ICD10: H66.91 - Will begin treatment with as per antibiotic as written, see orders - Supportive care with plenty of fluids, rest, and analgesia prn. - Follow up in 3-5 days if symptoms persist or worsen. - AMOXICILLIN 875 MG-POTASSIUM CLAVULANATE 125 MG TABLET - FLUTICASONE PROPIONATE 50 MCG/ACTUATION NASAL SPRAY,SUSPENSION Agrees to plan Janeen Smith APRN.CNP documented in this encounter [facility] Instructions 01-04-2022 Patient Instructions Note Date & Type Note Facility 01-04-2022 Instructions Miguel A John APRN.CNP - 01/04/2022 5:57 PM EDT [facility] PATIENT INFO PHARYNGITIS OVERVIEW A sore throat (pharyngitis) is a common problem, and usually is caused by a viral or bacterial infection. Sore throat usually resolves on its own without complications in adults, although it is important to know when to seek medical attention. Viruses can cause a sore throat and other upper respiratory infections, such as the common cold. Sore throat caused by a virus is not treated with antibiotics, but instead may be treated with rest, pain medication, and other therapies aimed at relieving symptoms. Strep throat is a particular kind of pharyngitis that is caused by a bacterium known as group A streptococcus (GAS). Strep throat is treated with a course of antibiotics. SORE THROAT SYMPTOMS Viral pharyngitis -- Most people with a sore throat have a virus. The most common viruses are those that cause upper respiratory infections, such as the common cold. Symptoms of a viral infection can include: A runny or congested nose Irritation or redness of the eyes Cough, hoarseness, or soreness in the roof of the mouth Some viruses cause a fever and can make you feel quite ill. Strep throat -- Approximately 10 percent of adults with a sore throat have strep throat. Signs and symptoms of strep throat include the following: Pain in the throat Fever (temperature greater than 100.4 F or 38 C) Enlarged lymph glands in the neck White patches of pus on the side or back of the throat No cough, runny nose, or irritation/redness of the eyes Other infections -- Many other less common but more serious infections can cause a sore throat, including mononucleosis (mono), influenza (the flu), N. gonococcus (gonorrhea), human immunodeficiency virus (HIV), and others. When to seek urgent help -- See your doctor or nurse immediately if you have a sore throat along with any of the following: Difficulty breathing Skin rash Drooling because you cannot swallow Swelling of the neck or tongue Stiff neck or difficulty opening the mouth SORE THROAT DIAGNOSIS Most people with a sore throat get better without treatment. There is no specific treatment for a sore throat caused by usual cold viruses. Is it strep or not? -- A combination of symptoms (fever, enlarged glands in the neck, white patches on your tonsils, and no cough) can help in determining if you have strep. If you have two or more symptoms, a rapid test or throat culture may be done. People with fewer than two symptoms usually do not need testing or treatment for strep throat. Rapid test -- The rapid test determines if there are streptococcus bacteria on a throat swab. The test can be done in a clinician's office and the results are available within a few minutes. The test is accurate in most cases, although a small percentage of tests are falsely negative (the bacteria are present but the test is negative). Throat culture -- A throat culture involves swabbing the throat, sending the swab to a laboratory, and waiting 24 to 48 hours for the results. Throat cultures are slightly more accurate than the rapid test. TREATMENT OF SORE THROAT Sore throat treatment -- Antibiotics do not help throat pain caused by a virus and are not recommended. Sore throat caused by viral infections usually lasts four to five days. During this time, treatments to reduce pain may be helpful. Several therapies can help to relieve throat pain. Pain medication -- You can treat your throat pain with a mild pain reliever such as acetaminophen (Tylenol ) or a non-steroidal anti-inflammatory agent such as ibuprofen or naproxen (Motrin or Aleve ). Oral rinses -- Salt-water gargles are an old stand-by for throat pain. It is not clear that salt water works to relieve pain, but it is unlikely to be harmful. Most recipes suggest 1/4 to 1/2 teaspoon of salt per one cup (8 ounces) of warm water. Sprays -- Sprays containing topical anesthetics (eg, benzocaine, phenol) are available to treat sore throat. However, such sprays are no more effective than sucking on hard candy. Lozenges -- A variety of lozenges (cough drops) are available to treat throat pain or relieve dryness. However, it is not clear that lozenges work any better than other forms of hard candy, which are generally less expensive. Other treatments -- Other treatments that may help with throat pain include sipping warm beverages (eg, honey or lemon tea, chicken soup), cold beverages, or eating cold or frozen desserts (eg, ice cream, popsicles). Alternative therapies -- Health food stores, vitamin outlets, and Internet Web sites offer alternative treatments for relief of sore throat pain. We do not recommend these type of treatments due to the risks of contamination with pesticides/herbicides, inaccurate labeling and dosing information, and a lack of studies showing that these treatments are safe and effective. Strep throat -- Although strep throat typically resolves on its own within two to five days, treatment with antibiotics is recommended for adults whose rapid test or throat culture is positive for strep throat. Penicillin, or an antibiotic related to penicillin, is the treatment of choice for strep throat. It is usually given in pill or liquid form two to four times per day for 10 days. A one time injection of penicillin is also available. People who are allergic to penicillin are given an alternate antibiotic. It is important to finish the entire course of treatment to completely eliminate the infection. If symptoms do not begin to improve or worsen by three days of antibiotic treatment, you should see your doctor or nurse again. Return to work/school -- If you have been diagnosed with strep throat, stay home from work or school until you have completed 24 hours of antibiotics. Within 24 hours of beginning antibiotic treatment, you will feel better and will be less contagious [1]. If you have a sore throat (not diagnosed as strep), you may participate in your usual activities as soon as you feel well. SORE THROAT PREVENTION Hand washing is an essential and highly effective way to prevent the spread of infection. Wet your hands with water and plain soap, and rub them together for 15 to 30 seconds. Pay special attention to the fingernails, between the fingers, and the wrists. Rinse your hands thoroughly, and dry them with a clean towel. Alcohol-based hand rubs are a good alternative for disinfecting hands if a sink is not available. Hand rubs should be spread over the entire surface of hands, fingers, and wrists until dry, and may be used several times. These rubs can be used repeatedly without skin irritation or loss of effectiveness. Hand rubs are available as a liquid or wipe in small, portable sizes that are easy to carry in a pocket or handbag. When a sink is available, visibly soiled hands should be washed with soap and water. Wash your hands after coughing, blowing the nose, or sneezing. While it is not always possible to avoid being near a person who is sick, avoiding touching your eyes, nose, or mouth to prevent the spread of infection. In addition, tissues should be used to cover the mouth when sneezing or coughing. These used tissues should be disposed of promptly. Sneezing/coughing into your sleeve (at the inner elbow) is another way to contain sprays of saliva and secretions and will not contaminate your hand documented in this encounter [facility] History of Present illness Narrative 01-04-2022 Miguel A John APRN.CNP - 01/04/2022 5:42 PM EDT Note Date & Type Note Facility 01-04-2022 History of Presen t illness Narrative Subjective HPI Nontoxic-appearing male presents urgent care chief plaint sore throat. Duration of symptoms 1 week. Associated symptoms sore throat. Patient states initially he did have a cough fever body aches chills. This is some subsided. Denies any known sick contacts. No OTC medication use today. Most bothersome symptoms sore throat. Denies any history of recent strep throat. States he has not had his tonsils removed. Denies any fevers productive cough chest pain shortness of breath pleuritic pain hemoptysis nausea vomiting abdominal pain rashes difficulty swallowing difficulty handling secretions decreased range of motion neck. Past medical history prescription medication use allergies reviewed. .Patient presents with: Pain, Throat: Throat pain rated 8, cough, fever, x1 wk. PAST MEDICAL HISTORY Diagnosis Date Cellulitis PAST SURGICAL HISTORY Procedure Laterality Date COLOSTOMY HX As an . With reversal ALLERGIES Patient has no known allergies. MEDICATIONS acetaminophen (TYLENOL) 325 mg tablet Take 3 tablets by mouth every 6 hours as needed for Pain. cephalexin (KEFLEX ORAL) Take by mouth four times daily. (Patient not taking: Reported on 01/04/2022) DOXYCYCLINE MONOHYDRATE ORAL Take 100 mg by mouth twice daily. FAMILY HISTORY Problem Relation Age of Onset other (lung cancer) Maternal Grandfather Hypertension Mother Diabetes Father Social History Tobacco Use Smoking status: Every Day Packs/day: 0.50 Years: 10.00 Pack years: 5.00 Types: Cigarettes Smokeless tobacco: Never Tobacco comments: 01/06/21 - pack/day. Vaping Use Vaping Use: Former Substance Use Topics Alcohol use: Never Comment: rare Drug use: No BP 126/74 Pulse 92 Temp 36.8 C (98.2 F) Resp 18 Wt 123.5 kg (272 lb 3.2 oz) SpO2 97% BMI 37.96 kg/m Review of Systems Constitutional: Negative for chills, fever and malaise/fatigue. HENT: Positive for sore throat. Negative for congestion, ear discharge, ear pain and sinus pain. Eyes: Negative for blurred vision, pain, discharge and redness. Respiratory: Negative for cough, hemoptysis, sputum production, shortness of breath, wheezing and stridor. Cardiovascular: Negative for chest pain. Gastrointestinal: Negative for abdominal pain, diarrhea, nausea and vomiting. Musculoskeletal: Negative for myalgias. Skin: Negative for itching and rash. Neurological: Negative for dizziness and headaches. Objective Physical Exam Constitutional: General: He is not in acute distress. Appearance: He is not diaphoretic. HENT: Head: Normocephalic. Jaw: No trismus, tenderness, swelling or pain on movement. Nose: Nose normal. Mouth/Throat: Lips: [place]-Rumbly. Mouth: Mucous membranes are moist. Pharynx: Oropharynx is clear. Uvula midline. Posterior oropharyngeal erythema present. No pharyngeal swelling, oropharyngeal exudate or uvula swelling. Tonsils: No tonsillar exudate or tonsillar abscesses. Eyes: Conjunctiva/sclera: Conjunctivae normal. Pupils: Pupils are equal, round, and reactive to light. Cardiovascular: Rate and Rhythm: Normal rate and regular rhythm. Heart sounds: Normal heart sounds. Pulmonary: Effort: Pulmonary effort is normal. No tachypnea, accessory muscle usage or respiratory distress. Breath sounds: Normal breath sounds. No stridor. No wheezing, rhonchi or rales. Abdominal: Palpations: Abdomen is soft. Tenderness: There is no abdominal tenderness. Musculoskeletal: Cervical back: Normal range of motion and neck supple. No rigidity or tenderness. Lymphadenopathy: Cervical: No cervical adenopathy. Skin: General: Skin is warm and dry. Neurological: Mental Status: He is alert and oriented to person, place, and time. ASSESSMENT/PLAN: 1. Pharyngitis, unspecified etiology - ICD9: 462, ICD10: J02.9 - STREP A MOLECULAR (POC) Strep test negative. We will treat conservatively at this time. Suspicious of viral etiology. No evidence of bacterial infection noted on examination. Patient was educated on supportive therapies. Patient will follow up with primary care provider as needed. Patient was instructed to immediately proceed to emergency room for any new, worsening, or symptoms lasting longer than anticipated. The patient's clinical presentation is otherwise unremarkable at this time. Based on exam and clinical finding, the patient is stable for discharge. Plan of care was discussed with patient. Patient verbalizes understanding and agrees to plan of care. This note was generated using [employer] software. It may contain errors in wording, punctuation, or spelling. Miguel A John APRN.TAMELA documented in this encounter [facility] History of Past illness Narrative 2019 Note Date & Type Note Facility 2019 History of Past i llness Narrative Problem Noted Date Resolved Date Left leg cellulitis 2019 07/17/2019 Sepsis due to cellulitis 08/15/2018 019 Last Assessment & Plan: Assessment: - WBC 19, tachycardic at outside ED with clinical findings of cellulitis. Improved - Blood cx showing NGTD - ESR , CRP normal - LLE xray showed Evidence for remote Vito-Schlatter condition - MRSA screen negative PLAN: - Vancomycin will be continued, with plans to check vanc trough and switch to PO abx 4/7. Hypokalemia 08/15/2018 08/17/2018 Last Assessment & Plan: Assessment: K 3.4 PLAN: - replace and recheck documented as of this encounter (statuses as of 01/04/2022) [facility] History of Past illness Narrative 2019 Note Date & Type Note Facility 2019 History of Past i llness Narrative Problem Noted Date Resolved Date Left leg cellulitis 2019 07/17/2019 Sepsis due to cellulitis 08/15/2018 019 Last Assessment & Plan: Assessment: - WBC 19, tachycardic at outside ED with clinical findings of cellulitis. Improved - Blood cx showing NGTD - ESR , CRP normal - LLE xray showed Evidence for remote Mcclellan-Schlatter condition - MRSA screen negative PLAN: - Vancomycin will be continued, with plans to check vanc trough and switch to PO abx 7. Hypokalemia 08/15/2018 08/17/2018 Last Assessment & Plan: Assessment: K 3.4 PLAN: - replace and recheck documented as of this encounter (statuses as of 05/15/2022) [facility] Evaluation note Note Date & Type Note Facility Evaluation note Diagnosis Pharyngitis, unspecified etiology- Primary documented in this encounter [facility] Evaluation note Note Date & Type Note Facility Evaluation note Diagnosis Acute otitis media, right- Primary Unspecified otitis media documented in this encounter [facility] Evaluation note Note Date & Type Note Facility Evaluation note Diagnosis Opacity of lung on imaging study- Primary Obesity, Class II, BMI 35-39.9 Obesity, unspecified Nicotine use disorder, F17.2 Tobacco use disorder Sepsis due to cellulitis (HCC) Tinea pedis of both feet Hypokalemia Hypopotassemia Rhus dermatitis- Primary Contact dermatitis and other eczema due to plants (except food) documented in this encounter [facility] Summary Purpose Family History No Family History Records Found Mother Name Dates Details No pertinent family history( V49.89, Z78.9) Status:Active Father Name Dates Details No pertinent family history( V49.89, Z78.9) Status:Active Advance Directives No Advanced Directives Records FoundLatest Code Status on File Code Status Date Activated Date Inactivated Comments Full Code 01/02/2019 4:58 AM Discharge Instructions * Discharge Instr - Activity* Goldie Collado RN - 01/05/2019 11:26 AM EDT As tolerated * Discharge Instr - Diet* Goldie Collado RN - 01/05/2019 11:28 AM EDT ? Good nutrition is important when healing from an illness, injury, or surgery. Follow any nutrition recommendations given to you during your hospital stay. ? If you were given an oral nutrition supplement while in the hospital, continue to take this supplement at home. You can take it with meals, in-between meals, and/or before bedtime. These supplements can be purchased at most local grocery stores, pharmacies, and [place]-stores. ? If you have any questions about your diet or nutrition, call the hospital and ask for the dietitian. Regular * Additional Instructions* Goldie Collado RN - 01/05/2019 GENERAL SIGNS AND SYMPTOMS GREEN ZONE: All Clear- Your Symptoms Are Under Control No recurrence of symptoms that led to hospitalization Able to do usual activities No fever No chest pain No shortness of breath This Means You Should: Continue taking your medications as prescribed Continue activity as tolerated Keep all doctor appointments YELLOW ZONE: Caution as Your Health may be Worsening Recurrence of symptoms that led to hospitalization Fever of 100 degrees or higher Increased fatigue or restlessness Intolerant side-effects of medications Uneasy feeling or that something is wrong This Means You Should: Call your doctor for further instructions RED ZONE: Medical Alert Severe or unrelieved shortness of breath at rest Unrelieved chest pain Confusion or you can't think clearly This Means You Should Call 911 Immediately * Attachments The following attachments cannot be sent through Care Everywhere. * Abscess: Skin (Faroese) * Cellulitis (Faroese) * C. difficile: Inpatient: General Info (Faroese) * C Dif Colitis (Faroese) * Antibiotics: General Info (Faroese) documented in this encounter History of Present Illness * Manolo Medina Jr., MD - 01/05/2019 10:49 AM EDT Patient seen and chart reviewed. No bleed or thrombosis. Clinically, much improved. Exam otherwise stable X 4 systems. GI panel by PCR is positive for C. Difficile toxin. Patient is on po Vancomycin.Patient is to be discharged today. Will follow in office to coordinate outpatient lymph node biopsy. Discussed with patient, air liaison and special staff, and Dr. Aguilar. Total visit time 25 minutes. * Siomara Torres RN - 01/05/2019 12:15 AM EDT Pt IV infiltrated. IV removed by nurse. Pt requesting to not have a new IV placed. Plan for pt d/c tomorrow. Pt not getting any IV meds. Dr Ceballos OK to leave IV out at this time. * Ayleen Gavin RD, GRAEME - 01/04/2019 6:10 PM EDT Nutrition rescreen complete -chart/labs reviewed -poss d/c per notes. Pt does not appear to be at acute nutrition risk at this time -level one for nutrition care. Diet certified master safe technician to monitor and follow up * Bonita Bronson MD - 01/04/2019 4:17 PM EDT [facility]-Infectious Diseases Attending Consult Note Reason for F/U: Sepsis History of Present Illness: F/U for C diff Infection. He was alert, found walking in the hallway, left groin and leg pain decreased, no fever, appeared comfortable. He was admitted on 01/02/19 with cellulitis of left lower extremity and inguinal pain. He presented with swelling and pain in left groin, fever, chill, body aches and feeling sick for a day. He denied any trauma. In hospital, he spiked fever to 102.5, with tachycardia (P 115), hypotension (BP 98/50), leukocytosis (31.4k), and elevated crp (34.2), and procalcitonin (1.40). He has h/o infection in left groin and left lower leg, in the past, requiring surgery. He was examined, ROS and chart were reviewed, treatment plan was discussed. Past Medical History: Diagnosis Date Cellulitis History reviewed. No pertinent surgical history. abdominal surgery Current Medications: Current Facility-Administered Medications: vancomycin (VANCOCIN) oral solution 125 mg, 125 mg, Oral, 4 times per day piperacillin-tazobactam (ZOSYN) 4.5 g in dextrose 100 mL IVPB extended infusion (premix), 4.5 g, Intravenous, Q6H loperamide (IMODIUM) capsule 2 mg, 2 mg, Oral, 4x Daily PRN nicotine polacrilex (NICORETTE) gum 2 mg, 2 mg, Oral, PRN vancomycin (VANCOCIN) 1500 mg in dextrose 5 % 250 mL IVPB, 1,500 mg, Intravenous, Q8H sodium chloride flush 0.9 % injection 10 mL, 10 mL, Intravenous, 2 times per day sodium chloride flush 0.9 % injection 10 mL, 10 mL, Intravenous, PRN magnesium hydroxide (MILK OF MAGNESIA) 400 MG/5ML suspension 30 mL, 30 mL, Oral, Daily PRN ondansetron (ZOFRAN) injection 4 mg, 4 mg, Intravenous, Q6H PRN enoxaparin (LOVENOX) injection 40 mg, 40 mg, Subcutaneous, Daily famotidine (PEPCID) tablet 20 mg, 20 mg, Oral, BID Allergies: No Known Allergies Social History Socioeconomic History Marital status: Spouse name: None Number of children: None Years of education: None Highest education level: None Occupational History None Social Needs Financial resource strain: None Food insecurity: Worry: None Inability: None Transportation needs: Medical: None Non-medical: None Tobacco Use Smoking status: Current Every Day Smoker Packs/day: 1.00 Types: Cigarettes Smokeless tobacco: Never Used Substance and Sexual Activity Alcohol use: Yes Drug use: No Sexual activity: None Lifestyle Physical activity: Days per week: None Minutes per session: None Stress: None Relationships Social connections: Talks on phone: None Gets together: None Attends druze service: None Active member of club or organization: None Attends meetings of clubs or organizations: None Relationship status: None Intimate partner violence: Fear of current or ex partner: None Emotionally abused: None Physically abused: None Forced sexual activity: None Other Topics Concern None Social History Narrative None History reviewed. No pertinent family history.FH: -neg for CAD Review of Systems: CONSTITUTIONAL: positive for fevers, chills and fatigue EYES: negative HEENT: negative RESPIRATORY: negative CARDIOVASCULAR: negative GASTROINTESTINAL: positive for abdominal pain GENITOURINARY: negative INTEGUMENT/BREAST: negative HEMATOLOGIC/LYMPHATIC: negative ALLERGIC/IMMUNOLOGIC: negative ENDOCRINE: negative MUSCULOSKELETAL: negative NEUROLOGICAL: positive for weakness BEHAVIOR/PSYCH: positive for fatigue Physical Exam: Vitals: BP 132/71 Pulse 67 Temp 97.7 F (36.5 C) (Temporal) Resp 16 Ht 5' 11 (1.803 m) Wt260 lb (117.9 kg) SpO2 98% BMI 36.26 kg/m CONSTITUTIONAL: awake, alert, cooperative, appeared ill, and appears stated age EYES: Lids and lashes normal, pupils equal, round and reactive to light, extra ocular muscles intact, sclera clear, conjunctiva normal ENT: Normocephalic, without obvious abnormality, atraumatic, sinuses nontender on palpation, external ears without lesions, oral pharynx with moist mucus membranes, tonsils without erythema or exudates, gums normal and good dentition. NECK: Supple, symmetrical, trachea midline, no adenopathy, thyroid symmetric, not enlarged and no tenderness, skin normal HEMATOLOGIC/LYMPHATICS: no cervical lymphadenopathy BACK: Symmetric, no curvature, spinous processes are non-tender on palpation, paraspinous muscles are non-tender on palpation, no costal vertebral tenderness LUNGS: No increased work of breathing, good air exchange, clear to auscultation bilaterally, no crackles or wheezing CARDIOVASCULAR: Normal apical impulse, regular rate and rhythm, normal S1 and S2, no S3 or S4, and no murmur noted ABDOMEN: old scars, +tender over left inguinal area, decreased bowel sounds, soft, non-distended, non-tender, no masses palpated, no hepatosplenomegally MUSCULOSKELETAL: There is no redness, warmth, or swelling of the joints. Full range of motion noted. Motor strength is 5 out of 5 all extremities bilaterally. Tone is normal. NEUROLOGIC: Awake, alert, oriented to name, place and time. Cranial nerves II- XII are grossly intact. Motor is 5 out of 5 bilaterally. Cerebellar finger to nose, heel to arenas intact. Sensory is intact. Babinski down going, Romberg negative, and gait is normal. SKIN: Warm, dry and no rashes, +tatoo Labs: CBC with Differential: Lab Results Component Value Date WBC 8.9 01/04/2019 RBC 4.73 01/04/2019 HGB 13.6 01/04/2019 HCT 39.3 01/04/2019 PLT 205 01/04/2019 MCV 83.2 01/04/2019 MCH 28.8 01/04/2019 MCHC 34.6 01/04/2019 RDW 14.0 01/04/2019 LYMPHOPCT 21.2 01/03/2019 MONOPCT 8.9 01/03/2019 BASOPCT 0.6 01/03/2019 MONOSABS 1.2 01/03/2019 LYMPHSABS 2.9 01/03/2019 EOSABS 0.2 01/03/2019 BASOSABS 0.1 01/03/2019 CMP: Lab Results Component Value Date NA 140 01/04/2019 K 4.4 01/04/2019 CL 105 01/04/2019 CO2 25 01/04/2019 BUN 9 01/04/2019 CREATININE 0.91 01/04/2019 GLUCOSE 118 01/04/2019 PROT 7.2 01/04/2019 LABALBU 3.9 01/04/2019 CALCIUM 8.9 01/04/2019 BILITOT 1.0 01/04/2019 ALKPHOS 45 01/04/2019 AST 73 01/04/2019 ALT 32 01/04/2019 Urine Culture: No components found for: CURINE- Blood Culture: No components found for: CBLOOD, CFUNGUSBL8/22 blood- 1/2 REQUIREMENTS ENGINEER crp 86.5 procal 0.44 (1.40) Lines: PIV site ok Radiography/Echo/Other: reviewed Antimicrobials, Start/End Dates: PO vanco#1, IV Vanco#3, pip/tazo#3. S/p clinda x1 Impression: 1. C diff diarrhea. 2. Sepsis . Improved. 3. Cellulitis, left lower extremity, improved. MRI unremarkable. 4. Pain, left groin, improved. 5. Tobacco abuse and alcohol use. Cessation discussed. Plan: Pt clinically improved. Sepsis syndrome improved. Afebrile. Leukocytosis resolved. MRI, CT abdomen and Cultures unremarkable, so far. Pt looked comfortable. Continue PO vancomycin for 10 days, D/C pip/tazo and IV vancomycin. Cessation of tobacco emphasized, 5 minutes spent. Bonita Bronson MD * Sergio Tran MD - 01/04/2019 9:11 AM EDT Hospitalist Progress Note 01/04/2019 9:11 AM [phone]: Please page ut @ [phone] for patient care issues. [phone]: Please page [facility] night Hospitalist for any issues. Subjective: Admit Date: 01/01/2019 PCP: No primary care provider on file. No overnight issues. Still with left sided groin pain and redness. Denies chest pain, sob, abdominal pain, nausea, vomiting, diarrhea, constipation, fevers, or chills. DIET GENERAL; Patient Vitals for the past 96 hrs (Last 3 readings): Weight 01/01/19 2129 260 lb (117.9 kg) Medications: piperacillin-tazobactam 4.5 g Intravenous Q6H vancomycin 1,500 mg Intravenous Q8H sodium chloride flush 10 mL Intravenous 2 times per day enoxaparin 40 mg Subcutaneous Daily famotidine 20 mg Oral BID LABS: CBC: Recent Labs 01/01/195 01/03/194 01/04/19 0304 WBC 31.4* 13.6* 8.9 RBC 5.43 4.79 4.73 HGB 14.9 13.7 13.6 HCT 45.1 39.5* 39.3* MCV 83.0 82.5 83.2 RDW 12.6 14.0 14.0 PLT 223 188 205 BMP: Recent Labs 01/01/19 2305 01/03/19 0224 01/04/19 0304 NA 137 135 140 K 3.8 3.8 4.4 CL 100 105 105 CO2 26 26 25 BUN 17 13 9 CREATININE 1.05 0.92 0.91 GLUCOSE 99 144* 118* CALCIUM 9.3 8.5 8.9 ANIONGAP 11 4 10 LIVER PROFILE: Recent Labs 01/01/19 2305 01/03/19 0224 01/04/19 0304 AST 39 30 73* ALT 46 39 32 BILITOT 0.6 0.5 1.0 ALKPHOS 45 42 45 LABALBU 4.5 3.7 3.9 PROT 7.5 6.1* 6.7 7.2 PT/INR: No results for input(s): PROTIME, INR in the last 72 hours. CARDIAC ENZYMES: No results for input(s): TROPONINI in the last 72 hours. Procalcitonin: Lab Results Component Value Date PROCAL 1.40 01/02/2019 Objective: Vitals: BP 124/60 Pulse 59 Temp 98.3 F (36.8 C) (Temporal) Resp 16 Ht 5' 11 (1.803 m) Wt260 lb (117.9 kg) SpO2 98% BMI 36.26 kg/m Pulse Ox: SpO2 Av.2 % Min: 96 % Max: 98 % Supplemental O2: General appearance: No apparent distress, appears stated age and cooperative with exam HEENT: Normal cephalic, atraumatic without obvious deformity. Pupils equal, round, and reactive to light. Extra ocular muscles intact. Conjunctivae/corneas clear. Neck: Supple, with full range of motion. No jugular venous distention. Trachea midline. No lymphadenopathy. Respiratory: Normal respiratory effort. Clear to auscultation, bilaterally without Rales/Wheezes/Rhonchi. Cardiovascular: Regular rate and rhythm with normal S1/S2 without murmurs, rubs or gallops. Abdomen: Soft, non-tender, non-distended with normal bowel sounds. No rebound or guarding. Musculoskeletal: No clubbing, cyanosis or edema bilaterally. Full range of motion without deformity. Skin: Left medial leg is approx 5 x 4 cm area of erythema with no induration or fluctuance; Left groin at inguinal ligament with erythema and lymphadenopathy Neurologic: Neurovascularly intact without any focal sensory/motor deficits. Cranial nerves: II-XIIintact, grossly non-focal. Assessment and Plan: 1. Recurrent LLE Cellulitis - Pain improved; On Vanc and Zosyn; Repeat procalcitonin decreased; Appreciate ID recs for de-escalation to PO 2. Lymphadenopathy in setting of Leukemoid Reaction - Heme-Onc following; Surgery discussed with heme-onc will hold LN biopsy until resolution of cellulitis; Await heme-onc notes 3. Sepsis 2/2 # 1 - Resolved 4. Obesity due to excess calories All test and lab results reviewed Consult notes reviewed Am labs, replace lytes prn PT/OT -DVT prophylaxis: [x] Lovenox [] Heparin [] SCDs [x] Encourage ambulation [] Already on Anticoagulation Advance Directive: Full Code Discharge planning: Possibly today pending change to PO antibiotics and if outpatient LN biopsy suggested Sergio Tran MD Division of Hospitalist Medicine Inpatient Medical Services * Bonita Bronson MD - 01/03/2019 3:25 PM EDT [facility]-Infectious Diseases Attending Consult Note Reason for F/U: Sepsis History of Present Illness: F/U for sepsis syndrome. He was alert, felt better, fever decreased, appeared comfortable. He was admitted on 01/02/19 with cellulitis of left lower extremity and inguinal abscess. He presented with swelling and pain in left groin, redness on left lower leg, fever, chill, body aches and feeling sickfor a day. He denied any trauma. In hospital, he spiked fever to 102.5, with tachycardia (P 115), hypotension (BP 98/50), leukocytosis (31.4k), and elevated crp (34.2), and procalcitonin (1.40). He has h/o infection in left groin and left lower leg, in the past, requiring surgery. He was examined, ROS and chart were reviewed, treatment plan was discussed. Past Medical History: Diagnosis Date Cellulitis History reviewed. No pertinent surgical history. abdominal surgery Current Medications: Current Facility-Administered Medications: piperacillin-tazobactam (ZOSYN) 4.5 g in dextrose 100 mLIVPB extended infusion (premix), 4.5 g, Intravenous, Q6H nicotine polacrilex (NICORETTE) gum 2 mg, 2 mg, Oral, PRN vancomycin (VANCOCIN) 1500 mg in dextrose 5 % 250 mL IVPB, 1,500 mg, Intravenous, Q8H sodium chloride flush 0.9 % injection 10 mL, 10 mL, Intravenous, 2 times per day sodium chloride flush 0.9 % injection 10 mL, 10 mL, Intravenous, PRN magnesium hydroxide (MILK OF MAGNESIA) 400 MG/5ML suspension 30 mL, 30 mL, Oral, Daily PRN ondansetron (ZOFRAN) injection 4 mg, 4 mg, Intravenous, Q6H PRN enoxaparin (LOVENOX) injection 40 mg, 40 mg, Subcutaneous, Daily famotidine (PEPCID) tablet 20 mg, 20 mg, Oral, BID Allergies: No Known Allergies Social History Socioeconomic History Marital status: Spouse name: None Number of children: None Years of education: None Highest education level: None Occupational History None Social Needs Financial resource strain: None Food insecurity: Worry: None Inability: None Transportation needs: Medical: None Non-medical: None Tobacco Use Smoking status: Current Every Day Smoker Packs/day: 1.00 Types: Cigarettes Smokeless tobacco: Never Used Substance and Sexual Activity Alcohol use: Yes Drug use: No Sexual activity: None Lifestyle Physical activity: Days per week: None Minutes per session: None Stress: None Relationships Social connections: Talks on phone: None Gets together: None Attends druze service: None Active member of club or organization: None Attends meetings of clubs or organizations: None Relationship status: None Intimate partner violence: Fear of current or ex partner: None Emotionally abused: None Physically abused: None Forced sexual activity: None Other Topics Concern None Social History Narrative None History reviewed. No pertinent family history.FH: -neg for CAD Review of Systems: CONSTITUTIONAL: positive for fevers, chills and fatigue EYES: negative HEENT: negative RESPIRATORY: negative CARDIOVASCULAR: negative GASTROINTESTINAL: positive for abdominal pain GENITOURINARY: negative INTEGUMENT/BREAST: negative HEMATOLOGIC/LYMPHATIC: negative ALLERGIC/IMMUNOLOGIC: negative ENDOCRINE: negative MUSCULOSKELETAL: negative NEUROLOGICAL: positive for weakness BEHAVIOR/PSYCH: positive for fatigue Physical Exam: Vitals: BP 137/68 Pulse 66 Temp 97.9 F (36.6 C) (Temporal) Resp 18 Ht 5' 11 (1.803 m) Wt260 lb (117.9 kg) SpO2 98% BMI 36.26 kg/m CONSTITUTIONAL: awake, alert, cooperative, appeared ill, and appears stated age EYES: Lids and lashes normal, pupils equal, round and reactive to light, extra ocular muscles intact, sclera clear, conjunctiva normal ENT: Normocephalic, without obvious abnormality, atraumatic, sinuses nontender on palpation, external ears without lesions, oral pharynx with moist mucus membranes, tonsils without erythema or exudates, gums normal and good dentition. NECK: Supple, symmetrical, trachea midline, no adenopathy, thyroid symmetric, not enlarged and no tenderness, skin normal HEMATOLOGIC/LYMPHATICS: no cervical lymphadenopathy BACK: Symmetric, no curvature, spinous processes are non-tender on palpation, paraspinous muscles are non-tender on palpation, no costal vertebral tenderness LUNGS: No increased work of breathing, good air exchange, clear to auscultation bilaterally, no crackles or wheezing CARDIOVASCULAR: Normal apical impulse, regular rate and rhythm, normal S1 and S2, no S3 or S4, and no murmur noted ABDOMEN: old scars, +tender over left inguinal area, decreased bowel sounds, soft, non-distended, non-tender, no masses palpated, no hepatosplenomegally MUSCULOSKELETAL: There is no redness, warmth, or swelling of the joints. Full range of motion noted. Motor strength is 5 out of 5 all extremities bilaterally. Tone is normal. NEUROLOGIC: Awake, alert, oriented to name, place and time. Cranial nerves II- XII are grossly intact. Motor is 5 out of 5 bilaterally. Cerebellar finger to nose, heel to arenas intact. Sensory is intact. Babinski down going, Romberg negative, and gait is normal. SKIN: Warm, dry and no rashes, +tatoo Labs: CBC with Differential: Lab Results Component Value Date WBC 13.6 01/03/2019 RBC 4.79 01/03/2019 HGB 13.7 01/03/2019 HCT 39.5 01/03/2019 PLT 188 01/03/2019 MCV 82.5 01/03/2019 MCH 28.6 01/03/2019 MCHC 34.6 01/03/2019 RDW 14.0 01/03/2019 LYMPHOPCT 21.2 01/03/2019 MONOPCT 8.9 01/03/2019 BASOPCT 0.6 01/03/2019 MONOSABS 1.2 01/03/2019 LYMPHSABS 2.9 01/03/2019 EOSABS 0.2 01/03/2019 BASOSABS 0.1 01/03/2019 CMP: Lab Results Component Value Date NA 135 01/03/2019 K 3.8 01/03/2019 CL 105 01/03/2019 CO2 26 01/03/2019 BUN 13 01/03/2019 CREATININE 0.92 01/03/2019 GLUCOSE 144 01/03/2019 PROT 6.1 01/03/2019 PROT 6.7 01/03/2019 LABALBU 3.7 01/03/2019 CALCIUM 8.5 01/03/2019 BILITOT 0.5 01/03/2019 ALKPHOS 42 01/03/2019 AST 30 01/03/2019 ALT 39 01/03/2019 Urine Culture: No components found for: CURINE- Blood Culture: No components found for: CBLOOD, CFUNGUSBL8/22 blood- neg crp 86.5 procal 1.40 Lines: PIV site ok Radiography/Echo/Other: reviewed Antimicrobials, Start/End Dates: Vanco#2, pip/tazo#2. S/p clinda x1 Impression: 1. Sepsis . Follow cxs, LA and procalcitonin. 2. Cellulitis, left lower extremity. Follow blood cxs. MRI unremarkable. 3. Pain, left groin, h/o abdominal surgery. 4. Tobacco abuse and alcohol use. Cessation discussed. Plan: Pt clinically improved. He was sick due to sepsis due to SSI. MRI, CT and Cultures unremarkable, sofar. Pt looked comfortable. Continue present empiric antbs, will check procal in AM, if improves, will change antb to PO. Cessation of tobacco emphasized, 5 minutes spent. Will follow. Bonita Bronson MD * Manolo Medina Jr., MD - 01/03/2019 11:14 AM EDT Hematology/Oncology Attending Progress Note SUBJECTIVE: Patient seen and chart reviewed. No bleed or thrombosis. Afebrile to low grade temperature last 24 hours. Borderline hypotension. OBJECTIVE BP 126/80 Pulse 69 Temp 97.7 F (36.5 C) (Temporal) Resp 16 Ht 5' 11 (1.803 m) Wt 260 lb (117.9 kg) SpO2 98% BMI 36.26 kg/m Physical CONSTITUTIONAL: fatigued NECK: Supple, symmetrical, trachea midline, no adenopathy, thyroid symmetric, not enlarged and no tenderness, skin normal HEMATOLOGIC/LYMPHATICS: no cervical lymphadenopathy and no supraclavicular lymphadenopathy LUNGS: no increased work of breathing CARDIOVASCULAR: regular rate and rhythm ABDOMEN: soft, distended and tenderness noted diffusely NEUROLOGIC: No focal signs SKIN: no rashes EXT: Left leg lesion better Data Lab Results Component Value Date WBC 13.6 (H) 01/03/2019 HGB 13.7 01/03/2019 HCT 39.5 (L) 01/03/2019 MCV 82.5 01/03/2019 PLT 188 01/03/2019 No results found for: FERRITIN No results found for: IRON, TIBC, FERRITIN No results found for: [id number] No results found for: FOLATE Blood Cultures negative at 24 hours. ESR elevated at 24 CRP elevated at 86.5 IgG 825.1 IgM 38.9 [id number] Creatinine 0.92 LDH 169 Uric Acid 6.4 ASSESSMENT AND PLAN Resolving Leukemoid Reaction with stabilization of Sepsis Syndrome. MRI left leg unrevealing. Awaiting Abdominal/Pellvic Cat Scan. Discussed with patient, parents, and air liaison and special staff. Will continue to monitor. Total visit time > 35 minutes. * Afia Rosario MD - 01/03/2019 10:30 AM EDT Hospitalist Progress Note 01/03/2019 10:30 AM [phone]: Please page ut @ [phone] for patient care issues. [phone]: Please page [facility] night Hospitalist for any issues. Subjective: Admit Date: 01/01/2019 PCP: No primary care provider on file. No overnight issues. Denies chest pain, sob, abdominal pain, nausea, vomiting, diarrhea, constipation, fevers, or chills. DIET GENERAL; Patient Vitals for the past 96 hrs (Last 3 readings): Weight 01/01/19 2129 260 lb (117.9 kg) Medications: piperacillin-tazobactam 4.5 g Intravenous Q6H vancomycin 1,500 mg Intravenous Q8H sodium chloride flush 10 mL Intravenous 2 times per day enoxaparin 40 mg Subcutaneous Daily famotidine 20 mg Oral BID LABS: CBC: Recent Labs 01/01/19230401/03/19223 WBC 31.4* 13.6* RBC 5.43 4.79 HGB 14.9 13.7 HCT 45.1 39.5* MCV 83.0 82.5 RDW 12.6 14.0 PLT 223 188 BMP: Recent Labs 01/01/19230401/03/19223 NA 137 135 K 3.8 3.8 CL 100 105 CO2 26 26 BUN 17 13 CREATININE 1.05 0.92 GLUCOSE 99 144* CALCIUM 9.3 8.5 ANIONGAP 11 4 LIVER PROFILE: Recent Labs 01/01/19230401/03/19223 AST 39 30 ALT 46 39 BILITOT 0.6 0.5 ALKPHOS 45 42 LABALBU 4.5 3.7 PROT 7.5 6.1* 6.7 PT/INR: No results for input(s): PROTIME, INR in the last 72 hours. CARDIAC ENZYMES: No results for input(s): TROPONINI in the last 72 hours. Procalcitonin: Lab Results Component Value Date PROCAL 1.40 01/02/2019 Objective: Vitals: BP 126/80 Pulse 69 Temp 97.7 F (36.5 C) (Temporal) Resp 16 Ht 5' 11 (1.803 m) Wt260 lb (117.9 kg) SpO2 98% BMI 36.26 kg/m Pulse Ox: SpO2 Av.5 % Min: 94 % Max: 98 % Supplemental O2: General appearance: No apparent distress, appears stated age and cooperative with exam HEENT: Normal cephalic, atraumatic without obvious deformity. Pupils equal, round, and reactive to light. Extra ocular muscles intact. Conjunctivae/corneas clear. Neck: Supple, with full range of motion. No jugular venous distention. Trachea midline. No lymphadenopathy. Respiratory: Normal respiratory effort. Clear to auscultation, bilaterally without Rales/Wheezes/Rhonchi. Cardiovascular: Regular rate and rhythm with normal S1/S2 without murmurs, rubs or gallops. Abdomen: Soft, non-tender, non-distended with normal bowel sounds. No rebound or guarding. Musculoskeletal: No clubbing, cyanosis or edema bilaterally. Full range of motion without deformity. Skin: Left leg/Below the knee area - redness improved, slight tenderness Neurologic: Neurovascularly intact without any focal sensory/motor deficits. Cranial nerves: II-XIIintact, grossly non-focal. Assessment and Plan: # Cellulitis of left upper leg, improved redness since yesterday, pain still present, will order a heating pad, antibiotics per ID, magnetic resonance imaging showed no osteomyelitis or abscess # Sepsis due to above on antibiotic improved leukocytosis, procalcitonin 1.4, fever down # Left inguinal lymphadenopathy -? Biopsy for oncology # Generalized abdominal pain - patient denies any today, rule out intra- abdominal abscess order CT abdomen and pelvis with contrast # Class 2 obesity due to the excess calories All test and lab results reviewed Consult notes reviewed Am labs, replace lytes prn PT/OT -DVT prophylaxis: [x] Lovenox [] Heparin [] SCDs [x] Encourage ambulation [] Already on Anticoagulation Advance Directive: Full Code Discharge planning: TBD AFIA ROSARIO MD, MD Division of Hospitalist Medicine Inpatient Medical Services * Tere Brown - 01/03/2019 8:18 AM EDT Nutrition rescreen completed. Patient referred to the Dietitian. * Makayla Kowalski, [facility] - 01/03/2019 7:25 AM EDT Pharmacy Vancomycin Consult Follow-Up Note Current Dosin mg q8h Recent Labs 01/01/19 2305 01/03/19 0224 BUN 17 13 Recent Labs 01/01/19 2305 01/03/19 0224 CREATININE 1.05 0.92 Recent Labs 01/01/19 2305 01/03/19 0224 WBC 31.4* 13.6* Ht Readings from Last 1 Encounters: 01/01/19 5' 11 (1.803 m) Wt Readings from Last 1 Encounters: 01/01/19 260 lb (117.9 kg) Body mass index is 36.26 kg/m . Estimated Creatinine Clearance: 157 mL/min (based on SCr of 0.92 mg/dL). Trough: 14.1 Drawn 8-24 at 0641. Assessment/Plan: Continue current dose. 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 seeing retail sales assistant and received a steroid shot recently, awaiting MRI of the LLE, ID consulted, will continue to follow cultures, on empiric abx documented in this encounter Assessments Diagnosis Cellulitis of left lower extremity- Primary Cellulitis and abscess of leg, except foot Inguinal abscess Cellulitis and abscess of trunk Leukocytosis, unspecified type MYRNA (acute kidney injury) (HCC) Acute kidney failure, unspecified Cellulitis and abscess of left leg Additional Source Comments (unrecognized sect ion and content) No Status Records FoundNo Status Records FoundNo Status Records FoundNo Status Records FoundNo Status Records FoundNo Status Records FoundNo Status Records FoundNo Status Records Found INFORMATION SOURCE (unrecogn ized section and content) DATE CREATED AUTHOR 01/02/2019 [facility] [facility] DATE CREATED AUTHOR AUTHOR'S ORGANIZ ATION 01/08/2019 [employer] DATE CREATED AUTHOR AUTHOR'S ORGANIZ ATION 01/20/2019 [facility] [facility] DATE CREATED AUTHOR AUTHOR'S ORGANIZ ATION 02/03/2019 [facility] DATE CREATED AUTHOR AUTHOR'S ORGANIZ ATION 03/04/2019 [facility] DATE CREATED AUTHOR AUTHOR'S ORGANIZ ATION 03/26/2020 [facility] DATE CREATED AUTHOR AUTHOR'S ORGANIZ ATION 03/26/2020 [facility] DATE CREATED AUTHOR AUTHOR'S ORGANIZ ATION 02/01/2024 [facility] Reason for Visit (unrecogniz ed section and content) Reason Comments Reason Comments Pain, Throat Throat pain rated 8, cough, fever, x1 wk. Reason Comments Ear Pain Right ear pain x 1 d ay Reason Comments Rash Arms and face, itchy x 2 days Source Comments (unrecognize d section and content) In the event this informatio n is protected by the Federal Confidentiality of Alcohol and Drug Abuse Patient Records regulations: The Federal rules restrict any use of the information to criminally investigate or prosecute any alcohol or drug abuse patient.[facility] the event this information is protected by the Federal Confidentiality of Alcohol and Drug Abuse Patient Records regulations: The Federal rules restrict any use of the information to criminally investigate or prosecute any alcohol or drug abuse patient.[facility] the event this information is protected by the Federal Confidentiality of Alcohol and Drug Abuse Patient Records regulations: The Federal rules restrict any use of the information to criminally investigate or prosecute any alcohol or drug abuse patient.[facility] Care Teams (unrecognized sec tion and content) [employer] Relationship Specialty Start Date End Date Cari Golden DO PCP - General Family Practice 02/07/19 [employer] Relationship Specialty Start Date End Date Cari Golden DO PCP - General Family Medicine 02/07/19 [employer] Relationship Specialty Start Date End Date Elizabeth Pelletier MD [address] [place] [address] PCP - General Internal Medicine 01/30/24 FOR RECORDS PERTAINING TO PATIENTS WHO ARE OR HAVE BEEN ENROLLED IN A CHEMICAL DEPENDENCY/SUBSTANCEABUSE PROGRAM, SOME INFORMATION MAY BE OMITTED. This clinical summary was aggregated from multiple sources. Caution should be exercised in using it in the provision of clinical care. This summary normalizes information from multiple sources, and as a consequence, information in this document may materially change the coding, format and clinical context of patient data. In addition, data may be omitted in some cases. CLINICAL DECISIONS SHOULD BE BASED ON THE PRIMARY CLINICAL RECORDS. [facility]. provides no warranty or guarantee of the accuracy or completeness of information in this document.
== END | disposition home or self-care (01) ==
LOC: BIMLAB 13:01
PROVIDERS: PCP Internal Medicine; Referring Provider Internal Medicine; Visit Provider Internal Medicine
DX: I10 Essential (primary) hypertension (principal)
CPT/HCPCS: 36415; 80061

== ENCOUNTER 2025-02-05 20:03 | Emergency (ER) | payer BC, SELFPAY ==
[2025-02-05 20:05] VITALS: BP 154/92; PULSE 117; RESP 18; TEMP 37; O2SAT 99; BMI 43.7
[2025-02-05 21:44] LABS: Mucous, Urine 0 SEEN /hpf (<or=2+)
[2025-02-05 21:49] LABS: Color, Urine Yellow (Yellow); Glucose, Dipstick Normal (Normal); Ketone-Dipstick Negative (Negative); Leukocyte Esterase-Dipstick Negative /ul (Negative); Nitrite-Dipstick Negative (Negative); Occult Blood-Urine 25 /ul (Negative); Protein-Dipstick 30 mg/dl (Negative); Specific Gravity, Urine 1.015 (1.002-1.030); Urine Bilirubin Dipstick Negative (Negative)
--- NOTE | 2025-02-05 22:23 | EX.ED.GENINJ ---
HPI History of Present Illness Chief Complaint: Other, Pain/Inj PFSH PFSH Medical History Vito-Schlatter's disease Hyperlipidemia Abscess Anxiety and depression Right elbow pain Hypertension Hypersomnolence Chronic neck pain Tobacco use Hirschsprung's disease Smoker Abscess, dental Cellulitis Mandibular swelling Home Medications ?Medication ?Instructions ?Recorded ?Last Taken ?Type acetaminophen 325 mg tablet 650 mg PO Q6H PRN 03/20/23 Unknown History (Tylenol) ibuprofen 600 mg tablet 600 mg PO Q6H PRN PRN pain #20 12/26/23 Unknown Rx TABLETS doxycycline monohydrate 100 mg 100 mg PO BID PRN 01/06/24 Unknown History tablet cyclobenzaprine 10 mg tablet 10 mg PO TID PRN Muscle Spasm #90 03/19/24 Unknown Rx TABLETS amlodipine 10 mg-olmesartan 20 mg 1 tab PO QDAY #30 tabs 01/18/25 Unknown Rx tablet fenofibrate 54 mg tablet 54 mg PO QDAY #30 tabs 01/18/25 Unknown Rx fluoxetine 40 mg capsule 40 mg PO QDAY #30 caps 01/18/25 Unknown Rx Allergy/AdvReac Type Severity Reaction Status Date / Time No Known Allergies Allergy Verified 11/11/24 12:52 Family History Father Diabetes Mother Hypertension Grandfather Skin cancer Grandfather Cancer throat Surgical History Colostomy in place History of incision and drainage H/O wisdom tooth extraction Social History adopted: No household members: spouse, family and children housing: house number of children: 1 current occupational status: employed current occupation: [employer] current occupational exposures/hazards: No pets and animals: No sexually active: Yes Smoking Status: Former smoker quit date: 10/21/23 pack-years: 18 Tobacco: How many years used: 12 Smokeless tobacco user: other how long ago did patient quit smokin10/21/2023 alcohol intake: never substance use type: does not use caffeine: Yes (2-3) Type: coffee what type of physical activity do you participate in: walking frequency: 3-4 times per week do you feel safe at home: Yes EXAM Physical Exam Const Vital Signs: 02/05/25 20:05 02/05/25 22:00 02/06/25 00:05 Temperature 98.6 F Temperature Source Oral Pulse Rate 117 H 104 H Respiratory Rate 18 24 H Respiratory Effort Normal Non-Labored Respiratory Pattern Normal Blood Pressure 154/92 H 153/87 H Blood Pressure Mean 112 109 Pulse Ox 99 96 Oxygen Delivery Method Room Air Room Air 02/06/25 02:47 Temperature 98.4 F Temperature Source Pulse Rate 96 Respiratory Rate 22 H Respiratory Effort Respiratory Pattern Blood Pressure 149/88 H Blood Pressure Mean 108 Pulse Ox 100 Oxygen Delivery Method [facility] [place] Medical decision making narrative: HISTORY OF PRESENT ILLNESS: Chief complaint: Lymphadenopathy 34-year-old male history of hyperlipidemia, anxiety, hypertension, tobacco abuse presents with concern for swollen lymph nodes in his groin. States it may be related to cellulitis but denies any redness. Notes last sexual activity was 3 months ago. Asked about STDs. REVIEW OF SYSTEMS: Pertinent positives: Swollen lymph nodes Pertinent negatives: Testicular pain PHYSICAL EXAM: Nursing triage notes reviewed, Vital signs reviewed Constitutional: please see mdm HENT: MMM Eyes: Pupils equal round and reactive to light, Extraocular muscles intact Neck: No stridor, no JVD, full neck ROM Lungs: Clear to auscultation, No wheezing or rales. No increased work of breathing, no conversational dyspnea, no accessory muscle use, no nasal flaring. No respiratory distress noted Heart: Regular rate and rhythm, No murmurs, No rubs and No gallops, 2+ distal pulses (radial, femoral, posterior tibial) in all extremities Abdomen: Soft, there is no tenderness, rigidity, rebound or guarding, no obvious peritoneal signs, no palpable pulsatile abdominal masses, no auscultated abdominal bruit : No CVAT, normal-appearing genitalia, intact hemostatic reflex, no TTP over scrotum, no scrotal erythema edema crepitus or bullae, no perineal crepitus or bullae, no penile lesions or discharge noted. Extremities: No edema Neuro: No new focal neurological deficits, cranial nerves II through XII intact, 5/5 strength in all present extremities. Intact sensation to light touch in all present extremities, 2+ reflexes bilateral patella tendons. Skin: No rash or lesions noted MEDICAL DECISION MAKING: Chief Complaint: please see HPI External records reviewed: Reviewed prior imaging studies Factors affecting care: As per [facility] Social determinants of health: History of tobacco abuse History obtained from others: none Consults: none [facility] Narrative: Patient was seen approximately 2 hours and 20 minutes after initial arrival secondary to poor department conditions including high-volume high acuity. Patient was initially tachycardic otherwise hemodynamically stable afebrile and nontoxic-appearing. I considered the following differential diagnosis: Intra-abdominal/pelvic infection, STD, UTI orchitis, epididymitis A urinalysis was obtained per triage protocol to further determine if the patient was suffering from a life-threatening etiology. Will I considered orchitis/epididymitis patient's history and physical exam not consistent with these diagnoses After evaluating the patient I added CT scan of the abdomen and pelvis. ALL IMAGES (IF OBTAINED) HAVE BEEN PERSONALLY REVIEWED AND INTERPRETED BY MYSELF. Urinalysis shows no evidence of urinary inflammation suggestive of UTI CBC with leukocytosis suggestive of systemic relation but no anemia or thrombocytopenia BMP without electrolyte maladies, no sign of endorgan hypoperfusion metabolic acidosis Lactate is wnl indicating no end-organ hypoperfusion and/or hypoxia. CT scan abdomen pelvis showed lymphadenopathy no obvious deeper infectious process. Upon reevaluation patient's initial tachycardia resolved. The synthesis of the patient's history, physical exam, labs and images are suggestive of lymphadenopathy but no sign of obvious abscess, or deeper source of infection. While he had a leukocytosis he had no signs of sepsis with a negative lactate. No indication for antibiotics at this time. Medication for admission at this time will give instructions to take NSAIDs and follow with his primary care physician for repeat evaluation lymphadenopathy in 1 to 2 weeks. Strict return precautions were discussed The patient and/or family, caregivers express understanding. The patient and/or family, caregivers agrees with the plan. Shared decision making: I will have a discussion with the patient and or visitors regarding risk/benefits of further testing or admission. They will be made aware of of the risk/benefits inherent in this decision they will be given the opportunity to voice understanding. Total critical care time today provided was at least 0 minutes. This excludes separately billable procedures. Critical care time (if documented) is secondary to the patient having high probability of clinically significant/life threatening deterioration in the patient's condition which required my urgent intervention. Impression: 1. Lymphadenopathy 2. Leukocytosis Dispo: Discharge home This note was generated with Dragon dictation software. It may contain incorrect words, spelling, and punctuation that were not noted in review of the chart prior to signing. Lab Data Labs: Laboratory Results - last 24 hr 02/05/25 02/05/25 02/05/25 21:34 23:09 Unknown WBC 16.5 H RBC 5.30 Hgb 14.4 Hct 43.2 MCV 81.5 MCH 27.2 MCHC 33.3 RDW Std Deviation 38.7 RDW Coeff of [place] 13.1 Plt Count 305 MPV 10.3 Sodium 137 Potassium 3.8 Chloride 101 Carbon Dioxide 23.4 Anion Gap 13 BUN 5 Creatinine 1.34 H Estim Creat Clear Calc 113.17 Est GFR (MDRD) Non-Af 72 BUN/Creatinine Ratio 3.9 L Glucose 96 Lactic Acid < 1.0 Calcium 8.1 Total Bilirubin 0.22 AST 32 ALT 33 Alkaline Phosphatase 40 Total Protein 7.2 Albumin 2.7 L Globulin 4.5 H Albumin/Globulin Ratio 0.6 L Urine Color Yellow Urine Clarity Clear Urine pH 6.0 Ur Specific [place] 1.015 Urine Protein 30 H Urine Glucose (UA) Normal Urine Ketones Negative Urine Occult Blood 25 H Urine Nitrite Negative Urine Bilirubin Negative Urine Urobilinogen Normal Ur Leukocyte Esterase Negative Urine RBC 0-5 SEEN Urine WBC 0-5 SEEN Ur Squamous Epith Cells 0-5 SEEN Urine Bacteria 0 SEEN Urine Mucus 0 SEEN Chlamydia DNA (ROMULO) Cancelled N.gonorrhoeae DNA (ROMULO) Cancelled Radiography Diagnostic Testing: Clinical Impression(s) from Imaging Studies Abdomen/Pelvis CT 02/06/25 00:00 IMPRESSION: Mild hepatic steatosis. Bilateral enlarged inguinal lymph nodes are noted with the largest measuring 2.3 cm on the right side. Bilateral enlarged external iliac lymph nodes are noted with the largest measuring 1.3 cm on the right side. Moderate amount of fecal residue in the large bowels with associated minimal stercoral proctitis. Fat containing umbilical hernia without incarceration. Reading [facility] Discharge Plan Triage Chief Complaint: Other, Pain/Inj ED Provider: Camilo Olivera Dx/Rx/DC Orders Instructions: Lymphadenopathy Prescriptions: No Action acetaminophen [Tylenol] 325 mg tablet 650 mg PO Q6H PRN doxycycline monohydrate 100 mg tablet 100 mg PO BID PRN Patient Comments: pt states that he has this PRN for cellulitis flare ups in leg ibuprofen 600 mg tablet 600 mg PO Q6H PRN PRN (Reason: pain) Qty: 20 0RF cyclobenzaprine 10 mg tablet 10 mg PO TID PRN (Reason: Muscle Spasm) Qty: 90 1RF fenofibrate 54 mg tablet 54 mg PO QDAY Qty: 30 2RF amlodipine-olmesartan 10-20 mg tablet 1 tab PO QDAY Qty: 30 2RF fluoxetine 40 mg capsule 40 mg PO QDAY Qty: 30 2RF Primary Care Provider: Polina Marcus Referrals: Flynn Pelletier MD [Med Staff - Active Staff, Internal Medicine] Activity Restrictions/Additional Instructions: Thank you for trusting us with your care today! Your labs showed signs of systemic inflammation however did not show signs of sepsis. Your CT showed no evidence of a deeper infection but did show swollen lymph node bilaterally. The cause of which is unclear. No indication for antibiotics at this time. Please follow with your primary care physician for repeat evaluation and possible imaging. Please take Tylenol (2 pills, 650 mg), ibuprofen (2 pills, 400 mg) every 6 hours as needed for pain, inflammation and fever control. Please return to the emergency department if your symptoms change or worsen. Please follow with your primary care physician for further outpatient evaluation and management. Print Language: Czech Disposition Disposition: Home, Self Care Discharge Date/Time: 02/06/25 02:47
[2025-02-05 22:57] LABS: Red Blood Cells-Urine 0-5 SEEN /hpf (0-5); Squamous Epithelial Cells - UA 0-5 SEEN /hpf (0-5)
[2025-02-05 23:22] LABS: Hematocrit 43.2 % (40-54); Hemoglobin 14.4 g/dL (13.0-16.5); Mean Corp Hgb Conc 33.3 g/dL (32-36); Mean Corpuscular Volume 81.5 fL (80-94); Mean Platelet Vol. 10.3 fl (6.2-12.0); Platelet Count 305 K/mm3 (150-450); RBC Distribution Width CV 13.1 % (11.6-14.6); RBC Distribution Width SD 38.7 fl (35.1-43.9); Red Blood Count 5.30 M/mm3 (4.6-6.2); White Blood Count 16.5 K/mm3 (4.4-11.0)
[2025-02-05 23:47] LABS: AST(SGOT) 32 U/L (<=37); Alanine Aminotransfer ALT/SGPT 33 U/L (<=46); Albumin, Serum 2.7 g/dL (3.5-5.0); Alkaline Phosphatase 40 U/L (40-129); Anion Gap 13 (5-15); BUN 5 mg/dL (4-19); BUN/Creat Ratio 3.9 RATIO (10-20); Calcium,Total 8.1 mg/dL (7.6-11.0); Carbon Dioxide 23.4 mmol/L (21.0-32.0); Chloride 101 mmol/L (98-108); Estimated Creatinine Clearance 113.17 ml/min (50-250); Globulin 4.5 g/dL (2.2-4.2); Glucose 96 mg/dL (70-99); Potassium 3.8 mmol/L (3.3-5.1)
--- NOTE | 2025-02-06 | CT_ITS ---
PROCEDURE: ABDOMEN/PELVIS W IV CONT ONLY 02/05/2025 REASON FOR EXAM: RIGHT GROIN PAIN/OF ADENOPATHY TECHNIQUE: Procedure Code: [id number] Modality: CT Procedure: ABDOMEN/PELVIS W IV CONT ONLY Coronal and Sagittal reconstruction series were provided. CONTRAST: OMNIPAQUE 350 VOLUME: 100 mL One or more dose reduction techniques were used (e.g., Automated exposure control, adjustment of the mA and/or kV according to patient size, use of iterative reconstruction technique. RADIATION DOSE SUMMARY: CTDlvol: 10.63 mGy DLP: 1590 mGycm COMPARISON: None. FINDINGS: Mild hepatic steatosis. Bilateral enlarged inguinal lymph nodes are noted with the largest measuring 2.3 cm on the right side. Bilateral enlarged external iliac lymph nodes are noted with the largest measuring 1.3 cm on the right side. Moderate amount of fecal residue in the large bowels with associated minimal stercoral proctitis. Fat containing umbilical hernia without incarceration. The visualized lung bases are unremarkable. Normal gallbladder and extrahepatic biliary system. Normal spleen. Normal pancreas. Normal bilateral adrenal glands. Normal size of the right kidney. There is no right renal mass. There are no right renal calculi. There is no right hydronephrosis. Normal visualized right ureter. Normal size of the left kidney. There is no left renal mass. There are no left renal calculi. There is no left hydronephrosis. Normal visualized left ureter. Normal visualized stomach. Normal small intestine. The appendix is visualized and appears normal. There is no demonstrated peritoneal fluid. Normal abdominal aorta. Normal inferior vena cava. Normal retroperitoneum. Normal urinary bladder. There is no pelvic mass lesion. There is no pelvic fluid. Normal osseous structures. CT/Abdomen/Pelvis W IV Cont ONLY IMPRESSION: Mild hepatic steatosis. Bilateral enlarged inguinal lymph nodes are noted with the largest measuring 2. 3 cm on the right side. Bilateral enlarged external iliac lymph nodes are noted with the largest measur ing 1.3 cm on the right side. Moderate amount of fecal residue in the large bowels with associated minimal st ercoral proctitis. Fat containing umbilical hernia without incarceration. Reading Location: [place] [id number]
[2025-02-06 00:05] VITALS: BP 153/87; PULSE 104; RESP 24; O2SAT 96
[2025-02-06 02:47] VITALS: BP 149/88; PULSE 96; RESP 22; TEMP 36.9; O2SAT 100
== END 2025-02-06 02:47 | disposition home or self-care (01) ==
PROVIDERS: Emergency Medicine; Emergency Provider Emergency Medicine; PCP Internal Medicine; Visit Provider Emergency Medicine
DX: R59.0 Localized enlarged lymph nodes (principal); D72.829 Elevated white blood cell count, unspecified; Z11.3 Encounter for screening for infections with a predominantly sexual mode of transmission; Z87.891 Personal history of nicotine dependence
CPT/HCPCS: 74177; 80053; 81001; 83605; 85027; 87491; 87591; 87631; 96374; 99283; Q9967; A4216

== ENCOUNTER 2025-02-14 03:10 | Emergency (ER) | payer BC, SELFPAY ==
[2025-02-14 03:12] VITALS: BP 166/101; PULSE 85; RESP 16; TEMP 36.9; O2SAT 100; BMI 43.3
--- NOTE | 2025-02-14 03:50 | EX.ED.DYSGE1 ---
HPI History of Present Illness Chief Complaint: Edema Informant: patient Narrative Narrative: Patient is a 34-year-old male with a history of HTN and HLD presenting to the ED at 0330 with bilateral lower extremity swelling and polyarthralgia. - Reports onset of bilateral lower extremity swelling 3 days ago, extending up to the knees; associated with significant pain in the knees and ankles. - Was seen in the ED after experiencing lymphadenopathy in the bilateral groin area 1 week ago, which resolved shortly thereafter. - Joint pain started 5-6 days ago, primarily affecting elbows and wrists, with pain radiating up both arms; also notes tenderness in the back of the neck. - Tried elevating legs and using various analgesics (Daniel, extra strength acetaminophen) without relief; Arthriten provided some relief. - Reports increased urinary frequency with clear urine; denies dysuria, hematuria, or urethral discharge. - Denies abdominal issues, dyspnea, or orthopnea. - History of athlete's foot and cellulitis; concerned about potential infection between toes but denies pain. - No history of gonorrhea; last sexual activity 3 months ago. - Takes daily antihypertensive and cholesterol-lowering medications; denies DM. 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 [facility] Medical History Vito-Schlatter's disease Hyperlipidemia Abscess Anxiety and depression Right elbow pain Hypertension Hypersomnolence Chronic neck pain Tobacco use Hirschsprung's disease Smoker Abscess, dental Cellulitis Mandibular swelling Home Medications ?Medication ?Instructions ?Recorded ?Last Taken ?Type acetaminophen 325 mg tablet 650 mg PO Q6H PRN pain 03/20/23 Unknown History (Tylenol) ibuprofen 600 mg tablet 600 mg PO Q6H PRN PRN pain #20 12/26/23 Unknown Rx TABLETS cyclobenzaprine 10 mg tablet 10 mg PO TID PRN Muscle Spasm #90 03/19/24 Unknown Rx TABLETS amlodipine 10 mg-olmesartan 20 mg 1 tab PO QDAY #30 tabs 01/18/25 Unknown Rx tablet fenofibrate 54 mg tablet 54 mg PO QDAY #30 tabs 01/18/25 Unknown Rx furosemide 40 mg tablet (Lasix) 40 mg PO DAILY #5 tabs 02/14/25 Unknown Rx potassium chloride 20 mEq 20 meq PO DAILY #5 tabs 02/14/25 Unknown Rx tablet,extended release (K-Tab) prednisone 20 mg tablet 40 mg (2 x 20 mg) PO DAILY 4 days 02/14/25 Unknown Rx #8 tabs Allergy/AdvReac Type Severity Reaction Status Date / Time No Known Allergies Allergy Verified 02/14/25 03:11 Family History Father Diabetes Mother Hypertension Grandfather Skin cancer Grandfather Cancer throat Surgical History Colostomy in place History of incision and drainage H/O wisdom tooth extraction Social History adopted: No household members: spouse, family and children housing: house number of children: 1 current occupational status: employed current occupation: [employer] current occupational exposures/hazards: No pets and animals: No sexually active: Yes Smoking Status: Former smoker quit date: 10/21/23 pack-years: 18 Tobacco: How many years used: 12 Smokeless tobacco user: other how long ago did patient quit smokin10/21/2023 alcohol intake: never substance use type: does not use caffeine: Yes (2-3) Type: coffee what type of physical activity do you participate in: walking frequency: 3-4 times per week do you feel safe at home: Yes ROS ROS ED Constitutional Constitutional ED: Denies chills or fever(s) Eyes Eyes: Denies change in vision or diplopia ENT ENT ED: Denies rhinorrhea or sore throat Cardiovascular Cardiovascular: Reports leg edema; Denies chest pain, orthopnea or palpitations Respiratory/Chest Respiratory/Chest: Denies cough, dyspnea, dyspnea on exertion or orthopnea Gastrointestinal Gastrointestinal: Denies abdominal pain, diarrhea, nausea or vomiting Genitourinary Genitourinary ED: Denies dysuria or hematuria Musculoskeletal Musculoskeletal: Reports arthralgias; Denies back pain or neck pain Integumentary Denies abscess or rash Neurologic Neurologic: Denies headache(s), paresthesias or weakness Psychiatric Psychiatric: Denies suicidal thoughts EXAM Physical Exam Const Vital Signs: 02/14/25 03:12 Temperature 98.4 F Temperature Source Oral Pulse Rate 85 Respiratory Rate 16 Blood Pressure 166/101 H Blood Pressure Mean 122 Pulse Ox 100 Oxygen Delivery Method Room Air Positive well nourished and well developed General Appearance ED: well developed and NAD HEENT Reports moist mucous membranes normocephalic and atraumatic Eyes PERRL and EOMs intact bilaterally Neck full ROM and supple Resp normal respiratory effort and clear to auscultation bilaterally Cardio regular rate, regular rhythm and no murmurs GI non-tender and non-distended Auscultation: normoactive bowel sounds Palpation: soft Back/Spine no CVA tenderness General Back: other FROM Extremity normal to inspection Extremity Narrative: Able to move joints of both upper extremities and lower extremities without limitation. No excessive warmth, edema, or erythema to any joint, with the exception of some edema to both ankles. General Extremety ED: Yes edema; Negative for pulses abnormal or tenderness General Extremity: edema bilateral lower extremity Details: mild (To ankles only objectively); Negative for pulses abnormal Neuro oriented x3, CN's II-XII intact bilaterally and no sensory deficits noted Sensorium / Orientation: awake and alert Motor Exam: strength 5/5 throughout Psych mental status grossly normal Skin no rashes or lesions noted and no wounds Skin Narrative: There is some mild skin scaling in both feet anteriorly at the toes and webspaces consistent with athlete's foot, and there are a couple of splits in the skin on the right foot but nothing tender or erythematous or with a discharge and nothing appears to be infected. MDM MDM MDM Narrative Medical decision making narrative: Labs were obtained, including liver enzymes to assess albumin, pro-BNP to rule out acute congestive heart failure, and renal function. All results were normal. His creatinine is 1.28, which is lower than the previous level of 1.34. He has a very mild leukocytosis of 12.3 without a leftward shift, down from 16.5 a week ago. His lymphadenopathy is clinically resolved. He has had urinary frequency, his urinalysis is normal showing no glycosuria but he has a trace amount of blood and protein, both of which were seen on his urinalysis a week ago as well. Given that this is relatively mild right now and better than it was a week ago, I do not think this is necessarily consistent with nephrotic syndrome. He had a CT of the abdomen and pelvis that showed no other acute abnormalities, and he denies any current gastrointestinal symptoms. The etiology of his arthralgias is unclear. I am suggesting a short course of prednisone for the arthralgias and a short course of a diuretic for his edema. I do not suspect a DVT, as there is no calf tenderness, cords, or asymmetry. He agrees with this plan and has again been advised to follow up with his primary care provider, which he has not yet done. History & Record Review Additional record(s) reviewed:: Prior ED visit (With labs noted) Lab Data Attestation: I reviewed the patient's lab results. Labs: Laboratory Results - last 24 hr 02/14/25 02/14/25 03:53 04:00 WBC 12.3 H RBC 5.07 Hgb 13.6 Hct 41.5 MCV 81.9 MCH 26.8 L MCHC 32.8 RDW Std Deviation 38.3 RDW Coeff of [place] 12.9 Plt Count 359 MPV 9.9 Immature Gran % (Auto) 1.100 H Neut % (Auto) 58.5 Lymph % (Auto) 25.4 [place] % (Auto) 9.0 Eos % (Auto) 5.0 Baso % (Auto) 1.0 Absolute Neuts (auto) 7.2 Absolute Lymphs (auto) 3.12 Nucleated RBC % 0 Sodium 143 Potassium 3.2 L Chloride 106 Carbon Dioxide 23.4 Anion Gap 14 BUN 18 Creatinine 1.28 H Estim Creat Clear Calc 117.94 Est GFR (MDRD) Non-Af 76 BUN/Creatinine Ratio 13.8 Glucose 92 Calcium 9.2 Total Bilirubin 0.21 AST 28 ALT 31 Alkaline Phosphatase 46 NT pro BNP II < 36 Total Protein 7.6 Albumin 4.3 Globulin 3.3 Albumin/Globulin Ratio 1.3 Urine Color Yellow Urine Clarity Clear Urine pH 6.0 Ur Specific [place] 1.020 Urine Protein 15 H Urine Glucose (UA) Normal Urine Ketones Negative Urine Occult Blood 10 H Urine Nitrite Negative Urine Bilirubin Negative Urine Urobilinogen Normal Ur Leukocyte Esterase Negative Urine RBC 0 SEEN Urine WBC 0 SEEN Ur Squamous Epith Cells 0-5 SEEN Urine Bacteria 0 SEEN Urine Mucus 0 SEEN Discharge Plan Triage Chief Complaint: Edema ED Provider: Kush Cobb Dx/Rx/DC Orders Clinical Impression: Bilateral edema of lower extremity, Polyarthralgia, Proteinuria Instructions: ED Arthralgia, ED Peripheral Edema, Bilateral, ED Proteinuria Prescriptions: New prednisone 20 mg tablet 40 mg PO DAILY 4 Days Qty: 8 0RF furosemide [Lasix] 40 mg tablet 40 mg PO DAILY Qty: 5 0RF potassium chloride [K-Tab] 20 mEq tablet extended release 20 meq PO DAILY Qty: 5 0RF No Action acetaminophen [Tylenol] 325 mg tablet 650 mg PO Q6H PRN (Reason: pain) ibuprofen 600 mg tablet 600 mg PO Q6H PRN PRN (Reason: pain) Qty: 20 0RF cyclobenzaprine 10 mg tablet 10 mg PO TID PRN (Reason: Muscle Spasm) Qty: 90 1RF fenofibrate 54 mg tablet 54 mg PO QDAY Qty: 30 2RF amlodipine-olmesartan 10-20 mg tablet 1 tab PO QDAY Qty: 30 2RF Primary Care Provider: Polina Marcus Referrals: Polina Marcus MD [Primary Care Provider, Internal Medicine] - As soon as possible Print Language: Bulgarian Disposition Disposition: Home, Self Care
[2025-02-14 03:59] LABS: Mucous, Urine 0 SEEN /hpf (<or=2+); Red Blood Cells-Urine 0 SEEN /hpf (0-5)
[2025-02-14 04:01] LABS: Color, Urine Yellow (Yellow); Glucose, Dipstick Normal (Normal); Ketone-Dipstick Negative (Negative); Leukocyte Esterase-Dipstick Negative /ul (Negative); Nitrite-Dipstick Negative (Negative); Occult Blood-Urine 10 /ul (Negative); Protein-Dipstick 15 mg/dl (Negative); Specific Gravity, Urine 1.020 (1.002-1.030); Urine Bilirubin Dipstick Negative (Negative)
[2025-02-14 04:08] LABS: Hematocrit 41.5 % (40-54); Hemoglobin 13.6 g/dL (13.0-16.5); Immature Granulocytes Count 0.140 X10^3/uL (0.0-0.0); Mean Corp Hgb Conc 32.8 g/dL (32-36); Mean Corpuscular Volume 81.9 fL (80-94); Mean Platelet Vol. 9.9 fl (6.2-12.0); NRBC Flagged by Analyzer 0 % (0-5); Platelet Count 359 K/mm3 (150-450); RBC Distribution Width CV 12.9 % (11.6-14.6); RBC Distribution Width SD 38.3 fl (35.1-43.9); Red Blood Count 5.07 M/mm3 (4.6-6.2); White Blood Count 12.3 K/mm3 (4.4-11.0)
[2025-02-14 04:28] LABS: AST(SGOT) 28 U/L (<=37); Alanine Aminotransfer ALT/SGPT 31 U/L (<=46); Albumin, Serum 4.3 g/dL (3.5-5.0); Alkaline Phosphatase 46 U/L (40-129); Anion Gap 14 (5-15); BUN 18 mg/dL (4-19); BUN/Creat Ratio 13.8 RATIO (10-20); Calcium,Total 9.2 mg/dL (7.6-11.0); Carbon Dioxide 23.4 mmol/L (21.0-32.0); Chloride 106 mmol/L (98-108); Estimated Creatinine Clearance 117.94 ml/min (50-250); Globulin 3.3 g/dL (2.2-4.2); Glucose 92 mg/dL (70-99); Potassium 3.2 mmol/L (3.3-5.1); Pro- Brain NATRIURETIC PEPTIDE < 36 pg/mL (<=450)
[2025-02-14 05:19] LABS: Squamous Epithelial Cells - UA 0-5 SEEN /hpf (0-5)
[2025-02-14 05:56] VITALS: BP 155/90; PULSE 16; RESP 16; TEMP 36.7; O2SAT 100
== END 2025-02-14 05:57 | disposition home or self-care (01) ==
PROVIDERS: Emergency Provider Emergency Medicine; PCP Internal Medicine; Visit Provider Emergency Medicine
DX: R60.0 Localized edema (principal); R80.9 Proteinuria, unspecified; M25.561 Pain in right knee; M25.571 Pain in right ankle and joints of right foot; M25.562 Pain in left knee; M25.572 Pain in left ankle and joints of left foot; I10 Essential (primary) hypertension; Z79.899 Other long term (current) drug therapy; Z87.891 Personal history of nicotine dependence
CPT/HCPCS: 80053; 81001; 83880; 85025; 99282; A4216